=== PATIENT | male | born 1965 | race Caucasian/White ===

== ENCOUNTER 2022-10-21 10:01 | Observation (INO) | payer OTHER ==
[2022-10-21] MEDS ORDERED: SODIUM CHLORIDE 0.9% 1,000 ML IV STA (10:37)
[2022-10-21] MEDS ORDERED: ASPIRIN 325 MG TAB PO STA (10:38)
--- NOTE | 2022-10-21 10:49 | ED ---
Chest Pain HPI - General Chief Complaint: Chest Pain Stated Complaint: Chest Pain,SOB Time Seen by Provider: 10/21/22 10:37 Source: patient Mode of arrival: ambulatory Limitations: no limitations - History of Present Illness Initial Comments: Patient is a 57-year-old male who presents to the emergency department for shortness of breath. It started around 3 AM today. Patient feels short of breath at rest. He reports mild chest tightness. No precipitating, alleviating, or exacerbating factors. No numbness or tingling. No nausea or vomiting. No calf pain or swelling. No fever, chills, cough. He has history of hypertension, diabetes, atrial fibrillation. He admits to noncompliance with Eliquis. He denies history of DVT and PE. Denies hormone replacement, airplane travel, surgical interventions, known cancers, family history of clotting. He is a tobacco user. He does admit to recent long car ride travel approximately 6 hours on 2 different occasions over the past couple weeks. Patient also complains of foot pain and swelling after dropping wood on it 3 weeks ago. Patient did not get injury evaluated he has been walking on it with minimal pain. States the injury has not caused any immobilization. - Related Data Home Medications Medication Instructions Recorded Confirmed Apixaban [Eliquis] 5 mg PO BID 10/21/22 10/21/22 Aspirin 81 mg PO DAILY 10/21/22 10/21/22 Atorvastatin Calcium [Lipitor] 40 mg PO DAILY 10/21/22 10/21/22 Insulin Glargine [Lantus Vial] 20 unit SQ QAM 10/21/22 10/21/22 Insulin Regular [HumuLIN R] See Protocol SQ AC-TID 10/21/22 10/21/22 Lisinopril-Hctz 20-25 mg 1 tab PO DAILY 10/21/22 10/21/22 [Zestoretic 20-25] Metoprolol Succinate [Toprol XL] 50 mg PO DAILY 10/21/22 10/21/22 glipiZIDE [Glucotrol] 10 mg PO BID 10/21/22 10/21/22 metFORMIN HCL [Glucophage] 1,000 mg PO BID 10/21/22 10/21/22 Allergies Allergy/AdvReac Type Severity Reaction Status Date / Time No Known Allergies Allergy Verified 10/21/22 11:55 Review of Systems ROS Statement: Those systems with pertinent positive or pertinent negative responses have been documented in the HPI. ROS Other: All systems not noted in ROS Statement are negative. Past Medical History Past Medical History: Diabetes Mellitus, Hypertension History of Any Multi-Drug Resistant Organisms: None Reported Past Psychological History: No Psychological Hx Reported Smoking Status: Current every day smoker Past Alcohol Use History: Occasional Past Drug Use History: None Reported General Exam Limitations: no limitations General appearance: alert, other (mild increased work of breathing ) Respiratory exam: Present: normal lung sounds bilaterally. Absent: respiratory distress, wheezes, rales, rhonchi, stridor Cardiovascular Exam: Present: regular rate, normal rhythm, normal heart sounds. Absent: systolic murmur, diastolic murmur, rubs, gallop, clicks Extremities exam: Present: other (Mild swelling and erythema of left foot near first metatarsal. DP 2+. Sensation intact full range of motion) Course Vital Signs 10/21/22 10/21/22 10/21/22 10:06 10:39 12:12 Temperature 97.8 F Pulse Rate 80 73 Respiratory 22 19 16 Rate Blood Pressure 148/97 130/91 O2 Sat by Pulse 98 95 Oximetry Procedures - Orthopedic Splinting/Casting Injury #1 Lower Extremity Immobilizer: posterior splint Chest Pain MDM - [facility] EKG taken at 10:14, interpreted myself Sinus rhythm, no ST segment or T-wave abnormality Ventricular rate 76, OH interval 174, QRS duration 95, QTC 438 Was pt. sent in by a medical professional or institution (, [facility], APPLIED RESEARCHER, urgent care, hospital, or retirement...) When possible be specific @ -No Did you speak to anyone other than the patient for history (EMS, parent, family, police, friend...)? What history was obtained from this source @ -No Did you review nursing and triage notes (agree or disagree)? Why? @ -I reviewed and agree with nursing and triage notes Were old charts reviewed (outside hosp., previous admission, EMS record, old EKG, old radiological studies, urgent care reports/EKG's, retirement records)? Report findings @ -No old charts were reviewed Differential Diagnosis (chest pain, altered mental status, abdominal pain women, abdominal pain men, vaginal bleeding, weakness, fever, dyspnea, syncope, headache, dizziness, GI bleed, back pain, seizure, CVA, palpatations, mental health)? @ -Differential Dyspnea: Coronary syndrome, arrhythmia, tamponade, asthma, COPD, pulmonary embolism, pneumonia, pneumothorax, pulmonary effusion, anaphylaxis, diabetic ketoacidosis, flailed chest, pulmonary contusion, diaphragmatic rupture, anemia, neuromuscular, this is not meant to be an all-inclusive list. EKG interpreted by me (3pts min.). @ -As above X-rays interpreted by me (1pt min.). @ -X-ray shows no acute cardiopulmonary process. Left foot x-ray shows fracture of left first metatarsal which is displaced CT interpreted by me (1pt min.). @ -Few small scattered filling defects within second third order branches of the upper lobe pulmonary artery small pulmonary emboli difficult to exclude. Scattered groundglass infiltrates with pleural effusion U/S interpreted by me (1pt. min.). @ -None done What testing was considered but not performed or refused? (CT, X-rays, U/S, labs)? Why? @ -None What meds were considered but not given or refused? Why? @ -None Did you discuss the management of the patient with other professionals (professionals i.e. , PA, APPLIED RESEARCHER, lab, RT, psych nurse, social worker clinical, department store general manager, teacher, global chief creative officer, case management manager)? Give summary @ -No Was smoking cessation discussed for >3mins.? @ -No Was critical care preformed (if so, how long)? @ -No Were there social determinants of health that impacted care today? How? (Homelessness, low income, unemployed, alcoholism, drug addiction, transportation, low edu. Level, literacy, decrease access to med. care, usp, rehab)? @ -No Was there de-escalation of care discussed even if they declined (Discuss DNR or withdrawal of care, Hospice)? DNR status @ -No What co-morbidities impacted this encounter? (DM, HTN, Smoking, COPD, CAD, Cance r, CVA, ARF, Chemo, Hep., AIDS, mental health diagnosis, sleep apnea, morbid obesity)? @ -None Was patient admitted / discharged? Hospital course, mention meds given and route, prescriptions, significant lab abnormalities, going to OR and other pertinent info. @ -Patient presenting for dyspnea and chest tightness. There patient is well-appearing there is mild increased work of breathing without use accessory muscles. Vitals are within acceptable limits. EKG interpreted by myself showing no evidence of acute ischemia. Troponin within normal limits. D-dimer is elevated 0.78. CT of the chest was obtained showing concern for small pulmonary emboli. There was also scattered groundglass infiltrates with pleural effusions. Clinical presenttation not consistent with pneumonia. Heparin ordered but after speaking with Dr. Wakefield the admitting attending I will defer treatment to him as he requests Eliquis instead of heparin. Patient admitted in stable condition. Orthopedic consult was also ordered due to left first metatarsal fracture with displacement patient is in posterior splint Undiagnosed new problem with uncertain prognosis? @ -No Drug Therapy requiring intensive monitoring for toxicity (Heparin, Nitro, Insulin, Cardizem)? @ -No Were any procedures done? @ -Yes, splinting Diagnosis/symptom? @Dyspnea, left first metatarsal fracture Acute, or Chronic, or Acute on Chronic? @ -Acute Uncomplicated (without systemic symptoms) or Complicated (systemic symptoms)? @ -default Side effects of treatment? @ -No Exacerbation, Progression, or Severe Exacerbation? @ -No Poses a threat to life or bodily function? How? (Chest pain, [place], [place], pneumonia, PE, COPD, DKA, ARF, appy, cholecystitis, CVA, Diverticulitis, Homicidal, Suicidal, threat to staff... and all critical care pts) @ -Yes Dr. Galdamez is my attending. Disposition Clinical Impression: Dyspnea, Metatarsal fracture Disposition: ADMITTED IP TO THIS HOSP Condition: Stable
[2022-10-21 11:00] LABS: Basophils % (A) 0 %; Eosinophils # (A) 0.2 k/uL (0-0.7); Eosinophils % (A) 2 %; HCT 40.1 % (39.0-53.0); HGB 13.3 gm/dL (13.0-17.5); Lymphocytes # (A) 1.8 k/uL (1.0-4.8); Lymphocytes % (A) 20 %; MCH 30.1 pg (25.0-35.0); MCHC 33.2 g/dL (31.0-37.0); MCV 90.5 fL (80.0-100.0); Mean Platelet Volume 8.6; Monocytes # (A) 0.7 k/uL (0-1.0); Monocytes % (A) 7 %; Neutrophils # (A) 6.2 k/uL (1.3-7.7); Neutrophils % (A) 68 %; Platelet Count 246 k/uL (150-450); RBC 4.43 m/uL (4.30-5.90); RDW 13.9 % (11.5-15.5); WBC 9.1 k/uL (3.8-10.6)
--- NOTE | 2022-10-21 11:05 | XR ---
EXAMINATION TYPE: XR chest 2V DATE OF EXAM: 10/21/2022 COMPARISON: NONE HISTORY: Shortness of breath TECHNIQUE: Frontal and lateral views of the chest are obtained. FINDINGS: Scattered senescent parenchymal changes noted. Hyperinflation compatible with COPD. No evidence for infiltrate. No evidence for atelectasis. Heart size is mildly enlarged. Mediastinal structures are stable and grossly unremarkable. No evidence for hilar prominence. Degenerative changes dorsal spine. IMPRESSION: 1. No evidence for acute pulmonary disease.
--- NOTE | 2022-10-21 11:07 | XR ---
EXAMINATION TYPE: XR foot complete LT DATE OF EXAM: 10/21/2022 CLINICAL HISTORY: pain TECHNIQUE: Frontal, lateral and oblique images of the left foot are obtained. COMPARISON: None. FINDINGS: Displaced fracture involving the diaphysis of the proximal one third of the left first meta tarsal. Displacement of approximately 5.3 mm. No additional fractures are seen at this time. There is soft tissue swelling noted. Joint spaces are well preserved. IMPRESSION: Fracture of the left first metatarsal as discussed above.
[2022-10-21 11:16] LABS: ALT 41 U/L (4-49); AST 28 U/L (17-59); African American GFR (CKD) >90 (>60 ml/min/1.73 sqM); Albumin 3.8 g/dL (3.5-5.0); Alkaline Phosphatase 124 U/L (38-126); Anion Gap 8 mmol/L; Blood Urea Nitrogen 31 mg/dL (9-20); Calcium 8.9 mg/dL (8.4-10.2); Carbon Dioxide 23 mmol/L (22-30); Chloride 108 mmol/L (98-107); Glucose 205 mg/dL (74-99); Lipase 90 U/L (23-300); Non-African American GFR(CKD) >90 (>60 ml/min/1.73 sqM); Potassium 3.9 mmol/L (3.5-5.1); Sodium 139 mmol/L (137-145); Total Bilirubin 0.4 mg/dL (0.2-1.3); Total Protein 6.7 g/dL (6.3-8.2)
[2022-10-21 11:42] LABS: INR 0.9 (<1.2); Partial Thromboplastin Time 23.4 sec (22.0-30.0); Prothrombin Time 9.8 sec (9.0-12.0)
[2022-10-21 12:02] LABS: Appearance,Urine Clear (Clear); Bilirubin,Urine Negative (Negative); Blood,Urine Negative (Negative); Color,Urine Yellow; Glucose,Urine (UA) 3+ (Negative); Ketones,Urine Negative (Negative); Leukocyte Esterase,Urine Negative (Negative); Nitrite,Urine Negative (Negative); PH, Urine 5.5 (5.0-8.0); Protein,Urine Negative (Negative); Specific Gravity,Urine 1.022 (1.001-1.035); Urobilinogen,Urine <2.0 mg/dL (<2.0)
--- NOTE | 2022-10-21 14:08 | CT ---
EXAMINATION TYPE: CT chest angio for PE DATE OF EXAM: 10/21/2022 COMPARISON: None HISTORY: SOB, chest pain CT DLP: 936.9 mGycm CONTRAST: CT chest with contrast and 3D reconstruction with MIP imaging is performed with IV Contrast, patient injected with 100 mL of Isovue 370. Contrast-enhanced CT of the chest was performed through the course of the pulmonary arteries with armando g and mediastinal window settings submitted. 3D reconstruction with MIP imaging was also performed. PULMONARY ARTERIES: There are few small scattered filling defects within second and third order branc hes of the upper lobe pulmonary arteries. Small pulmonary emboli are difficult to exclude. There is n o evidence for sagittal embolus or large central embolus. LUNGS: Patient breathing motion artifact limits evaluation. There are small bilateral pleural effusi ons with diffuse scattered groundglass infiltrates with could be related to edema or acute pulmonary inflammatory process. MEDIASTINUM: Thoracic aorta is of normal caliber. The heart is mildly enlarged. No evidence for med iastinal mass. No mediastinal lymph nodes greater than 1cm. HILAR STRUCTURES: No evidence for mass. No hilar lymph nodes greater than 1 cm. UPPER ABDOMEN: No significant abnormality is seen. IMPRESSION: 1. There are few small scattered filling defects within second and third order branches of the upper lobe pulmonary arteries. Small pulmonary emboli are difficult to exclude. There is no evidence for s agittal embolus or large central embolus. 2. Scattered groundglass infiltrates with pleural effusions. Correlate for acute edema or pulmonary i nflammatory process.
[2022-10-21] MEDS ORDERED: HEPARIN SODIUM 1,000 UN/ML (10ML VL) IV ONE (14:25)
[2022-10-21] MEDS ORDERED: HEPARIN SODIUM 1,000 UN/ML (10ML VL) IV PRN (14:25)
[2022-10-21] MEDS ORDERED: HEPARIN SOD,PORK IN 0.45% NACL 25,000 UNIT in 0.45% NACL 1 250ML.BAG IV SCH (14:30)
[2022-10-21] MEDS ORDERED: NALOXONE 0.4 MG/ML 1 ML VIAL IV PRN (14:39)
[2022-10-21] MEDS: APIXABAN 5 MG TAB PO SCH ×2 (14:58→20:37)
[2022-10-21] MEDS ORDERED: DEXTROSE 50% SYRINGE 50 ML IVP PRN ×2 (15:40)
[2022-10-21] MEDS: SODIUM CHLORIDE 0.9% 1,000 ML IV SCH (15:44)
--- NOTE | 2022-10-21 16:18 | P.HPIM ---
History of Present Illness H&P Date: 10/21/22 Patient is a 57-year-old male with history of atrial fibrillation on Eliquis, medication noncompliance, dyslipidemia, type 2 diabetes, insulin-dependent, presenting with shortness of breath. He claims that his shortness of breath has been going on for almost one year. However, his dyspnea worsened this morning. He is unsure if he has any chest tightness or chest pain with dyspnea. He denies any pleuritic pain. He denies any orthopnea, PND, long flights, sick contacts, fevers, chills, abdominal pain, nausea, vomiting, or urinary complaints. He did drop a log on his left foot 4 weeks ago, and has been noticing some foot swelling. He has not gotten any x-rays or imaging for the foot. He currently only takes Eliquis once a day. In the ED, temperature was 97.8, pulse 80, respiratory rate 22, blood pressure 148/97, saturating at 90% on room air. EKG showed normal sinus rhythm. Chest x-ray showed no acute process. Laboratory workup showed WBC 9.1, hemoglobin 13.3, sodium 139, chloride 108, creatinine 0.67, glucose 205, troponin negative, d-dimer 0.78. Chest CTA showed a few small scattered filling defects within second and third order branches of the upper lobe pulmonary arteries, small pulmonary emboli difficult to exclude, scattered groundglass infiltrates with pleural effusions. Left foot x-ray shows fracture of the left first metatarsal. Patient being admitted for chest pain likely secondary to pulmonary embolism, and left foot fracture. Pertinent positives and negatives as discussed in HPI, a complete review of systems was performed and all other systems are negative. Patient seen and examined at bedside. Vital signs reviewed General: nontoxic, no distress, appears at stated age, morbidly obese Derm: warm, dry Head: atraumatic, normocephalic, symmetric Eyes: EOMI, no lid lag, anicteric sclera, pupils equal round reactive to light ENT: Nose and ears atraumatic Neck: No thyromegaly, supple Mouth: no lip lesion, mucus membranes moist Cardiovascular: S1S2 reg, no murmur, no edema Lungs: clear to auscultation bilateral, no rhonchi, no rales, no wheeze, no accessory muscle use Abdominal: soft, nontender to palpation, no guarding, no appreciable organomegaly Ext: no gross muscle atrophy, muscle strength muscle strength 5 out of 5 in all 4 extremities, no contractures, left foot tenderness Neuro: CN II-XII grossly intact Psych: Alert, oriented, appropriate affect Assessment/Plan: Active: Dyspnea, likely multifactorial Suspected pulmonary emboli, non-massive Medication noncompliance History of atrial fibrillation Elevated d-dimer Left first metatarsal fracture, traumatic Insulin-dependent diabetes, hyperglycemia Nicotine dependence -Patient is noncompliant with medications, restarted Eliquis -Hemodynamically stable -Blood counts stable -Not requiring any oxygen -Concern for possible pulmonary hypertension, echocardiogram ordered -He may have component of restrictive lung disease as well, 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 Surrogate decision-maker: Father CODE STATUS: Full code DVT prophylaxis: Eliquis Anticipated discharge date: Pending clinical course Anticipated discharge place: Pending clinical course A total of 55 minutes was spent on the care of this complex patient more than 50% of the time was spent in counseling and care coordination. Past Medical History Past Medical History: Diabetes Mellitus, Hypertension History of Any Multi-Drug Resistant Organisms: None Reported Past Psychological History: No Psychological Hx Reported Smoking Status: Current every day smoker Past Alcohol Use History: Occasional Past Drug Use History: None Reported Medications and Allergies Home Medications Medication Instructions Recorded Confirmed Type Apixaban [Eliquis] 5 mg PO BID 10/21/22 10/21/22 History Aspirin 81 mg PO DAILY 10/21/22 10/21/22 History Atorvastatin Calcium [Lipitor] 40 mg PO DAILY 10/21/22 10/21/22 History Insulin Glargine [Lantus Vial] 20 unit SQ QAM 10/21/22 10/21/22 History Insulin Regular [HumuLIN R] See Protocol SQ AC-TID 10/21/22 10/21/22 History Lisinopril-Hctz 20-25 mg 1 tab PO DAILY 10/21/22 10/21/22 History [Zestoretic 20-25] Metoprolol Succinate [Toprol XL] 50 mg PO DAILY 10/21/22 10/21/22 History glipiZIDE [Glucotrol] 10 mg PO BID 10/21/22 10/21/22 History metFORMIN HCL [Glucophage] 1,000 mg PO BID 10/21/22 10/21/22 History Allergies Allergy/AdvReac Type Severity Reaction Status Date / Time No Known Allergies Allergy Verified 10/21/22 11:55 Physical Exam Vitals: Vital Signs Temp Pulse Resp BP Pulse Ox 10/21/22 12:12 73 16 130/91 95 10/21/22 10:39 19 10/21/22 10:06 97.8 F 80 22 148/97 98 Intake and Output 10/21/22 10/21/22 10/21/22 06:59 14:59 22:59 Other: Weight 136.078 kg Results CBC & Chem 7: 10/21/22 10:37 10/21/22 10:37 Labs: Abnormal Lab Results - Last 24 Hours (Table) 10/21/22 10/21/22 10/21/22 Range/Units 10:37 10:37 11:30 D-Dimer 0.78 H (<0.60) mg/L FEU Chloride 108 H (98-107) mmol/L BUN 31 H (9-20) mg/dL Glucose 205 H (74-99) mg/dL Urine Glucose (UA) 3+ H (Negative)
[2022-10-21 16:58] LABS: Glucose,Whole Blood 130 mg/dL (70-110)
[2022-10-21] MEDS: INSULIN ASPART (NovoLOG) 100 UNIT/ML VIAL SQ SCH ×2 (17:16→20:37)
[2022-10-21 20:31] LABS: Glucose,Whole Blood 187 mg/dL (70-110)
[2022-10-22] MEDS: SODIUM CHLORIDE 0.9% 1,000 ML IV SCH (00:27)
[2022-10-22 06:13] LABS: Glucose,Whole Blood 177 mg/dL (70-110)
[2022-10-22] MEDS: INSULIN ASPART (NovoLOG) 100 UNIT/ML VIAL SQ SCH ×3 (06:40→17:04)
[2022-10-22] MEDS ORDERED: INSULIN DETEMIR (LEVEMIR) 100 UNIT/ML SYR SQ SCH (07:00)
[2022-10-22] MEDS: APIXABAN 5 MG TAB PO SCH (07:58)
[2022-10-22] MEDS ORDERED: METOPROLOL SUCCINATE (ER) 50 MG TAB.ER.24H PO SCH (09:00)
[2022-10-22] MEDS ORDERED: ATORVASTATIN 40 MG TAB PO SCH (09:00)
[2022-10-22] MEDS ORDERED: ASPIRIN 81 MG PO SCH (09:00)
[2022-10-22] MEDS ORDERED: LISINOPRIL-HCTZ 20-25 MG 1 EACH TAB PO SCH (09:00)
--- NOTE | 2022-10-22 09:11 | P.CNOR ---
History of Present Illness - [facility] Consult date: 10/22/22 Requesting physician: Reyes Wakefield Consult reason: other (Left first metatarsal fracture) History of present illness: History of Presenting Illness Patient is a pleasant 57-year-old male who presents to the ER with shortness of breath and left foot swelling. Patient reports approx 4 weeks ago he was cutting wood and balanced a 15ft tree up on other stumps to begin cutting into logs and it rolled and fell onto his left foot. He did attempt to seek medical attention with [facility] and was told he needed a referral. Patient states he had no prior treatment or films. He does live at home with his family and is normally independent. Patient states he has borrowed his brothers walking boot periodically over the past few weeks. Patient does admit to being noncompliant with his medications. He does have a medical history of h ypertension, atrial fibrillation on Eliquis, dyslipidemia, type 2 diabetes, insulin-dependent. Patient denies any orthopedic history at this time. Patient seen and examined this morning. Patient is currently resting in bed. Left foot is elevated on pillow, splint is intact with ramos wrap. Patient does state that he has been ambulatory on LLE. Patient denies any pain at this time. He does report mild numbness and tingling to his left foot, but does state that this is normal for him. Review of Systems Pertinent positives and negatives as discussed in HPI, a complete review of systems was performed and all other systems are negative. Physical Examination Inspection: Negative for any open fractures, ecchymosis, significant erythema/ulcers. Sensation: Sensation is equal, symmetric, bilaterally intact throughout the upper and lower extremities Palpation: Tender to palpation of the left foot over the first metatarsal. Range of motion: Patient does have full range of motion bilateral upper and lo wer extremities on exam Motor: 5/5 in all major motor groups in the bilateral upper and lower extre mities Special tests: Negative Homans bilaterally. Negative Brad bilaterally. Negative clonus bilaterally. Neurovascular: Radial pulse intact, 2+ bilaterally. Cap refill under 3 seconds in digits upper extremities. Assessment and Plan Left foot xray demonstrates a displaced fracture involving the diaphysis of the proximal one third of the left first metatarsal. Displacement of approximately 5.3 mm. No additional fractures are seen at this time. There is soft tissue swelling noted. Joint spaces are well preserved. Left first metatarsal fracture, traumatic injury Multiple complex comorbidities At this time we do not recommend any emergent/urgent orthopedic surgical intervention. Patient will need to follow up with a security assurance specialist at discharge. Orthopedics is signing off at this time. Please do not hesitate to contact us for any further questions. 2. Appreciate medical management 3. Pain management - Continue with oral pain medications as needed 4. DVT prophylaxis - Eliquis per medicine 5. PT/OT - weightbearing as tolerated with a walker as needed. CAM walker boot script left in chart. Patient to wear at all times, not in shower. 6. Appreciate consult I reviewed and discussed this case with my attending Dr. Davis, whom has reviewed this chart and films and is in agreement with assessment and plan of care as outlined above. I have personally seen and examined the patient, performed the documentation and the assessment and plan as written. Number of minutes spent on the visit: 20m. Past Medical History Past Medical History: Atrial Fibrillation, Diabetes Mellitus, Hypertension History of Any Multi-Drug Resistant Organisms: None Reported Past Surgical History: No Surgical Hx Reported Past Psychological History: No Psychological Hx Reported Smoking Status: Current every day smoker Past Alcohol Use History: Occasional Past Drug Use History: None Reported Medications and Allergies Home Medications Medication Instructions Recorded Confirmed Type Apixaban [Eliquis] 5 mg PO BID 10/21/22 10/21/22 History Aspirin 81 mg PO DAILY 10/21/22 10/21/22 History Atorvastatin Calcium [Lipitor] 40 mg PO DAILY 10/21/22 10/21/22 History Insulin Glargine [Lantus Vial] 20 unit SQ QAM 10/21/22 10/21/22 History Insulin Regular [HumuLIN R] See Protocol SQ AC-TID 10/21/22 10/21/22 History Lisinopril-Hctz 20-25 mg 1 tab PO DAILY 10/21/22 10/21/22 History [Zestoretic 20-25] Metoprolol Succinate [Toprol XL] 50 mg PO DAILY 10/21/22 10/21/22 History glipiZIDE [Glucotrol] 10 mg PO BID 10/21/22 10/21/22 History metFORMIN HCL [Glucophage] 1,000 mg PO BID 10/21/22 10/21/22 History Allergies Allergy/AdvReac Type Severity Reaction Status Date / Time No Known Allergies Allergy Verified 10/21/22 11:55 Results - Labs Labs: Abnormal Lab Results - Last 24 Hours (Table) 10/21/22 10/21/22 10/21/22 Range/Units 10:37 10:37 11:30 D-Dimer 0.78 H (<0.60) mg/L FEU Chloride 108 H (98-107) mmol/L BUN 31 H (9-20) mg/dL Glucose 205 H (74-99) mg/dL POC Glucose (mg/dL) (70-110) mg/dL Urine Glucose (UA) 3+ H (Negative) 10/21/22 10/21/22 10/22/22 Range/Units 16:56 20:29 06:12 D-Dimer (<0.60) mg/L FEU Chloride (98-107) mmol/L BUN (9-20) mg/dL Glucose (74-99) mg/dL POC Glucose (mg/dL) 130 H 187 H 177 H (70-110) mg/dL Urine Glucose (UA) (Negative) H & H 10/21/22 Range/Units 10:37 Hgb 13.3 (13.0-17.5) gm/dL Hct 40.1 (39.0-53.0) % Coagulation 10/21/22 Range/Units 10:37 INR 0.9 (<1.2) Result Diagrams: 10/21/22 10:37 10/21/22 10:37
[2022-10-22 11:32] LABS: Glucose,Whole Blood 259 mg/dL (70-110)
[2022-10-22 11:35] LABS: Basophils # (A) 0.05 X 10*3/uL (0.00-0.10); Basophils % (A) 0.5 %; Eosinophils # (A) 0.19 X 10*3/uL (0.04-0.35); HCT 40.1 % (39.6-50.0); HGB 13.6 d/dL (12.0-15.0); Lymphocytes # (A) 2.05 X 10*3/uL (0.90-5.00); Lymphocytes % (A) 21.3 %; MCHC 33.9 d/dL (32.0-37.0); MCV 88.5 FL (80.0-97.0); Mean Platelet Volume 11.3 FL (9.5-12.2); Monocytes # (A) 0.82 X 10*3/uL (0.20-1.00); Monocytes % (A) 8.5 %; NRBC Per 100 WBC 0 X 10*3/uL (0.00-0.01); Neutrophils # (A) 6.45 X 10*3/uL (1.80-7.70); Platelet Count 260 X 10*3/uL (140-440); RBC 4.53 X 10*6/uL (4.40-5.60); RDW 13.7 % (11.5-14.5); WBC 9.63 X 10*3/uL (4.50-10.00)
--- NOTE | 2022-10-22 13:03 | P.PN ---
Subjective Progress Note Date: 10/22/22 Hospital Course: 57-year-old male with history of atrial fibrillation on Eliquis, medication noncompliance, dyslipidemia, type 2 diabetes, insulin-dependent, presenting with shortness of breath. In the ED, temperature was 97.8, pulse 80, respiratory rate 22, blood pressure 148/97, saturating at 90% on room air. EKG showed normal sinus rhythm. Chest x-ray showed no acute process. Laboratory workup showed WBC 9.1, hemoglobin 13.3, sodium 139, chloride 108, creatinine 0.67, glucose 205, troponin negative, d-dimer 0.78. Chest CTA showed a few small scattered filling defects within second and third order branches of the upper lobe pulmonary arteries, small pulmonary emboli difficult to exclude, scattered groundglass infiltrates with pleural effusions. Left foot x-ray shows fracture of the left first metatarsal. Patient being admitted for dyspnea, likely multifactorial, suspected pulmonary embolism, and left foot fracture. Subjective: Patient seen and examined at bedside. No acute events overnight. He claims that his dyspnea is still about the same. Pertinent positives and negatives as discussed above, a complete review of systems was performed and all other systems are negative. Vitals Signs Reviewed. General: nontoxic, no distress, appears at stated age, morbidly obese Derm: warm, dry Head: atraumatic, normocephalic, symmetric Eyes: EOMI, no lid lag, anicteric sclera, pupils equal round reactive to light ENT: Nose and ears atraumatic Neck: No thyromegaly, supple Mouth: no lip lesion, mucus membranes moist Cardiovascular: S1S2 reg, no murmur, no edema Lungs: clear to auscultation bilateral, no rhonchi, no rales, no wheeze, no accessory muscle use Abdominal: soft, nontender to palpation, no guarding, no appreciable organomegaly Ext: no gross muscle atrophy, muscle strength muscle strength 5 out of 5 in all 4 extremities, no contractures, left foot tenderness Neuro: CN II-XII grossly intact Psych: Alert, oriented, appropriate affect Data Reviewed Today: Pertinent Labs: WBC 9.63, hemoglobin 13.6, glucose range between 130 to 259, hemoglobin A1c 8.3, troponin negative Imaging: No new imaging today Assessment and Plan: Dyspnea, likely multifactorial Suspected pulmonary emboli, non-massive Medication noncompliance History of atrial fibrillation Elevated d-dimer Left first metatarsal fracture, traumatic Insulin-dependent diabetes, hyperglycemia Nicotine dependence -On Eliquis -Not requiring any oxygen -Concern for possible pulmonary hypertension, echocardiogram still pending -He may have component of restrictive lung disease as well, 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 as morbid obesity -Telemetry -Orthopedic surgery note review, no acute interventions, CAM walker boot prescription provided, patient to see a football scout outpatient -Glargine 20 units, sliding scale insulin -Counseled regarding cessation of smoking Chronic: Dyslipidemia Hypertension DVT ppx: Eliquis Code status: Full code Anticipated discharge place: Home Anticipated discharge time: Today or tomorrow Objective - Vital Signs Vital signs: Vital Signs Temp 97.9 F 10/22/22 06:54 Pulse 74 10/22/22 06:54 Resp 16 10/22/22 06:54 BP 154/91 10/22/22 06:54 Pulse Ox 95 10/22/22 07:44 FiO2 21 10/22/22 07:44 Intake & Output 10/21/22 10/22/22 10/22/22 18:59 06:59 18:59 Weight 136.078 kg 136.078 kg Other: # Voids 2 - Labs CBC & Chem 7: 10/22/22 06:56 10/21/22 10:37 Labs: Abnormal Lab Results - Last 24 Hours (Table) 10/21/22 10/21/22 10/22/22 Range/Units 16:56 20:29 06:12 POC Glucose (mg/dL) 130 H 187 H 177 H (70-110) mg/dL Hemoglobin A1c (<=6.0) % 10/22/22 10/22/22 Range/Units 06:56 11:31 POC Glucose (mg/dL) 259 H (70-110) mg/dL Hemoglobin A1c 8.3 H (<=6.0) %
--- NOTE | 2022-10-22 13:22 | CA ---
Transthoracic Echo Report Name: Jez Rogel Age: 57 Gender: M : 1965 Exam Date: 10/22/2022 08:20 Exam Location: [place] [facility] Ht (in): 74 Wt (lb): 300 Ordering Physician: Reyes Wakefield MD Attending/Referring Phys: Mangle Catcher Lashae Vera [facility] Procedure CPT: Indications: dyspnea Cardiac Hx: Technical Quality: Technically difficult study Contrast 1: Lumason Total Dose (mL): 5 Contrast 2: Total Dose (mL): MEASUREMENTS (Male / Female) Normal Values 2D ECHO LV Diastolic Diameter PLAX 5.4 cm 4.2 - 5.9 / 3.9 - 5.3 cm LV Systolic Diameter PLAX 4.1 cm IVS Diastolic Thickness 0.9 cm 0.6 - 1.0 / 0.6 - 0.9 cm LVPW Diastolic Thickness 1.0 cm 0.6 - 1.0 / 0.6 - 0.9 cm LV Relative Wall Thickness 0.3 M-MODE Aortic Root Diameter MM 5.6 cm LA Systolic Diameter MM 2.4 cm LA Ao Ratio MM 0.4 AV Cusp Separation MM 2.6 cm DOPPLER AV Peak Velocity 155.1 cm/s AV Peak Gradient 9.6 mmHg AV Mean Velocity 115.7 cm/s AV Mean Gradient 5.8 mmHg AV Velocity Time Integral 33.2 cm LVOT Peak Velocity 109.0 cm/s LVOT Peak Gradient 4.8 mmHg LVOT Velocity Time Integral 19.8 cm Mitral E Point Velocity 94.5 cm/s Mitral A Point Velocity 75.8 cm/s Mitral E to A Ratio 1.2 MV Deceleration Time 267.8 ms LV E' Lateral Velocity 10.0 cm/s Mitral E to LV E' Lateral Ratio 9.5 LV E' Septal Velocity 9.1 cm/s Mitral E to LV E' Septal Ratio 10.4 TR Peak Velocity 295.2 cm/s TR Peak Gradient 34.8 mmHg Right Atrial Pressure 8.0 mmHg Pulmonary Artery Systolic Pressu 42.8 mmHg Right Ventricular Systolic Press 42.8 mmHg FINDINGS Left Ventricle Normal wall thickness, systolic function with no obvious regional wall motion abnormalities. Left ventricular ejection fraction is estimated at 55%. Mild left ventricular dilatation. Right Ventricle Mild right ventricular dilatation. Moderate pulmonary hypertension. Right Atrium Mild right atrial dilatation. Left Atrium Moderate left atrial dilatation. Mitral Valve Structurally normal mitral valve. Brac-sf-urdwppit mitral regurgitation. Aortic Valve Aortic valve not well visualized. Trace aortic regurgitation. No aortic stenosis. Tricuspid Valve Tricuspid valve not well visualized. Mild tricuspid regurgitation. Pulmonic Valve Pulmonic valve not well visualized. Trace pulmonic regurgitation. Pericardium No pericardial effusion. Aorta Mild aortic dilatation at the level of the sinuses of valsalva (root). CONCLUSIONS Left ventricular ejection fraction 55% RVSP 42 Mild to moderate mitral regurgitation Moderate left atrial dilation Mild tricuspid regurgitation No pericardial effusion Previewed by: Dr. David Lentz DO (Electronically Signed) Final Date: 22 October 2022 13:21
[2022-10-22 14:58] VITALS: BP 165/98; PULSE 70; RESP 17; TEMP 98.6
[2022-10-22 16:21] LABS: Glucose,Whole Blood 262 mg/dL (70-110)
--- NOTE | 2022-10-22 16:42 | P.PN ---
Subjective Progress Note Date: 10/22/22 Discharge Diagnosis: Dyspnea, likely multifactorial Suspected pulmonary emboli, non-massive Medication noncompliance History of atrial fibrillation Elevated d-dimer Pulmonary hypertension Left first metatarsal fracture, traumatic Insulin-dependent diabetes, hyperglycemia Nicotine dependence Hospital Course: 57-year-old male with history of atrial fibrillation on Eliquis, medication noncompliance, dyslipidemia, type 2 diabetes, insulin-dependent, presenting with shortness of breath. In the ED, temperature was 97.8, pulse 80, respiratory rate 22, blood pressure 148/97, saturating at 90% on room air. EKG showed normal sinus rhythm. Chest x-ray showed no acute process. Laboratory workup showed WBC 9.1, hemoglobin 13.3, sodium 139, chloride 108, creatinine 0.67, glucose 205, troponin negative, d-dimer 0.78. Chest CTA showed a few small scattered filling defects within second and third order branches of the upper lobe pulmonary arteries, small pulmonary emboli difficult to exclude, scattered groundglass infiltrates with pleural effusions. Left foot x-ray shows fracture of the left first metatarsal. Patient being admitted for dyspnea, likely multifactorial, suspected pulmonary embolism, and left foot fracture. Echocardiogram showed LVEF 55%, RVSP 42, moderate pulmonary hypertension, mild to moderate MR, mild tricuspid regurgitation. He needs further workup for chronic dyspnea as well as also pulmonary hypertension. Differentials include chronic thromboembolic disease, interstitial disease, restrictive lung disease from morbid obesity, or primary pulmonary arterial hypertension. He will follow-up with pulmonology. He will also follow up with orthopedic surgery, and will likely need a footwear machinery instructor in the future. Patient was already on Eliquis, but noncompliant, counseled regarding taking medication on time. Patient seen and examined at bedside. Vital signs reviewed and stable. General: nontoxic, no distress, appears at stated age, morbidly obese Derm: warm, dry Head: atraumatic, normocephalic, symmetric Eyes: EOMI, no lid lag, anicteric sclera, pupils equal round reactive to light ENT: Nose and ears atraumatic Neck: No thyromegaly, supple Mouth: no lip lesion, mucus membranes moist Cardiovascular: S1S2 reg, no murmur, no edema Lungs: clear to auscultation bilateral, no rhonchi, no rales, no wheeze, no accessory muscle use Abdominal: soft, nontender to palpation, no guarding, no appreciable organomegaly Ext: no gross muscle atrophy, muscle strength muscle strength 5 out of 5 in all 4 extremities, no contractures, left foot tenderness Neuro: CN II-XII grossly intact Psych: Alert, oriented, appropriate affect A total of 36 minutes of time were spent preparing this complex discharge summary. Patient was discharged on 10/22/22 1631. Objective - Vital Signs Vital signs: Vital Signs Temp 98.6 F 10/22/22 14:34 Pulse 70 10/22/22 14:34 Resp 17 10/22/22 14:34 BP 165/98 10/22/22 14:34 Pulse Ox 95 10/22/22 14:34 FiO2 21 10/22/22 07:44 Intake & Output 10/21/22 10/22/22 10/22/22 18:59 06:59 18:59 Weight 136.078 kg 136.078 kg Other: # Voids 2 - Labs CBC & Chem 7: 10/22/22 06:56 10/21/22 10:37 Labs: Abnormal Lab Results - Last 24 Hours (Table) 10/21/22 10/21/22 10/22/22 Range/Units 16:56 20:29 06:12 POC Glucose (mg/dL) 130 H 187 H 177 H (70-110) mg/dL Hemoglobin A1c (<=6.0) % 10/22/22 10/22/22 10/22/22 Range/Units 06:56 11:31 16:20 POC Glucose (mg/dL) 259 H 262 H (70-110) mg/dL Hemoglobin A1c 8.3 H (<=6.0) %
== END 2022-10-22 17:34 | disposition home or self-care (01) ==
LOC: EC 10:01 → INTOOBSV 14:41 → 4SSUR 14:41
PROVIDERS: ADMIT Student in an Organized Health Care Education/Training Program; ATTEND Student in an Organized Health Care Education/Training Program
DX: S92.312A Displaced fracture of first metatarsal bone, left foot, initial encounter for closed fracture (principal); J90 Pleural effusion, not elsewhere classified; I26.99 Other pulmonary embolism without acute cor pulmonale; E11.9 Type 2 diabetes mellitus without complications; E66.01 Morbid (severe) obesity due to excess calories; I27.20 Pulmonary hypertension, unspecified; E78.5 Hyperlipidemia, unspecified; I48.91 Unspecified atrial fibrillation; F17.200 Nicotine dependence, unspecified, uncomplicated; I11.9 Hypertensive heart disease without heart failure; I08.3 Combined rheumatic disorders of mitral, aortic and tricuspid valves; I37.1 Nonrheumatic pulmonary valve insufficiency; Z91.148 Patient's other noncompliance with medication regimen for other reason; Z79.82 Long term (current) use of aspirin; Z79.4 Long term (current) use of insulin; Z79.84 Long term (current) use of oral hypoglycemic drugs; Z68.36 Body mass index [BMI] 36.0-36.9, adult; Z79.01 Long term (current) use of anticoagulants; Z79.899 Other long term (current) drug therapy; W20.8XXA Other cause of strike by thrown, projected or falling object, initial encounter
CPT/HCPCS: 29515; 96361; 96374; 99285; 36415; 94760; 93005; 85379; 80053; 83690; 83735; 84484; 85025 ×2; 85610; 85730; 81003; 83036; 73630; 71046; 71275; G0378 ×2; C8929; J1644; Q9950; Q9967; 93306

== ENCOUNTER 2023-07-14 15:13 | Inpatient (IN) | payer OTHER ==
--- NOTE | 2023-07-14 15:44 | ED ---
General Adult HPI - General Chief complaint: Shortness of Breath Stated complaint: AFIB Time Seen by Provider: 07/14/23 15:25 Source: patient, EMS, RN notes reviewed, old records reviewed Mode of arrival: EMS Limitations: altered mental status (patient is a poor very poor historian) - History of Present Illness Initial comments: This is a 57-year-old male who presents to the emergency department with multiple complaints and very tangential thinking. Patient able to converse but unable to articulate why he specifically came in. Patient states he was a drinker up until about 2 weeks ago and stopped drinking and since then he has not been getting much to eat or drink because he cannot get up because his foot got a wound on his second toe of his left foot and he gets up and any falls down. Patient denies any injury on the falls. Patient states he does have a history of atrial fibrillation. Patient states he is also feeling short of breath sometimes. Denies chest pain or back pain. Patient states the biggest problem however is the fact that he cannot stand and is wound is getting considerably worse on his foot. Patient states he does not think he is urinating much because he cannot drink any fluids. Patient states he is also diabetic. Patient later states that he doesn't think his drinking is causing any of this, he thinks it might be secondary to some poison being put in his water. - Related Data Home Medications Medication Instructions Recorded Confirmed Lisinopril-Hctz 20-25 mg 1 tab PO DAILY 10/21/22 07/14/23 [Zestoretic 20-25] metFORMIN HCL [Glucophage] 1,000 mg PO BID 10/21/22 07/14/23 Apixaban [Eliquis] 5 mg PO BID 01/23/23 07/14/23 Insulin Glargine,Hum.rec.anlog 20 - 25 units SQ DAILY 01/23/23 07/14/23 [Lantus Solostar Pen] Insulin Regular, Human [NovoLIN R 4 - 12 units SQ ACHS PRN 01/23/23 07/14/23 Flexpen] Previous Rx's Medication Instructions Recorded Metoprolol Succinate (ER) [Toprol 50 mg PO HS #30 tab 01/29/23 XL] Allergies Allergy/AdvReac Type Severity Reaction Status Date / Time No Known Allergies Allergy Verified 07/14/23 17:53 Review of Systems ROS Statement: Those systems with pertinent positive or pertinent negative responses have been documented in the HPI. ROS Other: All systems not noted in ROS Statement are negative. Past Medical History Past Medical History: Atrial Fibrillation, Diabetes Mellitus, Hypertension Additional Past Medical History / Comment(s): [place] History of Any Multi-Drug Resistant Organisms: None Reported Past Surgical History: No Surgical Hx Reported Past Psychological History: No Psychological Hx Reported Smoking Status: Current every day smoker Past Alcohol Use History: Occasional Past Drug Use History: None Reported - Past Family History Father Family Medical History: Diabetes Mellitus, Hypertension Mother Additional Family Medical History / Comment(s): "heart disease" General Exam - General Exam Comments Initial Comments: GENERAL: Patient is well-developed and well-nourished. Patient is nontoxic and well- hydrated and is in mild distress. ENT: Neck is soft and supple. No significant lymphadenopathy is noted. Oropharynx is clear. Dry mucous membranes. Neck has full range of motion without eliciting any pain. EYES: The sclera were anicteric and conjunctiva were pink and moist. Extraocular movements were intact and pupils were equal round and reactive to light. Eyelids were unremarkable. PULMONARY: Unlabored respirations. Good breath sounds bilaterally. No audible rales rhonchi or wheezing was noted. CARDIOVASCULAR: Patient is tachycardic at about 120 beats a minute and his heart rate is irregular ABDOMEN: Soft and nontender with normal bowel sounds. No area of tenderness even with deep palpation SKIN: Skin is clear with no lesions or rashes and otherwise unremarkable. Left second toe ulcerated and dusky. NEUROLOGIC: Patient is alert and oriented x3, but occasionally says something bizarre. Cranial nerves II through XII are grossly intact. Motor and sensory are also intact. Normal speech, volume and content. Symmetrical smile. MUSCULOSKELETAL: Patient has a large wound on the second left toe on the medial aspect almost circumferential. Patient's toe is dusky in appearance. No calf pain. Cap refill slightly slow on left foot, 3sec. Left leg equally as warm as right. LYMPHATICS: No significant lymphadenopathy is noted PSYCHIATRIC: Normal psychiatric evaluation. Limitations: no limitations Course Vital Signs 07/14/23 07/14/23 07/14/23 15:20 17:32 20:18 Temperature 97.4 F L Pulse Rate 131 H 126 H 120 H Respiratory 20 22 20 Rate Blood Pressure 151/88 125/97 134/96 O2 Sat by Pulse 94 L Oximetry Fraction of Inspired Oxygen (FIO2) 07/14/23 07/14/23 07/15/23 22:37 23:46 01:22 Temperature 99.6 F Pulse Rate 115 H 143 H Respiratory 22 24 Rate Blood Pressure 121/64 O2 Sat by Pulse 98 94 L Oximetry Fraction of 100 Inspired Oxygen (FIO2) 07/15/23 02:00 Temperature Pulse Rate Respiratory Rate Blood Pressure O2 Sat by Pulse Oximetry Fraction of 100 Inspired Oxygen (FIO2) Procedures - Sepsis Sepsis Focused Exam #1 Time Sepsis Criteria Met: 17:00 Sepsis Focused Exam Date: 07/14/23 Sepsis Focused Exam Time: 20:36 Sepsis Focused Exam Complete: Yes Vital Signs & RN Notes Reviewed: Yes Capillary Refill: < 2 Seconds: Fingers Peripheral Pulses: Normal: Radial (R) Skin Color: Normal for Patient, Flushed Respiratory Exam: normal lung sounds Cardiovascular Exam: tachycardia, irregular rhythm Medical Decision Making - Medical Decision Making EKG is interpreted by myself read EKG shows atrial fibrillation with rapid ventricular response at 135 bpm QRS is 97 QT interval is 322 QTc is 401. Patient's EKG shows no ST segment ovation or depression. Patient's ideal body weight is 101 kg Was pt. sent in by a medical professional or institution (LATIA Randolph, STATISTICAL REPORTING ANALYST, urgent care, hospital, or fci...) When possible be specific @ -No Did you speak to anyone other than the patient for history (EMS, parent, family, police, friend...)? What history was obtained from this source @ -No Did you review nursing and triage notes (agree or disagree)? Why? @ -I reviewed and agree with nursing and triage notes Were old charts reviewed (outside hosp., previous admission, EMS record, old EKG, old radiological studies, urgent care reports/EKG's, fci records)? Report findings @ -I reviewed prior charts and lab work on this patient Differential Diagnosis (chest pain, altered mental status, abdominal pain women, abdominal pain men, vaginal bleeding, weakness, fever, dyspnea, syncope, headache, dizziness, GI bleed, back pain, seizure, CVA, palpatations, mental health, musculoskeletal)? @ -Differential Dyspnea: Coronary syndrome, arrhythmia, tamponade, asthma, COPD, pulmonary embolism, pneumonia, pneumothorax, pulmonary effusion, anaphylaxis, diabetic ketoacidosis, flailed chest, pulmonary contusion, diaphragmatic rupture, anemia, neuromuscular, this is not meant to be an all-inclusive list. EKG interpreted by me (3pts min.). @ -As above X-rays interpreted by me (1pt min.). @ -Chest x-ray shows no acute normality x-ray of the foot shows no osteomyelitis CT interpreted by me (1pt min.). @ -None done U/S interpreted by me (1pt. min.). @ -None done What testing was considered but not performed or refused? (CT, X-rays, U/S, labs)? Why? @ -None What meds were considered but not given or refused? Why? @ -None Did you discuss the management of the patient with other professionals (professionals i.e. , PA, STATISTICAL REPORTING ANALYST, lab, RT, psych nurse, social media job titles, cable tool driller, teacher, mail officer, block and case maker)? Give summary @ -I spoke with [facility] hospitalist they agreed admit the patient admit the patient. Was smoking cessation discussed for >3mins.? @ -No Was critical care preformed (if so, how long)? @ -35 minutes Were there social determinants of health that impacted care today? How? (Homelessness, low income, unemployed, alcoholism, drug addiction, transportation, low edu. Level, literacy, decrease access to med. care, usp, rehab)? @ -No Was there de-escalation of care discussed even if they declined (Discuss DNR or withdrawal of care, Hospice)? DNR status @ -No What co-morbidities impacted this encounter? (DM, HTN, Smoking, COPD, CAD, Cancer, CVA, ARF, Chemo, Hep., AIDS, mental health diagnosis, sleep apnea, morbid obesity)? @ -None Was patient admitted / discharged? Hospital course, mention meds given and route, prescriptions, significant lab abnormalities, going to OR and other pertinent info. @ -Patient had an infected toe possibly osteomyelitis I started the patient on antibiotics immediately. Patient also was a heavy drinker his liver enzymes were elevated patient received 3 and half liters of fluid in the emergency department. Patient was dehydrated as well. Patient will be admitted to [facility] hospice I will consult infectious disease. I went back to reevaluate at 8:40pm. Patient was sleeping and aroused easily. Pt. stated feeling much better, no complaints of shortness of breath. Heart rate 113 pulse ox on room are 98% last BP 134/96. Undiagnosed new problem with uncertain prognosis? @ -No Drug Therapy requiring intensive monitoring for toxicity (Heparin, Nitro, Insulin, Cardizem)? @ -No Were any procedures done? @ -No Diagnosis/symptom? @ -Infected second left toe Acute, or Chronic, or Acute on Chronic? @ -Acute Uncomplicated (without systemic symptoms) or Complicated (systemic symptoms)? @ -Complicated Side effects of treatment? @ -No Exacerbation, Progression, or Severe Exacerbation? @ -No Poses a threat to life or bodily function? How? (Chest pain, [place], [place], pneumonia, PE, COPD, DKA, ARF, appy, cholecystitis, CVA, Diverticulitis, Homicidal, Suicidal, threat to staff... and all critical care pts) @ -This could lead to sepsis and endorgan dysfunction Diagnosis/symptom? @ -Sepsis Acute, or Chronic, or Acute on Chronic? @ -Acute Uncomplicated (without systemic symptoms) or Complicated (systemic symptoms)? @ -Complicated Side effects of treatment? @ -None Exacerbation, Progression, or Severe Exacerbation] @ -No Poses a threat to life or bodily function? @ -Yes this could lead to endorgan dysfunction Diagnosis/symptom? @ -Transaminitis Acute, or Chronic, or Acute on Chronic? @ -Acute Uncomplicated (without systemic symptoms) or Complicated (systemic symptoms)? @ -Complicated Side effects of treatment? @ -None Exacerbation, Progression, or Severe Exacerbation] @ -No Poses a threat to life or bodily function? @ -Yes this could lead to liver failure. Diagnosis/symptom? @ -Alcohol abuse Acute, or Chronic, or Acute on Chronic? @ -Chronic Uncomplicated (without systemic symptoms) or Complicated (systemic symptoms)? @ -Complicated Side effects of treatment? @ -None Exacerbation, Progression, or Severe Exacerbation] @ -No Poses a threat to life or bodily function? @ -Yes this could lead to complete liver failure - Lab Data Result diagrams: 07/15/23 05:45 07/15/23 06:00 Lab Results 07/14/23 07/14/23 07/14/23 Range/Units 16:15 16:15 16:15 WBC 10.8 H (3.8-10.6) k/uL RBC 5.43 (4.30-5.90) m/uL Hgb 14.8 (13.0-17.5) gm/dL Hct 47.4 (39.0-53.0) % MCV 87.4 (80.0-100.0) fL MCH 27.2 (25.0-35.0) pg MCHC 31.2 (31.0-37.0) g/dL RDW 18.7 H (11.5-15.5) % Plt Count 267 (150-450) k/uL MPV 8.8 Neutrophils % Not Reportable Neutrophils % (Manual) 72 % Lymphocytes % Not Reportable Lymphocytes % (Manual) 22 % Monocytes % Not Reportable Monocytes % (Manual) 6 % Eosinophils % Not Reportable Basophils % Not Reportable Neutrophils # Not Reportable Neutrophils # (Manual) 7.78 H (1.3-7.7) k/uL Lymphocytes # Not Reportable Lymphocytes # (Manual) 2.38 (1.0-4.8) k/uL Monocytes # Not Reportable Monocytes # (Manual) 0.65 (0-1.0) k/uL Eosinophils # Not Reportable Basophils # Not Reportable Nucleated RBCs 0 (0-0) /100 WBC Manual Slide Review Performed Hypochromasia Marked Anisocytosis Slight Anisocytosis (manual) Present PT 26.6 H (10.0-12.5) sec INR 2.7 H (<1.2) APTT 27.7 (22.0-30.0) sec Sodium (137-145) mmol/L Potassium (3.5-5.1) mmol/L Chloride (98-107) mmol/L Carbon Dioxide (22-30) mmol/L Anion Gap mmol/L BUN (9-20) mg/dL Creatinine (0.66-1.25) mg/dL Est GFR (CKD-EPI)AfAm (>60 ml/min/1.73 sqM) Est GFR (CKD-EPI)NonAf (>60 ml/min/1.73 sqM) Glucose (74-99) mg/dL POC Glucose (mg/dL) (70-110) mg/dL POC Glu Abrading Machine Tender ID Lactic Ac Sepsis Rflx Plasma Lactic Acid Shawn (0.7-2.0) mmol/L Calcium (8.4-10.2) mg/dL Magnesium (1.6-2.3) mg/dL Total Bilirubin (0.2-1.3) mg/dL AST (17-59) U/L ALT (4-49) U/L Alkaline Phosphatase (38-126) U/L Ammonia (<30) umol/L Troponin I (0.000-0.034) ng/mL NT-Pro-B Natriuret Pep pg/mL Total Protein (6.3-8.2) g/dL Albumin (3.5-5.0) g/dL Urine Color Dark Yellow Urine Appearance Clear (Clear) Urine pH 5.5 (5.0-8.0) Ur Specific Kenna 1.032 (1.001-1.035) Urine Protein 1+ H (Negative) Urine Glucose (UA) Negative (Negative) Urine Ketones Negative (Negative) Urine Blood Negative (Negative) Urine Nitrite Negative (Negative) Urine Bilirubin 1+ H (Negative) Urine Urobilinogen 3.0 (<2.0) mg/dL Ur Leukocyte Esterase Negative (Negative) Urine RBC 1 (0-5) /hpf Urine WBC 1 (0-5) /hpf Ur Squamous Epith Cells <1 (0-4) /hpf Urine Bacteria Rare H (None) /hpf Urine Mucus Few H (None) /hpf Serum Alcohol mg/dL Hepatitis A IgM Ab Hep Bs Antigen Hep B Core IgM Ab Hep C IgG Ab Influenza Type A (PCR) (Not Detectd) Influenza Type B (PCR) (Not Detectd) RSV (PCR) (Not Detectd) SARS-CoV-2 (PCR) (Not Detectd) 07/14/23 07/14/23 07/14/23 Range/Units 16:15 16:15 17:11 WBC (3.8-10.6) k/uL RBC (4.30-5.90) m/uL Hgb (13.0-17.5) gm/dL Hct (39.0-53.0) % MCV (80.0-100.0) fL MCH (25.0-35.0) pg MCHC (31.0-37.0) g/dL RDW (11.5-15.5) % Plt Count (150-450) k/uL MPV Neutrophils % Neutrophils % (Manual) % Lymphocytes % Lymphocytes % (Manual) % Monocytes % Monocytes % (Manual) % Eosinophils % Basophils % Neutrophils # Neutrophils # (Manual) (1.3-7.7) k/uL Lymphocytes # Lymphocytes # (Manual) (1.0-4.8) k/uL Monocytes # Monocytes # (Manual) (0-1.0) k/uL Eosinophils # Basophils # Nucleated RBCs (0-0) /100 WBC Manual Slide Review Hypochromasia Anisocytosis Anisocytosis (manual) PT (10.0-12.5) sec INR (<1.2) APTT (22.0-30.0) sec Sodium (137-145) mmol/L Potassium (3.5-5.1) mmol/L Chloride (98-107) mmol/L Carbon Dioxide (22-30) mmol/L Anion Gap mmol/L BUN (9-20) mg/dL Creatinine (0.66-1.25) mg/dL Est GFR (CKD-EPI)AfAm (>60 ml/min/1.73 sqM) Est GFR (CKD-EPI)NonAf (>60 ml/min/1.73 sqM) Glucose (74-99) mg/dL POC Glucose (mg/dL) (70-110) mg/dL POC Glu Abrading Machine Tender ID Lactic Ac Sepsis Rflx Y Plasma Lactic Acid Shawn 5.8 H* (0.7-2.0) mmol/L Calcium (8.4-10.2) mg/dL Magnesium (1.6-2.3) mg/dL Total Bilirubin (0.2-1.3) mg/dL AST (17-59) U/L ALT (4-49) U/L Alkaline Phosphatase (38-126) U/L Ammonia 11 (<30) umol/L Troponin I (0.000-0.034) ng/mL NT-Pro-B Natriuret Pep pg/mL Total Protein (6.3-8.2) g/dL Albumin (3.5-5.0) g/dL Urine Color Urine Appearance (Clear) Urine pH (5.0-8.0) Ur Specific Kenna (1.001-1.035) Urine Protein (Negative) Urine Glucose (UA) (Negative) Urine Ketones (Negative) Urine Blood (Negative) Urine Nitrite (Negative) Urine Bilirubin (Negative) Urine Urobilinogen (<2.0) mg/dL Ur Leukocyte Esterase (Negative) Urine RBC (0-5) /hpf Urine WBC (0-5) /hpf Ur Squamous Epith Cells (0-4) /hpf Urine Bacteria (None) /hpf Urine Mucus (None) /hpf Serum Alcohol mg/dL Hepatitis A IgM Ab Hep Bs Antigen Hep B Core IgM Ab Hep C IgG Ab Influenza Type A (PCR) Not Detected (Not Detectd) Influenza Type B (PCR) Not Detected (Not Detectd) RSV (PCR) Not Detected (Not Detectd) SARS-CoV-2 (PCR) Not Detected (Not Detectd) 07/14/23 07/14/23 07/14/23 Range/Units 18:06 18:11 18:11 WBC (3.8-10.6) k/uL RBC (4.30-5.90) m/uL Hgb (13.0-17.5) gm/dL Hct (39.0-53.0) % MCV (80.0-100.0) fL MCH (25.0-35.0) pg MCHC (31.0-37.0) g/dL RDW (11.5-15.5) % Plt Count (150-450) k/uL MPV Neutrophils % Neutrophils % (Manual) % Lymphocytes % Lymphocytes % (Manual) % Monocytes % Monocytes % (Manual) % Eosinophils % Basophils % Neutrophils # Neutrophils # (Manual) (1.3-7.7) k/uL Lymphocytes # Lymphocytes # (Manual) (1.0-4.8) k/uL Monocytes # Monocytes # (Manual) (0-1.0) k/uL Eosinophils # Basophils # Nucleated RBCs (0-0) /100 WBC Manual Slide Review Hypochromasia Anisocytosis Anisocytosis (manual) PT (10.0-12.5) sec INR (<1.2) APTT (22.0-30.0) sec Sodium 140 (137-145) mmol/L Potassium 5.5 H (3.5-5.1) mmol/L Chloride 107 (98-107) mmol/L Carbon Dioxide 18 L (22-30) mmol/L Anion Gap 15 mmol/L BUN 41 H (9-20) mg/dL Creatinine 0.91 (0.66-1.25) mg/dL Est GFR (CKD-EPI)AfAm >90 (>60 ml/min/1.73 sqM) Est GFR (CKD-EPI)NonAf >90 (>60 ml/min/1.73 sqM) Glucose 141 H (74-99) mg/dL POC Glucose (mg/dL) 106 (70-110) mg/dL POC Glu Abrading Machine Tender Marta Wu Lactic Ac Sepsis Rflx Plasma Lactic Acid Shawn (0.7-2.0) mmol/L Calcium 9.4 (8.4-10.2) mg/dL Magnesium 2.0 (1.6-2.3) mg/dL Total Bilirubin 3.6 H (0.2-1.3) mg/dL AST 1284 H (17-59) U/L ALT 572 H (4-49) U/L Alkaline Phosphatase 281 H (38-126) U/L Ammonia (<30) umol/L Troponin I 0.033 (0.000-0.034) ng/mL NT-Pro-B Natriuret Pep 3680 pg/mL Total Protein 7.0 (6.3-8.2) g/dL Albumin 3.2 L (3.5-5.0) g/dL Urine Color Urine Appearance (Clear) Urine pH (5.0-8.0) Ur Specific Kenna (1.001-1.035) Urine Protein (Negative) Urine Glucose (UA) (Negative) Urine Ketones (Negative) Urine Blood (Negative) Urine Nitrite (Negative) Urine Bilirubin (Negative) Urine Urobilinogen (<2.0) mg/dL Ur Leukocyte Esterase (Negative) Urine RBC (0-5) /hpf Urine WBC (0-5) /hpf Ur Squamous Epith Cells (0-4) /hpf Urine Bacteria (None) /hpf Urine Mucus (None) /hpf Serum Alcohol <10 mg/dL Hepatitis A IgM Ab Hep Bs Antigen Hep B Core IgM Ab Hep C IgG Ab Influenza Type A (PCR) (Not Detectd) Influenza Type B (PCR) (Not Detectd) RSV (PCR) (Not Detectd) SARS-CoV-2 (PCR) (Not Detectd) 07/14/23 07/14/23 07/14/23 Range/Units 19:00 19:58 20:22 WBC (3.8-10.6) k/uL RBC (4.30-5.90) m/uL Hgb (13.0-17.5) gm/dL Hct (39.0-53.0) % MCV (80.0-100.0) fL MCH (25.0-35.0) pg MCHC (31.0-37.0) g/dL RDW (11.5-15.5) % Plt Count (150-450) k/uL MPV Neutrophils % Neutrophils % (Manual) % Lymphocytes % Lymphocytes % (Manual) % Monocytes % Monocytes % (Manual) % Eosinophils % Basophils % Neutrophils # Neutrophils # (Manual) (1.3-7.7) k/uL Lymphocytes # Lymphocytes # (Manual) (1.0-4.8) k/uL Monocytes # Monocytes # (Manual) (0-1.0) k/uL Eosinophils # Basophils # Nucleated RBCs (0-0) /100 WBC Manual Slide Review Hypochromasia Anisocytosis Anisocytosis (manual) PT (10.0-12.5) sec INR (<1.2) APTT (22.0-30.0) sec Sodium (137-145) mmol/L Potassium (3.5-5.1) mmol/L Chloride (98-107) mmol/L Carbon Dioxide (22-30) mmol/L Anion Gap mmol/L BUN (9-20) mg/dL Creatinine (0.66-1.25) mg/dL Est GFR (CKD-EPI)AfAm (>60 ml/min/1.73 sqM) Est GFR (CKD-EPI)NonAf (>60 ml/min/1.73 sqM) Glucose (74-99) mg/dL POC Glucose (mg/dL) (70-110) mg/dL POC Glu Abrading Machine Tender ID Lactic Ac Sepsis Rflx Y Plasma Lactic Acid Shawn 6.8 H* (0.7-2.0) mmol/L Calcium (8.4-10.2) mg/dL Magnesium (1.6-2.3) mg/dL Total Bilirubin (0.2-1.3) mg/dL AST (17-59) U/L ALT (4-49) U/L Alkaline Phosphatase (38-126) U/L Ammonia (<30) umol/L Troponin I (0.000-0.034) ng/mL NT-Pro-B Natriuret Pep pg/mL Total Protein (6.3-8.2) g/dL Albumin (3.5-5.0) g/dL Urine Color Urine Appearance (Clear) Urine pH (5.0-8.0) Ur Specific Kenna (1.001-1.035) Urine Protein (Negative) Urine Glucose (UA) (Negative) Urine Ketones (Negative) Urine Blood (Negative) Urine Nitrite (Negative) Urine Bilirubin (Negative) Urine Urobilinogen (<2.0) mg/dL Ur Leukocyte Esterase (Negative) Urine RBC (0-5) /hpf Urine WBC (0-5) /hpf Ur Squamous Epith Cells (0-4) /hpf Urine Bacteria (None) /hpf Urine Mucus (None) /hpf Serum Alcohol mg/dL Hepatitis A IgM Ab Nonreactive Hep Bs Antigen Nonreactive Hep B Core IgM Ab Nonreactive Hep C IgG Ab Nonreactive Influenza Type A (PCR) (Not Detectd) Influenza Type B (PCR) (Not Detectd) RSV (PCR) (Not Detectd) SARS-CoV-2 (PCR) (Not Detectd) Critical Care Time Critical Care Time: Yes Total Critical Care Time: 35 Disposition Clinical Impression: Diabetic toe ulcer, Transaminitis, Alcohol abuse, Sepsis Disposition: ADMITTED IP TO THIS [facility] Time of Disposition: 20:37
[2023-07-14] MEDS: SODIUM CHLORIDE 0.9% 500 ML 500 ML IV SCH (16:09)
[2023-07-14 16:51] LABS: Anisocytosis Slight; HCT 47.4 % (39.0-53.0); HGB 14.8 gm/dL (13.0-17.5); Hypochromasia Marked; MCH 27.2 pg (25.0-35.0); MCHC 31.2 g/dL (31.0-37.0); MCV 87.4 fL (80.0-100.0); Mean Platelet Volume 8.8; Platelet Count 267 k/uL (150-450); RBC 5.43 m/uL (4.30-5.90); RDW 18.7 % (11.5-15.5); WBC 10.8 k/uL (3.8-10.6)
[2023-07-14 17:11] LABS: Lactic Acid, Venous 5.8 mmol/L (0.7-2.0)
[2023-07-14 17:17] LABS: INR 2.7 (<1.2); Partial Thromboplastin Time 27.7 sec (22.0-30.0); Prothrombin Time 26.6 sec (10.0-12.5)
[2023-07-14 17:20] LABS: Appearance,Urine Clear (Clear); Bacteria,Urine Rare /hpf; Bilirubin,Urine 1+ (Negative); Blood,Urine Negative (Negative); Color,Urine Dark Yellow; Glucose,Urine (UA) Negative (Negative); Ketones,Urine Negative (Negative); Leukocyte Esterase,Urine Negative (Negative); Mucus,Urine Few /hpf; Nitrite,Urine Negative (Negative); PH, Urine 5.5 (5.0-8.0); Protein,Urine 1+ (Negative); RBC,Urine 1 /hpf (0-5); Specific Gravity,Urine 1.032 (1.001-1.035); Squamous Epithelial Cell,Urine <1 /hpf (0-4); WBC,Urine 1 /hpf (0-5)
[2023-07-14] MEDS: PIPERACILLIN-TAZOBACTAM 3.375 GM in SODIUM CHLORIDE 0.9% 100 ML IVPB STA (17:28)
[2023-07-14 17:43] LABS: Lymphocytes # (M) 2.38 k/uL (1.0-4.8); Monocytes # (M) 0.65 k/uL (0-1.0); Neutrophils # (M) 7.78 k/uL (1.3-7.7); Neutrophils % (M) 72 %; Nucleated Red Blood Cells 0 /100 WBC (0-0); Total Cells Counted 100
[2023-07-14 17:44] LABS: Anisocytosis (M) Present
[2023-07-14 18:13] LABS: Glucose,Whole Blood 106 mg/dL (70-110)
[2023-07-14 19:26] LABS: ALT 572 U/L (4-49); African American GFR (CKD) >90 (>60 ml/min/1.73 sqM); Albumin 3.2 g/dL (3.5-5.0); Alcohol <10 mg/dL; Alkaline Phosphatase 281 U/L (38-126); Anion Gap 15 mmol/L; Blood Urea Nitrogen 41 mg/dL (9-20); Calcium 9.4 mg/dL (8.4-10.2); Carbon Dioxide 18 mmol/L (22-30); Chloride 107 mmol/L (98-107); Glucose 141 mg/dL (74-99); Non-African American GFR(CKD) >90 (>60 ml/min/1.73 sqM); Potassium 5.5 mmol/L (3.5-5.1); Sodium 140 mmol/L (137-145); Total Bilirubin 3.6 mg/dL (0.2-1.3)
[2023-07-14 19:33] LABS: NT-Pro-B-Type Natriuretic Pept 3680 pg/mL
[2023-07-14 19:34] LABS: AST 1284 U/L (17-59)
--- NOTE | 2023-07-14 19:42 | XR ---
EXAMINATION TYPE: XR chest 2V DATE OF EXAM: 07/14/2023 7:01 PM CLINICAL INDICATION:Male, 57 years old with history of Fever; H COMPARISON: Chest radiographs from and 01/23/2023 TECHNIQUE: XR chest 2V Frontal and lateral views of the chest. FINDINGS: Lungs/Pleura: There is no evidence of pleural effusion, focal consolidation, or pneumothorax. Pulmonary vascularity: Unremarkable. Heart/mediastinum: Cardiomediastinal silhouette is unremarkable. Musculoskeletal: No acute osseous pathology. Remote appearing right-sided rib fractures. IMPRESSION: No acute cardiopulmonary disease/process.
[2023-07-14] MEDS: SODIUM CHLORIDE 0.9% 2,000 ML IV ONE (19:50)
[2023-07-14] MEDS ORDERED: VANCOMYCIN IV PER PHARMACY 1 EACH MISC MISCELLANE PRN (20:13)
[2023-07-14] MEDS: VANCOMYCIN 2,000 MG in SODIUM CHLORIDE 0.9% 500 ML 500 ML IVPB STA (20:42)
[2023-07-14] MEDS ORDERED: LORazepam 2 MG/ML INJ IV PRN (20:43)
[2023-07-14] MEDS ORDERED: LORazepam 1 MG TAB PO PRN (20:43)
[2023-07-14] MEDS ORDERED: LORazepam 0.5 MG TAB PO PRN (20:43)
--- NOTE | 2023-07-14 20:57 | XR ---
EXAMINATION TYPE: XR toes LT DATE OF EXAM: 07/14/2023 8:40 PM CLINICAL INDICATION:Male, 57 years old with history of Osteomyelitis; [facility] COMPARISON: 10/21/2022 TECHNIQUE: XR toes LT examined in the AP, oblique, and lateral projections. FINDINGS: No evidence of any acute osseous pathology of soft tissue swelling of the second digit.. Joints are p reserved. No osseous erosion visualized. Couple calcific densities project over the second digit unkn own significance possibly outside the patient. Now appreciated on lateral view. IMPRESSION: Soft tissue swelling the second digit without evidence of fracture or erosion at this time.
[2023-07-14] MEDS: LORazepam 2 MG/ML INJ IV PRN ×2 (21:25→23:53)
--- NOTE | 2023-07-14 22:08 | CT ---
EXAMINATION TYPE: CT abdomen pelvis w con CT DLP: 3148.7 mGycm, Automated exposure control for dose reduction was used. DATE OF EXAM: 07/14/2023 9:56 PM COMPARISON: CT abdomen pelvis most recent from 01/28/2023. CLINICAL INDICATION:Male, 57 years old with history of Elevated lactic acid, abdominal pain; Elevated lactic acid, abdominal pain TECHNIQUE: Axial CT abdomen pelvis w con;Sagittal and coronal reformats were created on a separate w orkstation. Contrast used:100 mL of Isovue 370 with IV Contrast, (none if empty) Oral contrast used: without Oral Contrast (none if empty) FINDINGS: Motion limited exam. LOWER CHEST: There is mildly enlarged for size. There is trace bilateral pleural effusions. ABDOMEN LIVER: Unremarkable GALLBLADDER AND BILE DUCTS: Unremarkable. PANCREAS: Unremarkable. SPLEEN: Unremarkable. ADRENAL GLANDS: Unremarkable. KIDNEYS AND URETERS: No evidence of hydronephrosis or renal calculus. PELVIS BLADDER: Newby catheter in place with high density debris in the bladder lumen. REPRODUCTIVE: Unremarkable. ABDOMEN & PELVIS STOMACH AND BOWEL: No evidence of bowel obstruction. No evidence for bowel wall gas/pneumatosis. PERITONEUM/RETROPERITONEUM: Trace free fluid in the abdomen. VASCULATURE: No evidence of aortic aneurysm. MUSCULOSKELETAL: No acute osseous abnormalities LYMPH NODES: No gross evidence for lymphadenopathy. Prominent inguinal lymph nodes likely reactive se condary to diffuse anasarca. SOFT TISSUE/ABDOMINAL WALL: Fat-containing inguinal hernia. Anasarca of the soft tissues. Fat-containing umbilical hernia. IMPRESSION: 1. No evidence for pneumatosis or definitive acute abdominal process given limitation of this motion limited exam. 2. Cardiomegaly with trace pleural effusions, abdominal ascites and anasarca correlate for volume ov erload. 3. Newby catheter in place with high density material bladder lumen correlate with urinalysis.
[2023-07-14] MEDS: THIAMINE 100 MG/ML 2 ML VIAL IM STA (23:53)
[2023-07-15 00:39] LABS: ABG Base Excess -14.7 mmol/L; ABG HCO3 13 mmol/L (21-25); ABG Oxygen Saturation 99.1 % (94-97); ABG PCO2 32 mmHg (35-45); ABG PH 7.22 (7.35-7.45); ABG PO2 244 mmHg (83-108); ABG TCO2 14 mmol/L (19-24); Allen Test Performed? Yes
[2023-07-15 01:00] LABS: Anisocytosis Slight; HCT 40.9 % (39.0-53.0); HGB 12.6 gm/dL (13.0-17.5); Hypochromasia Marked; MCH 27.3 pg (25.0-35.0); MCHC 30.7 g/dL (31.0-37.0); MCV 88.7 fL (80.0-100.0); Mean Platelet Volume 9.3; Platelet Count 290 k/uL (150-450); RBC 4.61 m/uL (4.30-5.90); RDW 18.7 % (11.5-15.5); WBC 14.2 k/uL (3.8-10.6)
[2023-07-15] MEDS ORDERED: RX INFO: IV CONTRAST WAS GIVEN 1 EACH MISC MISCELLANE PRN (01:05)
[2023-07-15 01:10] LABS: ALT 414 U/L (4-49); African American GFR (CKD) >90 (>60 ml/min/1.73 sqM); Albumin 2.2 g/dL (3.5-5.0); Alkaline Phosphatase 184 U/L (38-126); Anion Gap 14 mmol/L; Blood Urea Nitrogen 35 mg/dL (9-20); Calcium 6.5 mg/dL (8.4-10.2); Chloride 117 mmol/L (98-107); Glucose 106 mg/dL (74-99); Non-African American GFR(CKD) >90 (>60 ml/min/1.73 sqM); Potassium 5.2 mmol/L (3.5-5.1); Sodium 140 mmol/L (137-145); Total Bilirubin 3.2 mg/dL (0.2-1.3); Total Protein 5.5 g/dL (6.3-8.2)
[2023-07-15] MEDS: DEXTROSE 5% IN WATER 100 ML with AMIODARONE 150 MG IV ONE (01:24)
[2023-07-15 01:34] LABS: Carbon Dioxide 9 mmol/L (22-30)
[2023-07-15] MEDS: AMIODARONE 360 MG in DEXTROSE 5% IN WATER 200 ML IV ONE (01:38)
--- NOTE | 2023-07-15 01:39 | XR ---
EXAM: XR Chest, 1 View CLINICAL HISTORY: ITS.REASON XR Reason: SOB TECHNIQUE: Frontal view of the chest. COMPARISON: Yesterday FINDINGS: Lungs: Unremarkable. No consolidation. Pleural space: Unremarkable. Mediastinum: Unremarkable. Normal mediastinal contour. Bones/joints: No acute findings. Old right rib fractures IMPRESSION: No acute findings or substantial change
[2023-07-15 01:41] LABS: AST 814 U/L (17-59)
[2023-07-15 01:52] LABS: Glucose,Whole Blood 118 mg/dL (70-110)
[2023-07-15] MEDS ORDERED: NALOXONE 0.4 MG/ML 1 ML VIAL IV PRN (02:00)
[2023-07-15] MEDS: NOREPINEPHRINE 4 MG in SODIUM CHLORIDE 0.9% 250 ML IV SCH (02:30)
[2023-07-15 02:41] LABS: ABG Base Excess -17.9 mmol/L; ABG HCO3 11 mmol/L (21-25); ABG PCO2 31 mmHg (35-45); ABG PO2 117 mmHg (83-108); ABG TCO2 12 mmol/L (19-24); Allen Test Performed? Yes
--- NOTE | 2023-07-15 02:46 | XR ---
EXAM: XR Chest, 1 View CLINICAL HISTORY: post intubation TECHNIQUE: Frontal view of the chest. COMPARISON: Same day at 039 hour IMPRESSION: Tip of endotracheal tube is about 3.3 cm above the yasmine. Tip of enteric tube is poorly visualized, can be traced to about 7 cm above the GE junction. Lungs are slightly underinflated. No substantial change otherwise
--- NOTE | 2023-07-15 02:47 | XR ---
EXAM: XR Chest, 1 View CLINICAL HISTORY: ITS.REASON XR Reason: OG tube placement TECHNIQUE: Frontal view of the chest. COMPARISON: Same date at 124 hour IMPRESSION: Tip of the enteric tube reached body of the stomach, not completely included in the field of view. No change otherwise.
[2023-07-15 02:55] LABS: ABG PH 7.15 (7.35-7.45)
[2023-07-15] MEDS: SODIUM BICARB 8.4% 50 ML SYR (1 MEQ/ML) ONE (03:00)
[2023-07-15] MEDS: SODIUM CHLORIDE 0.9% 1,000 ML IV ONE (03:02)
[2023-07-15 03:55] LABS: Hepatitis B Surface Antigen Nonreactive
[2023-07-15 03:56] LABS: Hepatitis A Antibody IgM Nonreactive; Hepatitis B Core IgM Nonreactive; Hepatitis C IgG Antibody Nonreactive
[2023-07-15] MEDS: DEXTROSE 5% IN WATER 1,000 ML with SODIUM BICARB (1 MEQ/ML) 150 ML IV SCH (03:58)
[2023-07-15] MEDS: IPRATROPIUM-ALBUTEROL 3 ML NEB INHALATION SCH (04:13)
--- NOTE | 2023-07-15 05:54 | CT ---
EXAM: CT Head Without Intravenous Contrast CLINICAL HISTORY: ITS.REASON CT Reason: AMS TECHNIQUE: Axial computed tomography images of the head/brain without intravenous contrast. CTDI is 49.1 mGy and DLP is 1222 mGy-cm. This CT exam was performed using one or more of the following dose reduction techniques: automated exposure control, adjustment of the mA and/or kV according to patient size, and/or use of iterative reconstruction technique. Coronal and sagittal reformatted images were created and reviewed. 1159 images COMPARISON: No relevant prior studies available. FINDINGS: Brain: Unremarkable. No hemorrhage. No significant white matter disease. No edema. Ventricles: Unremarkable. No ventriculomegaly. Bones/joints: No acute findings. Soft tissues: Unremarkable. Sinuses: Unremarkable as visualized. No acute sinusitis. Mastoid air cells: Unremarkable as visualized. No mastoid effusion. IMPRESSION: Normal head/brain CT.
[2023-07-15 05:59] LABS: Anisocytosis Slight; Basophils % (A) 0 %; Eosinophils % (A) 0 %; HCT 49.9 % (39.0-53.0); HGB 14.5 gm/dL (13.0-17.5); Hypochromasia Marked; Lymphocytes # (A) 1.5 k/uL (1.0-4.8); Lymphocytes % (A) 9 %; MCH 26.4 pg (25.0-35.0); MCV 90.9 fL (80.0-100.0); Monocytes # (A) 0.9 k/uL (0-1.0); Monocytes % (A) 6 %; Neutrophils # (A) 13.8 k/uL (1.3-7.7); Neutrophils % (A) 84 %; Platelet Count 321 k/uL (150-450); RBC 5.49 m/uL (4.30-5.90); RDW 18.6 % (11.5-15.5); WBC 16.4 k/uL (3.8-10.6)
[2023-07-15 06:46] LABS: African American GFR (CKD) 50 (>60 ml/min/1.73 sqM); Anion Gap 24 mmol/L; Blood Urea Nitrogen 40 mg/dL (9-20); Calcium 7.8 mg/dL (8.4-10.2); Chloride 108 mmol/L (98-107); Glucose 91 mg/dL (74-99); Non-African American GFR(CKD) 43 (>60 ml/min/1.73 sqM); Sodium 138 mmol/L (137-145)
--- NOTE | 2023-07-15 06:46 | P.PCN ---
Date of Procedure: 07/15/23 Preoperative Diagnosis: Hypotension and shock Postoperative Diagnosis: Hypotension and shock Procedure(s) Performed: Insertion of a right brachial arterial line Indications for Procedure: Continuous blood pressure monitoring and frequent blood draws Description of Procedure: Informed consent was obtained, and a procedural timeout was performed . The patient was placed in supine position. The right brachial region was prepared in a sterile fashion, and a sterile drape was applied. The right brachial artery was palpated, easily cannulated, and a guidewire was placed. A Cook catheter was inserted over the guidewire, and the guidewire was removed. There was good arterial blood flow, good arterial waveform, and no complications. The line was secured with using a 3-0 silk suture.
[2023-07-15] MEDS: VASOPRESSIN 60 UNIT in SODIUM CHLORIDE 0.9% 150 ML IV SCH (06:49)
--- NOTE | 2023-07-15 06:50 | P.CNPUL ---
History of Present Illness Consult date: 07/15/23 Requesting physician: Priyank Ace Reason for consult: other (ICU management, acute hypoxemic respiratory failure) Chief complaint: Left foot wound, shortness of breath, abdominal pain. History of present illness: An A-team was called overhead at 0025 this morning in the emergency room, I did respond and on my evaluation the patient was unresponsive, with ataxic breathing, and having periods of apnea. He subsequently had to be intubated for airway protection. This was done by the [employer]. There were concerns about possible episodes of wide complex tachycardia. He was also noted to be in atrial fibrillation with rapid ventricular rate in the 150s to 180s. Patient was started on amiodarone protocol. He was then transferred to the intensive care unit for stabilization. Patient is a 57-year-old white male with past medical history atrial fibrillation, diabetes mellitus, hypertension, current everyday smoker, pulmonary embolism, and alcoholism. Patient obviously cannot provide any information, and we did contact the patient's estranged who was able to offer more information about his prior medical conditions. She lives in a different state. On review, of the ER documentation he presented yesterday afternoon with multiple complaints. He reportedly stopped drinking alcohol 2 weeks ago. He was on the CIWA protocol and received a total of 3 mg of Ativan prior to intubation. He did report some abdominal pain when seen by the ER physician. Abdominal CT with contrast did not show any definitive acute intra- abdominal process. There was also a concerning left second toe wound with purulent drainage. X-ray of his left foot showed soft tissue swelling of the second digit without evidence of fracture or osseous erosion. Patient was placed on a combination of antibiotics including vancomycin and Zosyn while in the emergency room. Patient reportedly received a total of 2 L normal saline bolus in the emergency room. He had an elevated lactic which continues to trend up and is currently 12.9. I did give an additional liter of normal saline. Postintubation chest x-ray shows endotracheal tube approximately 3.3 cm above the yasmine. There is cardiomegaly and central vascular congestion. NT proBNP elevated at 3680. On reviewing his records, he has a previous echocardiogram from 01/28/2023 which shows an ejection fraction of 35 to 40% and moderate to severe mitral regurgitation. Patient is currently intubated to the mechanical ventilator in assist-control with a respiratory rate of 20, tidal volume 550, FiO2 100%, and PEEP of 5. Patient is breathing slightly above set rate. Follow- up ABG shows a component of profound metabolic acidosis. There is a PaO2 of 117, pCO2 of 31, pH of 7.15. I did give the patient 2 A of sodium bicarb and start the patient on a sodium bicarbonate infusion with a total of 3 A in D5W at a rate of 125 mL/h. Patient's blood pressure has since become hypotensive after transfer to the intensive care unit, and the patient has been started on norepinephrine which is currently infusing at 0.05 mcg/kg/min. Most recent CBC from earlier this morning shows a WC count of 14.2, hemoglobin 12.6, hematocrit 40.9, platelets 290. D-dimer was elevated at 11.3. No listed anticoagulant on home meds. Most recent CMP: Sodium 140, potassium 5.2, chloride 117, serum bicarb 9, BUN 35, creatinine 0.92, glucose 106. LFTs are elevated including AST of 814, ALT of 414, and ALP of 184. Hepatitis panel nonreactive. Troponin 0.033. Negative for influenza, RSV, COVID. Patient's condition is currently critical. Review of Systems ROS unobtainable: due to endotracheal tube, due to mental status Past Medical History Past Medical History: Atrial Fibrillation, Diabetes Mellitus, Hypertension Additional Past Medical History / Comment(s): Guillian Hollister History of Any Multi-Drug Resistant Organisms: None Reported Past Surgical History: No Surgical Hx Reported Past Psychological History: No Psychological Hx Reported Smoking Status: Current every day smoker Past Alcohol Use History: Occasional Past Drug Use History: None Reported - Past Family History Father Family Medical History: Diabetes Mellitus, Hypertension Mother Additional Family Medical History / Comment(s): "heart disease" Medications and Allergies Home Medications Medication Instructions Recorded Confirmed Type Lisinopril-Hctz 20-25 mg 1 tab PO DAILY 10/21/22 07/14/23 History [Zestoretic 20-25] metFORMIN HCL [Glucophage] 1,000 mg PO BID 10/21/22 07/14/23 History Apixaban [Eliquis] 5 mg PO BID 01/23/23 07/14/23 History Insulin Glargine,Hum.rec.anlog 20 - 25 units SQ DAILY 01/23/23 07/14/23 History [Lantus Solostar Pen] Insulin Regular, Human [NovoLIN R 4 - 12 units SQ ACHS PRN 01/23/23 07/14/23 History Flexpen] Metoprolol Succinate (ER) [Toprol 50 mg PO HS #30 tab 01/29/23 07/14/23 Rx XL] Allergies Allergy/AdvReac Type Severity Reaction Status Date / Time No Known Allergies Allergy Verified 07/14/23 17:53 Physical Exam Vitals: Vital Signs Temp Pulse Resp BP Pulse Ox FiO2 07/15/23 02:56 80 07/15/23 02:00 100 07/15/23 01:27 100 07/15/23 01:22 100 07/14/23 23:46 143 H 24 94 L 07/14/23 22:37 99.6 F 115 H 22 121/64 98 07/14/23 20:18 120 H 20 134/96 94 L 07/14/23 17:32 126 H 22 125/97 07/14/23 15:20 97.4 F L 131 H 20 151/88 Intake and Output 07/14/23 07/14/23 07/15/23 14:59 22:59 06:59 Intake Total 26.324 Balance 26.324 Intake: Intake, IV Titration 26.324 Amount Norepinephrine 4 mg In 6.157 Sodium Chloride 0.9% 250 ml @ 0.03 MCG/KG/MIN 14. 776 mls/hr IV .[id number] [facility] Rx#:[id number] propofoL 1,000 mg In 20.167 Empty Bag 1 bag @ 15 MCG/ KG/MIN 11.635 mls/hr IV . [id number] [facility] Rx#:[id number] Other: Weight 129.274 kg 140.7 kg GENERAL EXAM: Unresponsive 57-year-old male, peripheral cyanosis, mottling of the lower extremities and abdomen. HEAD: Normocephalic and atraumatic EYES: Normal reaction of pupils, equal size. Nonicteric sclera. NOSE: Clear with pink turbinates. THROAT: No erythema or exudates. NECK: No masses, no JVD. CHEST: No chest wall deformity. LUNGS: Equal air entry with diminished lung sounds and scattered rhonchi. On a 15 L nonrebreather. Breathing is ataxic with periods of apnea.. CVS: S1 and S2 normal with no audible murmur, irregular rhythm, with a rapid rate averaging 150 to 180 bpm. ABDOMEN: Obese abdomen, no hepatosplenomegaly, active bowel sounds, no guarding or rigidity. SPINE: No scoliosis or deformity SKIN: Left second toe ulcer/wound with purulent drainage CENTRAL NERVOUS SYSTEM: Limited exam. Patient is completely unresponsive. All extremities are flaccid. EXTREMITIES: There is no peripheral edema. There is peripheral cyanosis and peripheral pulses are only found with Doppler Results - Laboratory Findings CBC and BMP: 07/15/23 05:45 07/15/23 00:51 ABG ABG pH 7.15 (7.35-7.45) L* 07/15/23 02:38 ABG pCO2 31 mmHg (35-45) L 07/15/23 02:38 ABG pO2 117 mmHg (83-108) H 07/15/23 02:38 ABG O2 Saturation 96.0 % (94-97) 07/15/23 02:38 PT/INR, D-dimer PT 26.6 sec (10.0-12.5) H 07/14/23 16:15 INR 2.7 (<1.2) H 07/14/23 16:15 D-Dimer 11.30 mg/L FEU (<0.60) H 07/15/23 02:42 Abnormal lab findings: Abnormal Labs 07/14/23 07/14/23 07/14/23 16:15 16:15 16:15 WBC 10.8 H Hgb MCHC RDW 18.7 H Neutrophils # (Manual) 7.78 H PT 26.6 H INR 2.7 H D-Dimer ABG pH ABG pCO2 ABG pO2 ABG HCO3 ABG Total CO2 ABG O2 Saturation Potassium Chloride Carbon Dioxide BUN Glucose POC Glucose (mg/dL) Plasma Lactic Acid Shawn Calcium Total Bilirubin AST ALT Alkaline Phosphatase Total Protein Albumin Urine Protein 1+ H Urine Bilirubin 1+ H Urine Bacteria Rare H Urine Mucus Few H 07/14/23 07/14/23 07/14/23 16:15 18:11 19:00 WBC Hgb MCHC RDW Neutrophils # (Manual) PT INR D-Dimer ABG pH ABG pCO2 ABG pO2 ABG HCO3 ABG Total CO2 ABG O2 Saturation Potassium 5.5 H Chloride Carbon Dioxide 18 L BUN 41 H Glucose 141 H POC Glucose (mg/dL) Plasma Lactic Acid Shawn 5.8 H* 6.8 H* Calcium Total Bilirubin 3.6 H AST 1284 H ALT 572 H Alkaline Phosphatase 281 H Total Protein Albumin 3.2 L Urine Protein Urine Bilirubin Urine Bacteria Urine Mucus 07/15/23 07/15/23 07/15/23 00:07 00:37 00:51 WBC 14.2 H Hgb 12.6 L MCHC 30.7 L RDW 18.7 H Neutrophils # (Manual) PT INR D-Dimer ABG pH 7.22 L ABG pCO2 32 L ABG pO2 244 H ABG HCO3 13 L ABG Total CO2 14 L ABG O2 Saturation 99.1 H Potassium Chloride Carbon Dioxide BUN Glucose POC Glucose (mg/dL) Plasma Lactic Acid Shawn 11.4 H* Calcium Total Bilirubin AST ALT Alkaline Phosphatase Total Protein Albumin Urine Protein Urine Bilirubin Urine Bacteria Urine Mucus 07/15/23 07/15/23 07/15/23 00:51 01:50 02:38 WBC Hgb MCHC RDW Neutrophils # (Manual) PT INR D-Dimer ABG pH 7.15 L* ABG pCO2 31 L ABG pO2 117 H ABG HCO3 11 L ABG Total CO2 12 L ABG O2 Saturation Potassium 5.2 H Chloride 117 H Carbon Dioxide 9 L* BUN 35 H Glucose 106 H POC Glucose (mg/dL) 118 H Plasma Lactic Acid Shawn Calcium 6.5 L Total Bilirubin 3.2 H AST 814 H ALT 414 H Alkaline Phosphatase 184 H Total Protein 5.5 L Albumin 2.2 L Urine Protein Urine Bilirubin Urine Bacteria Urine Mucus 07/15/23 07/15/23 02:42 03:45 WBC Hgb MCHC RDW Neutrophils # (Manual) PT INR D-Dimer 11.30 H ABG pH ABG pCO2 ABG pO2 ABG HCO3 ABG Total CO2 ABG O2 Saturation Potassium Chloride Carbon Dioxide BUN Glucose POC Glucose (mg/dL) Plasma Lactic Acid Shawn 12.9 H* Calcium Total Bilirubin AST ALT Alkaline Phosphatase Total Protein Albumin Urine Protein Urine Bilirubin Urine Bacteria Urine Mucus - Diagnostic Findings Chest x-ray: image reviewed Assessment and Plan Assessment: Refractory hypotension and shock, likely a component of sepsis and possibly cardiogenic in nature. Acute severe metabolic anion gap acidosis and lactic acidosis Acute hypoxemic respiratory failure, currently intubated to the mechanical ventilator, likely exacerbated by above and a possibly a component of systolic congestive heart failure. Chest x-ray demonstrates cardiomegaly and central vascular congestion. Atrial fibrillation with rapid ventricular rate, currently on the amiodarone protocol Periods of self-limiting wide-complex tachycardia Altered mental status, likely component of metabolic encephalopathy and sepsis Left toe wound/cellulitis, x-ray of the left foot demonstrate soft tissue swelling of the second digit without evidence of fracture or erosion at this time. Elevated D-dimer History of pulmonary embolism, after interviewing the patient's family, he does take Eliquis outpatient. Transaminitis, abdominal CT did not show any acute intra-abdominal findings. History of alcoholism, apparently his last reported drink was 2 weeks ago, serum EtOH less than 10 on arrival. History of diabetes mellitus type 2, insulin-dependent History of hypertension Obesity, with a BMI of 37.8 kg/m Chronic ongoing tobacco dependence Plan: Patient's medications, labs, imaging reviewed. Patient care escalated after A-team, and he has been transferred to the intensive care unit. Patient was intubated by [employer] without complication. Follow-up chest x-ray shows the endotracheal tube approximately 3.3 cm above the yasmine. Orogastric tube with tip projecting in the stomach. Continue current ventilator settings. Wean FiO2 as tolerated. Ventilator bundle added. Propofol added for sedation. Fol low-up ABG pending. I did give the patient's 2 A of sodium bicarb IV push and started the patient on a sodium bicarbonate infusion with 3 A in D5W at 125 MLS per hour. Patient has been fluid resuscitated with a total of 3 L normal saline. His lactic acidosis continues to worsen. He continues to be an anuric. Blood pressure is now hypotensive despite fluid resuscitation. Patient has been started on norepinephrine to be titrated to maintain a MAP of 65 mmHg or higher. I did insert a right brachial arterial line. Patient was noted to be in A-fib RVR on my evaluation. He was started on the amiodarone protocol, and amiodarone is currently infusing at 1 mg/min. Cardiology consult was ordered. Follow-up echocardiogram pending. Patient empirically covered on broad-spectrum antibiotics including vancomycin and Zosyn. Blood cultures are pending. Wound cultures are pending. Infectious disease consult ordered. CT of the brain without contrast did not show any acute intracranial hemorrhage or mass effect. Patient did have a significantly elevated D-dimer, and according to his has a history of pulmonary embolism approximately 1 year ago. Will repeat chest CTA PE protocol, however, D-dimer likely elevated due to other causes. Actually, on further interview of patient's family, he is chronically anticoagulated on eliquis. Will continue to follow, and additional recommendations are forthcoming I have personally seen and examined the patient, performed the documentation and the assessment and plan as written. Number of minutes spent on the visit:20 Time with Patient: Greater than 30
--- NOTE | 2023-07-15 06:51 | CT ---
EXAM: CT Angiography Chest With Intravenous Contrast CLINICAL HISTORY: ITS.REASON CT rule out PE TECHNIQUE: Axial computed tomographic angiography images of the chest with intravenous contrast. CTDI is in horn and shift 87.6 mGy and DLP is 1335. 2 mGy-cm. This CT exam was performed using one or more of the following dose reduction techniques: automated exposure control, adjustment of the mA and/or kV according to patient size, and/or use of iterative reconstruction technique. MIP reconstructed images were created and reviewed. Coronal and sagittal reformatted images were created and reviewed. 877 images COMPARISON: 10/21/22 FINDINGS: Pulmonary arteries: Unremarkable. No pulmonary embolism. Aorta: No acute findings. No thoracic aortic aneurysm. Lungs: Small bilateral pleural effusions with compressive atelectasis and/or pneumonia. Heart: Moderate cardiomegaly. No significant pericardial effusion. No evidence of RV dysfunction. Bones/joints: Old rib fractures. Moderate degenerative changes. Soft tissues: Moderate anasarca. Lymph nodes: Unremarkable. No enlarged lymph nodes. Intraperitoneal space: Small ascites. Tubes, lines and devices: Endotracheal to tip terminates about 4.5 cm above the yasmine. Tip of the enteric tube is in the body of the stomach. IMPRESSION: 1. No pulmonary embolism. Normal thoracic aorta. 2. Small lateral pleural effusions with compressive atelectasis and/or pneumonia. 3. Small ascites. 4. Moderate anasarca.
[2023-07-15 06:55] LABS: Carbon Dioxide 6 mmol/L (22-30); Potassium 7.3 mmol/L (3.5-5.1)
[2023-07-15] MEDS: CALCIUM GLUCONATE IN NACL 1 GM in SALINE 1 100ML.BAG IVPB ONE ×3 (07:30→19:02)
[2023-07-15] MEDS: AMIODARONE 450 MG in DEXTROSE 5% IN WATER 250 ML IV SCH (07:30)
[2023-07-15] MEDS: SODIUM BICARB 8.4% 50 ML SYR (1 MEQ/ML) IV STA ×3 (07:30→18:54)
[2023-07-15] MEDS: PIPERACILLIN-TAZOBACTAM 3.375 GM in SODIUM CHLORIDE 0.9% 100 ML IVPB SCH (07:34)
[2023-07-15] MEDS: DEXTROSE 50% SYRINGE 50 ML IVP ONE (07:34)
[2023-07-15] MEDS: INSULIN REGULAR 100 UNIT/ML VIAL (IV) IV ONE ×3 (07:35→18:58)
[2023-07-15] MEDS: SODIUM ZIRCONIUM CYCLOSILICATE 10 GM PACKET PO ONE ×3 (07:38→19:22)
[2023-07-15] MEDS: ALBUTEROL NEB (CONC) 2.5 MG/0.5 ML INHALATION ONE (07:43)
--- NOTE | 2023-07-15 07:44 | P.CRDCN ---
History of Present Illness Consult date: 07/15/23 History of present illness: History of Present Illness: The patient is a 57-year-old male with a history of paroxysmal atrial fibrillation prior history of alcohol intake, history of cardiomyopathy by echocardiography in January 2023 with at least moderate mitral regurgitation who presented with progressive dyspnea, change in mental status, patient was intubated in the emergency room, he was noted to be in atrial fibrillation with rapid ventricular response. He had a history of alcohol intake stopped about 2 weeks ago and according to the record became progressively fatigued with lack of energy and worsening dyspnea. No other history could be obtained. The patient is intubated and sedated, anuric. Has a history of pulmonary embolism, alcoholism, remote history of multisubstance use according to the nursing staff. He has been started on IV amiodarone, he is in atrial fibrillation with controlled ventricular response. As an outpatient his medications are consistent with a history of diabetes, hypertension and he was anticoagulated Medications: Compliance is unclear but patient was supposed to be on insulin, metformin, metoprolol succinate 50 mg daily, Zestoretic 20-25 mg daily and Eliquis 5 mg twice a day Review of Systems: Could not be obtained, patient is intubated and sedated Physical Examination: 57-year-old male, intubated and sedated,Blood pressure 110/70, Heart rate 90 Head: Normocephalic. Eyes: Sclerae nonicteric. Neck: Good carotid upstroke, no bruit, no jugular venous distention. Lungs: Clear to auscultation anteriorly. Heart: Irregular rate and rhythm, S1-S2, no S3, no rub. Holosystolic murmur at the apex . Abdomen: Soft , positive bowel sounds no organomegaly. Extremities: No edema, intact distal pulses. Cold feet, mottling noted. Wound noted on the left foot Labs: On admission WBC 10.8 with a hemoglobin of 14.8, potassium 5.5 total bilirubin 3.6 AST 1284 ALT 572. Initial plasma lactic acid 5.8. This morning plasma lactic acid 12.9. pH 7.1, pCO2 31, pO2 117. His bicarb is 9 BUN 35 and creatinine 0.92 this morning. His initial troponin 0.033 with NT proBNP 3680. His CT scan of the chest showed no evidence of pulmonary embolism EKG: EKG atrial fibrillation with rapid ventricle response and nonspecific ST-T wave changes Impression: 1. Respiratory failure, etiology unclear in a patient with known history of cardiomyopathy and a prior history of alcohol abuse 2. Atrial fibrillation, noted in the past 3. Severe lactic acidosis 4. Acute liver injury probably related to alcoholism 5. Change in mental status prior to admission was possible metabolic encephalopathy, rule out infectious process 6. History of diabetes 7. History of hypertension 8. History of tobacco use 9. Prior history of cardiomyopathy of unclear etiology and history of mitral regurgitation Plan: 1. Continue supportive care 2. Obtain an echocardiogram with Doppler 3. Continue amiodarone for now, follow liver function test closely 4. Prognosis is poor 5. Depending on his progress further recommendations will be made, thank you for this consult we will follow with you Past Medical History Past Medical History: Atrial Fibrillation, Diabetes Mellitus, Hypertension Additional Past Medical History / Comment(s): [place] History of Any Multi-Drug Resistant Organisms: None Reported Past Surgical History: No Surgical Hx Reported Past Psychological History: No Psychological Hx Reported Smoking Status: Current every day smoker Past Alcohol Use History: Occasional Past Drug Use History: None Reported - Past Family History Father Family Medical History: Diabetes Mellitus, Hypertension Mother Additional Family Medical History / Comment(s): "heart disease" Medications and Allergies Home Medications Medication Instructions Recorded Confirmed Type Lisinopril-Hctz 20-25 mg 1 tab PO DAILY 10/21/22 07/14/23 History [Zestoretic 20-25] metFORMIN HCL [Glucophage] 1,000 mg PO BID 10/21/22 07/14/23 History Apixaban [Eliquis] 5 mg PO BID 01/23/23 07/14/23 History Insulin Glargine,Hum.rec.anlog 20 - 25 units SQ DAILY 01/23/23 07/14/23 History [Lantus Solostar Pen] Insulin Regular, Human [NovoLIN R 4 - 12 units SQ ACHS PRN 01/23/23 07/14/23 History Flexpen] Metoprolol Succinate (ER) [Toprol 50 mg PO HS #30 tab 01/29/23 07/14/23 Rx XL] Allergies Allergy/AdvReac Type Severity Reaction Status Date / Time No Known Allergies Allergy Verified 07/14/23 17:53 Physical Exam Vitals: Vital Signs Temp Pulse Resp BP Pulse Ox FiO2 07/15/23 06:05 60 07/15/23 04:30 80 07/15/23 02:56 80 07/15/23 02:00 100 07/15/23 01:27 100 07/15/23 01:22 100 07/14/23 23:46 143 H 24 94 L 07/14/23 22:37 99.6 F 115 H 22 121/64 98 07/14/23 20:18 120 H 20 134/96 94 L 07/14/23 17:32 126 H 22 125/97 07/14/23 15:20 97.4 F L 131 H 20 151/88 Intake and Output 07/14/23 07/15/23 07/15/23 22:59 06:59 14:59 Intake Total 200.560 Balance 200.560 Intake: Intake, IV Titration 200.560 Amount Norepinephrine 4 mg In 100.560 Sodium Chloride 0.9% 250 ml @ 0.03 MCG/KG/MIN 14. 776 mls/hr IV .[id number] [facility] Rx#:[id number] propofoL 1,000 mg In 100.000 Empty Bag 1 bag @ 15 MCG/ KG/MIN 11.635 mls/hr IV . Q8H36M [facility] Rx#:[id number] Other: Weight 129.274 kg 140.7 kg Results 07/15/23 05:45 07/15/23 06:00 Cardiac Enzymes 07/14/23 07/14/23 07/15/23 Range/Units 18:11 18:11 00:51 AST 1284 H 814 H (17-59) U/L Troponin I 0.033 (0.000-0.034) ng/mL Coagulation 07/14/23 Range/Units 16:15 PT 26.6 H (10.0-12.5) sec APTT 27.7 (22.0-30.0) sec CBC 07/14/23 07/15/23 07/15/23 Range/Units 16:15 00:51 05:45 WBC 10.8 H 14.2 H 16.4 H (3.8-10.6) k/uL RBC 5.43 4.61 5.49 (4.30-5.90) m/uL Hgb 14.8 12.6 L 14.5 (13.0-17.5) gm/dL Hct 47.4 40.9 49.9 (39.0-53.0) % Plt Count 267 290 321 (150-450) k/uL Comprehensive Metabolic Panel 07/14/23 07/15/23 07/15/23 Range/Units 18:11 00:51 06:00 Sodium 140 140 138 (137-145) mmol/L Potassium 5.5 H 5.2 H 7.3 H* (3.5-5.1) mmol/L Chloride 107 117 H 108 H (98-107) mmol/L Carbon Dioxide 18 L 9 L* 6 L* (22-30) mmol/L BUN 41 H 35 H 40 H (9-20) mg/dL Creatinine 0.91 0.92 1.74 H (0.66-1.25) mg/dL Glucose 141 H 106 H 91 (74-99) mg/dL Calcium 9.4 6.5 L 7.8 L (8.4-10.2) mg/dL AST 1284 H 814 H (17-59) U/L ALT 572 H 414 H (4-49) U/L Alkaline Phosphatase 281 H 184 H (38-126) U/L Total Protein 7.0 5.5 L (6.3-8.2) g/dL Albumin 3.2 L 2.2 L (3.5-5.0) g/dL Current Medications Generic Name Dose Route Start Last Admin Trade Name Freq PRN Reason Stop Dose Admin Albuterol/Ipratropium 3 ml 07/15/23 04:00 07/15/23 04:13 Ipratropium-Albuterol 3 Ml Neb INHALATION Not Given RT-Q4H [facility] Apixaban 5 mg 07/15/23 09:00 Apixaban 5 Mg Tab PO BID [facility] Protocol Chlorhexidine Gluconate 15 ml 07/15/23 09:00 Chlorhexidine Gluconate 15 Ml Cup MUCOUS MEM BID [facility] Piperacillin Sod/Tazobactam 100 mls @ 25 mls/hr 07/15/23 00:00 07/15/23 07:34 Sod 3.375 gm/ Sodium Chloride IVPB Not Given Q8HR [facility] Protocol Vancomycin HCl 2,000 mg/ 500 mls @ 167 mls/hr 07/15/23 06:00 Sodium Chloride IVPB Q12H [facility] Amiodarone HCl 450 mg/ 250 mls @ 16.667 mls/hr 07/15/23 07:00 Dextrose/Water IV 07/16/23 00:59 .Q15H [facility] Protocol 0.5 MG/MIN Norepinephrine Bitartrate 4 mg 254 mls @ 14.776 mls/hr 07/15/23 01:30 4 06:50 / Sodium Chloride IV 0.2 mcg/kg/min .[id number] [facility] 98.507 mls/hr Administration Protocol 0.03 MCG/KG/MIN Propofol 1,000 mg/ IV Solution 100 mls @ 11.635 mls/hr 07/15/23 01:30 07/15/23 06:49 IV 30 mcg/kg/min .Q8H36M [facility] 23.269 mls/hr Administration Protocol 15 MCG/KG/MIN Sodium Bicarbonate 150 ml/ 1,150 mls @ 125 mls/hr 07/15/23 03:00 07/15/23 03:58 Dextrose/Water IV 125 mls/hr .Q9H12M [facility] Administration Vasopressin 60 unit/ Sodium 153 mls @ 4.59 mls/hr 07/15/23 06:00 07/15/23 06:49 Chloride IV 0.03 units/min .Q24H [facility] 4.59 mls/hr Administration Protocol 0.03 UNITS/MIN Calcium Gluconate/Sodium 100 mls @ 400 mls/hr 07/15/23 07:30 07/15/23 07:30 Chloride 1 gm/ IV Solution IVPB 07/15/23 07:44 400 mls/hr ONCE ONE Administration Lorazepam 1 mg 07/14/23 20:43 Lorazepam 2 Mg/Ml Inj IV Q1HR PRN CIWA 10 to 15 Lorazepam 1 mg 07/14/23 20:43 07/14/23 21:25 Lorazepam 2 Mg/Ml Inj IV 1 mg Q2HR PRN Administration CIWA 8 or 9 Lorazepam 2 mg 07/14/23 20:43 07/14/23 23:53 Lorazepam 2 Mg/Ml Inj IV 07/16/23 20:43 2 mg Q10M PRN Administration CIWA 16 or higher Lorazepam 0.5 mg 07/14/23 20:43 Lorazepam 0.5 Mg Tab PO Q4HR PRN Ciwa 4 To 5 Lorazepam 1 mg 07/14/23 20:43 Lorazepam 1 Mg Tab PO Q4HR PRN Ciwa 6 To 7 Miscellaneous Information 1 each 07/15/23 01:05 Rx Info: Iv Contrast Was Given 1 Each Misc MISCELLANE 07/17/23 01:06 DAILY PRN Per Protocol Naloxone HCl 0.2 mg 07/15/23 02:00 Naloxone 0.4 Mg/Ml 1 Ml Vial IV Q2M PRN Opioid Reversal Pantoprazole Sodium 40 mg 07/15/23 09:00 Pantoprazole 40 Mg/10 Ml Vial IVP DAILY [facility] Thiamine HCl 100 mg 07/15/23 09:00 Thiamine 100 Mg Tab PO DAILY [facility] Intake and Output 07/14/23 07/15/23 07/15/23 22:59 06:59 14:59 Intake Total 200.560 Balance 200.560 Intake: Intake, IV Titration 200.560 Amount Norepinephrine 4 mg In 100.560 Sodium Chloride 0.9% 250 ml @ 0.03 MCG/KG/MIN 14. 776 mls/hr IV .[id number] [facility] Rx#:[id number] propofoL 1,000 mg In 100.000 Empty Bag 1 bag @ 15 MCG/ KG/MIN 11.635 mls/hr IV . Q8H36M [facility] Rx#:[id number] Other: Weight 129.274 kg 140.7 kg 07/15/23 05:45 07/15/23 06:00
[2023-07-15] MEDS: VANCOMYCIN 2,000 MG in SODIUM CHLORIDE 0.9% 500 ML 500 ML IVPB SCH (08:08)
[2023-07-15] MEDS ORDERED: CISATRACURIUM 2 MG/ML 5 ML VIAL IV ONE (08:45)
[2023-07-15] MEDS: CISATRACURIUM 2 MG/ML 5 ML VIAL IV ONE (09:24)
[2023-07-15] MEDS: HYDROCORTISONE SUCCINATE 100 MG/2 ML VIAL IV STA (09:25)
[2023-07-15] MEDS: PANTOPRAZOLE 40 MG/10 ML VIAL IVP SCH (09:36)
[2023-07-15 09:48] LABS: Glucose,Whole Blood 92 mg/dL (70-110)
[2023-07-15] MEDS: APIXABAN 5 MG TAB PO SCH (09:57)
[2023-07-15] MEDS: CHLORHEXIDINE GLUCONATE 15 ML CUP MUCOUS MEM SCH (09:57)
[2023-07-15] MEDS: THIAMINE 100 MG TAB PO SCH (09:57)
--- NOTE | 2023-07-15 10:10 | CA ---
Transthoracic Echo Report Name: Jez Rogel Age: 57 Gender: M : 1965 Exam Date: 07/15/2023 07:49 Exam Location: [place] Ht (in): 76 Wt (lb): 285 Ordering Physician: Arsalan Carvalho MD Attending/Referring Phys: V Groove Cutter April De Jesus RDCS Procedure CPT: Indications: elevated bnp, dyspnea Cardiac Hx: Technical Quality: Technically difficult study Contrast 1: Total Dose (mL): Contrast 2: Total Dose (mL): MEASUREMENTS (Male / Female) Normal Values 2D ECHO LV Diastolic Diameter PLAX 5.2 cm 4.2 - 5.9 / 3.9 - 5.3 cm LV Systolic Diameter PLAX 4.4 cm IVS Diastolic Thickness 1.3 cm 0.6 - 1.0 / 0.6 - 0.9 cm LVPW Diastolic Thickness 1.4 cm 0.6 - 1.0 / 0.6 - 0.9 cm LV Relative Wall Thickness 0.5 RV Internal Dim ED PLAX 4.2 cm LA Systolic Diameter LX 5.5 cm 3.0 - 4.0 / 2.7 - 3.8 cm LV Diastolic Volume MOD BP 94.6 cm??? 67 - 155 / 56 - 104 cm??? LV Systolic Volume MOD BP 59.7 cm??? 22 - 58 / 19 - 49 cm??? LV Ejection Fraction MOD BP 36.9 % >= 55 % LV Cardiac Index MOD BP 1059.3 cm???/min???m??? LV Diastolic Volume MOD 4C 101.3 cm??? LV Systolic Volume MOD 4C 53.0 cm??? LV Ejection Fraction MOD 4C 47.6 % LV Cardiac Index MOD 4C 1463.2 cm???/min???m??? LV Diastolic Length 4C 8.2 cm LV Systolic Length 4C 7.7 cm LV Diastolic Volume MOD 2C 90.6 cm??? LV Systolic Volume MOD 2C 64.3 cm??? LV Ejection Fraction MOD 2C 29.1 % LV Cardiac Index MOD 2C 798.3 cm???/min???m??? LV Diastolic Length 2C 7.9 cm LV Systolic Length 2C 7.7 cm LA Volume 68.2 cm??? 18 - 58 / 22 - 52 cm??? LA Volume Index 25.5 cm???/m??? 16 - 28 cm???/m??? M-MODE Aortic Root Diameter MM 3.8 cm LA Systolic Diameter MM 4.6 cm LA Ao Ratio MM 1.2 DOPPLER AV Peak Velocity 87.8 cm/s AV Peak Gradient 3.1 mmHg MV Area PHT 6.5 cm??? TR Peak Velocity 195.7 cm/s TR Peak Gradient 15.3 mmHg Right Ventricular Systolic Press 30.3 mmHg FINDINGS Left Ventricle Left ventricular ejection fraction is estimated at 20-25 %. Mildly increased septal wall thickness. Mildly increased left ventricular systolic volume. Severly decreased left ventricular ejection fraction. Flattening of ventricular septum Right Ventricle Severe right ventricular dilatation. Severely reduced right ventricular global systolic function. Right ventricular systolic pressure within normal limits. Right Atrium Severe right atrial dilatation. Left Atrium Severely increased left atrial diameter. Mildly increased left atrial volume. Mildly increased left atrial area. Mitral Valve Mitral valve not well visualized. No mitral stenosis, regurgitation or prolapse. Aortic Valve Trileaflet aortic valve. No aortic valve stenosis or regurgitation. Tricuspid Valve Tricuspid valve not well visualized. [id number] tricuspid regurgitation. Pulmonic Valve Pulmonic valve not well visualized. No pulmonic regurgitation. Pericardium No pericardial effusion. Aorta Mild aortic dilatation at the level of the sinuses of valsalva 38 mm CONCLUSIONS LV systolic function is severely impaired with EF at 20% to 25% Severely dilated right ventricle with impaired function Severe tricuspid regurgitation. The RVSP is probably underestimated. It was measured at 30 mmHg Previewed by: Dr. Oseas Sprague MD (Electronically Signed) Final Date: 15 July 2023 10:09
--- NOTE | 2023-07-15 10:22 | XR ---
EXAMINATION TYPE: XR chest 1V portable DATE OF EXAM: 07/15/2023 9:49 AM CLINICAL INDICATION:Male, 57 years old with history of line placement; COMPARISON: Chest radiographs from 07/15/2023 TECHNIQUE: XR chest 1V portable Frontal view of the chest. FINDINGS: Lungs/Pleura: There is no evidence of pleural effusion, focal consolidation, or pneumothorax. Pulmonary vascularity: Unremarkable. Heart/mediastinum: Cardiomediastinal silhouette is enlarged and stable. Musculoskeletal: No acute osseous pathology. Remote appearing right-sided rib fractures. Other findings: None Lines/Tubes: Endotracheal tube with distal tip 5.4 cm above the yasmine. Nasogastric tube with its distal tip and side-port projecting under the diaphragm. Left internal jugular central venous catheter with distal tip at the cavoatrial junction. IMPRESSION: 1. Left central venous catheter with tip in appropriate position. 2. Endotracheal tube and nasogastric tubes with tips in appropriate position. 3. Cardiomegaly
--- NOTE | 2023-07-15 10:24 | PCN ---
PROCEDURE NOTE PROCEDURE PERFORMED: Left internal jugular triple-lumen catheter. PREOPERATIVE DIAGNOSIS: Administration of fluids and pressors and hypotension. POSTOPERATIVE DIAGNOSIS: Administration of fluids and pressors and hypotension. SCHOOL CLEANER: Dr. Salas. FIRST COMPUTER FORENSIC SPECIALIST: Dr. Poonam Bowen. DESCRIPTION OF PROCEDURE: There was informed consent and universal timeout. We used the left internal jugular vein. We went via the posterior approach. A time-out was completed verifying correct patient, procedure, site, positioning, and implant(s) or special equipment if applicable. The patient was placed in a dependent position appropriate for triple lumen catheter placement based on the vein to be cannulated. The patient's left neck was prepped and draped in sterile fashion. 1% Lidocaine was used to anesthetize the surrounding skin area. A triple lumen 9F Cordis catheter was introduced into the internal jugular vein using Seldinger technique. The catheter was threaded smoothly over the guide wire and appropriate blood return was obtained. Each lumen of the catheter was evacuated of air and flushed with sterile saline. The catheter was then sutured in place to the skin and a sterile dressing applied. Perfusion to the extremity distal to the point of catheter insertion was checked and found to be adequate. There was good blood return from all 3 ports. The catheter on x-ray was seen at the junction of superior vena cava and right atrium. The catheter was sutured in place. A sterile dressing was applied by the nurse. Of course, a chest x-ray was ordered as mentioned above. There was no immediate complication. The patient tolerated the procedure very well. MMODL / IJN: [id number] /
[2023-07-15] MEDS: CISATRACURIUM 200 MG in SODIUM CHLORIDE 0.9% 180 ML IV SCH (10:27)
[2023-07-15] MEDS: FUROSEMIDE 10 MG/ML 10 ML VIAL IV STA (10:49)
--- NOTE | 2023-07-15 11:30 | P.NPCON ---
History of Present Illness - Reason for Consult acute renal failure, hyperkalemia - History of Present Illness Reason for consultation: Acute kidney injury and hyperkalemia History of present illness: Patient is a 57-year-old male seen in renal consultation for acute kidney injury and hyperkalemia. Patient's baseline creatinine is near 1 and is up to 1.74 today. Patient's potassium level is also been elevated. It was as high as 7.3 this morning which was medically treated with IV calcium gluconate, IV insulin with D50, Lokelma as well as sodium bicarb IV push. He is currently maintained on bicarb drip. Repeat potassium level came back down to 5.6. Patient is oliguric. He is on high-dose Levophed and also on vasopressin. Patient has history of alcohol abuse and apparently stopped drinking alcohol about 2 weeks ago. Lactic acid was noted to be as high as 16.3 as of this morning. Patient received 5-1/2 L of fluid in the last 24 hours and is currently maintained on bicarb drip. Patient's ejection fraction is noted to be 20 to 25% with severe tricuspid regurgitation. Patient also received IV contrast for CAT scan of the abdomen and pelvis which was done July 14, 2023 and a CTA that was done today. Anasarca noted. No PE. No hydronephrosis. Patient was on metformin outpatient which is currently held. Was also on lisinopril and hydrochlorothiazide which are also currently held. Patient has history of diabetes. Patient is also on amiodarone drip for A-fib with RVR. Vital signs are stable. Irregular rate and rhythm. On vasopressor support. General: Resting in bed. HEENT: Intubated. LUNGS: Scattered rhonchi. HEART: Irregular rate and rhythm. ABDOMEN: No distention. Soft. EXTREMITITES: 1+ edema. Past Medical History Past Medical History: Atrial Fibrillation, Diabetes Mellitus, Hypertension Additional Past Medical History / Comment(s): [place] History of Any Multi-Drug Resistant Organisms: None Reported Past Surgical History: No Surgical Hx Reported Past Psychological History: No Psychological Hx Reported Smoking Status: Current every day smoker Past Alcohol Use History: Occasional Past Drug Use History: None Reported - Past Family History Father Family Medical History: Diabetes Mellitus, Hypertension Mother Additional Family Medical History / Comment(s): "heart disease" Medications and Allergies Home Medications Medication Instructions Recorded Confirmed Type Lisinopril-Hctz 20-25 mg 1 tab PO DAILY 10/21/22 07/14/23 History [Zestoretic 20-25] metFORMIN HCL [Glucophage] 1,000 mg PO BID 10/21/22 07/14/23 History Apixaban [Eliquis] 5 mg PO BID 01/23/23 07/14/23 History Insulin Glargine,Hum.rec.anlog 20 - 25 units SQ DAILY 01/23/23 07/14/23 History [Lantus Solostar Pen] Insulin Regular, Human [NovoLIN R 4 - 12 units SQ ACHS PRN 01/23/23 07/14/23 History Flexpen] Metoprolol Succinate (ER) [Toprol 50 mg PO HS #30 tab 01/29/23 07/14/23 Rx XL] Allergies Allergy/AdvReac Type Severity Reaction Status Date / Time No Known Allergies Allergy Verified 07/14/23 17:53 Physical Exam Vitals: Vital Signs Temp Pulse Resp BP Pulse Ox FiO2 07/15/23 11:00 93 20 107/46 95 07/15/23 10:30 78 20 92/45 96 07/15/23 10:00 89 20 88/70 92 L 07/15/23 09:40 92 20 85/69 07/15/23 09:20 93 20 105/44 07/15/23 09:00 96 20 89/57 07/15/23 08:40 89 20 116/28 100 07/15/23 08:30 97.8 F 89 20 97/74 07/15/23 08:15 88 20 92/59 60 07/15/23 08:10 117 H 28 H 07/15/23 08:00 118 H 0 L 107/94 07/15/23 07:52 60 07/15/23 07:50 112 H 0 L 107/94 07/15/23 07:49 60 07/15/23 07:44 101 H 28 H 07/15/23 07:40 105 H 0 L 81/64 07/15/23 07:30 109 H 0 L 70/31 07/15/23 07:20 91 0 L 73/35 07/15/23 07:10 104 H 0 L 100/81 07/15/23 07:00 96 0 L 81/63 03/12/24 06:50 101 H 0 L 81/63 07/15/23 06:40 106 H 0 L 102/56 07/15/23 06:30 110 H 18 104/73 07/15/23 06:20 98 19 91/70 07/15/23 06:10 93 31 H 94/63 07/15/23 06:05 60 07/15/23 06:00 104 H 9 L 86/60 07/15/23 05:50 118 H 11 L 86/60 07/15/23 05:40 112 H 0 L 118/69 07/15/23 05:30 92 27 H 88/38 07/15/23 05:20 71/50 07/15/23 05:10 71/50 07/15/23 05:00 71/50 07/15/23 04:50 71/50 07/15/23 04:40 71/50 07/15/23 04:30 122 H 0 L 95/44 80 07/15/23 04:20 114 H 0 L 95/44 07/15/23 04:10 113 H 0 L 103/53 07/15/23 04:00 106 H 0 L 58/44 60 07/15/23 03:50 122 H 26 H 58/44 07/15/23 03:40 116 H 13 139/91 07/15/23 03:30 122 H 9 L 129/29 07/15/23 03:20 123 H 13 129/29 07/15/23 03:10 133 H 13 126/105 07/15/23 03:00 107 H 5 L 92/46 07/15/23 02:56 80 07/15/23 02:50 128 H 8 L 93/80 07/15/23 02:40 137 H 17 84/72 07/15/23 02:30 107/86 07/15/23 02:20 135 H 6 L 07/15/23 02:10 115 H 15 103/83 07/15/23 02:00 100 07/15/23 01:22 100 07/14/23 23:46 143 H 24 94 L 07/14/23 22:37 99.6 F 115 H 22 121/64 98 07/14/23 20:18 120 H 20 134/96 94 L 07/14/23 17:32 126 H 22 125/97 07/14/23 15:20 97.4 F L 131 H 20 151/88 Intake and Output 07/14/23 07/15/23 07/15/23 22:59 06:59 14:59 Intake Total 216.127 0785.904 Output Total 1000 0 Balance -446.432 5704.904 Intake: IV 12 .9NS Pressure Bag 12 Intake, IV Titration 697.137 4472.904 Amount Calcium Gluconate in NaCl 100 1 gm In Saline 1 100ml. bag @ 400 mls/hr IVPB ONCE ONE Rx#:[id number] Dextrose 5% in Water 1, 500 000 ml @ 125 mls/hr IV . Q9H12M [facility] with Sodium Bicarb (1 Meq/ml) 150 ml Rx#:[id number] Norepinephrine 4 mg In 100.560 508.000 Sodium Chloride 0.9% 250 ml @ 0.03 MCG/KG/MIN 14. 776 mls/hr IV .[id number] [facility] Rx#:[id number] Piperacillin-Tazobactam 3 75 .375 gm In Sodium Chloride 0.9% 100 ml @ 200 mls/hr IVPB ONCE [facility] Rx#:[id number] Sodium Chloride 0.9% 1, 500 1125 000 ml @ 999 mls/hr IV . Q1H1M [facility] Rx#:[id number] Vancomycin 2,000 mg In 601 Sodium Chloride 0.9% 500 ml 500 ml @ 167 mls/hr IVPB Q16H [facility] Rx#: [id number] propofoL 1,000 mg In 100.000 34.904 Empty Bag 1 bag @ 15 MCG/ KG/MIN 11.635 mls/hr IV . Q8H36M [facility] Rx#:[id number] Output: Gastric Drainage 1000 Urine 0 0 Other: Voiding Method Indwelling Catheter Weight 129.274 kg 140.7 kg ABP, PAP, CO, CI - Last 8 Hours Arterial Blood Pressure 88/72 Arterial Blood Pressure 97/69 Arterial Blood Pressure 102/68 Arterial Blood Pressure 103/80 Arterial Blood Pressure 82/63 Arterial Blood Pressure 78/62 Arterial Blood Pressure 88/64 Arterial Blood Pressure 91/65 Arterial Blood Pressure 96/62 Arterial Blood Pressure 88/67 Arterial Blood Pressure 95/63 Arterial Blood Pressure 84/66 Arterial Blood Pressure 67/52 Arterial Blood Pressure 170/33 Arterial Blood Pressure 71/61 Arterial Blood Pressure 77/63 Arterial Blood Pressure 76/62 Arterial Blood Pressure 77/63 Arterial Blood Pressure 77/63 Arterial Blood Pressure 78/62 Arterial Blood Pressure 77/62 Arterial Blood Pressure 75/62 Arterial Blood Pressure 75/61 Arterial Blood Pressure 76/61 Arterial Blood Pressure 82/66 Arterial Blood Pressure 89/66 Arterial Blood Pressure 78/65 Arterial Blood Pressure 90/71 Arterial Blood Pressure 87/71 Arterial Blood Pressure 82/68 Arterial Blood Pressure 76/67 Results - Lab Results Most recent lab results ABG pH 7.15 (7.35-7.45) L* 07/15/23 02:38 ABG pCO2 31 mmHg (35-45) L 07/15/23 02:38 ABG pO2 117 mmHg (83-108) H 07/15/23 02:38 ABG HCO3 11 mmol/L (21-25) L 07/15/23 02:38 ABG O2 Saturation 96.0 % (94-97) 07/15/23 02:38 Calcium 7.8 mg/dL (8.4-10.2) L 07/15/23 06:00 Magnesium 2.0 mg/dL (1.6-2.3) 07/15/23 06:00 07/15/23 05:45 07/15/23 09:45 Assessment and Plan Plan: Assessment: 1. Acute kidney injury secondary to ATN secondary to shock. Also received IV contrast on July 13 and July 14. Baseline creatinine near 1 and up to 1.74 today. No hydronephrosis noted on CAT scan. 2. Hyperkalemia secondary to acute kidney injury, acidosis, lisinopril. 3. Metabolic acidosis secondary to acute kidney injury, lactic acidosis and use of metformin. 4. Shock maintained on vasopressors. 5. A-fib with RVR maintained on amiodarone drip. 6. History of alcohol abuse. 7. Cardiomyopathy. Ejection fraction 20 to 25% with severe tricuspid regurgitation. Plan: Maintain bicarb drip. Follow-up cultures. Lasix 80 mg IV once today. If no response to IV Lasix, consult vascular surgery for temporary dialysis catheter placement. Will initiate renal replacement therapy if no improvement in urine output in the next few hours. Thank you for the consultation. I will continue to follow the patient with you during his hospital stay.
[2023-07-15] MEDS: NOREPINEPHRINE 32 MG in SODIUM CHLORIDE 0.9% 218 ML IV SCH (12:05)
[2023-07-15] MEDS: METOPROLOL TARTRATE 25 MG TAB PO SCH (12:24)
[2023-07-15] MEDS: HYDROCORTISONE SUCCINATE 100 MG/2 ML VIAL IV SCH (12:36)
[2023-07-15] MEDS: DEXTROSE 50% SYRINGE 50 ML IVP STA ×2 (14:13→18:57)
[2023-07-15 14:20] LABS: Anisocytosis Slight; HGB 15.1 gm/dL (13.0-17.5); Hypochromasia Marked; MCH 26.3 pg (25.0-35.0); MCV 93.8 fL (80.0-100.0); Macrocytosis Slight; Platelet Count 216 k/uL (150-450); RBC 5.75 m/uL (4.30-5.90); RDW 18.7 % (11.5-15.5)
--- NOTE | 2023-07-15 14:33 | P.GSCN ---
History of Present Illness Consult date: 07/15/23 Reason for Consult: Temporary hemodialysis catheter Requesting physician: Jack Rivera History of present illness: This is a 57-year-old male admitted in the ICU and is currently sedated on mechanical ventilation. Patient came into the emergency department yesterday apparently with complaints of shortness of breath and confusion. Apparently patient has a history of heavy alcohol abuse and reportedly stopped drinking 2 weeks ago he has been reportedly falling quite a bit and he had a wound to his left second toe. He has a past medical history including atrial fibrillation, diabetes mellitus and hypertension. He is a current every day smoker. He was admitted to the hospital and was having episodes of apnea and unresponsiveness. He was brought to the ICU and subsequently intubated and remains on mechanical ventilation and high-dose pressors. Patient currently has poor perfusion to the lower extremities as well as upper extremities due to high-dose pressors. Also acute kidney injury and is being followed by nephrology. Vascular surgery was consulted as patient is now requiring renal replacement therapy and needs a temporary hemodialysis catheter placed. Review of Systems ROS unobtainable: due to endotracheal tube Past Medical History Past Medical History: Atrial Fibrillation, Diabetes Mellitus, Hypertension Additional Past Medical History / Comment(s): Gu[facility] [place] History of Any Multi-Drug Resistant Organisms: None Reported Past Surgical History: No Surgical Hx Reported Past Psychological History: No Psychological Hx Reported Smoking Status: Current every day smoker Past Alcohol Use History: Occasional Past Drug Use History: None Reported - Past Family History Father Family Medical History: Diabetes Mellitus, Hypertension Mother Additional Family Medical History / Comment(s): "heart disease" Medications and Allergies Home Medications Medication Instructions Recorded Confirmed Type Lisinopril-Hctz 20-25 mg 1 tab PO DAILY 10/21/22 07/14/23 History [Zestoretic 20-25] metFORMIN HCL [Glucophage] 1,000 mg PO BID 10/21/22 07/14/23 History Apixaban [Eliquis] 5 mg PO BID 01/23/23 07/14/23 History Insulin Glargine,Hum.rec.anlog 20 - 25 units SQ DAILY 01/23/23 07/14/23 History [Lantus Solostar Pen] Insulin Regular, Human [NovoLIN R 4 - 12 units SQ ACHS PRN 01/23/23 07/14/23 History Flexpen] Metoprolol Succinate (ER) [Toprol 50 mg PO HS #30 tab 01/29/23 07/14/23 Rx XL] Allergies Allergy/AdvReac Type Severity Reaction Status Date / Time No Known Allergies Allergy Verified 07/14/23 17:53 Surgical - Exam Vital Signs Temp Pulse Resp BP 97.4 F L 131 H 20 151/88 07/14/23 15:20 07/14/23 15:20 07/14/23 15:20 07/14/23 15:20 General appearance: The patient is sedated and intubated. HET: Head is normocephalic and atraumatic. Pupils are equal and reactive. Neck: Supple. Heart: Regular. Lungs: Equal expansion, normal respiratory effort. Abdomen: Soft, nondistended. Extremities: Bilateral lower extremities cool to the touch, mottled and dusky. Palpable femoral pulses. Bilateral upper extremities cool to the touch. Radial pulses faint. Left second toe with diabetic ulcer. Right foot with cracking, plantar aspect but no drainage. Weak Doppler signals present. Neurological: Patient is sedated and intubated. Results - Labs 07/15/23 13:55 07/15/23 09:45 Abnormal Lab Results - Last 24 Hours (Table) 07/14/23 07/14/23 07/14/23 Range/Units 16:15 16:15 16:15 WBC 10.8 H (3.8-10.6) k/uL Hgb (13.0-17.5) gm/dL Hct (39.0-53.0) % MCHC (31.0-37.0) g/dL RDW 18.7 H (11.5-15.5) % Neutrophils # (1.3-7.7) k/uL Neutrophils # (Manual) 7.78 H (1.3-7.7) k/uL PT 26.6 H (10.0-12.5) sec INR 2.7 H (<1.2) D-Dimer (<0.60) mg/L FEU ABG pH (7.35-7.45) ABG pCO2 (35-45) mmHg ABG pO2 (83-108) mmHg ABG HCO3 (21-25) mmol/L ABG Total CO2 (19-24) mmol/L ABG O2 Saturation (94-97) % Potassium (3.5-5.1) mmol/L Chloride (98-107) mmol/L Carbon Dioxide (22-30) mmol/L BUN (9-20) mg/dL Creatinine (0.66-1.25) mg/dL Glucose (74-99) mg/dL POC Glucose (mg/dL) (70-110) mg/dL Plasma Lactic Acid Shawn (0.7-2.0) mmol/L Calcium (8.4-10.2) mg/dL Total Bilirubin (0.2-1.3) mg/dL AST (17-59) U/L ALT (4-49) U/L Alkaline Phosphatase (38-126) U/L Total Protein (6.3-8.2) g/dL Albumin (3.5-5.0) g/dL Urine Protein 1+ H (Negative) Urine Bilirubin 1+ H (Negative) Urine Bacteria Rare H (None) /hpf Urine Mucus Few H (None) /hpf 07/14/23 07/14/23 07/14/23 Range/Units 16:15 18:11 19:00 WBC (3.8-10.6) k/uL Hgb (13.0-17.5) gm/dL Hct (39.0-53.0) % MCHC (31.0-37.0) g/dL RDW (11.5-15.5) % Neutrophils # (1.3-7.7) k/uL Neutrophils # (Manual) (1.3-7.7) k/uL PT (10.0-12.5) sec INR (<1.2) D-Dimer (<0.60) mg/L FEU ABG pH (7.35-7.45) ABG pCO2 (35-45) mmHg ABG pO2 (83-108) mmHg ABG HCO3 (21-25) mmol/L ABG Total CO2 (19-24) mmol/L ABG O2 Saturation (94-97) % Potassium 5.5 H (3.5-5.1) mmol/L Chloride (98-107) mmol/L Carbon Dioxide 18 L (22-30) mmol/L BUN 41 H (9-20) mg/dL Creatinine (0.66-1.25) mg/dL Glucose 141 H (74-99) mg/dL POC Glucose (mg/dL) (70-110) mg/dL Plasma Lactic Acid Shawn 5.8 H* 6.8 H* (0.7-2.0) mmol/L Calcium (8.4-10.2) mg/dL Total Bilirubin 3.6 H (0.2-1.3) mg/dL AST 1284 H (17-59) U/L ALT 572 H (4-49) U/L Alkaline Phosphatase 281 H (38-126) U/L Total Protein (6.3-8.2) g/dL Albumin 3.2 L (3.5-5.0) g/dL Urine Protein (Negative) Urine Bilirubin (Negative) Urine Bacteria (None) /hpf Urine Mucus (None) /hpf 07/15/23 07/15/23 07/15/23 Range/Units 00:07 00:37 00:51 WBC 14.2 H (3.8-10.6) k/uL Hgb 12.6 L (13.0-17.5) gm/dL Hct (39.0-53.0) % MCHC 30.7 L (31.0-37.0) g/dL RDW 18.7 H (11.5-15.5) % Neutrophils # (1.3-7.7) k/uL Neutrophils # (Manual) (1.3-7.7) k/uL PT (10.0-12.5) sec INR (<1.2) D-Dimer (<0.60) mg/L FEU ABG pH 7.22 L (7.35-7.45) ABG pCO2 32 L (35-45) mmHg ABG pO2 244 H (83-108) mmHg ABG HCO3 13 L (21-25) mmol/L ABG Total CO2 14 L (19-24) mmol/L ABG O2 Saturation 99.1 H (94-97) % Potassium (3.5-5.1) mmol/L Chloride (98-107) mmol/L Carbon Dioxide (22-30) mmol/L BUN (9-20) mg/dL Creatinine (0.66-1.25) mg/dL Glucose (74-99) mg/dL POC Glucose (mg/dL) (70-110) mg/dL Plasma Lactic Acid Shawn 11.4 H* (0.7-2.0) mmol/L Calcium (8.4-10.2) mg/dL Total Bilirubin (0.2-1.3) mg/dL AST (17-59) U/L ALT (4-49) U/L Alkaline Phosphatase (38-126) U/L Total Protein (6.3-8.2) g/dL Albumin (3.5-5.0) g/dL Urine Protein (Negative) Urine Bilirubin (Negative) Urine Bacteria (None) /hpf Urine Mucus (None) /hpf 07/15/23 07/15/23 07/15/23 Range/Units 00:51 01:50 02:38 WBC (3.8-10.6) k/uL Hgb (13.0-17.5) gm/dL Hct (39.0-53.0) % MCHC (31.0-37.0) g/dL RDW (11.5-15.5) % Neutrophils # (1.3-7.7) k/uL Neutrophils # (Manual) (1.3-7.7) k/uL PT (10.0-12.5) sec INR (<1.2) D-Dimer (<0.60) mg/L FEU ABG pH 7.15 L* (7.35-7.45) ABG pCO2 31 L (35-45) mmHg ABG pO2 117 H (83-108) mmHg ABG HCO3 11 L (21-25) mmol/L ABG Total CO2 12 L (19-24) mmol/L ABG O2 Saturation (94-97) % Potassium 5.2 H (3.5-5.1) mmol/L Chloride 117 H (98-107) mmol/L Carbon Dioxide 9 L* (22-30) mmol/L BUN 35 H (9-20) mg/dL Creatinine (0.66-1.25) mg/dL Glucose 106 H (74-99) mg/dL POC Glucose (mg/dL) 118 H (70-110) mg/dL Plasma Lactic Acid Shawn (0.7-2.0) mmol/L Calcium 6.5 L (8.4-10.2) mg/dL Total Bilirubin 3.2 H (0.2-1.3) mg/dL AST 814 H (17-59) U/L ALT 414 H (4-49) U/L Alkaline Phosphatase 184 H (38-126) U/L Total Protein 5.5 L (6.3-8.2) g/dL Albumin 2.2 L (3.5-5.0) g/dL Urine Protein (Negative) Urine Bilirubin (Negative) Urine Bacteria (None) /hpf Urine Mucus (None) /hpf 07/15/23 07/15/23 07/15/23 Range/Units 02:42 03:45 05:45 WBC 16.4 H (3.8-10.6) k/uL Hgb (13.0-17.5) gm/dL Hct (39.0-53.0) % MCHC 29.0 L (31.0-37.0) g/dL RDW 18.6 H (11.5-15.5) % Neutrophils # 13.8 H (1.3-7.7) k/uL Neutrophils # (Manual) (1.3-7.7) k/uL PT (10.0-12.5) sec INR (<1.2) D-Dimer 11.30 H (<0.60) mg/L FEU ABG pH (7.35-7.45) ABG pCO2 (35-45) mmHg ABG pO2 (83-108) mmHg ABG HCO3 (21-25) mmol/L ABG Total CO2 (19-24) mmol/L ABG O2 Saturation (94-97) % Potassium (3.5-5.1) mmol/L Chloride (98-107) mmol/L Carbon Dioxide (22-30) mmol/L BUN (9-20) mg/dL Creatinine (0.66-1.25) mg/dL Glucose (74-99) mg/dL POC Glucose (mg/dL) (70-110) mg/dL Plasma Lactic Acid Shawn 12.9 H* (0.7-2.0) mmol/L Calcium (8.4-10.2) mg/dL Total Bilirubin (0.2-1.3) mg/dL AST (17-59) U/L ALT (4-49) U/L Alkaline Phosphatase (38-126) U/L Total Protein (6.3-8.2) g/dL Albumin (3.5-5.0) g/dL Urine Protein (Negative) Urine Bilirubin (Negative) Urine Bacteria (None) /hpf Urine Mucus (None) /hpf 07/15/23 07/15/23 07/15/23 Range/Units 06:00 07:00 09:45 WBC (3.8-10.6) k/uL Hgb (13.0-17.5) gm/dL Hct (39.0-53.0) % MCHC (31.0-37.0) g/dL RDW (11.5-15.5) % Neutrophils # (1.3-7.7) k/uL Neutrophils # (Manual) (1.3-7.7) k/uL PT (10.0-12.5) sec INR (<1.2) D-Dimer (<0.60) mg/L FEU ABG pH (7.35-7.45) ABG pCO2 (35-45) mmHg ABG pO2 (83-108) mmHg ABG HCO3 (21-25) mmol/L ABG Total CO2 (19-24) mmol/L ABG O2 Saturation (94-97) % Potassium 7.3 H* 5.6 H (3.5-5.1) mmol/L Chloride 108 H (98-107) mmol/L Carbon Dioxide 6 L* (22-30) mmol/L BUN 40 H (9-20) mg/dL Creatinine 1.74 H (0.66-1.25) mg/dL Glucose (74-99) mg/dL POC Glucose (mg/dL) (70-110) mg/dL Plasma Lactic Acid Shawn 16.3 H* (0.7-2.0) mmol/L Calcium 7.8 L (8.4-10.2) mg/dL Total Bilirubin (0.2-1.3) mg/dL AST (17-59) U/L ALT (4-49) U/L Alkaline Phosphatase (38-126) U/L Total Protein (6.3-8.2) g/dL Albumin (3.5-5.0) g/dL Urine Protein (Negative) Urine Bilirubin (Negative) Urine Bacteria (None) /hpf Urine Mucus (None) /hpf 07/15/23 07/15/23 Range/Units 11:53 13:55 WBC 28.3 H (3.8-10.6) k/uL Hgb (13.0-17.5) gm/dL Hct 54.0 H (39.0-53.0) % MCHC 28.0 L (31.0-37.0) g/dL RDW 18.7 H (11.5-15.5) % Neutrophils # (1.3-7.7) k/uL Neutrophils # (Manual) (1.3-7.7) k/uL PT (10.0-12.5) sec INR (<1.2) D-Dimer (<0.60) mg/L FEU ABG pH (7.35-7.45) ABG pCO2 (35-45) mmHg ABG pO2 (83-108) mmHg ABG HCO3 (21-25) mmol/L ABG Total CO2 (19-24) mmol/L ABG O2 Saturation (94-97) % Potassium (3.5-5.1) mmol/L Chloride (98-107) mmol/L Carbon Dioxide (22-30) mmol/L BUN (9-20) mg/dL Creatinine (0.66-1.25) mg/dL Glucose (74-99) mg/dL POC Glucose (mg/dL) (70-110) mg/dL Plasma Lactic Acid Shawn 13.6 H* (0.7-2.0) mmol/L Calcium (8.4-10.2) mg/dL Total Bilirubin (0.2-1.3) mg/dL AST (17-59) U/L ALT (4-49) U/L Alkaline Phosphatase (38-126) U/L Total Protein (6.3-8.2) g/dL Albumin (3.5-5.0) g/dL Urine Protein (Negative) Urine Bilirubin (Negative) Urine Bacteria (None) /hpf Urine Mucus (None) /hpf Microbiology - Last 24 Hours (Table) 07/14/23 16:15 Gram Stain - Preliminary Toe - Left Second Diabetes panel 07/14/23 07/15/23 07/15/23 Range/Units 18:11 00:51 06:00 Sodium 140 140 138 (137-145) mmol/L Potassium 5.5 H 5.2 H 7.3 H* (3.5-5.1) mmol/L Chloride 107 117 H 108 H (98-107) mmol/L Carbon Dioxide 18 L 9 L* 6 L* (22-30) mmol/L BUN 41 H 35 H 40 H (9-20) mg/dL Creatinine 0.91 0.92 1.74 H (0.66-1.25) mg/dL Glucose 141 H 106 H 91 (74-99) mg/dL Calcium 9.4 6.5 L 7.8 L (8.4-10.2) mg/dL AST 1284 H 814 H (17-59) U/L ALT 572 H 414 H (4-49) U/L Alkaline Phosphatase 281 H 184 H (38-126) U/L Total Protein 7.0 5.5 L (6.3-8.2) g/dL Albumin 3.2 L 2.2 L (3.5-5.0) g/dL 07/15/23 Range/Units 09:45 Sodium (137-145) mmol/L Potassium 5.6 H (3.5-5.1) mmol/L Chloride (98-107) mmol/L Carbon Dioxide (22-30) mmol/L BUN (9-20) mg/dL Creatinine (0.66-1.25) mg/dL Glucose (74-99) mg/dL Calcium (8.4-10.2) mg/dL AST (17-59) U/L ALT (4-49) U/L Alkaline Phosphatase (38-126) U/L Total Protein (6.3-8.2) g/dL Albumin (3.5-5.0) g/dL Calcium panel 07/14/23 07/15/23 07/15/23 Range/Units 18:11 00:51 06:00 Calcium 9.4 6.5 L 7.8 L (8.4-10.2) mg/dL Albumin 3.2 L 2.2 L (3.5-5.0) g/dL Pituitary panel 07/14/23 07/15/23 07/15/23 Range/Units 18:11 00:51 06:00 Sodium 140 140 138 (137-145) mmol/L Potassium 5.5 H 5.2 H 7.3 H* (3.5-5.1) mmol/L Chloride 107 117 H 108 H (98-107) mmol/L Carbon Dioxide 18 L 9 L* 6 L* (22-30) mmol/L BUN 41 H 35 H 40 H (9-20) mg/dL Creatinine 0.91 0.92 1.74 H (0.66-1.25) mg/dL Glucose 141 H 106 H 91 (74-99) mg/dL Calcium 9.4 6.5 L 7.8 L (8.4-10.2) mg/dL 07/15/23 Range/Units 09:45 Sodium (137-145) mmol/L Potassium 5.6 H (3.5-5.1) mmol/L Chloride (98-107) mmol/L Carbon Dioxide (22-30) mmol/L BUN (9-20) mg/dL Creatinine (0.66-1.25) mg/dL Glucose (74-99) mg/dL Calcium (8.4-10.2) mg/dL Adrenal panel 07/14/23 07/15/23 07/15/23 Range/Units 18:11 00:51 06:00 Sodium 140 140 138 (137-145) mmol/L Potassium 5.5 H 5.2 H 7.3 H* (3.5-5.1) mmol/L Chloride 107 117 H 108 H (98-107) mmol/L Carbon Dioxide 18 L 9 L* 6 L* (22-30) mmol/L BUN 41 H 35 H 40 H (9-20) mg/dL Creatinine 0.91 0.92 1.74 H (0.66-1.25) mg/dL Glucose 141 H 106 H 91 (74-99) mg/dL Calcium 9.4 6.5 L 7.8 L (8.4-10.2) mg/dL Total Bilirubin 3.6 H 3.2 H (0.2-1.3) mg/dL AST 1284 H 814 H (17-59) U/L ALT 572 H 414 H (4-49) U/L Alkaline Phosphatase 281 H 184 H (38-126) U/L Total Protein 7.0 5.5 L (6.3-8.2) g/dL Albumin 3.2 L 2.2 L (3.5-5.0) g/dL 07/15/23 Range/Units 09:45 Sodium (137-145) mmol/L Potassium 5.6 H (3.5-5.1) mmol/L Chloride (98-107) mmol/L Carbon Dioxide (22-30) mmol/L BUN (9-20) mg/dL Creatinine (0.66-1.25) mg/dL Glucose (74-99) mg/dL Calcium (8.4-10.2) mg/dL Total Bilirubin (0.2-1.3) mg/dL AST (17-59) U/L ALT (4-49) U/L Alkaline Phosphatase (38-126) U/L Total Protein (6.3-8.2) g/dL Albumin (3.5-5.0) g/dL Assessment and Plan Assessment: 1. Acute kidney injury requiring renal replacement therapy 2. 2. Acute hypoxemic respiratory failure requiring intubation on mechanical ventilator 3. Atrial fibrillation with RVR on Eliquis 4. Altered mental status changes 5. Left toe wound 6. History of alcoholism 7. Type 2 diabetes mellitus 8. Ongoing tobacco dependence 9. Obesity Plan: 1. Plan for temporary HD catheter placement 2. Hemodialysis per recommendations from nephrology 3. Continue with recommendations from infectious disease for toe wound 4. Continue with recommendations from pulmonology and cardiology 5. Further recommendations forthcoming per vascular surgeon Thank you for this consultation, we will continue to follow. The impression and plan of care has been dictated as directed. I performed a history and examination of this patient, discussed the same with the dictator. I agree with the dictator's note ,documented as a scribe. Any additional findings or plans will be noted.
[2023-07-15 15:17] LABS: Band Neutrophils % 5 %; Metamyelocytes # (M) 0.28 k/uL (0); Metamyelocytes % 1 %; Neutrophils % (M) 88 %; Nucleated Red Blood Cells 1 /100 WBC (0-0); Total Cells Counted 200
[2023-07-15 15:18] LABS: Lymphocytes # (M) 0.84 k/uL (1.0-4.8)
[2023-07-15 15:23] LABS: Glucose,Whole Blood 119 mg/dL (70-110)
--- NOTE | 2023-07-15 15:36 | P.HPIM ---
History of Present Illness H&P Date: 07/15/23 This is a 57 year old male with history of diabetes mellitus, pulmonary embolism anticoagulated with Eliquis, hypertension, Guillan Redlake syndrome, daily smoker. Comes in to the hospital with complaints of frequent falls, inability to ambulate and worsening wound of the left foot. Patient had altered mental status on admission states that he has not been eating or drinking well. He does report some shortness of breath lately and also having decreased urine output. He was brought in by EMS. On admission EKG shows atrial fibrillation with a rapid ventricular rate of 135 there is no specific ST or T wave changes noted. Chest x-ray in the ER shows no acute cardiopulmonary process. Patient d oes have some remote appearing right-sided rib fractures. Initial blood work reveals a white count of 10.8, sodium level of 140, potassium of 5.5, BUN of 41, creatinine of 0.91, significantly elevated lactic acid level at 6.8, elevated AST at 1284, ALT 572, proBNP level of 3680. Serum alcohol level was less than 10. Viral panel was negative for influenza COVID RSV. Abdominal pelvis CT completed reveals no definitive acute abdominal process there is cardiomegaly with trace pleural effusions abdominal ascites and anasarca correlate for volume overload. A [place] catheter is in place with a high density material bladder lumen. Patient was hypotensive on admission did receive 3 L of fluid bolus and requiring vasopressor support was placed on levophed and vasopressin. ABGs completed revealing a pH level 7.22, pCO2 32, pO2 244, HCO [address] was completed revealing a normal head brain CT. Patient was a rapid response early this monring due to respiratory decline with periods of apnea as well as a wide-complex tachycardia; patient subsequently was intubated by the NET MAKING SUPERVISOR and is now placed on the mechanical ventilator and sedated. He is evaluated in the intensive care unit. Stared on amiodarone infusion for the atrial fibrillation. Placed on antibiotics in the form of vancomycin and zosyn for the left toe wound with suspected sepsis and septic shock. Multiple consultations in place including nephrology, cardiology, pulmonary ice cutter, Infectious disease. Patient has not had any urine output and is being considered for emergent hemodialysis. Review of systems Unable to complete a review of systems patient is currently intubated and sedated PHYSICAL EXAMINATION: GENERAL: Patient is sedated on the mechanical ventilator, not in any acute distress. Well developed, well nourished. HEENT: Pupils are round and equally reacting to light. EOMI. No scleral icterus. No conjunctival pallor. Normocephalic, atraumatic. No pharyngeal erythema. No thyromegaly. CARDIOVASCULAR: S1 and S2 present. No murmurs, rubs, or gallops. Irregularly irregular PULMONARY: Chest is clear to auscultation, no wheezing or crackles. Diminished ABDOMEN: Soft, nontender, nondistended, normoactive bowel sounds. No palpable organomegaly. MUSCULOSKELETAL: No joint swelling or deformity. EXTREMITIES: No cyanosis, clubbing, or pedal edema. Bilateral feet are bluish in color the left foot is cold both feet have a +1 pedal pulse found by Doppler NEUROLOGICAL: Unable to complete patient is currently intubated and sedated SKIN: No rashes. His left toe wound between the 1 and 2 toe is necrotic with purulent and sanguinous drainage. Assessment Acute hypoxemic respiratory failure secondary to severe sepsis Acute kidney injury due to ATN from sepsis and hypotension; patient is not p roducing any urine at this point. Hypotensive shock requiring levophed and vasopressin support Atrial fibrillation with rapid ventricular rate currently on IV amiodarone. Altered mental status secondary to acute toxic and metabolic encephalopathy from Sepsis Left toe wound with cellulitis and sepsis, POA; likely a component of peripheral vascular disease with poorly controlled diabetes Metabolic acidosis and lactic acidosis currently on sodium bicarbonate gtt Elevated LFTs with imaging not revealing any acute process this is likely due to shock liver Hyperkalemia due to the [place] Elevated D Dimer without evidence of pulmonary embolism Diabetes Mellitus type 2; insulin dependent Hx of pulmonary embolism on eliquis outpatient Hx of hypertension Alcohol use disorder Chronic and ongoing nicotine use GI prophylaxis DVT prophylaxis: Resumed on eliquis Full Code Plan Patient remains in the intensive care unit he is currently on the mechanical ventilator managed by ice cutter Patient remains sedated with propofol and nimbex Continue with vasopressin and levophed support Concern for component of vascular congestion; and being given a dose of IV lasix Patient will have vascular consultation for emergent dialysis catheter placement and will undergo hemodialysis today Echocardiogram ordered and pending Continue on the sodium bicarb gtt Continue on amiodarone for the atrial fibrillation; and continue cardiac monitoring Continue on IV vancomycin and IV zosyn empirically and the left foot wound has been cultured Blood cultures have been taken and pending ID on consultation for the foot wound and management of sepsis Patient remains on [facility] alcohol withdrawal protocol Monitor lactic acid levels Repeat CBC and CMP in the AM Condition remains critical; patient is a full code The impression and plan of care has been dictated by Karon Boone, Nurse Practitioner as directed. Dr. Wil MD I have performed a history and physical examination and medical decision making of this patient, discussed the same with the dictator, and agree with the dictators assessment and plan as written, documented as a scribe. Based on total visit time, I have performed more than 50% of this visit. Past Medical History Past Medical History: Atrial Fibrillation, Diabetes Mellitus, Hypertension Additional Past Medical History / Comment(s): Guillian Redlake History of Any Multi-Drug Resistant Organisms: None Reported Past Surgical History: No Surgical Hx Reported Past Psychological History: No Psychological Hx Reported Smoking Status: Current every day smoker Past Alcohol Use History: Occasional Past Drug Use History: None Reported - Past Family History Father Family Medical History: Diabetes Mellitus, Hypertension Mother Additional Family Medical History / Comment(s): "heart disease" Medications and Allergies Home Medications Medication Instructions Recorded Confirmed Type Lisinopril-Hctz 20-25 mg 1 tab PO DAILY 10/21/22 07/14/23 History [Zestoretic 20-25] metFORMIN HCL [Glucophage] 1,000 mg PO BID 10/21/22 07/14/23 History Apixaban [Eliquis] 5 mg PO BID 01/23/23 07/14/23 History Insulin Glargine,Hum.rec.anlog 20 - 25 units SQ DAILY 01/23/23 07/14/23 History [Lantus Solostar Pen] Insulin Regular, Human [NovoLIN R 4 - 12 units SQ ACHS PRN 01/23/23 07/14/23 History Flexpen] Metoprolol Succinate (ER) [Toprol 50 mg PO HS #30 tab 01/29/23 07/14/23 Rx XL] Allergies Allergy/AdvReac Type Severity Reaction Status Date / Time No Known Allergies Allergy Verified 07/14/23 17:53 Physical Exam Vitals: Vital Signs Temp Pulse Resp BP Pulse Ox FiO2 07/15/23 08:30 97.8 F 89 20 97/74 07/15/23 08:15 88 20 92/59 60 03/12/24 08:10 117 H 28 H 07/15/23 08:00 118 H 0 L 107/94 07/15/23 07:52 60 07/15/23 07:50 112 H 0 L 107/94 07/15/23 07:49 60 07/15/23 07:44 101 H 28 H 07/15/23 07:40 105 H 0 L 81/64 07/15/23 07:30 109 H 0 L 70/31 07/15/23 07:20 91 0 L 73/35 07/15/23 07:10 104 H 0 L 100/81 07/15/23 07:00 96 0 L 81/63 07/15/23 06:50 101 H 0 L 81/63 07/15/23 06:40 106 H 0 L 102/56 07/15/23 06:30 110 H 18 104/73 07/15/23 06:20 98 19 91/70 07/15/23 06:10 93 31 H 94/63 07/15/23 06:05 60 07/15/23 06:00 104 H 9 L 86/60 07/15/23 05:50 118 H 11 L 86/60 07/15/23 05:40 112 H 0 L 118/69 07/15/23 05:30 92 27 H 88/38 07/15/23 05:20 71/50 07/15/23 05:10 71/50 07/15/23 05:00 71/50 07/15/23 04:50 71/50 07/15/23 04:40 71/50 07/15/23 04:30 122 H 0 L 95/44 80 24 04:20 114 H 0 L 95/44 24 04:10 113 H 0 L 103/53 07/15/23 04:00 106 H 0 L 58/44 60 07/15/23 03:50 122 H 26 H 58/44 24 03:40 116 H 13 139/91 07/15/23 03:30 122 H 9 L 129/29 07/15/23 03:20 123 H 13 129/29 07/15/23 03:10 133 H 13 126/105 07/15/23 03:00 107 H 5 L 92/46 07/15/23 02:56 80 03/24 02:50 128 H 8 L 93/80 07/15/23 02:40 137 H 17 84/72 07/15/23 02:30 107/86 07/15/23 02:20 135 H 6 L 07/15/23 02:10 115 H 15 103/83 07/15/23 02:00 100 07/15/23 01:22 100 07/14/23 23:46 143 H 24 94 L 07/14/23 22:37 99.6 F 115 H 22 121/64 98 07/14/23 20:18 120 H 20 134/96 94 L 07/14/23 17:32 126 H 22 125/97 07/14/23 15:20 97.4 F L 131 H 20 151/88 Intake and Output 07/14/23 07/15/23 07/15/23 22:59 06:59 14:59 Intake Total 700.560 159.904 Output Total 1000 0 Balance -299.440 159.904 Intake: Intake, IV Titration 700.560 159.904 Amount Norepinephrine 4 mg In 100.560 Sodium Chloride 0.9% 250 ml @ 0.03 MCG/KG/MIN 14. 776 mls/hr IV .[id number] [facility] Rx#:[id number] Sodium Chloride 0.9% 1, 500 125 000 ml @ 999 mls/hr IV . Q1H1M [facility] Rx#:[id number] propofoL 1,000 mg In 100.000 34.904 Empty Bag 1 bag @ 15 MCG/ KG/MIN 11.635 mls/hr IV . Q8H36M [facility] Rx#:[id number] Output: Gastric Drainage 1000 Urine 0 0 Other: Voiding Method Indwelling Catheter Weight 129.274 kg 140.7 kg ABP, PAP, CO, CI - Last 8 Hours Arterial Blood Pressure 91/65 Arterial Blood Pressure 96/62 Arterial Blood Pressure 88/67 Arterial Blood Pressure 95/63 Arterial Blood Pressure 84/66 Arterial Blood Pressure 67/52 Arterial Blood Pressure 170/33 Arterial Blood Pressure 71/61 Arterial Blood Pressure 77/63 Arterial Blood Pressure 76/62 Arterial Blood Pressure 77/63 Arterial Blood Pressure 77/63 Arterial Blood Pressure 78/62 Arterial Blood Pressure 77/62 Arterial Blood Pressure 75/62 Arterial Blood Pressure 75/61 Arterial Blood Pressure 76/61 Arterial Blood Pressure 82/66 Arterial Blood Pressure 89/66 Arterial Blood Pressure 78/65 Arterial Blood Pressure 90/71 Arterial Blood Pressure 87/71 Arterial Blood Pressure 82/68 Arterial Blood Pressure 76/67 Arterial Blood Pressure 82/67 Arterial Blood Pressure 82/66 Arterial Blood Pressure 91/73 Arterial Blood Pressure 93/76 Results CBC & Chem 7: 07/15/23 13:55 07/15/23 13:55 Labs: Abnormal Lab Results - Last 24 Hours (Table) 07/14/23 07/14/23 07/14/23 Range/Units 16:15 16:15 16:15 WBC 10.8 H (3.8-10.6) k/uL Hgb (13.0-17.5) gm/dL MCHC (31.0-37.0) g/dL RDW 18.7 H (11.5-15.5) % Neutrophils # (1.3-7.7) k/uL Neutrophils # (Manual) 7.78 H (1.3-7.7) k/uL PT 26.6 H (10.0-12.5) sec INR 2.7 H (<1.2) D-Dimer (<0.60) mg/L FEU ABG pH (7.35-7.45) ABG pCO2 (35-45) mmHg ABG pO2 (83-108) mmHg ABG HCO3 (21-25) mmol/L ABG Total CO2 (19-24) mmol/L ABG O2 Saturation (94-97) % Potassium (3.5-5.1) mmol/L Chloride (98-107) mmol/L Carbon Dioxide (22-30) mmol/L BUN (9-20) mg/dL Creatinine (0.66-1.25) mg/dL Glucose (74-99) mg/dL POC Glucose (mg/dL) (70-110) mg/dL Plasma Lactic Acid Shawn (0.7-2.0) mmol/L Calcium (8.4-10.2) mg/dL Total Bilirubin (0.2-1.3) mg/dL AST (17-59) U/L ALT (4-49) U/L Alkaline Phosphatase (38-126) U/L Total Protein (6.3-8.2) g/dL Albumin (3.5-5.0) g/dL Urine Protein 1+ H (Negative) Urine Bilirubin 1+ H (Negative) Urine Bacteria Rare H (None) /hpf Urine Mucus Few H (None) /hpf 07/14/23 07/14/23 07/14/23 Range/Units 16:15 18:11 19:00 WBC (3.8-10.6) k/uL Hgb (13.0-17.5) gm/dL MCHC (31.0-37.0) g/dL RDW (11.5-15.5) % Neutrophils # (1.3-7.7) k/uL Neutrophils # (Manual) (1.3-7.7) k/uL PT (10.0-12.5) sec INR (<1.2) D-Dimer (<0.60) mg/L FEU ABG pH (7.35-7.45) ABG pCO2 (35-45) mmHg ABG pO2 (83-108) mmHg ABG HCO3 (21-25) mmol/L ABG Total CO2 (19-24) mmol/L ABG O2 Saturation (94-97) % Potassium 5.5 H (3.5-5.1) mmol/L Chloride (98-107) mmol/L Carbon Dioxide 18 L (22-30) mmol/L BUN 41 H (9-20) mg/dL Creatinine (0.66-1.25) mg/dL Glucose 141 H (74-99) mg/dL POC Glucose (mg/dL) (70-110) mg/dL Plasma Lactic Acid Shawn 5.8 H* 6.8 H* (0.7-2.0) mmol/L Calcium (8.4-10.2) mg/dL Total Bilirubin 3.6 H (0.2-1.3) mg/dL AST 1284 H (17-59) U/L ALT 572 H (4-49) U/L Alkaline Phosphatase 281 H (38-126) U/L Total Protein (6.3-8.2) g/dL Albumin 3.2 L (3.5-5.0) g/dL Urine Protein (Negative) Urine Bilirubin (Negative) Urine Bacteria (None) /hpf Urine Mucus (None) /hpf 07/15/23 07/15/23 07/15/23 Range/Units 00:07 00:37 00:51 WBC 14.2 H (3.8-10.6) k/uL Hgb 12.6 L (13.0-17.5) gm/dL MCHC 30.7 L (31.0-37.0) g/dL RDW 18.7 H (11.5-15.5) % Neutrophils # (1.3-7.7) k/uL Neutrophils # (Manual) (1.3-7.7) k/uL PT (10.0-12.5) sec INR (<1.2) D-Dimer (<0.60) mg/L FEU ABG pH 7.22 L (7.35-7.45) ABG pCO2 32 L (35-45) mmHg ABG pO2 244 H (83-108) mmHg ABG HCO3 13 L (21-25) mmol/L ABG Total CO2 14 L (19-24) mmol/L ABG O2 Saturation 99.1 H (94-97) % Potassium (3.5-5.1) mmol/L Chloride (98-107) mmol/L Carbon Dioxide (22-30) mmol/L BUN (9-20) mg/dL Creatinine (0.66-1.25) mg/dL Glucose (74-99) mg/dL POC Glucose (mg/dL) (70-110) mg/dL Plasma Lactic Acid Shawn 11.4 H* (0.7-2.0) mmol/L Calcium (8.4-10.2) mg/dL Total Bilirubin (0.2-1.3) mg/dL AST (17-59) U/L ALT (4-49) U/L Alkaline Phosphatase (38-126) U/L Total Protein (6.3-8.2) g/dL Albumin (3.5-5.0) g/dL Urine Protein (Negative) Urine Bilirubin (Negative) Urine Bacteria (None) /hpf Urine Mucus (None) /hpf 07/15/23 07/15/23 07/15/23 Range/Units 00:51 01:50 02:38 WBC (3.8-10.6) k/uL Hgb (13.0-17.5) gm/dL MCHC (31.0-37.0) g/dL RDW (11.5-15.5) % Neutrophils # (1.3-7.7) k/uL Neutrophils # (Manual) (1.3-7.7) k/uL PT (10.0-12.5) sec INR (<1.2) D-Dimer (<0.60) mg/L FEU ABG pH 7.15 L* (7.35-7.45) ABG pCO2 31 L (35-45) mmHg ABG pO2 117 H (83-108) mmHg ABG HCO3 11 L (21-25) mmol/L ABG Total CO2 12 L (19-24) mmol/L ABG O2 Saturation (94-97) % Potassium 5.2 H (3.5-5.1) mmol/L Chloride 117 H (98-107) mmol/L Carbon Dioxide 9 L* (22-30) mmol/L BUN 35 H (9-20) mg/dL Creatinine (0.66-1.25) mg/dL Glucose 106 H (74-99) mg/dL POC Glucose (mg/dL) 118 H (70-110) mg/dL Plasma Lactic Acid Shawn (0.7-2.0) mmol/L Calcium 6.5 L (8.4-10.2) mg/dL Total Bilirubin 3.2 H (0.2-1.3) mg/dL AST 814 H (17-59) U/L ALT 414 H (4-49) U/L Alkaline Phosphatase 184 H (38-126) U/L Total Protein 5.5 L (6.3-8.2) g/dL Albumin 2.2 L (3.5-5.0) g/dL Urine Protein (Negative) Urine Bilirubin (Negative) Urine Bacteria (None) /hpf Urine Mucus (None) /hpf 07/15/23 07/15/23 07/15/23 Range/Units 02:42 03:45 05:45 WBC 16.4 H (3.8-10.6) k/uL Hgb (13.0-17.5) gm/dL MCHC 29.0 L (31.0-37.0) g/dL RDW 18.6 H (11.5-15.5) % Neutrophils # 13.8 H (1.3-7.7) k/uL Neutrophils # (Manual) (1.3-7.7) k/uL PT (10.0-12.5) sec INR (<1.2) D-Dimer 11.30 H (<0.60) mg/L FEU ABG pH (7.35-7.45) ABG pCO2 (35-45) mmHg ABG pO2 (83-108) mmHg ABG HCO3 (21-25) mmol/L ABG Total CO2 (19-24) mmol/L ABG O2 Saturation (94-97) % Potassium (3.5-5.1) mmol/L Chloride (98-107) mmol/L Carbon Dioxide (22-30) mmol/L BUN (9-20) mg/dL Creatinine (0.66-1.25) mg/dL Glucose (74-99) mg/dL POC Glucose (mg/dL) (70-110) mg/dL Plasma Lactic Acid Shawn 12.9 H* (0.7-2.0) mmol/L Calcium (8.4-10.2) mg/dL Total Bilirubin (0.2-1.3) mg/dL AST (17-59) U/L ALT (4-49) U/L Alkaline Phosphatase (38-126) U/L Total Protein (6.3-8.2) g/dL Albumin (3.5-5.0) g/dL Urine Protein (Negative) Urine Bilirubin (Negative) Urine Bacteria (None) /hpf Urine Mucus (None) /hpf 07/15/23 07/15/23 Range/Units 06:00 07:00 WBC (3.8-10.6) k/uL Hgb (13.0-17.5) gm/dL MCHC (31.0-37.0) g/dL RDW (11.5-15.5) % Neutrophils # (1.3-7.7) k/uL Neutrophils # (Manual) (1.3-7.7) k/uL PT (10.0-12.5) sec INR (<1.2) D-Dimer (<0.60) mg/L FEU ABG pH (7.35-7.45) ABG pCO2 (35-45) mmHg ABG pO2 (83-108) mmHg ABG HCO3 (21-25) mmol/L ABG Total CO2 (19-24) mmol/L ABG O2 Saturation (94-97) % Potassium 7.3 H* (3.5-5.1) mmol/L Chloride 108 H (98-107) mmol/L Carbon Dioxide 6 L* (22-30) mmol/L BUN 40 H (9-20) mg/dL Creatinine 1.74 H (0.66-1.25) mg/dL Glucose (74-99) mg/dL POC Glucose (mg/dL) (70-110) mg/dL Plasma Lactic Acid Shawn 16.3 H* (0.7-2.0) mmol/L Calcium 7.8 L (8.4-10.2) mg/dL Total Bilirubin (0.2-1.3) mg/dL AST (17-59) U/L ALT (4-49) U/L Alkaline Phosphatase (38-126) U/L Total Protein (6.3-8.2) g/dL Albumin (3.5-5.0) g/dL Urine Protein (Negative) Urine Bilirubin (Negative) Urine Bacteria (None) /hpf Urine Mucus (None) /hpf Microbiology - Last 24 Hours (Table) 07/14/23 16:15 Gram Stain - Preliminary Toe - Left Second Assessment and Plan Time with Patient: Greater than 30
[2023-07-15] MEDS: HEPARIN SODIUM 1,000 UN/ML (10ML VL) IVP ONE (16:09)
--- NOTE | 2023-07-15 16:25 | P.PCN ---
Date of Procedure: 07/15/23 Preoperative Diagnosis: acute renal failure Postoperative Diagnosis: same Procedure(s) Performed: Ultrasound guided right common femoral vein temporary catheter placement Surgeon: Bhanu Orr Estimated Blood Loss (ml): 2 Pathology: none sent Condition: stable Disposition: ICU Description of Procedure: After written and informed consent was obtained from the patients family the procedure was performed at the bedside. Using ultrasound the right common femoral vein was located and was patent with good compression. Under ultrasound guidance the right common femoral vein was accessed after local anesthetic was infused over the vein. Using Seldinger technique a 20cm temporary dialysis catheter was placed in usual fashion. The area was cleansed and dressings were placed. The patient tolerated the procedure well.
[2023-07-15] MEDS: ARTIFICIAL TEARS-HYPROMELLOSE DROPS 15 ML BTL BOTH EYES SCH (16:57)
--- NOTE | 2023-07-15 22:37 | P.CONS ---
History of Present Illness - Reason for Consult Consult date: 07/15/23 Ulcerated left toe Requesting physician: Arsalan Carvalho - Chief Complaint Weakness and mental status changes x 1 day - History of Present Illness Patient is a 57-year-old male past medical history difficult for diabetes mellitus hypertension atrial fibrillation current everyday smoker patient was brought into the hospital yesterday afternoon with the patient was complaining of some mental status changes apparently patient has stopped drinking about 2 weeks ago and has been complaining of feeling weak unable to get up because has a wound on his left foot and when he gets up Patient was initially admitted to the medical floor however the patient did have worsening of his respiratory status and mentation patient did get intubated and has been admitted to the ICU patient has been on high-dose pressor support to maintain his blood pressure on presentation to the hospital patient was afebrile and no fever have recorded subsequently patient has been tachycardic hypotensive and hypoxic he is currently on 60% FiO2 however no significant purulent secretion through the ET nursing staff did not mention significant output from his NG suction and no diarrhea has been reported patient did have a white count of 28,000 with a left shift BUN/creatinine is mildly elevated lactic acid of 12.7 liver enzymes are elevated urine has been negative influenza RSV COVID testing was negative patient did have a toe x-ray soft tissue swelling second digit without evidence for fracture or erosion at this point patient did have abdominal pelvis CT no evidence for pneumatosis or definite acute abdominal process cardiomegaly with trace effusion patient also have CT angiogram of the chest small lateral effusion with compressive atelectasis and or pneumonia there is no evidence of any PE patient was started on vancomycin and Zosyn infectious disease was consulted for further management of antibiotic therapy most information has been obtained from review the chart talking nursing staff and the patient currently intubated on the vent and no family at the bedside Review of Systems Positive points has been mentioned in HPI complete review could not be obtained because of his underlying mental status Past Medical History Past Medical History: Atrial Fibrillation, Diabetes Mellitus, Hypertension Additional Past Medical History / Comment(s): Gu[place] History of Any Multi-Drug Resistant Organisms: None Reported Past Surgical History: No Surgical Hx Reported Past Psychological History: No Psychological Hx Reported Smoking Status: Current every day smoker Past Alcohol Use History: Occasional Past Drug Use History: None Reported - Past Family History Father Family Medical History: Diabetes Mellitus, Hypertension Mother Additional Family Medical History / Comment(s): "heart disease" Medications and Allergies Home Medications Medication Instructions Recorded Confirmed Type Lisinopril-Hctz 20-25 mg 1 tab PO DAILY 10/21/22 07/14/23 History [Zestoretic 20-25] metFORMIN HCL [Glucophage] 1,000 mg PO BID 10/21/22 07/14/23 History Apixaban [Eliquis] 5 mg PO BID 01/23/23 07/14/23 History Insulin Glargine,Hum.rec.anlog 20 - 25 units SQ DAILY 01/23/23 07/14/23 History [Lantus Solostar Pen] Insulin Regular, Human [NovoLIN R 4 - 12 units SQ ACHS PRN 01/23/23 07/14/23 History Flexpen] Metoprolol Succinate (ER) [Toprol 50 mg PO HS #30 tab 01/29/23 07/14/23 Rx XL] Allergies Allergy/AdvReac Type Severity Reaction Status Date / Time No Known Allergies Allergy Verified 07/14/23 17:53 Physical Exam Vitals: Vital Signs Temp Pulse Resp BP Pulse Ox FiO2 07/15/23 11:00 93 20 107/46 95 07/15/23 10:30 78 20 92/45 96 07/15/23 10:00 89 20 88/70 92 L 07/15/23 09:40 92 20 85/69 07/15/23 09:20 93 20 105/44 07/15/23 09:00 96 20 89/57 07/15/23 08:40 89 20 116/28 100 07/15/23 08:30 97.8 F 89 20 97/74 07/15/23 08:15 88 20 92/59 60 07/15/23 08:10 117 H 28 H 07/15/23 08:00 118 H 0 L 107/94 07/15/23 07:52 60 07/15/23 07:50 112 H 0 L 107/94 07/15/23 07:49 60 07/15/23 07:44 101 H 28 H 07/15/23 07:40 105 H 0 L 81/64 07/15/23 07:30 109 H 0 L 70/31 07/15/23 07:20 91 0 L 73/35 07/15/23 07:10 104 H 0 L 100/81 07/15/23 07:00 96 0 L 81/63 07/15/23 06:50 101 H 0 L 81/63 07/15/23 06:40 106 H 0 L 102/56 07/15/23 06:30 110 H 18 104/73 07/15/23 06:20 98 19 91/70 07/15/23 06:10 93 31 H 94/63 07/15/23 06:05 60 07/15/23 06:00 104 H 9 L 86/60 07/15/23 05:50 118 H 11 L 86/60 07/15/23 05:40 112 H 0 L 118/69 07/15/23 05:30 92 27 H 88/38 07/15/23 05:20 71/50 07/15/23 05:10 71/50 07/15/23 05:00 71/50 07/15/23 04:50 71/50 07/15/23 04:40 71/50 07/15/23 04:30 122 H 0 L 95/44 80 07/15/23 04:20 114 H 0 L 95/44 07/15/23 04:10 113 H 0 L 103/53 07/15/23 04:00 106 H 0 L 58/44 60 07/15/23 03:50 122 H 26 H 58/44 07/15/23 03:40 116 H 13 139/91 07/15/23 03:30 122 H 9 L 129/29 07/15/23 03:20 123 H 13 129/29 07/15/23 03:10 133 H 13 126/105 07/15/23 03:00 107 H 5 L 92/46 07/15/23 02:56 80 07/15/23 02:50 128 H 8 L 93/80 07/15/23 02:40 137 H 17 84/72 07/15/23 02:30 107/86 07/15/23 02:20 135 H 6 L 07/15/23 02:10 115 H 15 103/83 07/15/23 02:00 100 07/15/23 01:22 100 07/14/23 23:46 143 H 24 94 L 07/14/23 22:37 99.6 F 115 H 22 121/64 98 07/14/23 20:18 120 H 20 134/96 94 L 07/14/23 17:32 126 H 22 125/97 07/14/23 15:20 97.4 F L 131 H 20 151/88 Intake and Output 07/14/23 07/15/23 07/15/23 22:59 06:59 14:59 Intake Total 141.778 8331.904 Output Total 1000 0 Balance -859.684 4632.904 Intake: IV 12 .9NS Pressure Bag 12 Intake, IV Titration 026.035 7670.904 Amount Calcium Gluconate in NaCl 100 1 gm In Saline 1 100ml. bag @ 400 mls/hr IVPB ONCE ONE Rx#:[id number] Dextrose 5% in Water 1, 500 000 ml @ 125 mls/hr IV . Q9H12M WILI with Sodium Bicarb (1 Meq/ml) 150 ml Rx#:[id number] Norepinephrine 4 mg In 100.560 508.000 Sodium Chloride 0.9% 250 ml @ 0.03 MCG/KG/MIN 14. 776 mls/hr IV .[id number] [facility] Rx#:[id number] Piperacillin-Tazobactam 3 75 .375 gm In Sodium Chloride 0.9% 100 ml @ 200 mls/hr IVPB ONCE STA Rx#:[id number] Sodium Chloride 0.9% 1, 500 1125 000 ml @ 999 mls/hr IV . Q1H1M ONE Rx#:[id number] Vancomycin 2,000 mg In 601 Sodium Chloride 0.9% 500 ml 500 ml @ 167 mls/hr IVPB Q16H [facility] Rx#: [id number] propofoL 1,000 mg In 100.000 34.904 Empty Bag 1 bag @ 15 MCG/ KG/MIN 11.635 mls/hr IV . Q8H36M [facility] Rx#:[id number] Output: Gastric Drainage 1000 Urine 0 0 Other: Voiding Method Indwelling Catheter Weight 129.274 kg 140.7 kg ABP, PAP, CO, CI - Last 8 Hours Arterial Blood Pressure 88/72 Arterial Blood Pressure 97/69 Arterial Blood Pressure 102/68 Arterial Blood Pressure 103/80 Arterial Blood Pressure 82/63 Arterial Blood Pressure 78/62 Arterial Blood Pressure 88/64 Arterial Blood Pressure 91/65 Arterial Blood Pressure 96/62 Arterial Blood Pressure 88/67 Arterial Blood Pressure 95/63 Arterial Blood Pressure 84/66 Arterial Blood Pressure 67/52 Arterial Blood Pressure 170/33 Arterial Blood Pressure 71/61 Arterial Blood Pressure 77/63 Arterial Blood Pressure 76/62 Arterial Blood Pressure 77/63 Arterial Blood Pressure 77/63 Arterial Blood Pressure 78/62 Arterial Blood Pressure 77/62 Arterial Blood Pressure 75/62 Arterial Blood Pressure 75/61 Arterial Blood Pressure 76/61 Arterial Blood Pressure 82/66 Arterial Blood Pressure 89/66 Arterial Blood Pressure 78/65 Arterial Blood Pressure 90/71 Arterial Blood Pressure 87/71 Arterial Blood Pressure 82/68 Arterial Blood Pressure 76/67 Arterial Blood Pressure 82/67 GENERAL DESCRIPTION: Middle-age male intubated on the vent HEENT: Shows Pallor , no scleral icterus. Oral mucous membrane is dry. NECK: Trachea central, no thyromegaly. LUNGS: Unlabored breathing. Decreased breath sounds at the base HEART: S1, S2, regular rate and rhythm. No loud murmur ABDOMEN: Soft, no tenderness , guarding or rigidity, no organomegaly EXTREMITIES: Left second toe with some ulceration did have discoloration left foot is cold and no foul-smelling drainage SKIN: No rash, no masses palpable. NEUROLOGICAL: The patient is sedated on the vent Results CBC & Chem 7: 07/17/23 04:00 07/17/23 04:00 Labs: Abnormal Lab Results - Last 24 Hours (Table) 07/14/23 07/14/23 07/14/23 Range/Units 16:15 16:15 16:15 WBC 10.8 H (3.8-10.6) k/uL Hgb (13.0-17.5) gm/dL MCHC (31.0-37.0) g/dL RDW 18.7 H (11.5-15.5) % Neutrophils # (1.3-7.7) k/uL Neutrophils # (Manual) 7.78 H (1.3-7.7) k/uL PT 26.6 H (10.0-12.5) sec INR 2.7 H (<1.2) D-Dimer (<0.60) mg/L FEU ABG pH (7.35-7.45) ABG pCO2 (35-45) mmHg ABG pO2 (83-108) mmHg ABG HCO3 (21-25) mmol/L ABG Total CO2 (19-24) mmol/L ABG O2 Saturation (94-97) % Potassium (3.5-5.1) mmol/L Chloride (98-107) mmol/L Carbon Dioxide (22-30) mmol/L BUN (9-20) mg/dL Creatinine (0.66-1.25) mg/dL Glucose (74-99) mg/dL POC Glucose (mg/dL) (70-110) mg/dL Plasma Lactic Acid Shawn (0.7-2.0) mmol/L Calcium (8.4-10.2) mg/dL Total Bilirubin (0.2-1.3) mg/dL AST (17-59) U/L ALT (4-49) U/L Alkaline Phosphatase (38-126) U/L Total Protein (6.3-8.2) g/dL Albumin (3.5-5.0) g/dL Urine Protein 1+ H (Negative) Urine Bilirubin 1+ H (Negative) Urine Bacteria Rare H (None) /hpf Urine Mucus Few H (None) /hpf 07/14/23 07/14/23 07/14/23 Range/Units 16:15 18:11 19:00 WBC (3.8-10.6) k/uL Hgb (13.0-17.5) gm/dL MCHC (31.0-37.0) g/dL RDW (11.5-15.5) % Neutrophils # (1.3-7.7) k/uL Neutrophils # (Manual) (1.3-7.7) k/uL PT (10.0-12.5) sec INR (<1.2) D-Dimer (<0.60) mg/L FEU ABG pH (7.35-7.45) ABG pCO2 (35-45) mmHg ABG pO2 (83-108) mmHg ABG HCO3 (21-25) mmol/L ABG Total CO2 (19-24) mmol/L ABG O2 Saturation (94-97) % Potassium 5.5 H (3.5-5.1) mmol/L Chloride (98-107) mmol/L Carbon Dioxide 18 L (22-30) mmol/L BUN 41 H (9-20) mg/dL Creatinine (0.66-1.25) mg/dL Glucose 141 H (74-99) mg/dL POC Glucose (mg/dL) (70-110) mg/dL Plasma Lactic Acid Shawn 5.8 H* 6.8 H* (0.7-2.0) mmol/L Calcium (8.4-10.2) mg/dL Total Bilirubin 3.6 H (0.2-1.3) mg/dL AST 1284 H (17-59) U/L ALT 572 H (4-49) U/L Alkaline Phosphatase 281 H (38-126) U/L Total Protein (6.3-8.2) g/dL Albumin 3.2 L (3.5-5.0) g/dL Urine Protein (Negative) Urine Bilirubin (Negative) Urine Bacteria (None) /hpf Urine Mucus (None) /hpf 07/15/23 07/15/23 07/15/23 Range/Units 00:07 00:37 00:51 WBC 14.2 H (3.8-10.6) k/uL Hgb 12.6 L (13.0-17.5) gm/dL MCHC 30.7 L (31.0-37.0) g/dL RDW 18.7 H (11.5-15.5) % Neutrophils # (1.3-7.7) k/uL Neutrophils # (Manual) (1.3-7.7) k/uL PT (10.0-12.5) sec INR (<1.2) D-Dimer (<0.60) mg/L FEU ABG pH 7.22 L (7.35-7.45) ABG pCO2 32 L (35-45) mmHg ABG pO2 244 H (83-108) mmHg ABG HCO3 13 L (21-25) mmol/L ABG Total CO2 14 L (19-24) mmol/L ABG O2 Saturation 99.1 H (94-97) % Potassium (3.5-5.1) mmol/L Chloride (98-107) mmol/L Carbon Dioxide (22-30) mmol/L BUN (9-20) mg/dL Creatinine (0.66-1.25) mg/dL Glucose (74-99) mg/dL POC Glucose (mg/dL) (70-110) mg/dL Plasma Lactic Acid Shawn 11.4 H* (0.7-2.0) mmol/L Calcium (8.4-10.2) mg/dL Total Bilirubin (0.2-1.3) mg/dL AST (17-59) U/L ALT (4-49) U/L Alkaline Phosphatase (38-126) U/L Total Protein (6.3-8.2) g/dL Albumin (3.5-5.0) g/dL Urine Protein (Negative) Urine Bilirubin (Negative) Urine Bacteria (None) /hpf Urine Mucus (None) /hpf 07/15/23 07/15/23 07/15/23 Range/Units 00:51 01:50 02:38 WBC (3.8-10.6) k/uL Hgb (13.0-17.5) gm/dL MCHC (31.0-37.0) g/dL RDW (11.5-15.5) % Neutrophils # (1.3-7.7) k/uL Neutrophils # (Manual) (1.3-7.7) k/uL PT (10.0-12.5) sec INR (<1.2) D-Dimer (<0.60) mg/L FEU ABG pH 7.15 L* (7.35-7.45) ABG pCO2 31 L (35-45) mmHg ABG pO2 117 H (83-108) mmHg ABG HCO3 11 L (21-25) mmol/L ABG Total CO2 12 L (19-24) mmol/L ABG O2 Saturation (94-97) % Potassium 5.2 H (3.5-5.1) mmol/L Chloride 117 H (98-107) mmol/L Carbon Dioxide 9 L* (22-30) mmol/L BUN 35 H (9-20) mg/dL Creatinine (0.66-1.25) mg/dL Glucose 106 H (74-99) mg/dL POC Glucose (mg/dL) 118 H (70-110) mg/dL Plasma Lactic Acid Shawn (0.7-2.0) mmol/L Calcium 6.5 L (8.4-10.2) mg/dL Total Bilirubin 3.2 H (0.2-1.3) mg/dL AST 814 H (17-59) U/L ALT 414 H (4-49) U/L Alkaline Phosphatase 184 H (38-126) U/L Total Protein 5.5 L (6.3-8.2) g/dL Albumin 2.2 L (3.5-5.0) g/dL Urine Protein (Negative) Urine Bilirubin (Negative) Urine Bacteria (None) /hpf Urine Mucus (None) /hpf 07/15/23 07/15/23 07/15/23 Range/Units 02:42 03:45 05:45 WBC 16.4 H (3.8-10.6) k/uL Hgb (13.0-17.5) gm/dL MCHC 29.0 L (31.0-37.0) g/dL RDW 18.6 H (11.5-15.5) % Neutrophils # 13.8 H (1.3-7.7) k/uL Neutrophils # (Manual) (1.3-7.7) k/uL PT (10.0-12.5) sec INR (<1.2) D-Dimer 11.30 H (<0.60) mg/L FEU ABG pH (7.35-7.45) ABG pCO2 (35-45) mmHg ABG pO2 (83-108) mmHg ABG HCO3 (21-25) mmol/L ABG Total CO2 (19-24) mmol/L ABG O2 Saturation (94-97) % Potassium (3.5-5.1) mmol/L Chloride (98-107) mmol/L Carbon Dioxide (22-30) mmol/L BUN (9-20) mg/dL Creatinine (0.66-1.25) mg/dL Glucose (74-99) mg/dL POC Glucose (mg/dL) (70-110) mg/dL Plasma Lactic Acid Shawn 12.9 H* (0.7-2.0) mmol/L Calcium (8.4-10.2) mg/dL Total Bilirubin (0.2-1.3) mg/dL AST (17-59) U/L ALT (4-49) U/L Alkaline Phosphatase (38-126) U/L Total Protein (6.3-8.2) g/dL Albumin (3.5-5.0) g/dL Urine Protein (Negative) Urine Bilirubin (Negative) Urine Bacteria (None) /hpf Urine Mucus (None) /hpf 07/15/23 07/15/2324 Range/Units 06:00 07:00 09:45 WBC (3.8-10.6) k/uL Hgb (13.0-17.5) gm/dL MCHC (31.0-37.0) g/dL RDW (11.5-15.5) % Neutrophils # (1.3-7.7) k/uL Neutrophils # (Manual) (1.3-7.7) k/uL PT (10.0-12.5) sec INR (<1.2) D-Dimer (<0.60) mg/L FEU ABG pH (7.35-7.45) ABG pCO2 (35-45) mmHg ABG pO2 (83-108) mmHg ABG HCO3 (21-25) mmol/L ABG Total CO2 (19-24) mmol/L ABG O2 Saturation (94-97) % Potassium 7.3 H* 5.6 H (3.5-5.1) mmol/L Chloride 108 H (98-107) mmol/L Carbon Dioxide 6 L* (22-30) mmol/L BUN 40 H (9-20) mg/dL Creatinine 1.74 H (0.66-1.25) mg/dL Glucose (74-99) mg/dL POC Glucose (mg/dL) (70-110) mg/dL Plasma Lactic Acid Shawn 16.3 H* (0.7-2.0) mmol/L Calcium 7.8 L (8.4-10.2) mg/dL Total Bilirubin (0.2-1.3) mg/dL AST (17-59) U/L ALT (4-49) U/L Alkaline Phosphatase (38-126) U/L Total Protein (6.3-8.2) g/dL Albumin (3.5-5.0) g/dL Urine Protein (Negative) Urine Bilirubin (Negative) Urine Bacteria (None) /hpf Urine Mucus (None) /hpf Microbiology - Last 24 Hours (Table) 07/14/23 16:15 Gram Stain - Preliminary Toe - Left Second Assessment and Plan (1) Aspiration pneumonitis Current Visit: Yes Status: Acute Code(s): J69.0 - PNEUMONITIS DUE TO INHALATION OF FOOD AND VOMIT SNOMED Code(s): 868709254 (2) Diabetic toe ulcer Current Visit: Yes Status: Acute Code(s): E11.621 - TYPE 2 DIABETES MELLITUS WITH FOOT ULCER; L97.509 - NON-PRESSURE CHRONIC ULCER OTH PRT UNSP FOOT W UNSP SEVERITY SNOMED Code(s): 266771480 (3) Sepsis Current Visit: Yes Status: Acute Code(s): A41.9 - SEPSIS, UNSPECIFIED ORGANISM SNOMED Code(s): 31731008 Plan: 1patient with sepsis/septic shock in this patient who did have a hypotension requiring pressor support tachycardia elevated white count source is multifactorial in this patient who did have injury to the left second toe with a wound and secondary cellulitis and concerning for possible aspiration pneumonia. 2patient did have a borderline kidney function and high risk of nephrotoxicity from vancomycin and Zosyn combination 3-we will continue patient on Zosyn however discontinue vancomycin and start the patient on daptomycin while waiting for the culture to finalize Prognosis guarded We will follow on clinical condition and cultures to further adjust medication if needed Thank you for this consultation we will follow the patient along with you Dictation was produced using [employer] dictation software. please excuse any grammatical, word or spelling errors.
[2023-07-15 23:43] LABS: Glucose,Whole Blood 91 mg/dL (70-110)
[2023-07-16] MEDS ORDERED: VANCOMYCIN 2,000 MG in SODIUM CHLORIDE 0.9% 500 ML 500 ML IVPB SCH
[2023-07-16 00:53] LABS: African American GFR (CKD) 37 (>60 ml/min/1.73 sqM); Anion Gap 20 mmol/L; Blood Urea Nitrogen 38 mg/dL (9-20); Calcium 7.4 mg/dL (8.4-10.2); Carbon Dioxide 14 mmol/L (22-30); Chloride 102 mmol/L (98-107); Magnesium 1.8 mg/dL (1.6-2.3); Non-African American GFR(CKD) 32 (>60 ml/min/1.73 sqM); Sodium 136 mmol/L (137-145)
[2023-07-16 00:54] LABS: Glucose 142 mg/dL (74-99)
[2023-07-16] MEDS: AMIODARONE 360 MG in DEXTROSE 5% IN WATER 200 ML IV ONE (01:15)
[2023-07-16 02:30] LABS: ABG Base Excess -13.4 mmol/L; ABG HCO3 15 mmol/L (21-25); ABG Oxygen Saturation 95.7 % (94-97); ABG PCO2 40 mmHg (35-45); ABG PO2 104 mmHg (83-108); ABG TCO2 16 mmol/L (19-24)
[2023-07-16 02:34] LABS: ABG PH 7.18 (7.35-7.45)
[2023-07-16] MEDS: DEXTROSE 50% SYRINGE 50 ML IVP ONE ×2 (02:35→02:37)
[2023-07-16] MEDS: SODIUM BICARB 8.4% 50 ML SYR (1 MEQ/ML) IV ONE (02:35)
[2023-07-16] MEDS: INSULIN REGULAR 100 UNIT/ML VIAL (IV) IV ONE ×2 (02:36→11:22)
[2023-07-16] MEDS: SODIUM ZIRCONIUM CYCLOSILICATE 10 GM PACKET PO ONE (02:48)
[2023-07-16] MEDS: CALCIUM GLUCONATE IN NACL 1 GM in SALINE 1 100ML.BAG IVPB ONE ×2 (02:48→11:21)
[2023-07-16] MEDS: LIDOCAINE-D5W PMX 2G/250ML 2,000 MG in DEXTROSE/WATER 1 250ML.BAG IV SCH (04:03)
[2023-07-16 05:20] LABS: ABG Base Excess -12.4 mmol/L; ABG HCO3 16 mmol/L (21-25); ABG PCO2 43 mmHg (35-45); ABG PO2 96 mmHg (83-108); ABG TCO2 17 mmol/L (19-24)
[2023-07-16 05:32] LABS: Glucose,Whole Blood 143 mg/dL (70-110)
[2023-07-16 05:39] LABS: Anisocytosis Slight; HGB 14.7 gm/dL (13.0-17.5); Hypochromasia Marked; MCH 26.9 pg (25.0-35.0); MCHC 29.4 g/dL (31.0-37.0); MCV 91.7 fL (80.0-100.0); Mean Platelet Volume 9.6; Platelet Count 196 k/uL (150-450); RBC 5.45 m/uL (4.30-5.90); RDW 18.8 % (11.5-15.5); WBC 28.7 k/uL (3.8-10.6)
[2023-07-16 05:51] LABS: ABG PH 7.18 (7.35-7.45)
[2023-07-16 06:17] LABS: Glucose,Whole Blood 95 mg/dL (70-110)
[2023-07-16 06:31] LABS: African American GFR (CKD) 31 (>60 ml/min/1.73 sqM); Albumin 2.8 g/dL (3.5-5.0); Alkaline Phosphatase 282 U/L (38-126); Anion Gap 26 mmol/L; Blood Urea Nitrogen 39 mg/dL (9-20); Calcium 7.4 mg/dL (8.4-10.2); Carbon Dioxide 11 mmol/L (22-30); Chloride 101 mmol/L (98-107); Glucose 155 mg/dL (74-99); Non-African American GFR(CKD) 27 (>60 ml/min/1.73 sqM); Sodium 138 mmol/L (137-145); Total Protein 6.6 g/dL (6.3-8.2)
[2023-07-16] MEDS: AMIODARONE 450 MG in DEXTROSE 5% IN WATER 250 ML IV SCH (06:35)
[2023-07-16 06:48] LABS: Potassium 5.8 mmol/L (3.5-5.1)
[2023-07-16 06:58] LABS: ALT 4050 U/L (4-49)
[2023-07-16] MEDS ORDERED: AMIODARONE 450 MG in DEXTROSE 5% IN WATER 250 ML IV SCH (07:00)
--- NOTE | 2023-07-16 07:25 | P.PN ---
Subjective Progress Note Date: 07/16/23 PROGRESS NOTE The patient is a 57-year-old male with a history of paroxysmal atrial fibrillation prior history of alcohol intake, history of cardiomyopathy by echocardiography in January 2023 with at least moderate mitral regurgitation who presented with progressive dyspnea, change in mental status, patient was intubated in the emergency room, he was noted to be in atrial fibrillation with rapid ventricular response. He had a history of alcohol intake stopped about 2 weeks ago and according to the record became progressively fatigued with lack of energy and worsening dyspnea. No other history could be obtained. The patient is intubated and sedated, anuric. Has a history of pulmonary embolism, alcoholism, remote history of multisubstance use according to the nursing staff. He has been started on IV amiodarone, he is in atrial fibrillation with controlled ventricular response. As an outpatient his medications are consistent with a history of diabetes, hypertension and he was anticoagulated July 15: The patient remains intubated. He underwent dialysis yesterday. He had an episode of wide-complex tachycardia that appears to be atrial fibrillation with aberrancy. His echocardiogram showed severely impaired low ventricle systolic function. He has been started on IV lidocaine in addition to the amiodarone. He has no urinary output. He was cardioverted yesterday with a wide-complex arrhythmia. He is in sinus mechanism at this point. His blood pressure is stable on vasopressor. Medications: IV amiodarone, IV lidocaine, Eliquis 5 mg twice a day hydrocortisone, insulin, metoprolol 25 mg twice a day vasopressin, IV norepinephrine PHYSICAL EXAMINATION: Blood pressure 130/70 heart rate 80, intubated LUNGS: Clear to auscultation anteriorly HEART: Regular rate and rhythm, S1, S2. No S3. Systolic ejection murmur ABDOMEN: Soft, no organomegaly EXTREMETIES: 1+ edema, wound on the left foot LAB: WBC 28.7, hemoglobin 14.7. pH 7.18. Potassium 5.8. BUN 39, creatinine 2.58. Echocardiogram showed an ejection fraction of 20 to 25% with severe tricuspid regurgitation and severely dilated right ventricle IMPRESSION: 1. Respiratory failure, multifactorial 2. Acute renal injury on hemodialysis, started yesterday 3. Atrial fibrillation with episodes of wide-complex arrhythmia, probable aberrancy. In sinus mechanism at this time. 4. Acute liver injury 5. History of diabetes 6. History of tobacco use 7. Prior history of hypertension PLAN: 1. Stop IV lidocaine 2. Increase beta-jeremiah 3. Wean vasopressors as tolerated 4. Continue anticoagulation 5. Depending on his progress further recommendations will be made 6. Prognosis is guarded Objective - Vital Signs Vital signs: Vital Signs Temp 99.0 F 07/16/23 04:00 Pulse 85 07/16/23 07:00 Resp 20 07/16/23 07:00 BP 130/71 07/16/23 07:00 Pulse Ox 95 07/16/23 00:00 FiO2 90 07/16/23 05:24 Intake & Output 07/15/23 07/16/23 07/16/23 18:59 06:59 18:59 Intake Total 4341.451 4284.923 148 Output Total 15 510 0 Balance 4326.451 3774.923 148 Weight 156.8 kg Intake: IV 36 1927 148 .9NS Pressure Bag 36 42 3 0.9 KVO 260 20 Dextrose 5% in Water 1, 1625 125 000 ml @ 125 mls/hr IV . Q9H12M [facility] with Sodium Bicarb (1 Meq/ml) 150 ml Rx#:[id number] Intake, IV Titration 4305.451 1857.923 Amount Amiodarone 450 mg In 250 Dextrose 5% in Water 250 ml @ 0.5 MG/MIN 16.667 mls/hr IV .Q15H [facility] Rx#: [id number] Calcium Gluconate in NaCl 100 1 gm In Saline 1 100ml. bag @ 100 mls/hr IVPB ONCE ONE Rx#:[id number] Calcium Gluconate in NaCl 100 1 gm In Saline 1 100ml. bag @ 400 mls/hr IVPB ONCE ONE Rx#:[id number] Cisatracurium 200 mg In 46.853 Sodium Chloride 0.9% 180 ml @ 1 MCG/KG/MIN 8.442 mls/hr IV .[id number] [facility] Rx #:[id number] Dextrose 5% in Water 1, 1500 875 000 ml @ 125 mls/hr IV . Q9H12M [facility] with Sodium Bicarb (1 Meq/ml) 150 ml Rx#:[id number] Norepinephrine 32 mg In 164.694 289.950 Sodium Chloride 0.9% 218 ml @ 0.44 MCG/KG/MIN 29. 019 mls/hr IV .Q8H37M [facility] Rx#:[id number] Norepinephrine 4 mg In 508.000 Sodium Chloride 0.9% 250 ml @ 0.03 MCG/KG/MIN 14. 776 mls/hr IV .C50K89H [facility] Rx#:[id number] Piperacillin-Tazobactam 3 75 .375 gm In Sodium Chloride 0.9% 100 ml @ 200 mls/hr IVPB ONCE STA Rx#:[id number] Sodium Chloride 0.9% 1, 1125 000 ml @ 999 mls/hr IV . Q1H1M ONE Rx#:[id number] Sodium Chloride 0.9% 2, 50 000 ml @ 999 mls/hr IV . Q2H1M ONE Rx#:[id number] Vancomycin 2,000 mg In 601 Sodium Chloride 0.9% 500 ml 500 ml @ 167 mls/hr IVPB Q16H [facility] Rx#: [id number] Vasopressin 60 unit In 106.462 Sodium Chloride 0.9% 150 ml @ 0.03 UNITS/MIN 4.59 mls/hr IV .Q24H [facility] Rx#: [id number] propofoL 1,000 mg In 134.904 236.511 Empty Bag 1 bag @ 15 MCG/ KG/MIN 11.635 mls/hr IV . Q8H36M [facility] Rx#:[id number] Hemodialysis 500 Output: Urine 15 10 0 Hemodialysis 500 Other: Voiding Method Indwelling Catheter Indwelling Catheter ABP, PAP, CO, CI - Last Documented Arterial Blood Pressure 78/64 - Labs CBC & Chem 7: 07/16/23 05:32 07/16/23 05:32 Labs: Abnormal Lab Results - Last 24 Hours (Table) 07/15/23 07/15/23 07/15/23 Range/Units 07:00 09:45 11:53 WBC (3.8-10.6) k/uL Hct (39.0-53.0) % MCHC (31.0-37.0) g/dL RDW (11.5-15.5) % Neutrophils # (Manual) (1.3-7.7) k/uL Lymphocytes # (Manual) (1.0-4.8) k/uL Monocytes # (Manual) (0-1.0) k/uL Metamyelocytes # (Man) (0) k/uL Nucleated RBCs (0-0) /100 WBC ABG pH (7.35-7.45) ABG HCO3 (21-25) mmol/L ABG Total CO2 (19-24) mmol/L Sodium (137-145) mmol/L Potassium 5.6 H (3.5-5.1) mmol/L Carbon Dioxide (22-30) mmol/L BUN (9-20) mg/dL Creatinine (0.66-1.25) mg/dL Glucose (74-99) mg/dL POC Glucose (mg/dL) (70-110) mg/dL Plasma Lactic Acid Shawn 16.3 H* 13.6 H* (0.7-2.0) mmol/L Calcium (8.4-10.2) mg/dL Total Bilirubin (0.2-1.3) mg/dL ALT (4-49) U/L Alkaline Phosphatase (38-126) U/L Troponin I (0.000-0.034) ng/mL Albumin (3.5-5.0) g/dL 07/15/23 07/15/23 07/15/23 Range/Units 13:55 13:55 15:20 WBC 28.0 H (3.8-10.6) k/uL Hct 54.0 H (39.0-53.0) % MCHC 28.0 L (31.0-37.0) g/dL RDW 18.7 H (11.5-15.5) % Neutrophils # (Manual) 26.00 H (1.3-7.7) k/uL Lymphocytes # (Manual) 0.84 L (1.0-4.8) k/uL Monocytes # (Manual) 1.40 H (0-1.0) k/uL Metamyelocytes # (Man) 0.28 H (0) k/uL Nucleated RBCs 1 H (0-0) /100 WBC ABG pH (7.35-7.45) ABG HCO3 (21-25) mmol/L ABG Total CO2 (19-24) mmol/L Sodium (137-145) mmol/L Potassium 6.3 H* (3.5-5.1) mmol/L Carbon Dioxide (22-30) mmol/L BUN (9-20) mg/dL Creatinine (0.66-1.25) mg/dL Glucose (74-99) mg/dL POC Glucose (mg/dL) 119 H (70-110) mg/dL Plasma Lactic Acid Shawn (0.7-2.0) mmol/L Calcium (8.4-10.2) mg/dL Total Bilirubin (0.2-1.3) mg/dL ALT (4-49) U/L Alkaline Phosphatase (38-126) U/L Troponin I (0.000-0.034) ng/mL Albumin (3.5-5.0) g/dL 07/15/23 07/15/23 07/15/23 Range/Units 15:40 16:52 20:09 WBC (3.8-10.6) k/uL Hct (39.0-53.0) % MCHC (31.0-37.0) g/dL RDW (11.5-15.5) % Neutrophils # (Manual) (1.3-7.7) k/uL Lymphocytes # (Manual) (1.0-4.8) k/uL Monocytes # (Manual) (0-1.0) k/uL Metamyelocytes # (Man) (0) k/uL Nucleated RBCs (0-0) /100 WBC ABG pH (7.35-7.45) ABG HCO3 (21-25) mmol/L ABG Total CO2 (19-24) mmol/L Sodium (137-145) mmol/L Potassium 5.9 H (3.5-5.1) mmol/L Carbon Dioxide (22-30) mmol/L BUN (9-20) mg/dL Creatinine (0.66-1.25) mg/dL Glucose (74-99) mg/dL POC Glucose (mg/dL) (70-110) mg/dL Plasma Lactic Acid Shawn 13.0 H* 12.7 H* (0.7-2.0) mmol/L Calcium (8.4-10.2) mg/dL Total Bilirubin (0.2-1.3) mg/dL ALT (4-49) U/L Alkaline Phosphatase (38-126) U/L Troponin I (0.000-0.034) ng/mL Albumin (3.5-5.0) g/dL 07/16/23 07/16/23 07/16/23 Range/Units 00:31 00:31 02:24 WBC (3.8-10.6) k/uL Hct (39.0-53.0) % MCHC (31.0-37.0) g/dL RDW (11.5-15.5) % Neutrophils # (Manual) (1.3-7.7) k/uL Lymphocytes # (Manual) (1.0-4.8) k/uL Monocytes # (Manual) (0-1.0) k/uL Metamyelocytes # (Man) (0) k/uL Nucleated RBCs (0-0) /100 WBC ABG pH 7.18 L* (7.35-7.45) ABG HCO3 15 L (21-25) mmol/L ABG Total CO2 16 L (19-24) mmol/L Sodium 136 L (137-145) mmol/L Potassium 6.0 H (3.5-5.1) mmol/L Carbon Dioxide 14 L (22-30) mmol/L BUN 38 H (9-20) mg/dL Creatinine 2.23 H (0.66-1.25) mg/dL Glucose 142 H (74-99) mg/dL POC Glucose (mg/dL) (70-110) mg/dL Plasma Lactic Acid Shawn 12.3 H* (0.7-2.0) mmol/L Calcium 7.4 L (8.4-10.2) mg/dL Total Bilirubin (0.2-1.3) mg/dL ALT (4-49) U/L Alkaline Phosphatase (38-126) U/L Troponin I (0.000-0.034) ng/mL Albumin (3.5-5.0) g/dL 07/16/23 07/16/23 07/16/23 Range/Units 03:58 05:01 05:31 WBC (3.8-10.6) k/uL Hct (39.0-53.0) % MCHC (31.0-37.0) g/dL RDW (11.5-15.5) % Neutrophils # (Manual) (1.3-7.7) k/uL Lymphocytes # (Manual) (1.0-4.8) k/uL Monocytes # (Manual) (0-1.0) k/uL Metamyelocytes # (Man) (0) k/uL Nucleated RBCs (0-0) /100 WBC ABG pH 7.18 L* (7.35-7.45) ABG HCO3 16 L (21-25) mmol/L ABG Total CO2 17 L (19-24) mmol/L Sodium (137-145) mmol/L Potassium (3.5-5.1) mmol/L Carbon Dioxide (22-30) mmol/L BUN (9-20) mg/dL Creatinine (0.66-1.25) mg/dL Glucose (74-99) mg/dL POC Glucose (mg/dL) 143 H (70-110) mg/dL Plasma Lactic Acid Shawn (0.7-2.0) mmol/L Calcium (8.4-10.2) mg/dL Total Bilirubin (0.2-1.3) mg/dL ALT (4-49) U/L Alkaline Phosphatase (38-126) U/L Troponin I 0.265 H* (0.000-0.034) ng/mL Albumin (3.5-5.0) g/dL 07/16/23 07/16/23 Range/Units 05:32 05:32 WBC 28.7 H (3.8-10.6) k/uL Hct (39.0-53.0) % MCHC 29.4 L (31.0-37.0) g/dL RDW 18.8 H (11.5-15.5) % Neutrophils # (Manual) (1.3-7.7) k/uL Lymphocytes # (Manual) (1.0-4.8) k/uL Monocytes # (Manual) (0-1.0) k/uL Metamyelocytes # (Man) (0) k/uL Nucleated RBCs (0-0) /100 WBC ABG pH (7.35-7.45) ABG HCO3 (21-25) mmol/L ABG Total CO2 (19-24) mmol/L Sodium (137-145) mmol/L Potassium 5.8 H (3.5-5.1) mmol/L Carbon Dioxide 11 L (22-30) mmol/L BUN 39 H (9-20) mg/dL Creatinine 2.58 H (0.66-1.25) mg/dL Glucose 155 H (74-99) mg/dL POC Glucose (mg/dL) (70-110) mg/dL Plasma Lactic Acid Shawn (0.7-2.0) mmol/L Calcium 7.4 L (8.4-10.2) mg/dL Total Bilirubin 5.0 H (0.2-1.3) mg/dL ALT 4050 H (4-49) U/L Alkaline Phosphatase 282 H (38-126) U/L Troponin I (0.000-0.034) ng/mL Albumin 2.8 L (3.5-5.0) g/dL Microbiology - Last 24 Hours (Table) 07/14/23 17:00 Blood Culture - Preliminary Blood 07/14/23 17:20 Blood Culture - Preliminary Blood 07/14/23 16:15 Gram Stain - Preliminary Toe - Left Second Wound Culture - Preliminary Gram Neg Bacilli Presumptive Staph aureus 07/15/23 08:10 Gram Stain - Preliminary Sputum
[2023-07-16] MEDS ORDERED: HYDROmorphone 0.5 MG/0.5 ML SYRINGE IVP PRN (08:28)
[2023-07-16] MEDS: FAMOTIDINE 20 MG/2 ML VIAL IV SCH (09:01)
[2023-07-16 09:35] LABS: C Reactive Protein 5.5 mg/dL (<1.0)
[2023-07-16] MEDS: METOPROLOL TARTRATE 25 MG TAB PO SCH (09:35)
--- NOTE | 2023-07-16 09:57 | P.PN ---
Subjective Progress Note Date: 07/16/23 Principal diagnosis: Respiratory failure. An A-team was called overhead at 0025 this morning in the emergency room, I did respond and on my evaluation the patient was unresponsive, with ataxic breathing, and having periods of apnea. He subsequently had to be intubated for airway protection. This was done by the [employer]ACHINE OPERATOR. There were concerns about possible episodes of wide complex tachycardia. He was also noted to be in atrial fibrillation with rapid ventricular rate in the 150s to 180s. Patient was started on amiodarone protocol. He was then transferred to the intensive care unit for stabilization. Patient is a 57-year-old white male with past medical history atrial fibrillation, diabetes mellitus, hypertension, current everyday smoker, pulmonary embolism, and alcoholism. Patient obviously cannot provide any information, and we did contact the patient's estranged who was able to offer more information about his prior medical conditions. She lives in a different state. On review, of the ER documentation he presented yesterday afternoon with multiple complaints. He reportedly stopped drinking alcohol 2 weeks ago. He was on the CIWA protocol and received a total of 3 mg of Ativan prior to intubation. He did report some abdominal pain when seen by the ER physician. Abdominal CT with contrast did not show any definitive acute intra- abdominal process. There was also a concerning left second toe wound with purulent drainage. X-ray of his left foot showed soft tissue swelling of the second digit without evidence of fracture or osseous erosion. Patient was placed on a combination of antibiotics including vancomycin and Zosyn while in the emergency room. Patient reportedly received a total of 2 L normal saline bolus in the emergency room. He had an elevated lactic which continues to trend up and is currently 12.9. I did give an additional liter of normal saline. Postintubation chest x-ray shows endotracheal tube approximately 3.3 cm above the yasmine. There is cardiomegaly and central vascular congestion. NT proBNP elevated at 3680. On reviewing his records, he has a previous echocardiogram from 01/28/2023 which shows an ejection fraction of 35 to 40% and moderate to severe mitral regurgitation. Patient is currently intubated to the mechanical ventilator in assist-control with a respiratory rate of 20, tidal volume 550, FiO2 100%, and PEEP of 5. Patient is breathing slightly above set rate. Follow- up ABG shows a component of profound metabolic acidosis. There is a PaO2 of 117, pCO2 of 31, pH of 7.15. I did give the patient 2 A of sodium bicarb and start the patient on a sodium bicarbonate infusion with a total of 3 A in D5W at a rate of 125 mL/h. Patient's blood pressure has since become hypotensive after transfer to the intensive care unit, and the patient has been started on norepinephrine which is currently infusing at 0.05 mcg/kg/min. Most recent CBC from earlier this morning shows a WC count of 14.2, hemoglobin 12.6, hematocrit 40.9, platelets 290. D-dimer was elevated at 11.3. No listed anticoagulant on home meds. Most recent CMP: Sodium 140, potassium 5.2, chloride 117, serum bicarb 9, BUN 35, creatinine 0.92, glucose 106. LFTs are elevated including AST of 814, ALT of 414, and ALP of 184. Hepatitis panel nonreactive. Troponin 0.033. Negative for influenza, RSV, COVID. Patient's condition is currently critical. Progress note dated July 16, 2023. 57-year-old male who was admitted to the hospital, with a diagnosis of sepsis. The patient was unresponsive, intubated, and transferred to the intensive care unit. He is seen today in room 251. He remains on mechanical ventilator. He is on volume assist-control, rate 20, tidal volume 550, FiO2 90%, PEEP of 10. Blood gases show pO2 of 96, pCO2 of 43 and a pH of 7.18. These blood gases are consistent with severe metabolic acidosis. The patient is on Nimbex at 0.5 mcg/kg/min, D5W with 3 ampoules of sodium bicarb at 125 cc an hour, amiodarone at 0.5 mg/min, propofol at 30 mcg/kg/min, vasopressin at 0.04 units/min, norepinephrine at 53 mcg/min, and lidocaine at 1 mg/min. The patient's wound culture shows evidence of gram-negative bacilli and staph. The patient is on daptomycin and Zosyn. We had some Dilaudid to the regimen. The patient had a hemodialysis catheter placed yesterday, and is undergoing continuous renal replacement therapy. White count 28.7, hemoglobin 14.7, hematocrit 50, platelet count 196,000. Sodium 138, potassium 3.8, chlorides 101, CO2 11, anion gap 26, BUN 39, creatinine 2.58. Calcium is 7.4. Magnesium 2. ALT is 4050. AST is pending troponin was 0.265 and 0.315. Albumin is 2.8. Chest x-ray shows a properly placed central line, endotracheal tube in the midportion of the trachea, and a right-sided pleural effusion. Objective - Vital Signs Vital signs: Vital Signs Temp 98.4 F 07/16/23 08:00 Pulse 85 07/16/23 09:15 Resp 20 07/16/23 09:15 BP 132/65 07/16/23 09:15 Pulse Ox 95 07/16/23 00:00 FiO2 100 07/16/23 09:15 Intake & Output 07/15/23 07/16/23 07/16/23 18:59 06:59 18:59 Intake Total 4341.451 4284.923 544 Output Total 15 510 20 Balance 4326.451 3774.923 524 Weight 156.8 kg Intake: IV 36 1927 444 .9NS Pressure Bag 36 42 9 0.9 KVO 260 60 Dextrose 5% in Water 1, 1625 375 000 ml @ 125 mls/hr IV . Q9H12M [facility] with Sodium Bicarb (1 Meq/ml) 150 ml Rx#:[id number] Intake, IV Titration 4305.451 1857.923 100 Amount Amiodarone 450 mg In 250 Dextrose 5% in Water 250 ml @ 0.5 MG/MIN 16.667 mls/hr IV .Q15H [facility] Rx#: [id number] Calcium Gluconate in NaCl 100 1 gm In Saline 1 100ml. bag @ 100 mls/hr IVPB ONCE ONE Rx#:[id number] Calcium Gluconate in NaCl 100 1 gm In Saline 1 100ml. bag @ 400 mls/hr IVPB ONCE ONE Rx#:[id number] Cisatracurium 200 mg In 46.853 Sodium Chloride 0.9% 180 ml @ 1 MCG/KG/MIN 8.442 mls/hr IV .P85W84H [facility] Rx #:[id number] Dextrose 5% in Water 1, 1500 875 000 ml @ 125 mls/hr IV . Q9H12M [facility] with Sodium Bicarb (1 Meq/ml) 150 ml Rx#:[id number] Norepinephrine 32 mg In 164.694 289.950 Sodium Chloride 0.9% 218 ml @ 0.44 MCG/KG/MIN 29. 019 mls/hr IV .Q8H37M [facility] Rx#:[id number] Norepinephrine 4 mg In 508.000 Sodium Chloride 0.9% 250 ml @ 0.03 MCG/KG/MIN 14. 776 mls/hr IV .[id number] [facility] Rx#:[id number] Piperacillin-Tazobactam 3 75 .375 gm In Sodium Chloride 0.9% 100 ml @ 200 mls/hr IVPB ONCE STA Rx#:[id number] Sodium Chloride 0.9% 1, 1125 000 ml @ 999 mls/hr IV . Q1H1M ONE Rx#:[id number] Sodium Chloride 0.9% 2, 50 000 ml @ 999 mls/hr IV . Q2H1M ONE Rx#:[id number] Vancomycin 2,000 mg In 601 Sodium Chloride 0.9% 500 ml 500 ml @ 167 mls/hr IVPB Q16H [facility] Rx#: [id number] Vasopressin 60 unit In 106.462 Sodium Chloride 0.9% 150 ml @ 0.03 UNITS/MIN 4.59 mls/hr IV .Q24H [facility] Rx#: [id number] propofoL 1,000 mg In 134.904 236.511 100 Empty Bag 1 bag @ 15 MCG/ KG/MIN 11.635 mls/hr IV . Q8H36M [facility] Rx#:[id number] Hemodialysis 500 Output: Urine 15 10 20 Hemodialysis 500 Other: Voiding Method Indwelling Catheter Indwelling Catheter ABP, PAP, CO, CI - Last Documented Arterial Blood Pressure 74/59 - Exam No acute distress, sedated and paralyzed, with an orally placed endotracheal tube and NG tube. HEENT examination is grossly unremarkable. Neck supple. Full range of motion. No adenopathy thyromegaly or neck vein distention. Cardiovascular examination reveals regular rhythm rate. S1-S2 normal. No S3 or S4. No discernible murmur noted. Heart sounds are distant. Heart rate 85 bpm. Lungs reveal scattered bilateral rhonchi. No wheezes or crackles. Breath sounds equal. Saturations are mid 90s. Abdomen soft without bowel sounds. No masses or tenderness. Extremities are intact. No clubbing. The patient does have acrocyanosis. In addition, the patient has significant wounds to both feet, particularly the left feet and toes. Skin reveals areas of ecchymoses. Neurologic examination cannot be evaluated properly at this time. - Labs CBC & Chem 7: 07/16/23 05:32 07/16/23 05:32 Labs: Abnormal Lab Results - Last 24 Hours (Table) 07/15/23 07/15/23 07/15/23 Range/Units 09:45 11:53 13:55 WBC (3.8-10.6) k/uL Hct (39.0-53.0) % MCHC (31.0-37.0) g/dL RDW (11.5-15.5) % Neutrophils # (Manual) (1.3-7.7) k/uL Lymphocytes # (Manual) (1.0-4.8) k/uL Monocytes # (Manual) (0-1.0) k/uL Metamyelocytes # (Man) (0) k/uL Nucleated RBCs (0-0) /100 WBC ABG pH (7.35-7.45) ABG HCO3 (21-25) mmol/L ABG Total CO2 (19-24) mmol/L Sodium (137-145) mmol/L Potassium 5.6 H 6.3 H* (3.5-5.1) mmol/L Carbon Dioxide (22-30) mmol/L BUN (9-20) mg/dL Creatinine (0.66-1.25) mg/dL Glucose (74-99) mg/dL POC Glucose (mg/dL) (70-110) mg/dL Plasma Lactic Acid Shawn 13.6 H* (0.7-2.0) mmol/L Calcium (8.4-10.2) mg/dL Total Bilirubin (0.2-1.3) mg/dL ALT (4-49) U/L Alkaline Phosphatase (38-126) U/L Troponin I (0.000-0.034) ng/mL C-Reactive Protein (<1.0) mg/dL Albumin (3.5-5.0) g/dL 07/15/23 07/15/23 07/15/23 Range/Units 13:55 15:20 15:40 WBC 28.0 H (3.8-10.6) k/uL Hct 54.0 H (39.0-53.0) % MCHC 28.0 L (31.0-37.0) g/dL RDW 18.7 H (11.5-15.5) % Neutrophils # (Manual) 26.00 H (1.3-7.7) k/uL Lymphocytes # (Manual) 0.84 L (1.0-4.8) k/uL Monocytes # (Manual) 1.40 H (0-1.0) k/uL Metamyelocytes # (Man) 0.28 H (0) k/uL Nucleated RBCs 1 H (0-0) /100 WBC ABG pH (7.35-7.45) ABG HCO3 (21-25) mmol/L ABG Total CO2 (19-24) mmol/L Sodium (137-145) mmol/L Potassium (3.5-5.1) mmol/L Carbon Dioxide (22-30) mmol/L BUN (9-20) mg/dL Creatinine (0.66-1.25) mg/dL Glucose (74-99) mg/dL POC Glucose (mg/dL) 119 H (70-110) mg/dL Plasma Lactic Acid Shawn 13.0 H* (0.7-2.0) mmol/L Calcium (8.4-10.2) mg/dL Total Bilirubin (0.2-1.3) mg/dL ALT (4-49) U/L Alkaline Phosphatase (38-126) U/L Troponin I (0.000-0.034) ng/mL C-Reactive Protein (<1.0) mg/dL Albumin (3.5-5.0) g/dL 07/15/23 07/15/23 07/16/23 Range/Units 16:52 20:09 00:31 WBC (3.8-10.6) k/uL Hct (39.0-53.0) % MCHC (31.0-37.0) g/dL RDW (11.5-15.5) % Neutrophils # (Manual) (1.3-7.7) k/uL Lymphocytes # (Manual) (1.0-4.8) k/uL Monocytes # (Manual) (0-1.0) k/uL Metamyelocytes # (Man) (0) k/uL Nucleated RBCs (0-0) /100 WBC ABG pH (7.35-7.45) ABG HCO3 (21-25) mmol/L ABG Total CO2 (19-24) mmol/L Sodium (137-145) mmol/L Potassium 5.9 H (3.5-5.1) mmol/L Carbon Dioxide (22-30) mmol/L BUN (9-20) mg/dL Creatinine (0.66-1.25) mg/dL Glucose (74-99) mg/dL POC Glucose (mg/dL) (70-110) mg/dL Plasma Lactic Acid Shawn 12.7 H* 12.3 H* (0.7-2.0) mmol/L Calcium (8.4-10.2) mg/dL Total Bilirubin (0.2-1.3) mg/dL ALT (4-49) U/L Alkaline Phosphatase (38-126) U/L Troponin I (0.000-0.034) ng/mL C-Reactive Protein (<1.0) mg/dL Albumin (3.5-5.0) g/dL 07/16/23 07/16/23 07/16/23 Range/Units 00:31 02:24 03:58 WBC (3.8-10.6) k/uL Hct (39.0-53.0) % MCHC (31.0-37.0) g/dL RDW (11.5-15.5) % Neutrophils # (Manual) (1.3-7.7) k/uL Lymphocytes # (Manual) (1.0-4.8) k/uL Monocytes # (Manual) (0-1.0) k/uL Metamyelocytes # (Man) (0) k/uL Nucleated RBCs (0-0) /100 WBC ABG pH 7.18 L* (7.35-7.45) ABG HCO3 15 L (21-25) mmol/L ABG Total CO2 16 L (19-24) mmol/L Sodium 136 L (137-145) mmol/L Potassium 6.0 H (3.5-5.1) mmol/L Carbon Dioxide 14 L (22-30) mmol/L BUN 38 H (9-20) mg/dL Creatinine 2.23 H (0.66-1.25) mg/dL Glucose 142 H (74-99) mg/dL POC Glucose (mg/dL) (70-110) mg/dL Plasma Lactic Acid Shawn (0.7-2.0) mmol/L Calcium 7.4 L (8.4-10.2) mg/dL Total Bilirubin (0.2-1.3) mg/dL ALT (4-49) U/L Alkaline Phosphatase (38-126) U/L Troponin I 0.265 H* (0.000-0.034) ng/mL C-Reactive Protein (<1.0) mg/dL Albumin (3.5-5.0) g/dL 07/16/23 07/16/23 07/16/23 Range/Units 05:01 05:31 05:32 WBC 28.7 H (3.8-10.6) k/uL Hct (39.0-53.0) % MCHC 29.4 L (31.0-37.0) g/dL RDW 18.8 H (11.5-15.5) % Neutrophils # (Manual) (1.3-7.7) k/uL Lymphocytes # (Manual) (1.0-4.8) k/uL Monocytes # (Manual) (0-1.0) k/uL Metamyelocytes # (Man) (0) k/uL Nucleated RBCs (0-0) /100 WBC ABG pH 7.18 L* (7.35-7.45) ABG HCO3 16 L (21-25) mmol/L ABG Total CO2 17 L (19-24) mmol/L Sodium (137-145) mmol/L Potassium (3.5-5.1) mmol/L Carbon Dioxide (22-30) mmol/L BUN (9-20) mg/dL Creatinine (0.66-1.25) mg/dL Glucose (74-99) mg/dL POC Glucose (mg/dL) 143 H (70-110) mg/dL Plasma Lactic Acid Shawn (0.7-2.0) mmol/L Calcium (8.4-10.2) mg/dL Total Bilirubin (0.2-1.3) mg/dL ALT (4-49) U/L Alkaline Phosphatase (38-126) U/L Troponin I (0.000-0.034) ng/mL C-Reactive Protein (<1.0) mg/dL Albumin (3.5-5.0) g/dL 07/16/23 07/16/23 Range/Units 05:32 07:14 WBC (3.8-10.6) k/uL Hct (39.0-53.0) % MCHC (31.0-37.0) g/dL RDW (11.5-15.5) % Neutrophils # (Manual) (1.3-7.7) k/uL Lymphocytes # (Manual) (1.0-4.8) k/uL Monocytes # (Manual) (0-1.0) k/uL Metamyelocytes # (Man) (0) k/uL Nucleated RBCs (0-0) /100 WBC ABG pH (7.35-7.45) ABG HCO3 (21-25) mmol/L ABG Total CO2 (19-24) mmol/L Sodium (137-145) mmol/L Potassium 5.8 H (3.5-5.1) mmol/L Carbon Dioxide 11 L (22-30) mmol/L BUN 39 H (9-20) mg/dL Creatinine 2.58 H (0.66-1.25) mg/dL Glucose 155 H (74-99) mg/dL POC Glucose (mg/dL) (70-110) mg/dL Plasma Lactic Acid Shawn (0.7-2.0) mmol/L Calcium 7.4 L (8.4-10.2) mg/dL Total Bilirubin 5.0 H (0.2-1.3) mg/dL ALT 4050 H (4-49) U/L Alkaline Phosphatase 282 H (38-126) U/L Troponin I 0.315 H* (0.000-0.034) ng/mL C-Reactive Protein 5.5 H (<1.0) mg/dL Albumin 2.8 L (3.5-5.0) g/dL Microbiology - Last 24 Hours (Table) 07/14/23 17:00 Blood Culture - Preliminary Blood 07/14/23 17:20 Blood Culture - Preliminary Blood 07/14/23 16:15 Gram Stain - Preliminary Toe - Left Second Wound Culture - Preliminary Gram Neg Bacilli Presumptive Staph aureus 07/15/23 08:10 Gram Stain - Preliminary Sputum Assessment and Plan Assessment: Acute hypoxemic respiratory failure, requiring intubation and mechanical ventilation, on July 15, 2023. Refractory hypotension, secondary to septic shock. Severe anion gap metabolic acidosis, secondary to lactic acidemia, and renal failure. Atrial fibrillation with RVR. Wide-complex tachycardia. Acute mental status changes, likely from septic encephalopathy. Left toe wound/cellulitis, with cultures positive for presumptive staph, and gram-negative bacilli. Acute kidney injury, secondary to hypotension and ATN. History of pulmonary embolism. Hepatopathy, secondary to sepsis, and hypotension. History of alcoholism. History of diabetes mellitus. History of hypertension. Chronic and ongoing tobacco use. Obesity. Plan: Plan dated July 16, 2023. The patient is currently on the ventilator. The patient has a severe and profound metabolic acidosis, and continues on a sodium bicarbonate drip. The patient is maintained on Nimbex, D5W, with 3 ampoules of sodium bicarbonate, amiodarone, propofol, vasopressin, norepinephrine, and lidocaine. The patient currently is on daptomycin and Zosyn. Wound cultures were positive for gram- negative bacilli and presumptive staph. Dilaudid is added to the patient's regimen. Hemodialysis catheter was placed yesterday and the patient is undergoing CRRT. Patient's overall prognosis remains very poor. For the time being, the patient is a full code. Labs, x-rays, and medications are reviewed. Time with Patient: Greater than 30
--- NOTE | 2023-07-16 10:17 | XR ---
EXAMINATION TYPE: XR chest 1V portable DATE OF EXAM: 07/16/2023 5:20 AM CLINICAL INDICATION:Male, 57 years old with history of Tube placement; [facility] COMPARISON: Chest radiographs from 07/15/2023. TECHNIQUE: XR chest 1V portable Frontal view of the chest. FINDINGS: Lungs/Pleura: There is no evidence of pleural effusion, focal consolidation, or pneumothorax. Pulmonary vascularity: Unremarkable. Heart/mediastinum: Cardiomediastinal silhouette is enlarged and stable. Musculoskeletal: No acute osseous pathology. Other findings: None Lines/Tubes: Endotracheal tube with distal tip 4.9 cm above the yasmine. Nasogastric tube with its distal tip and side-port projecting under the diaphragm. Left internal jugular central venous catheter with distal tip at the cavoatrial junction. IMPRESSION: Appropriate placement of endotracheal, nasogastric tubes and left central venous catheter.
[2023-07-16] MEDS: SODIUM CHLORIDE 0.9% 1,000 ML IV ONE (10:30)
--- NOTE | 2023-07-16 10:48 | P.PN ---
Subjective Progress Note Date: 07/16/23 Patient is seen and examined in the ICU. He remains 6 sedated and on mechanical ventilation pressors. He had a temporary hemodialysis placed yesterday and received filtration yesterday without any difficulties. Objective - Vital Signs Vital signs: Vital Signs Temp 98.4 F 07/16/23 08:00 Pulse 86 07/16/23 08:45 Resp 20 07/16/23 08:45 BP 117/50 07/16/23 08:15 Pulse Ox 95 07/16/23 00:00 FiO2 100 07/16/23 08:45 Intake & Output 07/15/23 07/16/23 07/16/23 18:59 06:59 18:59 Intake Total 4341.451 4284.923 396 Output Total 15 510 20 Balance 4326.451 3774.923 376 Weight 156.8 kg Intake: IV 36 1927 296 .9NS Pressure Bag 36 42 6 0.9 KVO 260 40 Dextrose 5% in Water 1, 1625 250 000 ml @ 125 mls/hr IV . Q9H12M [facility] with Sodium Bicarb (1 Meq/ml) 150 ml Rx#:[id number] Intake, IV Titration 4305.451 1857.923 100 Amount Amiodarone 450 mg In 250 Dextrose 5% in Water 250 ml @ 0.5 MG/MIN 16.667 mls/hr IV .Q15H [facility] Rx#: [id number] Calcium Gluconate in NaCl 100 1 gm In Saline 1 100ml. bag @ 100 mls/hr IVPB ONCE ONE Rx#:[id number] Calcium Gluconate in NaCl 100 1 gm In Saline 1 100ml. bag @ 400 mls/hr IVPB ONCE ONE Rx#:[id number] Cisatracurium 200 mg In 46.853 Sodium Chloride 0.9% 180 ml @ 1 MCG/KG/MIN 8.442 mls/hr IV .[id number] [facility] Rx #:[id number] Dextrose 5% in Water 1, 1500 875 000 ml @ 125 mls/hr IV . Q9H12M [facility] with Sodium Bicarb (1 Meq/ml) 150 ml Rx#:[id number] Norepinephrine 32 mg In 164.694 289.950 Sodium Chloride 0.9% 218 ml @ 0.44 MCG/KG/MIN 29. 019 mls/hr IV .Q8H37M [facility] Rx#:[id number] Norepinephrine 4 mg In 508.000 Sodium Chloride 0.9% 250 ml @ 0.03 MCG/KG/MIN 14. 776 mls/hr IV .[id number] [facility] Rx#:[id number] Piperacillin-Tazobactam 3 75 .375 gm In Sodium Chloride 0.9% 100 ml @ 200 mls/hr IVPB ONCE STA Rx#:[id number] Sodium Chloride 0.9% 1, 1125 000 ml @ 999 mls/hr IV . Q1H1M [facility] Rx#:[id number] Sodium Chloride 0.9% 2, 50 000 ml @ 999 mls/hr IV . Q2H1M [facility] Rx#:[id number] Vancomycin 2,000 mg In 601 Sodium Chloride 0.9% 500 ml 500 ml @ 167 mls/hr IVPB Q16H [facility] Rx#: [id number] Vasopressin 60 unit In 106.462 Sodium Chloride 0.9% 150 ml @ 0.03 UNITS/MIN 4.59 mls/hr IV .Q24H [facility] Rx#: [id number] propofoL 1,000 mg In 134.904 236.511 100 Empty Bag 1 bag @ 15 MCG/ KG/MIN 11.635 mls/hr IV . Q8H36M [facility] Rx#:[id number] Hemodialysis 500 Output: Urine 15 10 20 Hemodialysis 500 Other: Voiding Method Indwelling Catheter Indwelling Catheter ABP, PAP, CO, CI - Last Documented Arterial Blood Pressure 73/60 - Exam General appearance: The patient is sedated and on mechanical ventilation. HET: Head is normocephalic and atraumatic. Neck: Supple. Heart: Regular. Lungs: Equal expansion, on mechanical ventilation. Abdomen: Soft, nondistended. Extremities: Mottling of the lower extremities, feet with decreased capillary refill and pale/purple, cool. Bilateral Doppler signals obtained. Right groin with temporary HD catheter in place. Neurological: Sedated on mechanical ventilation. - Labs CBC & Chem 7: 07/16/23 05:32 07/16/23 05:32 Labs: Abnormal Lab Results - Last 24 Hours (Table) 07/15/23 07/15/23 07/15/23 Range/Units 09:45 11:53 13:55 WBC (3.8-10.6) k/uL Hct (39.0-53.0) % MCHC (31.0-37.0) g/dL RDW (11.5-15.5) % Neutrophils # (Manual) (1.3-7.7) k/uL Lymphocytes # (Manual) (1.0-4.8) k/uL Monocytes # (Manual) (0-1.0) k/uL Metamyelocytes # (Man) (0) k/uL Nucleated RBCs (0-0) /100 WBC ABG pH (7.35-7.45) ABG HCO3 (21-25) mmol/L ABG Total CO2 (19-24) mmol/L Sodium (137-145) mmol/L Potassium 5.6 H 6.3 H* (3.5-5.1) mmol/L Carbon Dioxide (22-30) mmol/L BUN (9-20) mg/dL Creatinine (0.66-1.25) mg/dL Glucose (74-99) mg/dL POC Glucose (mg/dL) (70-110) mg/dL Plasma Lactic Acid Shawn 13.6 H* (0.7-2.0) mmol/L Calcium (8.4-10.2) mg/dL Total Bilirubin (0.2-1.3) mg/dL ALT (4-49) U/L Alkaline Phosphatase (38-126) U/L Troponin I (0.000-0.034) ng/mL Albumin (3.5-5.0) g/dL 07/15/23 07/15/23 07/15/23 Range/Units 13:55 15:20 15:40 WBC 28.0 H (3.8-10.6) k/uL Hct 54.0 H (39.0-53.0) % MCHC 28.0 L (31.0-37.0) g/dL RDW 18.7 H (11.5-15.5) % Neutrophils # (Manual) 26.00 H (1.3-7.7) k/uL Lymphocytes # (Manual) 0.84 L (1.0-4.8) k/uL Monocytes # (Manual) 1.40 H (0-1.0) k/uL Metamyelocytes # (Man) 0.28 H (0) k/uL Nucleated RBCs 1 H (0-0) /100 WBC ABG pH (7.35-7.45) ABG HCO3 (21-25) mmol/L ABG Total CO2 (19-24) mmol/L Sodium (137-145) mmol/L Potassium (3.5-5.1) mmol/L Carbon Dioxide (22-30) mmol/L BUN (9-20) mg/dL Creatinine (0.66-1.25) mg/dL Glucose (74-99) mg/dL POC Glucose (mg/dL) 119 H (70-110) mg/dL Plasma Lactic Acid Shawn 13.0 H* (0.7-2.0) mmol/L Calcium (8.4-10.2) mg/dL Total Bilirubin (0.2-1.3) mg/dL ALT (4-49) U/L Alkaline Phosphatase (38-126) U/L Troponin I (0.000-0.034) ng/mL Albumin (3.5-5.0) g/dL 07/15/23 07/15/23 07/16/23 Range/Units 16:52 20:09 00:31 WBC (3.8-10.6) k/uL Hct (39.0-53.0) % MCHC (31.0-37.0) g/dL RDW (11.5-15.5) % Neutrophils # (Manual) (1.3-7.7) k/uL Lymphocytes # (Manual) (1.0-4.8) k/uL Monocytes # (Manual) (0-1.0) k/uL Metamyelocytes # (Man) (0) k/uL Nucleated RBCs (0-0) /100 WBC ABG pH (7.35-7.45) ABG HCO3 (21-25) mmol/L ABG Total CO2 (19-24) mmol/L Sodium (137-145) mmol/L Potassium 5.9 H (3.5-5.1) mmol/L Carbon Dioxide (22-30) mmol/L BUN (9-20) mg/dL Creatinine (0.66-1.25) mg/dL Glucose (74-99) mg/dL POC Glucose (mg/dL) (70-110) mg/dL Plasma Lactic Acid Shawn 12.7 H* 12.3 H* (0.7-2.0) mmol/L Calcium (8.4-10.2) mg/dL Total Bilirubin (0.2-1.3) mg/dL ALT (4-49) U/L Alkaline Phosphatase (38-126) U/L Troponin I (0.000-0.034) ng/mL Albumin (3.5-5.0) g/dL 07/16/23 07/16/23 07/16/23 Range/Units 00:31 02:24 03:58 WBC (3.8-10.6) k/uL Hct (39.0-53.0) % MCHC (31.0-37.0) g/dL RDW (11.5-15.5) % Neutrophils # (Manual) (1.3-7.7) k/uL Lymphocytes # (Manual) (1.0-4.8) k/uL Monocytes # (Manual) (0-1.0) k/uL Metamyelocytes # (Man) (0) k/uL Nucleated RBCs (0-0) /100 WBC ABG pH 7.18 L* (7.35-7.45) ABG HCO3 15 L (21-25) mmol/L ABG Total CO2 16 L (19-24) mmol/L Sodium 136 L (137-145) mmol/L Potassium 6.0 H (3.5-5.1) mmol/L Carbon Dioxide 14 L (22-30) mmol/L BUN 38 H (9-20) mg/dL Creatinine 2.23 H (0.66-1.25) mg/dL Glucose 142 H (74-99) mg/dL POC Glucose (mg/dL) (70-110) mg/dL Plasma Lactic Acid Shawn (0.7-2.0) mmol/L Calcium 7.4 L (8.4-10.2) mg/dL Total Bilirubin (0.2-1.3) mg/dL ALT (4-49) U/L Alkaline Phosphatase (38-126) U/L Troponin I 0.265 H* (0.000-0.034) ng/mL Albumin (3.5-5.0) g/dL 07/16/23 07/16/23 07/16/23 Range/Units 05:01 05:31 05:32 WBC 28.7 H (3.8-10.6) k/uL Hct (39.0-53.0) % MCHC 29.4 L (31.0-37.0) g/dL RDW 18.8 H (11.5-15.5) % Neutrophils # (Manual) (1.3-7.7) k/uL Lymphocytes # (Manual) (1.0-4.8) k/uL Monocytes # (Manual) (0-1.0) k/uL Metamyelocytes # (Man) (0) k/uL Nucleated RBCs (0-0) /100 WBC ABG pH 7.18 L* (7.35-7.45) ABG HCO3 16 L (21-25) mmol/L ABG Total CO2 17 L (19-24) mmol/L Sodium (137-145) mmol/L Potassium (3.5-5.1) mmol/L Carbon Dioxide (22-30) mmol/L BUN (9-20) mg/dL Creatinine (0.66-1.25) mg/dL Glucose (74-99) mg/dL POC Glucose (mg/dL) 143 H (70-110) mg/dL Plasma Lactic Acid Shawn (0.7-2.0) mmol/L Calcium (8.4-10.2) mg/dL Total Bilirubin (0.2-1.3) mg/dL ALT (4-49) U/L Alkaline Phosphatase (38-126) U/L Troponin I (0.000-0.034) ng/mL Albumin (3.5-5.0) g/dL 07/16/23 07/16/23 Range/Units 05:32 07:14 WBC (3.8-10.6) k/uL Hct (39.0-53.0) % MCHC (31.0-37.0) g/dL RDW (11.5-15.5) % Neutrophils # (Manual) (1.3-7.7) k/uL Lymphocytes # (Manual) (1.0-4.8) k/uL Monocytes # (Manual) (0-1.0) k/uL Metamyelocytes # (Man) (0) k/uL Nucleated RBCs (0-0) /100 WBC ABG pH (7.35-7.45) ABG HCO3 (21-25) mmol/L ABG Total CO2 (19-24) mmol/L Sodium (137-145) mmol/L Potassium 5.8 H (3.5-5.1) mmol/L Carbon Dioxide 11 L (22-30) mmol/L BUN 39 H (9-20) mg/dL Creatinine 2.58 H (0.66-1.25) mg/dL Glucose 155 H (74-99) mg/dL POC Glucose (mg/dL) (70-110) mg/dL Plasma Lactic Acid Shawn (0.7-2.0) mmol/L Calcium 7.4 L (8.4-10.2) mg/dL Total Bilirubin 5.0 H (0.2-1.3) mg/dL ALT 4050 H (4-49) U/L Alkaline Phosphatase 282 H (38-126) U/L Troponin I 0.315 H* (0.000-0.034) ng/mL Albumin 2.8 L (3.5-5.0) g/dL Microbiology - Last 24 Hours (Table) 07/14/23 17:00 Blood Culture - Preliminary Blood 07/14/23 17:20 Blood Culture - Preliminary Blood 07/14/23 16:15 Gram Stain - Preliminary Toe - Left Second Wound Culture - Preliminary Gram Neg Bacilli Presumptive Staph aureus 07/15/23 08:10 Gram Stain - Preliminary Sputum Assessment and Plan Assessment: 1. Acute kidney injury requiring renal replacement therapy 2. 2. Acute hypoxemic respiratory failure requiring intubation on mechanical ventilator 3. Atrial fibrillation with RVR on Eliquis 4. Altered mental status changes 5. Left toe wound 6. History of alcoholism 7. Type 2 diabetes mellitus 8. Ongoing tobacco dependence 9. Obesity Plan: 1. Patient is status post temporary HD catheter placement 2. Hemodialysis per recommendations from nephrology 3. Continue with recommendations from infectious disease for toe wound 4. Continue with recommendations from pulmonology and cardiology 5. Try to wean pressors Thank you for this consultation, we will be on standby. The impression and plan of care has been dictated as directed. Dr. Newby I performed a history and examination of this patient, discussed the same with the dictator. I agree with the dictator's note ,documented as a scribe. Any additional findings or plans will be noted.
[2023-07-16 11:00] LABS: AST 14793 U/L (17-59)
[2023-07-16] MEDS: SODIUM BICARB 8.4% 50 ML SYR (1 MEQ/ML) IV STA (11:08)
[2023-07-16] MEDS: DEXTROSE 50% SYRINGE 50 ML IVP STA (11:12)
--- NOTE | 2023-07-16 11:15 | P.CONS ---
History of Present Illness - Reason for Consult Consult date: 07/16/23 Transaminitis, hyperbilirubinemia Requesting physician: Karon Boone - Chief Complaint Shortness of breath - History of Present Illness This is a 57-year-old male, HPI obtained from chart as patient is currently in the ICU sedated on mechanical ventilation. According to the emergency room notes patient had come in on 07/14/2023 with multiple complaints including not eating or drinking much, falling, shortness of breath and wound to his foot. He has a past medical history including alcohol abuse, atrial fibrillation, diabetes mellitus and hypertension. He is a every day smoker he was admitted to the hospital and then had acute hypoxic respiratory failure requiring intubation. Patient has remained on mechanical ventilation since his admission, he has acute kidney injury, he is on high doses of pressors. At time of admission he was noted to have elevated LFTs he had a CT of the abdomen pelvis which reported liver is unremarkable. Okay admitting's labs WBC 10.8 hemoglobin 14.8 platelet count 267,000 INR 2.7 D-dimer 11.3 sodium 140 potassium 5.5 BUN 41 creatinine 0.9 lactic acid 6.8 total bilirubin 3.6 AST 1284 ALT 572 alkaline phosphatase 281 ammonia 13. Today labs have been worsening WBC now 28 lactic acid 12.3 total bilirubin 5.0 AST pending ALT 4050 alkaline phosphatase 282 troponin 0.3. Patient serum alcohol level was less than 10 on admission, hepatitis panel nonreactive. Patient does not have any family around, according to nurses he is estranged from his and family. But was reported that he has long history of alcohol abuse and supposedly stopped drinking about 2 weeks ago. Gastroenterology consulted for elevated liver enzymes. Review of Systems ROS unobtainable: due to endotracheal tube Past Medical History Past Medical History: Atrial Fibrillation, Diabetes Mellitus, Hypertension Additional Past Medical History / Comment(s): Guillian Odell History of Any Multi-Drug Resistant Organisms: None Reported Past Surgical History: No Surgical Hx Reported Past Psychological History: No Psychological Hx Reported Smoking Status: Current every day smoker Past Alcohol Use History: Occasional Past Drug Use History: None Reported - Past Family History Father Family Medical History: Diabetes Mellitus, Hypertension Mother Additional Family Medical History / Comment(s): "heart disease" Medications and Allergies Home Medications Medication Instructions Recorded Confirmed Type Lisinopril-Hctz 20-25 mg 1 tab PO DAILY 10/21/22 07/14/23 History [Zestoretic 20-25] metFORMIN HCL [Glucophage] 1,000 mg PO BID 10/21/22 07/14/23 History Apixaban [Eliquis] 5 mg PO BID 01/23/23 07/14/23 History Insulin Glargine,Hum.rec.anlog 20 - 25 units SQ DAILY 01/23/23 07/14/23 History [Lantus Solostar Pen] Insulin Regular, Human [NovoLIN R 4 - 12 units SQ ACHS PRN 01/23/23 07/14/23 History Flexpen] Metoprolol Succinate (ER) [Toprol 50 mg PO HS #30 tab 01/29/23 07/14/23 Rx XL] Allergies Allergy/AdvReac Type Severity Reaction Status Date / Time No Known Allergies Allergy Verified 07/14/23 17:53 Physical Exam Vitals: Vital Signs Temp Pulse Pulse Resp BP BP Pulse Ox 07/16/23 08:45 86 20 07/16/23 08:30 87 20 07/16/23 08:15 87 20 117/50 07/16/23 08:00 98.4 F 87 20 07/16/23 07:53 85 07/16/23 07:45 85 20 07/16/23 07:42 85 07/16/23 07:30 85 20 07/16/23 07:24 07/16/23 07:15 85 20 70/30 07/16/23 07:00 85 20 130/71 07/16/23 06:45 85 20 130/71 07/16/23 06:30 71 20 130/71 07/16/23 06:15 85 20 130/71 07/16/23 06:00 72 20 115/95 07/16/23 05:45 73 20 115/95 07/16/23 05:30 73 20 115/95 07/16/23 05:24 07/16/23 05:16 78 07/16/23 05:15 74 20 115/95 07/16/23 05:06 73 07/16/23 05:05 07/16/23 05:00 74 20 07/16/23 04:45 75 20 07/16/23 04:30 89 20 07/16/23 04:15 76 20 07/16/23 04:00 99.0 F 78 20 07/16/23 03:45 78 20 07/16/23 03:30 92 20 07/16/23 03:15 93 20 07/16/23 03:00 78 20 07/16/23 02:45 72 20 07/16/23 02:30 73 20 07/16/23 02:20 07/16/23 02:15 123 H 20 07/16/23 02:00 118 H 20 07/16/23 01:45 121 H 20 07/16/23 01:30 134 H 20 07/16/23 01:15 126 H 20 07/16/23 01:00 114 H 20 07/16/23 00:45 123 H 20 07/16/23 00:44 135 H 07/16/23 00:33 120 H 20 07/16/23 00:32 07/16/23 00:30 117 H 20 07/16/23 00:15 130 H 20 07/16/23 00:00 98.6 F 124 H 20 95 07/15/23 23:45 124 H 20 94 L 07/15/23 23:30 122 H 20 96 07/15/23 23:15 124 H 20 97 07/15/23 23:00 135 H 20 94 L 07/15/23 22:45 107 H 20 97 07/15/23 22:37 97.6 F 108 H 20 111/74 07/15/23 22:30 117 H 20 85 L 07/15/23 22:15 115 H 20 89 L 07/15/23 22:00 105 H 20 93 L 07/15/23 21:45 111 H 20 96 07/15/23 21:30 107 H 20 93 L 07/15/23 21:15 100 20 90 L 07/15/23 21:00 101 H 20 91 L 07/15/23 20:45 110 H 20 94 L 07/15/23 20:30 113 H 20 91 L 07/15/23 20:15 112 H 20 119/105 92 L 07/15/23 20:01 118 H 20 07/15/23 20:00 97.9 F 116 H 20 88 L 07/15/23 19:47 122 H 20 07/15/23 19:45 105 H 20 123/99 90 L 07/15/23 19:41 07/15/23 19:30 112 H 20 123/99 91 L 07/15/23 19:00 122 H 20 112/72 90 L 07/15/23 18:30 105 H 20 112/72 97 07/15/23 18:00 101 H 20 99 07/15/23 17:30 95 20 99 07/15/23 17:00 97 20 84/60 100 07/15/23 16:30 89 20 98 07/15/23 16:00 98.5 F 20 110/80 94 L 07/15/23 15:30 99 20 110/80 93 L 07/15/23 15:25 07/15/23 15:00 93 20 107/86 90 L 07/15/23 14:30 93 20 114/84 07/15/23 14:00 108 H 20 99/84 95 07/15/23 13:30 98 20 98/43 07/15/23 13:00 106 H 21 105/68 93 L 07/15/23 12:30 92 20 113/93 07/15/23 12:00 97.9 F 93 20 97/66 96 07/15/23 11:37 96 20 07/15/23 11:30 87 20 96 07/15/23 11:25 92 20 07/15/23 11:19 07/15/23 11:00 93 20 107/46 95 07/15/23 10:30 78 20 92/45 96 07/15/23 10:00 89 20 88/70 92 L 07/15/23 09:40 92 20 85/69 07/15/23 09:20 93 20 105/44 FiO2 07/16/23 08:45 100 07/16/23 08:30 100 07/16/23 08:15 100 07/16/23 08:00 100 07/16/23 07:53 07/16/23 07:45 100 07/16/23 07:42 07/16/23 07:30 100 07/16/23 07:24 90 07/16/23 07:15 100 07/16/23 07:00 07/16/23 06:45 07/16/23 06:30 07/16/23 06:15 07/16/23 06:00 07/16/23 05:45 07/16/23 05:30 07/16/23 05:24 90 07/16/23 05:16 07/16/23 05:15 07/16/23 05:06 07/16/23 05:05 100 07/16/23 05:00 07/16/23 04:45 07/16/23 04:30 07/16/23 04:15 07/16/23 04:00 100 07/16/23 03:45 07/16/23 03:30 07/16/23 03:15 07/16/23 03:00 07/16/23 02:45 07/16/23 02:30 07/16/23 02:20 100 07/16/23 02:15 07/16/23 02:00 07/16/23 01:45 07/16/23 01:30 07/16/23 01:15 07/16/23 01:00 07/16/23 00:45 07/16/23 00:44 07/16/23 00:33 07/16/23 00:32 60 07/16/23 00:30 07/16/23 00:15 07/16/23 00:00 60 07/15/23 23:45 07/15/23 23:30 07/15/23 23:15 07/15/23 23:00 07/15/23 22:45 07/15/23 22:37 07/15/23 22:30 07/15/23 22:15 07/15/23 22:00 07/15/23 21:45 07/15/23 21:30 07/15/23 21:15 07/15/23 21:00 07/15/23 20:45 07/15/23 20:30 07/15/23 20:15 07/15/23 20:01 07/15/23 20:00 60 07/15/23 19:47 07/15/23 19:45 07/15/23 19:41 60 07/15/23 19:30 07/15/23 19:00 07/15/23 18:30 07/15/23 18:00 07/15/23 17:30 07/15/23 17:00 07/15/23 16:30 07/15/23 16:00 60 07/15/23 15:30 07/15/23 15:25 60 07/15/23 15:00 07/15/23 14:30 07/15/23 14:00 60 07/15/23 13:30 07/15/23 13:00 07/15/23 12:30 07/15/23 12:00 60 07/15/23 11:37 07/15/23 11:30 07/15/23 11:25 07/15/23 11:19 60 07/15/23 11:00 07/15/23 10:30 07/15/23 10:00 07/15/23 09:40 07/15/23 09:20 Intake and Output 07/15/23 07/16/23 07/16/23 22:59 06:59 14:59 Intake Total 3325.176 1696.020 396 Output Total 515 5 20 Balance 2810.176 1691.020 376 Intake: IV 755 1184 296 .9NS Pressure Bag 30 24 6 0.9 KVO 100 160 40 Dextrose 5% in Water 1, 625 1000 250 000 ml @ 125 mls/hr IV . Q9H12M [facility] with Sodium Bicarb (1 Meq/ml) 150 ml Rx#:[id number] Intake, IV Titration 2070.176 512.020 100 Amount Amiodarone 450 mg In 250 Dextrose 5% in Water 250 ml @ 0.5 MG/MIN 16.667 mls/hr IV .Q15H [facility] Rx#: [id number] Calcium Gluconate in NaCl 100 1 gm In Saline 1 100ml. bag @ 100 mls/hr IVPB ONCE ONE Rx#:[id number] Cisatracurium 200 mg In 46.853 Sodium Chloride 0.9% 180 ml @ 1 MCG/KG/MIN 8.442 mls/hr IV .[id number] [facility] Rx #:[id number] Dextrose 5% in Water 1, 1250 125 000 ml @ 125 mls/hr IV . Q9H12M [facility] with Sodium Bicarb (1 Meq/ml) 150 ml Rx#:[id number] Norepinephrine 32 mg In 256.159 161.211 Sodium Chloride 0.9% 218 ml @ 0.44 MCG/KG/MIN 29. 019 mls/hr IV .Q8H37M [facility] Rx#:[id number] Sodium Chloride 0.9% 2, 50 000 ml @ 999 mls/hr IV . Q2H1M ONE Rx#:[id number] Vasopressin 60 unit In 58.216 48.246 Sodium Chloride 0.9% 150 ml @ 0.03 UNITS/MIN 4.59 mls/hr IV .Q24H [facility] Rx#: [id number] propofoL 1,000 mg In 58.948 177.563 100 Empty Bag 1 bag @ 15 MCG/ KG/MIN 11.635 mls/hr IV . Q8H36M [facility] Rx#:[id number] Hemodialysis 500 Output: Urine 15 5 20 Hemodialysis 500 Other: Voiding Method Indwelling Catheter Indwelling Catheter Weight 156.8 kg ABP, PAP, CO, CI - Last 8 Hours Arterial Blood Pressure 73/60 Arterial Blood Pressure 82/66 Arterial Blood Pressure 82/66 Arterial Blood Pressure 91/69 Arterial Blood Pressure 84/66 Arterial Blood Pressure 92/68 Arterial Blood Pressure 75/62 Arterial Blood Pressure 78/64 Arterial Blood Pressure 78/63 Arterial Blood Pressure 81/61 Arterial Blood Pressure 79/63 Arterial Blood Pressure 80/58 Arterial Blood Pressure 80/61 Arterial Blood Pressure 194/193 Arterial Blood Pressure 84/63 Arterial Blood Pressure 81/60 Arterial Blood Pressure 78/57 Arterial Blood Pressure 77/58 Arterial Blood Pressure 79/57 Arterial Blood Pressure 81/58 Arterial Blood Pressure 85/60 Arterial Blood Pressure 88/64 Arterial Blood Pressure 88/64 Arterial Blood Pressure 91/60 Arterial Blood Pressure 91/62 Arterial Blood Pressure 82/60 Arterial Blood Pressure 78/63 Arterial Blood Pressure 91/63 Arterial Blood Pressure 80/60 Arterial Blood Pressure 94/61 Arterial Blood Pressure 93/71 General appearance: The patient is sedated on mechanical ventilation. HET: Head is normocephalic and atraumatic. Conjunctiva pink. Sclera icteric. Neck: Supple without lymphadenopathy. Trachea midline. Heart: Regular. Lungs: Equal expansion, on mechanical ventilation. Abdomen: Soft, nondistended. Skin: No rashes. Jaundice. Extremities: Lower extremity mottling, swelling. Neurological: Sedated on mechanical ventilation. Results CBC & Chem 7: 07/16/23 05:32 07/16/23 05:32 Labs: Abnormal Lab Results - Last 24 Hours (Table) 07/15/23 07/15/23 07/15/23 Range/Units 09:45 11:53 13:55 WBC (3.8-10.6) k/uL Hct (39.0-53.0) % MCHC (31.0-37.0) g/dL RDW (11.5-15.5) % Neutrophils # (Manual) (1.3-7.7) k/uL Lymphocytes # (Manual) (1.0-4.8) k/uL Monocytes # (Manual) (0-1.0) k/uL Metamyelocytes # (Man) (0) k/uL Nucleated RBCs (0-0) /100 WBC ABG pH (7.35-7.45) ABG HCO3 (21-25) mmol/L ABG Total CO2 (19-24) mmol/L Sodium (137-145) mmol/L Potassium 5.6 H 6.3 H* (3.5-5.1) mmol/L Carbon Dioxide (22-30) mmol/L BUN (9-20) mg/dL Creatinine (0.66-1.25) mg/dL Glucose (74-99) mg/dL POC Glucose (mg/dL) (70-110) mg/dL Plasma Lactic Acid Shawn 13.6 H* (0.7-2.0) mmol/L Calcium (8.4-10.2) mg/dL Total Bilirubin (0.2-1.3) mg/dL ALT (4-49) U/L Alkaline Phosphatase (38-126) U/L Troponin I (0.000-0.034) ng/mL Albumin (3.5-5.0) g/dL 07/15/23 07/15/23 07/15/23 Range/Units 13:55 15:20 15:40 WBC 28.0 H (3.8-10.6) k/uL Hct 54.0 H (39.0-53.0) % MCHC 28.0 L (31.0-37.0) g/dL RDW 18.7 H (11.5-15.5) % Neutrophils # (Manual) 26.00 H (1.3-7.7) k/uL Lymphocytes # (Manual) 0.84 L (1.0-4.8) k/uL Monocytes # (Manual) 1.40 H (0-1.0) k/uL Metamyelocytes # (Man) 0.28 H (0) k/uL Nucleated RBCs 1 H (0-0) /100 WBC ABG pH (7.35-7.45) ABG HCO3 (21-25) mmol/L ABG Total CO2 (19-24) mmol/L Sodium (137-145) mmol/L Potassium (3.5-5.1) mmol/L Carbon Dioxide (22-30) mmol/L BUN (9-20) mg/dL Creatinine (0.66-1.25) mg/dL Glucose (74-99) mg/dL POC Glucose (mg/dL) 119 H (70-110) mg/dL Plasma Lactic Acid Shawn 13.0 H* (0.7-2.0) mmol/L Calcium (8.4-10.2) mg/dL Total Bilirubin (0.2-1.3) mg/dL ALT (4-49) U/L Alkaline Phosphatase (38-126) U/L Troponin I (0.000-0.034) ng/mL Albumin (3.5-5.0) g/dL 07/15/23 07/15/23 07/16/23 Range/Units 16:52 20:09 00:31 WBC (3.8-10.6) k/uL Hct (39.0-53.0) % MCHC (31.0-37.0) g/dL RDW (11.5-15.5) % Neutrophils # (Manual) (1.3-7.7) k/uL Lymphocytes # (Manual) (1.0-4.8) k/uL Monocytes # (Manual) (0-1.0) k/uL Metamyelocytes # (Man) (0) k/uL Nucleated RBCs (0-0) /100 WBC ABG pH (7.35-7.45) ABG HCO3 (21-25) mmol/L ABG Total CO2 (19-24) mmol/L Sodium (137-145) mmol/L Potassium 5.9 H (3.5-5.1) mmol/L Carbon Dioxide (22-30) mmol/L BUN (9-20) mg/dL Creatinine (0.66-1.25) mg/dL Glucose (74-99) mg/dL POC Glucose (mg/dL) (70-110) mg/dL Plasma Lactic Acid Shawn 12.7 H* 12.3 H* (0.7-2.0) mmol/L Calcium (8.4-10.2) mg/dL Total Bilirubin (0.2-1.3) mg/dL ALT (4-49) U/L Alkaline Phosphatase (38-126) U/L Troponin I (0.000-0.034) ng/mL Albumin (3.5-5.0) g/dL 07/16/23 07/16/23 07/16/23 Range/Units 00:31 02:24 03:58 WBC (3.8-10.6) k/uL Hct (39.0-53.0) % MCHC (31.0-37.0) g/dL RDW (11.5-15.5) % Neutrophils # (Manual) (1.3-7.7) k/uL Lymphocytes # (Manual) (1.0-4.8) k/uL Monocytes # (Manual) (0-1.0) k/uL Metamyelocytes # (Man) (0) k/uL Nucleated RBCs (0-0) /100 WBC ABG pH 7.18 L* (7.35-7.45) ABG HCO3 15 L (21-25) mmol/L ABG Total CO2 16 L (19-24) mmol/L Sodium 136 L (137-145) mmol/L Potassium 6.0 H (3.5-5.1) mmol/L Carbon Dioxide 14 L (22-30) mmol/L BUN 38 H (9-20) mg/dL Creatinine 2.23 H (0.66-1.25) mg/dL Glucose 142 H (74-99) mg/dL POC Glucose (mg/dL) (70-110) mg/dL Plasma Lactic Acid Shawn (0.7-2.0) mmol/L Calcium 7.4 L (8.4-10.2) mg/dL Total Bilirubin (0.2-1.3) mg/dL ALT (4-49) U/L Alkaline Phosphatase (38-126) U/L Troponin I 0.265 H* (0.000-0.034) ng/mL Albumin (3.5-5.0) g/dL 07/16/23 07/16/23 07/16/23 Range/Units 05:01 05:31 05:32 WBC 28.7 H (3.8-10.6) k/uL Hct (39.0-53.0) % MCHC 29.4 L (31.0-37.0) g/dL RDW 18.8 H (11.5-15.5) % Neutrophils # (Manual) (1.3-7.7) k/uL Lymphocytes # (Manual) (1.0-4.8) k/uL Monocytes # (Manual) (0-1.0) k/uL Metamyelocytes # (Man) (0) k/uL Nucleated RBCs (0-0) /100 WBC ABG pH 7.18 L* (7.35-7.45) ABG HCO3 16 L (21-25) mmol/L ABG Total CO2 17 L (19-24) mmol/L Sodium (137-145) mmol/L Potassium (3.5-5.1) mmol/L Carbon Dioxide (22-30) mmol/L BUN (9-20) mg/dL Creatinine (0.66-1.25) mg/dL Glucose (74-99) mg/dL POC Glucose (mg/dL) 143 H (70-110) mg/dL Plasma Lactic Acid Shawn (0.7-2.0) mmol/L Calcium (8.4-10.2) mg/dL Total Bilirubin (0.2-1.3) mg/dL ALT (4-49) U/L Alkaline Phosphatase (38-126) U/L Troponin I (0.000-0.034) ng/mL Albumin (3.5-5.0) g/dL 07/16/23 07/16/23 Range/Units 05:32 07:14 WBC (3.8-10.6) k/uL Hct (39.0-53.0) % MCHC (31.0-37.0) g/dL RDW (11.5-15.5) % Neutrophils # (Manual) (1.3-7.7) k/uL Lymphocytes # (Manual) (1.0-4.8) k/uL Monocytes # (Manual) (0-1.0) k/uL Metamyelocytes # (Man) (0) k/uL Nucleated RBCs (0-0) /100 WBC ABG pH (7.35-7.45) ABG HCO3 (21-25) mmol/L ABG Total CO2 (19-24) mmol/L Sodium (137-145) mmol/L Potassium 5.8 H (3.5-5.1) mmol/L Carbon Dioxide 11 L (22-30) mmol/L BUN 39 H (9-20) mg/dL Creatinine 2.58 H (0.66-1.25) mg/dL Glucose 155 H (74-99) mg/dL POC Glucose (mg/dL) (70-110) mg/dL Plasma Lactic Acid Shawn (0.7-2.0) mmol/L Calcium 7.4 L (8.4-10.2) mg/dL Total Bilirubin 5.0 H (0.2-1.3) mg/dL ALT 4050 H (4-49) U/L Alkaline Phosphatase 282 H (38-126) U/L Troponin I 0.315 H* (0.000-0.034) ng/mL Albumin 2.8 L (3.5-5.0) g/dL Microbiology - Last 24 Hours (Table) 07/14/23 17:00 Blood Culture - Preliminary Blood 07/14/23 17:20 Blood Culture - Preliminary Blood 07/14/23 16:15 Gram Stain - Preliminary Toe - Left Second Wound Culture - Preliminary Gram Neg Bacilli Presumptive Staph aureus 07/15/23 08:10 Gram Stain - Preliminary Sputum Comments: CT abdomen and pelvis with contrast: No evidence for normal ptosis or definitive acute abdominal process given limitation of this motion limited exam. Cardiomegaly with trace pleural effusions, abdominal ascites and anasarca correlate for volume overload. New[place] catheter in place with high density material bladder lumen correlate with urinalysis. Chest CTA: No pulmonary embolism normal thoracic aorta. Small lateral pleural effusions with compressive atelectasis and/or pneumonia. Small ascites. Moderate anasarca. Chest x-ray: Appropriate placement of endotracheal, nasogastric tube and left central venous catheter. Assessment and Plan (1) Transaminitis Narrative/Plan: 57-year-old male presented with multiple complaints subsequently went into acute hypoxemic respiratory failure needing intubation and mechanical ventilation. Apparently patient has a long history of alcohol abuse likely has some underlying alcoholic liver disease with notable elevated liver enzymes consistent with acute worsening likely due tischemic hepatitis related to sepsis, hypotension causing hypoperfusion and multiple organ injury. Continue to monitor LFTs, as patient's condition improves likely his liver enzymes well as well. Continue ICU management. Recommendation of alcohol abstinence. Current Visit: Yes Status: Acute Code(s): R74.01 - ELEVATION OF LEVELS OF LIVER TRANSAMINASE LEVELS SNOMED Code(s): 631885328 (2) Acute kidney injury Current Visit: Yes Status: Acute Code(s): N17.9 - ACUTE KIDNEY FAILURE, UNSPECIFIED SNOMED Code(s): 41163570 (3) Hypotension Current Visit: Yes Status: Acute Code(s): I95.9 - HYPOTENSION, UNSPECIFIED SNOMED Code(s): 24396939 (4) Alcohol abuse Current Visit: Yes Status: Acute Code(s): F10.10 - ALCOHOL ABUSE, UNCOMPLICATED SNOMED Code(s): 22542114 (5) Acute hypoxemic respiratory failure Current Visit: Yes Status: Acute Code(s): J96.01 - ACUTE RESPIRATORY FAILURE WITH HYPOXIA SNOMED Code(s): 739147715 (6) Diabetic toe ulcer Current Visit: Yes Status: Acute Code(s): E11.621 - TYPE 2 DIABETES MELLITUS WITH FOOT ULCER; L97.509 - NON-PRESSURE CHRONIC ULCER OTH PRT UNSP FOOT W UNSP SEVERITY SNOMED Code(s): 442273400 (7) Sepsis Current Visit: Yes Status: Acute Code(s): A41.9 - SEPSIS, UNSPECIFIED ORGANISM SNOMED Code(s): 94833201 (8) Atrial fibrillation with RVR Current Visit: No Status: Acute Code(s): I48.91 - UNSPECIFIED ATRIAL FIBRILLATION SNOMED Code(s): 497388146264668 (9) Diabetes Current Visit: Yes Status: Acute Code(s): E11.9 - TYPE 2 DIABETES MELLITUS WITHOUT COMPLICATIONS SNOMED Code(s): 47440476 Plan: 1. Continue symptomatic and supportive care 2. Continue ICU management 3. Will order liver ultrasound 4. Daily CBC, CMP 5. Alcohol abstinence Thank you for this consultation, we will continue to follow. Dr. Phillip Carmichael I agree with the dictator's note, documented as a scribe by Melissa Sinha.
[2023-07-16 11:17] LABS: Band Neutrophils % 3 %; Monocytes # (M) 2.01 k/uL (0-1.0); Neutrophils % (M) 82 %; Nucleated Red Blood Cells 0 /100 WBC (0-0); Total Cells Counted 100
[2023-07-16 11:27] LABS: Glucose,Whole Blood 136 mg/dL (70-110)
--- NOTE | 2023-07-16 11:37 | P.PN ---
Subjective Patient is seen in follow-up for acute kidney injury. Oliguric. Intubated. On vasopressor support. Also on lidocaine and amiodarone drip. Underwent hemodialysis yesterday. Current blood pressure in the systolic 70s. Vital signs - hemodynamically unstable. Hypotensive on vasopressor support. General: Resting in bed. HEENT: Intubated. LUNGS: Scattered rhonchi. HEART: Rate and Rhythm are regular. ABDOMEN: Obese. EXTREMITITES: No edema. Objective - Vital Signs Vital signs: Vital Signs Temp 98.4 F 07/16/23 08:00 Pulse 80 07/16/23 11:15 Resp 20 07/16/23 11:15 BP 132/65 07/16/23 09:15 Pulse Ox 95 07/16/23 00:00 FiO2 90 07/16/23 11:15 Intake & Output 07/15/23 07/16/23 07/16/23 18:59 06:59 18:59 Intake Total 4341.451 4284.923 971.959 Output Total 15 510 20 Balance 4326.451 3774.923 951.959 Weight 156.8 kg Intake: IV 36 1927 740 .9NS Pressure Bag 36 42 15 0.9 KVO 260 100 Dextrose 5% in Water 1, 1625 625 000 ml @ 125 mls/hr IV . Q9H12M [facility] with Sodium Bicarb (1 Meq/ml) 150 ml Rx#:[id number] Intake, IV Titration 4305.451 1857.923 231.959 Amount Amiodarone 450 mg In 250 Dextrose 5% in Water 250 ml @ 0.5 MG/MIN 16.667 mls/hr IV .Q15H [facility] Rx#: [id number] Calcium Gluconate in NaCl 100 1 gm In Saline 1 100ml. bag @ 100 mls/hr IVPB ONCE ONE Rx#:[id number] Calcium Gluconate in NaCl 100 1 gm In Saline 1 100ml. bag @ 400 mls/hr IVPB ONCE ONE Rx#:[id number] Cisatracurium 200 mg In 46.853 Sodium Chloride 0.9% 180 ml @ 1 MCG/KG/MIN 8.442 mls/hr IV .[id number] [facility] Rx #:[id number] Dextrose 5% in Water 1, 1500 875 000 ml @ 125 mls/hr IV . Q9H12M [facility] with Sodium Bicarb (1 Meq/ml) 150 ml Rx#:[id number] Norepinephrine 32 mg In 164.694 289.950 131.959 Sodium Chloride 0.9% 218 ml @ 0.44 MCG/KG/MIN 29. 019 mls/hr IV .Q8H37M [facility] Rx#:[id number] Norepinephrine 4 mg In 508.000 Sodium Chloride 0.9% 250 ml @ 0.03 MCG/KG/MIN 14. 776 mls/hr IV .[id number] [facility] Rx#:[id number] Piperacillin-Tazobactam 3 75 .375 gm In Sodium Chloride 0.9% 100 ml @ 200 mls/hr IVPB ONCE STA Rx#:[id number] Sodium Chloride 0.9% 1, 1125 000 ml @ 999 mls/hr IV . Q1H1M [facility] Rx#:[id number] Sodium Chloride 0.9% 2, 50 000 ml @ 999 mls/hr IV . Q2H1M [facility] Rx#:[id number] Vancomycin 2,000 mg In 601 Sodium Chloride 0.9% 500 ml 500 ml @ 167 mls/hr IVPB Q16H [facility] Rx#: [id number] Vasopressin 60 unit In 106.462 Sodium Chloride 0.9% 150 ml @ 0.03 UNITS/MIN 4.59 mls/hr IV .Q24H [facility] Rx#: [id number] propofoL 1,000 mg In 134.904 236.511 100 Empty Bag 1 bag @ 15 MCG/ KG/MIN 11.635 mls/hr IV . Q8H36M [facility] Rx#:[id number] Hemodialysis 500 Output: Urine 15 10 20 Hemodialysis 500 Other: Voiding Method Indwelling Catheter Indwelling Catheter Indwelling Catheter ABP, PAP, CO, CI - Last Documented Arterial Blood Pressure 81/58 - Labs CBC & Chem 7: 07/16/23 05:32 07/16/23 05:32 Labs: Abnormal Lab Results - Last 24 Hours (Table) 07/15/23 07/15/23 07/15/23 Range/Units 11:53 13:55 13:55 WBC 28.0 H (3.8-10.6) k/uL Hct 54.0 H (39.0-53.0) % MCHC 28.0 L (31.0-37.0) g/dL RDW 18.7 H (11.5-15.5) % Neutrophils # (Manual) 26.00 H (1.3-7.7) k/uL Lymphocytes # (Manual) 0.84 L (1.0-4.8) k/uL Monocytes # (Manual) 1.40 H (0-1.0) k/uL Metamyelocytes # (Man) 0.28 H (0) k/uL Nucleated RBCs 1 H (0-0) /100 WBC ABG pH (7.35-7.45) ABG HCO3 (21-25) mmol/L ABG Total CO2 (19-24) mmol/L Sodium (137-145) mmol/L Potassium 6.3 H* (3.5-5.1) mmol/L Carbon Dioxide (22-30) mmol/L BUN (9-20) mg/dL Creatinine (0.66-1.25) mg/dL Glucose (74-99) mg/dL POC Glucose (mg/dL) (70-110) mg/dL Plasma Lactic Acid Shawn 13.6 H* (0.7-2.0) mmol/L Calcium (8.4-10.2) mg/dL Total Bilirubin (0.2-1.3) mg/dL AST (17-59) U/L ALT (4-49) U/L Alkaline Phosphatase (38-126) U/L Troponin I (0.000-0.034) ng/mL C-Reactive Protein (<1.0) mg/dL Albumin (3.5-5.0) g/dL 07/15/23 07/15/23 07/15/23 Range/Units 15:20 15:40 16:52 WBC (3.8-10.6) k/uL Hct (39.0-53.0) % MCHC (31.0-37.0) g/dL RDW (11.5-15.5) % Neutrophils # (Manual) (1.3-7.7) k/uL Lymphocytes # (Manual) (1.0-4.8) k/uL Monocytes # (Manual) (0-1.0) k/uL Metamyelocytes # (Man) (0) k/uL Nucleated RBCs (0-0) /100 WBC ABG pH (7.35-7.45) ABG HCO3 (21-25) mmol/L ABG Total CO2 (19-24) mmol/L Sodium (137-145) mmol/L Potassium 5.9 H (3.5-5.1) mmol/L Carbon Dioxide (22-30) mmol/L BUN (9-20) mg/dL Creatinine (0.66-1.25) mg/dL Glucose (74-99) mg/dL POC Glucose (mg/dL) 119 H (70-110) mg/dL Plasma Lactic Acid Shawn 13.0 H* (0.7-2.0) mmol/L Calcium (8.4-10.2) mg/dL Total Bilirubin (0.2-1.3) mg/dL AST (17-59) U/L ALT (4-49) U/L Alkaline Phosphatase (38-126) U/L Troponin I (0.000-0.034) ng/mL C-Reactive Protein (<1.0) mg/dL Albumin (3.5-5.0) g/dL 07/15/23 07/16/23 07/16/23 Range/Units 20:09 00:31 00:31 WBC (3.8-10.6) k/uL Hct (39.0-53.0) % MCHC (31.0-37.0) g/dL RDW (11.5-15.5) % Neutrophils # (Manual) (1.3-7.7) k/uL Lymphocytes # (Manual) (1.0-4.8) k/uL Monocytes # (Manual) (0-1.0) k/uL Metamyelocytes # (Man) (0) k/uL Nucleated RBCs (0-0) /100 WBC ABG pH (7.35-7.45) ABG HCO3 (21-25) mmol/L ABG Total CO2 (19-24) mmol/L Sodium 136 L (137-145) mmol/L Potassium 6.0 H (3.5-5.1) mmol/L Carbon Dioxide 14 L (22-30) mmol/L BUN 38 H (9-20) mg/dL Creatinine 2.23 H (0.66-1.25) mg/dL Glucose 142 H (74-99) mg/dL POC Glucose (mg/dL) (70-110) mg/dL Plasma Lactic Acid Shawn 12.7 H* 12.3 H* (0.7-2.0) mmol/L Calcium 7.4 L (8.4-10.2) mg/dL Total Bilirubin (0.2-1.3) mg/dL AST (17-59) U/L ALT (4-49) U/L Alkaline Phosphatase (38-126) U/L Troponin I (0.000-0.034) ng/mL C-Reactive Protein (<1.0) mg/dL Albumin (3.5-5.0) g/dL 07/16/23 07/16/23 07/16/23 Range/Units 02:24 03:58 05:01 WBC (3.8-10.6) k/uL Hct (39.0-53.0) % MCHC (31.0-37.0) g/dL RDW (11.5-15.5) % Neutrophils # (Manual) (1.3-7.7) k/uL Lymphocytes # (Manual) (1.0-4.8) k/uL Monocytes # (Manual) (0-1.0) k/uL Metamyelocytes # (Man) (0) k/uL Nucleated RBCs (0-0) /100 WBC ABG pH 7.18 L* 7.18 L* (7.35-7.45) ABG HCO3 15 L 16 L (21-25) mmol/L ABG Total CO2 16 L 17 L (19-24) mmol/L Sodium (137-145) mmol/L Potassium (3.5-5.1) mmol/L Carbon Dioxide (22-30) mmol/L BUN (9-20) mg/dL Creatinine (0.66-1.25) mg/dL Glucose (74-99) mg/dL POC Glucose (mg/dL) (70-110) mg/dL Plasma Lactic Acid Shawn (0.7-2.0) mmol/L Calcium (8.4-10.2) mg/dL Total Bilirubin (0.2-1.3) mg/dL AST (17-59) U/L ALT (4-49) U/L Alkaline Phosphatase (38-126) U/L Troponin I 0.265 H* (0.000-0.034) ng/mL C-Reactive Protein (<1.0) mg/dL Albumin (3.5-5.0) g/dL 07/16/23 07/16/23 07/16/23 Range/Units 05:31 05:32 05:32 WBC 28.7 H (3.8-10.6) k/uL Hct (39.0-53.0) % MCHC 29.4 L (31.0-37.0) g/dL RDW 18.8 H (11.5-15.5) % Neutrophils # (Manual) 24.30 H (1.3-7.7) k/uL Lymphocytes # (Manual) (1.0-4.8) k/uL Monocytes # (Manual) 2.01 H (0-1.0) k/uL Metamyelocytes # (Man) (0) k/uL Nucleated RBCs (0-0) /100 WBC ABG pH (7.35-7.45) ABG HCO3 (21-25) mmol/L ABG Total CO2 (19-24) mmol/L Sodium (137-145) mmol/L Potassium 5.8 H (3.5-5.1) mmol/L Carbon Dioxide 11 L (22-30) mmol/L BUN 39 H (9-20) mg/dL Creatinine 2.58 H (0.66-1.25) mg/dL Glucose 155 H (74-99) mg/dL POC Glucose (mg/dL) 143 H (70-110) mg/dL Plasma Lactic Acid Shawn (0.7-2.0) mmol/L Calcium 7.4 L (8.4-10.2) mg/dL Total Bilirubin 5.0 H (0.2-1.3) mg/dL AST 79989 H (17-59) U/L ALT 4050 H (4-49) U/L Alkaline Phosphatase 282 H (38-126) U/L Troponin I (0.000-0.034) ng/mL C-Reactive Protein 5.5 H (<1.0) mg/dL Albumin 2.8 L (3.5-5.0) g/dL 07/16/23 07/16/23 Range/Units 07:14 11:25 WBC (3.8-10.6) k/uL Hct (39.0-53.0) % MCHC (31.0-37.0) g/dL RDW (11.5-15.5) % Neutrophils # (Manual) (1.3-7.7) k/uL Lymphocytes # (Manual) (1.0-4.8) k/uL Monocytes # (Manual) (0-1.0) k/uL Metamyelocytes # (Man) (0) k/uL Nucleated RBCs (0-0) /100 WBC ABG pH (7.35-7.45) ABG HCO3 (21-25) mmol/L ABG Total CO2 (19-24) mmol/L Sodium (137-145) mmol/L Potassium (3.5-5.1) mmol/L Carbon Dioxide (22-30) mmol/L BUN (9-20) mg/dL Creatinine (0.66-1.25) mg/dL Glucose (74-99) mg/dL POC Glucose (mg/dL) 136 H (70-110) mg/dL Plasma Lactic Acid Shawn (0.7-2.0) mmol/L Calcium (8.4-10.2) mg/dL Total Bilirubin (0.2-1.3) mg/dL AST (17-59) U/L ALT (4-49) U/L Alkaline Phosphatase (38-126) U/L Troponin I 0.315 H* (0.000-0.034) ng/mL C-Reactive Protein (<1.0) mg/dL Albumin (3.5-5.0) g/dL Microbiology - Last 24 Hours (Table) 07/14/23 17:00 Blood Culture - Preliminary Blood 07/14/23 17:20 Blood Culture - Preliminary Blood 07/14/23 16:15 Gram Stain - Preliminary Toe - Left Second Wound Culture - Preliminary Gram Neg Bacilli Presumptive Staph aureus 07/15/23 08:10 Gram Stain - Preliminary Sputum Assessment and Plan Plan: Assessment: 1. Acute kidney injury secondary to ATN secondary to shock. Also received IV contrast on July 13 and July 14. Baseline creatinine near 1. Started on hemodialysis July 15, 2023 due to hyperkalemia and oliguria. No hydronephrosis noted on CAT scan. 2. Hyperkalemia secondary to acute kidney injury, acidosis, lisinopril. Improved postdialysis. 3. Metabolic acidosis secondary to acute kidney injury, lactic acidosis and use of metformin. 4. Shock maintained on vasopressors. On Levophed and vasopressin. 5. A-fib with RVR maintained on amiodarone drip. Also on lidocaine drip. 6. History of alcohol abuse. 7. Cardiomyopathy. Ejection fraction 20 to 25% with severe tricuspid regurg itation. Plan: Maintain bicarb drip. IV calcium gluconate, 10 units IV insulin with amp of D50 and 4 A of sodium bicarb IV push now. Status post IV Lasix July 15, 2023 with no response in urine output. Repeat potassium level this afternoon. Will attempt to SLED if potassium level high and hemodynamics better. Patient extremely hemodynamically unstable at this time. Prognosis guarded.
[2023-07-16 13:13] LABS: Glucose,Whole Blood 131 mg/dL (70-110)
[2023-07-16 13:25] VITALS: BMI 42.0
[2023-07-16 13:38] LABS: Partial Thromboplastin Time 45.1 sec (22.0-30.0); Prothrombin Time 67.5 sec (10.0-12.5)
[2023-07-16 13:48] LABS: INR 6.9 (<1.2)
--- NOTE | 2023-07-16 14:50 | P.PN ---
Subjective Progress Note Date: 07/16/23 This is a 57 year old male with history of diabetes mellitus, pulmonary embolism anticoagulated with Eliquis, hypertension, [place] syndrome, daily smoker. Comes in to the hospital with complaints of frequent falls, inability to ambulate and worsening wound of the left foot. Patient had altered mental status on admission states that he has not been eating or drinking well. He does report some shortness of breath lately and also having decreased urine output. He was brought in by EMS. On admission EKG shows atrial fibrillation with a rapid ventricular rate of [address] is no specific [address] or T wave changes noted. Chest x-ray in the ER shows no acute cardiopulmonary process. Patient does have some remote appearing right-sided rib fractures. Initial blood work reveals a white count of 10.8, sodium level of 140, potassium of 5.5, BUN of 41, creatinine of 0.91, significantly elevated lactic acid level at 6.8, elevated AST at 1284, ALT 572, proBNP level of 3680. Serum alcohol level was less than 10. Viral panel was negative for influenza COVID RSV. Abdominal pelvis CT completed reveals no definitive acute abdominal process there is cardiomegaly with trace pleural effusions abdominal ascites and anasarca correlate for volume overload. A [place] catheter is in place with a high density material bladder lumen. Patient was hypotensive on admission did receive 3 L of fluid bolus and requiring vasopressor support was placed on levophed and vasopressin. ABGs completed revealing a pH level 7.22, pCO2 32, pO2 244, HCO [address] was completed revealing a normal head brain CT. Patient was a rapid response early this monring due to respiratory decline with periods of apnea as well as a wide-complex tachycardia; patient subsequently was intubated by the MANAGER OF MANUFACTURING and is now placed on the mechanical ventilator and sedated. He is evaluated in the intensive care unit. Stared on amiodarone infusion for the atrial fibrillation. Placed on antibiotics in the form of vancomycin and zosyn for the left toe wound with suspected sepsis and septic shock. Multiple consultations in place including nephrology, cardiology, pulmonary piecer, Infectious disease. Patient has not had any urine output and is being considered for emergent hemodialysis. 07/16/2023 Patient is evaluated in follow-up today in the intensive care unit. He continues on the mechanical ventilator with a FiO2 of 90%. Patient received a temporary hemodialysis catheter yesterday evening and underwent emergency hemodialysis at 2200. Patient remains on IV amiodarone at 16.67 MLS per hour. His heart rate is now controlled in the 80s and normal sinus rhythm. He continues on Eliquis twice a day. Patient was seen in consultation by ID local wound care applied to the second digit on his left foot. Preliminary wound cultures are showing gram-negative bacilli and presumptive Staph aureus. He continues on IV daptomycin and IV Zosyn. Blood cultures are negative so far. Chest x-ray reveals no evidence of pleural effusion focal consolidation or pneumothorax. Patient is now maxed out on Levophed and vasopressin support. He received fluid bolus. He has had 25 mL of urine output in the last 24 hours. Pressure remains marginal in the 70s systolic. He continues on IV Solu-Cortef. He is considered unstable for additional sessions of hemodialysis. Troponin level has been trended and elevated at 0.265, and 0.315. White blood cell count is 28.7, hemoglobin 14.7, platelet count of 196, PT 67.5, INR 6.9, PTT 45.1, fibrinogen level of 121. His sodium 138, potassium 5.8, BUN of 49, creatinine of 2.58, calcium of 7.4, magnesium of 2.0, total bilirubin of 5.0, AST of 14,793, ALT of 4050, alkaline phosphatase of 182. There is concern for DIC and patient's overall clinical condition is critical and we are waiting a decision from family whether they would like to pursue comfort care measures at this time they do not seem to want any other aggressive measures. bay's Mary Jo has been contacted 2 separate occasions today. She does live down in [place] and will not be able to come to the bedside. Current prognosis was discussed as well as patient's critical condition. His mother is now at the bedside and additional family members are coming in to see the patient. His CODE STATUS has been changed to a DO NOT RESUSCITATE. Review of systems Unable to complete a review of systems patient is currently intubated and sedated PHYSICAL EXAMINATION: GENERAL: Patient is sedated on the mechanical ventilator, not in any acute distress. Well developed, well nourished. HEENT: Pupils are round and equally reacting to light. EOMI. No scleral icterus. No conjunctival pallor. Normocephalic, atraumatic. No pharyngeal erythema. No thyromegaly. CARDIOVASCULAR: S1 and S2 present. No murmurs, rubs, or gallops. Irregularly irregular PULMONARY: Chest is clear to auscultation, no wheezing or crackles. Diminished ABDOMEN: Soft, nontender, nondistended, normoactive bowel sounds. No palpable organomegaly. MUSCULOSKELETAL: No joint swelling or deformity. EXTREMITIES: No cyanosis, clubbing, or pedal edema. Bilateral feet are bluish in color the left foot is cold both feet have a +1 pedal pulse found by Doppler NEUROLOGICAL: Unable to complete patient is currently intubated and sedated SKIN: No rashes. His left toe wound between the 1 and 2 toe is necrotic with purulent and sanguinous drainage. Assessment Acute hypoxemic respiratory failure secondary to severe sepsis Acute kidney injury due to ATN from sepsis and hypotension; patient remains anuric Hypotensive shock requiring levophed and vasopressin support both of which are currently maxed out. BP remains in the 70s systolic Coagulopathy with elevated DDimer and decreased fibrinogen level with concern for acute DIC Atrial fibrillation with rapid ventricular rate; transitioned to normal sinus rhythm maintains on IV amiodarone Altered mental status secondary to acute toxic and metabolic encephalopathy from Sepsis Left toe wound with cellulitis and sepsis, POA; likely a component of peripheral vascular disease with poorly controlled diabetes cultures are showing gram negative bacilli and presumptive staph aureus. Metabolic acidosis and lactic acidosis currently on sodium bicarbonate gtt Elevated LFTs with imaging not revealing any acute process, levels are worsening consistent with shock liver Hyperkalemia due to the [place] Troponin elevation likely at type 2 IA from severe sepsis Elevated D Dimer without evidence of pulmonary embolism Diabetes Mellitus type 2; insulin dependent Hx of pulmonary embolism on eliquis outpatient Hx of hypertension Alcohol use disorder Chronic and ongoing nicotine use GI prophylaxis DVT prophylaxis: Resumed on eliquis Full Code Plan Patient remains in the intensive care unit he is currently on the mechanical ventilator managed by piecer Patient remains sedated with propofol and nimbex Continue with vasopressin and levophed support which are maxed out, IV fluids infusing with additional fluid bolus being given. BP has not improved patient is maintaining in the 70s systolic. Concern for component of vascular congestion; status post IV lasix x1 Rule out DIC; patient is on eliquis BID. Patient has been made DNR and family is waiting for additional family members to come to the bedside to discuss comfort care measures. Status psot emergent hemodialysis; patient is considered too unstable to undergo additional dialysis sessions Continue on the sodium bicarb gtt Continue on amiodarone for the atrial fibrillation; and continue cardiac monitoring Continue on IV daptomycin and IV zosyn empirically and the left foot wound has been cultured Blood cultures have been taken and pending ID on consultation for the foot wound and management of sepsis Patient remains on CIWA alcohol withdrawal protocol Monitor lactic acid levels Repeat CBC and CMP in the AM Condition remains critical this was discussed with family twice over the phone today. Patients code status has been changed to a do not resuscitate. Greater than 30 minutes has been spent on this complex patient and care planning with family. The impression and plan of care has been dictated by Karon Boone Nurse Practitioner as directed. Dr. Wil MD I have performed a history and physical examination and medical decision making of this patient, discussed the same with the dictator, and agree with the dictators assessment and plan as written, documented as a scribe. Based on total visit time, I have performed more than 50% of this visit. Objective - Vital Signs Vital signs: Vital Signs Temp 99.0 F 07/16/23 04:00 Pulse 85 07/16/23 07:53 Resp 20 07/16/23 07:00 BP 130/71 07/16/23 07:00 Pulse Ox 95 07/16/23 00:00 FiO2 90 07/16/23 07:24 Intake & Output 07/15/23 07/16/23 07/16/23 18:59 06:59 18:59 Intake Total 4341.451 4284.923 148 Output Total 15 510 0 Balance 4326.451 3774.923 148 Weight 156.8 kg Intake: IV 36 1927 148 .9NS Pressure Bag 36 42 3 0.9 KVO 260 20 Dextrose 5% in Water 1, 1625 125 000 ml @ 125 mls/hr IV . Q9H12M [facility] with Sodium Bicarb (1 Meq/ml) 150 ml Rx#:[id number] Intake, IV Titration 4305.451 1857.923 Amount Amiodarone 450 mg In 250 Dextrose 5% in Water 250 ml @ 0.5 MG/MIN 16.667 mls/hr IV .Q15H [facility] Rx#: [id number] Calcium Gluconate in NaCl 100 1 gm In Saline 1 100ml. bag @ 100 mls/hr IVPB ONCE ONE Rx#:[id number] Calcium Gluconate in NaCl 100 1 gm In Saline 1 100ml. bag @ 400 mls/hr IVPB ONCE ONE Rx#:[id number] Cisatracurium 200 mg In 46.853 Sodium Chloride 0.9% 180 ml @ 1 MCG/KG/MIN 8.442 mls/hr IV .[id number] [facility] Rx #:[id number] Dextrose 5% in Water 1, 1500 875 000 ml @ 125 mls/hr IV . Q9H12M [facility] with Sodium Bicarb (1 Meq/ml) 150 ml Rx#:[id number] Norepinephrine 32 mg In 164.694 289.950 Sodium Chloride 0.9% 218 ml @ 0.44 MCG/KG/MIN 29. 019 mls/hr IV .Q8H37M [facility] Rx#:[id number] Norepinephrine 4 mg In 508.000 Sodium Chloride 0.9% 250 ml @ 0.03 MCG/KG/MIN 14. 776 mls/hr IV .[id number] [facility] Rx#:[id number] Piperacillin-Tazobactam 3 75 .375 gm In Sodium Chloride 0.9% 100 ml @ 200 mls/hr IVPB ONCE STA Rx#:[id number] Sodium Chloride 0.9% 1, 1125 000 ml @ 999 mls/hr IV . Q1H1M ONE Rx#:[id number] Sodium Chloride 0.9% 2, 50 000 ml @ 999 mls/hr IV . Q2H1M ONE Rx#:[id number] Vancomycin 2,000 mg In 601 Sodium Chloride 0.9% 500 ml 500 ml @ 167 mls/hr IVPB Q16H [facility] Rx#: [id number] Vasopressin 60 unit In 106.462 Sodium Chloride 0.9% 150 ml @ 0.03 UNITS/MIN 4.59 mls/hr IV .Q24H [facility] Rx#: [id number] propofoL 1,000 mg In 134.904 236.511 Empty Bag 1 bag @ 15 MCG/ KG/MIN 11.635 mls/hr IV . Q8H36M [facility] Rx#:[id number] Hemodialysis 500 Output: Urine 15 10 0 Hemodialysis 500 Other: Voiding Method Indwelling Catheter Indwelling Catheter ABP, PAP, CO, CI - Last Documented Arterial Blood Pressure 78/64 - Labs CBC & Chem 7: 07/16/23 05:32 07/16/23 05:32 Labs: Abnormal Lab Results - Last 24 Hours (Table) 07/15/23 07/15/23 07/15/23 Range/Units 09:45 11:53 13:55 WBC (3.8-10.6) k/uL Hct (39.0-53.0) % MCHC (31.0-37.0) g/dL RDW (11.5-15.5) % Neutrophils # (Manual) (1.3-7.7) k/uL Lymphocytes # (Manual) (1.0-4.8) k/uL Monocytes # (Manual) (0-1.0) k/uL Metamyelocytes # (Man) (0) k/uL Nucleated RBCs (0-0) /100 WBC ABG pH (7.35-7.45) ABG HCO3 (21-25) mmol/L ABG Total CO2 (19-24) mmol/L Sodium (137-145) mmol/L Potassium 5.6 H 6.3 H* (3.5-5.1) mmol/L Carbon Dioxide (22-30) mmol/L BUN (9-20) mg/dL Creatinine (0.66-1.25) mg/dL Glucose (74-99) mg/dL POC Glucose (mg/dL) (70-110) mg/dL Plasma Lactic Acid Shawn 13.6 H* (0.7-2.0) mmol/L Calcium (8.4-10.2) mg/dL Total Bilirubin (0.2-1.3) mg/dL ALT (4-49) U/L Alkaline Phosphatase (38-126) U/L Troponin I (0.000-0.034) ng/mL Albumin (3.5-5.0) g/dL 07/15/23 07/15/23 07/15/23 Range/Units 13:55 15:20 15:40 WBC 28.0 H (3.8-10.6) k/uL Hct 54.0 H (39.0-53.0) % MCHC 28.0 L (31.0-37.0) g/dL RDW 18.7 H (11.5-15.5) % Neutrophils # (Manual) 26.00 H (1.3-7.7) k/uL Lymphocytes # (Manual) 0.84 L (1.0-4.8) k/uL Monocytes # (Manual) 1.40 H (0-1.0) k/uL Metamyelocytes # (Man) 0.28 H (0) k/uL Nucleated RBCs 1 H (0-0) /100 WBC ABG pH (7.35-7.45) ABG HCO3 (21-25) mmol/L ABG Total CO2 (19-24) mmol/L Sodium (137-145) mmol/L Potassium (3.5-5.1) mmol/L Carbon Dioxide (22-30) mmol/L BUN (9-20) mg/dL Creatinine (0.66-1.25) mg/dL Glucose (74-99) mg/dL POC Glucose (mg/dL) 119 H (70-110) mg/dL Plasma Lactic Acid Shawn 13.0 H* (0.7-2.0) mmol/L Calcium (8.4-10.2) mg/dL Total Bilirubin (0.2-1.3) mg/dL ALT (4-49) U/L Alkaline Phosphatase (38-126) U/L Troponin I (0.000-0.034) ng/mL Albumin (3.5-5.0) g/dL 07/15/23 07/15/23 07/16/23 Range/Units 16:52 20:09 00:31 WBC (3.8-10.6) k/uL Hct (39.0-53.0) % MCHC (31.0-37.0) g/dL RDW (11.5-15.5) % Neutrophils # (Manual) (1.3-7.7) k/uL Lymphocytes # (Manual) (1.0-4.8) k/uL Monocytes # (Manual) (0-1.0) k/uL Metamyelocytes # (Man) (0) k/uL Nucleated RBCs (0-0) /100 WBC ABG pH (7.35-7.45) ABG HCO3 (21-25) mmol/L ABG Total CO2 (19-24) mmol/L Sodium (137-145) mmol/L Potassium 5.9 H (3.5-5.1) mmol/L Carbon Dioxide (22-30) mmol/L BUN (9-20) mg/dL Creatinine (0.66-1.25) mg/dL Glucose (74-99) mg/dL POC Glucose (mg/dL) (70-110) mg/dL Plasma Lactic Acid Shawn 12.7 H* 12.3 H* (0.7-2.0) mmol/L Calcium (8.4-10.2) mg/dL Total Bilirubin (0.2-1.3) mg/dL ALT (4-49) U/L Alkaline Phosphatase (38-126) U/L Troponin I (0.000-0.034) ng/mL Albumin (3.5-5.0) g/dL 07/16/23 07/16/23 07/16/23 Range/Units 00:31 02:24 03:58 WBC (3.8-10.6) k/uL Hct (39.0-53.0) % MCHC (31.0-37.0) g/dL RDW (11.5-15.5) % Neutrophils # (Manual) (1.3-7.7) k/uL Lymphocytes # (Manual) (1.0-4.8) k/uL Monocytes # (Manual) (0-1.0) k/uL Metamyelocytes # (Man) (0) k/uL Nucleated RBCs (0-0) /100 WBC ABG pH 7.18 L* (7.35-7.45) ABG HCO3 15 L (21-25) mmol/L ABG Total CO2 16 L (19-24) mmol/L Sodium 136 L (137-145) mmol/L Potassium 6.0 H (3.5-5.1) mmol/L Carbon Dioxide 14 L (22-30) mmol/L BUN 38 H (9-20) mg/dL Creatinine 2.23 H (0.66-1.25) mg/dL Glucose 142 H (74-99) mg/dL POC Glucose (mg/dL) (70-110) mg/dL Plasma Lactic Acid Shawn (0.7-2.0) mmol/L Calcium 7.4 L (8.4-10.2) mg/dL Total Bilirubin (0.2-1.3) mg/dL ALT (4-49) U/L Alkaline Phosphatase (38-126) U/L Troponin I 0.265 H* (0.000-0.034) ng/mL Albumin (3.5-5.0) g/dL 07/16/23 07/16/23 07/16/23 Range/Units 05:01 05:31 05:32 WBC 28.7 H (3.8-10.6) k/uL Hct (39.0-53.0) % MCHC 29.4 L (31.0-37.0) g/dL RDW 18.8 H (11.5-15.5) % Neutrophils # (Manual) (1.3-7.7) k/uL Lymphocytes # (Manual) (1.0-4.8) k/uL Monocytes # (Manual) (0-1.0) k/uL Metamyelocytes # (Man) (0) k/uL Nucleated RBCs (0-0) /100 WBC ABG pH 7.18 L* (7.35-7.45) ABG HCO3 16 L (21-25) mmol/L ABG Total CO2 17 L (19-24) mmol/L Sodium (137-145) mmol/L Potassium (3.5-5.1) mmol/L Carbon Dioxide (22-30) mmol/L BUN (9-20) mg/dL Creatinine (0.66-1.25) mg/dL Glucose (74-99) mg/dL POC Glucose (mg/dL) 143 H (70-110) mg/dL Plasma Lactic Acid Shawn (0.7-2.0) mmol/L Calcium (8.4-10.2) mg/dL Total Bilirubin (0.2-1.3) mg/dL ALT (4-49) U/L Alkaline Phosphatase (38-126) U/L Troponin I (0.000-0.034) ng/mL Albumin (3.5-5.0) g/dL 07/16/23 07/16/23 Range/Units 05:32 07:14 WBC (3.8-10.6) k/uL Hct (39.0-53.0) % MCHC (31.0-37.0) g/dL RDW (11.5-15.5) % Neutrophils # (Manual) (1.3-7.7) k/uL Lymphocytes # (Manual) (1.0-4.8) k/uL Monocytes # (Manual) (0-1.0) k/uL Metamyelocytes # (Man) (0) k/uL Nucleated RBCs (0-0) /100 WBC ABG pH (7.35-7.45) ABG HCO3 (21-25) mmol/L ABG Total CO2 (19-24) mmol/L Sodium (137-145) mmol/L Potassium 5.8 H (3.5-5.1) mmol/L Carbon Dioxide 11 L (22-30) mmol/L BUN 39 H (9-20) mg/dL Creatinine 2.58 H (0.66-1.25) mg/dL Glucose 155 H (74-99) mg/dL POC Glucose (mg/dL) (70-110) mg/dL Plasma Lactic Acid Shawn (0.7-2.0) mmol/L Calcium 7.4 L (8.4-10.2) mg/dL Total Bilirubin 5.0 H (0.2-1.3) mg/dL ALT 4050 H (4-49) U/L Alkaline Phosphatase 282 H (38-126) U/L Troponin I 0.315 H* (0.000-0.034) ng/mL Albumin 2.8 L (3.5-5.0) g/dL Microbiology - Last 24 Hours (Table) 07/14/23 17:00 Blood Culture - Preliminary Blood 07/14/23 17:20 Blood Culture - Preliminary Blood 07/14/23 16:15 Gram Stain - Preliminary Toe - Left Second Wound Culture - Preliminary Gram Neg Bacilli Presumptive Staph aureus 07/15/23 08:10 Gram Stain - Preliminary Sputum Assessment and Plan Time with Patient: Greater than 30
[2023-07-16 19:58] LABS: Allen Test Performed? Yes
[2023-07-16 19:59] LABS: ABG Base Excess -13.3 mmol/L; ABG HCO3 16 mmol/L (21-25); ABG PCO2 45 mmHg (35-45); ABG PH 7.15 (7.35-7.45); ABG PO2 82 mmHg (83-108); ABG TCO2 17 mmol/L (19-24)
[2023-07-16] MEDS: METOPROLOL TARTRATE 12.5 MG TAB PO SCH (22:12)
[2023-07-16 23:57] LABS: African American GFR (CKD) 26 (>60 ml/min/1.73 sqM); Anion Gap 31 mmol/L; Blood Urea Nitrogen 32 mg/dL (9-20); Calcium 6.5 mg/dL (8.4-10.2); Chloride 97 mmol/L (98-107); Glucose 113 mg/dL (74-99); Non-African American GFR(CKD) 23 (>60 ml/min/1.73 sqM); Potassium 5.5 mmol/L (3.5-5.1); Sodium 136 mmol/L (137-145)
[2023-07-17 00:16] LABS: Carbon Dioxide 8 mmol/L (22-30)
[2023-07-17] MEDS: SODIUM BICARB 8.4% 50 ML SYR (1 MEQ/ML) IV STA (00:51)
[2023-07-17 04:12] LABS: Anisocytosis Slight; Basophils # (A) 0.1 k/uL (0-0.2); Basophils % (A) 0 %; Eosinophils % (A) 0 %; HCT 47.4 % (39.0-53.0); HGB 14.3 gm/dL (13.0-17.5); Hypochromasia Marked; Lymphocytes # (A) 2.3 k/uL (1.0-4.8); Lymphocytes % (A) 10 %; MCH 28.4 pg (25.0-35.0); MCHC 30.2 g/dL (31.0-37.0); MCV 94.1 fL (80.0-100.0); Macrocytosis Slight; Mean Platelet Volume 9.6; Monocytes # (A) 1.1 k/uL (0-1.0); Monocytes % (A) 5 %; Neutrophils # (A) 19.9 k/uL (1.3-7.7); Neutrophils % (A) 84 %; Platelet Count 175 k/uL (150-450); Poikilocytosis Slight; RBC 5.04 m/uL (4.30-5.90); RDW 19.2 % (11.5-15.5); WBC 23.7 k/uL (3.8-10.6)
[2023-07-17 04:17] VITALS: TEMP 98.8
[2023-07-17 04:42] LABS: Partial Thromboplastin Time 49.1 sec (22.0-30.0)
[2023-07-17 05:54] LABS: ABG Base Excess -16.3 mmol/L; ABG HCO3 13 mmol/L (21-25); ABG PCO2 43 mmHg (35-45); ABG PO2 82 mmHg (83-108); ABG TCO2 15 mmol/L (19-24); Allen Test Performed? Yes
[2023-07-17 05:57] LABS: Glucose,Whole Blood 26 mg/dL (70-110)
[2023-07-17 05:58] LABS: African American GFR (CKD) 24 (>60 ml/min/1.73 sqM); Albumin 2.5 g/dL (3.5-5.0); Alkaline Phosphatase 324 U/L (38-126); Anion Gap 35 mmol/L; Blood Urea Nitrogen 33 mg/dL (9-20); Calcium 6.5 mg/dL (8.4-10.2); Chloride 95 mmol/L (98-107); Glucose 127 mg/dL (74-99); Non-African American GFR(CKD) 20 (>60 ml/min/1.73 sqM); Potassium 5.5 mmol/L (3.5-5.1); Sodium 137 mmol/L (137-145); Total Bilirubin 5.1 mg/dL (0.2-1.3); Total Protein 6.2 g/dL (6.3-8.2)
[2023-07-17 06:14] LABS: Glucose,Whole Blood 39 mg/dL (70-110)
[2023-07-17 06:14] LABS: Glucose,Whole Blood 73 mg/dL (70-110)
[2023-07-17 06:14] LABS: Glucose,Whole Blood 127 mg/dL (70-110)
[2023-07-17 06:30] LABS: Carbon Dioxide 7 mmol/L (22-30)
[2023-07-17 07:04] LABS: ALT 4971 U/L (4-49)
--- NOTE | 2023-07-17 07:09 | P.PN ---
Subjective Progress Note Date: 07/17/23 PROGRESS NOTE The patient is a 57-year-old male with a history of paroxysmal atrial fibrillation prior history of alcohol intake, history of cardiomyopathy by echocardiography in January 2023 with at least moderate mitral regurgitation who presented with progressive dyspnea, change in mental status, patient was intubated in the emergency room, he was noted to be in atrial fibrillation with rapid ventricular response. He had a history of alcohol intake stopped about 2 weeks ago and according to the record became progressively fatigued with lack of energy and worsening dyspnea. No other history could be obtained. The patient is intubated and sedated, anuric. Has a history of pulmonary embolism, alcoholism, remote history of multisubstance use according to the nursing staff. He has been started on IV amiodarone, he is in atrial fibrillation with controlled ventricular response. As an outpatient his medications are consistent with a history of diabetes, hypertension and he was anticoagulated July 15: The patient remains intubated. He underwent dialysis yesterday. He had an episode of wide-complex tachycardia that appears to be atrial fibrillation with aberrancy. His echocardiogram showed severely impaired low ventricle systolic function. He has been started on IV lidocaine in addition to the amiodarone. He has no urinary output. He was cardioverted yesterday with a wide-complex arrhythmia. He is in sinus mechanism at this point. His blood pressure is stable on vasopressor. July 16: The patient remains intubated on norepinephrine and vasopressin. He continues to be severely acidotic. He is in sinus mechanism with no further episodes of atrial fibrillation. He is sedated. There is no episodes of wide-complex tachycardia. According to the nursing staff the family is meeting today to make a decision about CODE STATUS. His wound culture shows gram-negative bacilli and staph. He has received renal replacement therapy. Medications: Eliquis 5 mg twice a day hydrocortisone, insulin, metoprolol 12.5 mg twice a day vasopressin, IV norepinephrine, sodium bicarb drip PHYSICAL EXAMINATION: Blood pressure 77/60 heart rate 83, intubated LUNGS: Clear to auscultation anteriorly HEART: Regular rate and rhythm, S1, S2. No S3. Systolic ejection murmur ABDOMEN: Soft, no organomegaly EXTREMETIES: 1+ edema, wound on the left foot LAB: WBC 23.7, hemoglobin 14.3. pH 7.1. Potassium 5.5. BUN 33, creatinine 3.21. Total bilirubin 5.1, ALT 4971. Echocardiogram showed an ejection fraction of 20 to 25% with severe tricuspid regurgitation and severely dilated right ventricle IMPRESSION: 1. Respiratory failure, multifactorial with septic shock 2. Acute renal injury on hemodialysis, started yesterday 3. Atrial fibrillation with episodes of wide-complex arrhythmia, probable aberrancy. In sinus mechanism at this time. 4. Acute liver injury 5. History of diabetes 6. History of tobacco use 7. Prior history of hypertension 8. Persistent severe acidosis 9. Severe cardiomyopathy of unknown etiology PLAN: 1. Continue supportive care 2. Awaiting input from family regarding course of treatment 3. Prognosis poor Objective - Vital Signs Vital signs: Vital Signs Temp 98.8 F 07/17/23 04:00 Pulse 83 07/17/23 06:15 Resp 20 07/17/23 06:15 BP 83/59 07/17/23 06:15 Pulse Ox 71 L 07/17/23 06:00 FiO2 80 07/17/23 04:00 Intake & Output 07/16/23 07/17/23 07/17/23 18:59 06:59 18:59 Intake Total 3203.489 2783.771 Output Total 20 900 Balance 3183.489 1883.771 Weight 156.8 kg 156.8 kg Intake: IV 1276 1649 .9NS Pressure Bag 36 39 0.9 KVO 240 260 Dextrose 5% in Water 1, 1000 1250 000 ml @ 125 mls/hr IV . Q9H12M [facility] with Sodium Bicarb (1 Meq/ml) 150 ml Rx#:[id number] Piperacillin-Tazobactam 3 100 .375 gm In Sodium Chloride 0.9% 100 ml @ 25 mls/hr IVPB Q8HR [facility] Rx# :[id number] Intake, IV Titration 1927.489 734.771 Amount Calcium Gluconate in NaCl 100 1 gm In Saline 1 100ml. bag @ 400 mls/hr IVPB ONCE ONE Rx#:[id number] Cisatracurium 200 mg In 94.058 Sodium Chloride 0.9% 180 ml @ 1 MCG/KG/MIN 8.442 mls/hr IV .[id number] [facility] Rx #:[id number] Lidocaine-D5w Pmx 2G/ 77.125 250Ml 2,000 mg In Dextrose/Water 1 250ml. bag @ 1 MG/MIN 7.5 mls/hr IV .Q24H [facility] Rx#: [id number] Norepinephrine 32 mg In 366.276 309.448 Sodium Chloride 0.9% 218 ml @ 0.44 MCG/KG/MIN 29. 019 mls/hr IV .Q8H37M [facility] Rx#:[id number] Sodium Chloride 0.9% 1, 1000 000 ml @ 999 mls/hr IV . Q1H1M ONE Rx#:[id number] Vasopressin 60 unit In 127.092 Sodium Chloride 0.9% 150 ml @ 0.03 UNITS/MIN 4.59 mls/hr IV .Q24H [facility] Rx#: [id number] propofoL 1,000 mg In 290.030 298.231 Empty Bag 1 bag @ 15 MCG/ KG/MIN 11.635 mls/hr IV . Q8H36M [facility] Rx#:[id number] Hemodialysis 400 Output: Urine 20 0 Hemodialysis 900 Other: Voiding Method Indwelling Catheter Indwelling Catheter ABP, PAP, CO, CI - Last Documented Arterial Blood Pressure 77/60 - Labs CBC & Chem 7: 07/17/23 04:00 07/17/23 04:00 Labs: Abnormal Lab Results - Last 24 Hours (Table) 07/16/23 07/16/23 07/16/23 Range/Units 05:32 05:32 05:32 WBC (3.8-10.6) k/uL MCHC (31.0-37.0) g/dL RDW (11.5-15.5) % Neutrophils # (1.3-7.7) k/uL Neutrophils # (Manual) 24.30 H (1.3-7.7) k/uL Monocytes # (0-1.0) k/uL Monocytes # (Manual) 2.01 H (0-1.0) k/uL PT (10.0-12.5) sec INR (<1.2) APTT (22.0-30.0) sec Fibrinogen (200-500) mg/dL ABG pH (7.35-7.45) ABG pO2 (83-108) mmHg ABG HCO3 (21-25) mmol/L ABG Total CO2 (19-24) mmol/L ABG O2 Saturation (94-97) % Sodium (137-145) mmol/L Potassium (3.5-5.1) mmol/L Chloride (98-107) mmol/L Carbon Dioxide (22-30) mmol/L BUN (9-20) mg/dL Creatinine (0.66-1.25) mg/dL Glucose (74-99) mg/dL POC Glucose (mg/dL) (70-110) mg/dL Calcium (8.4-10.2) mg/dL Total Bilirubin (0.2-1.3) mg/dL AST 70710 H (17-59) U/L Alkaline Phosphatase (38-126) U/L Troponin I (0.000-0.034) ng/mL C-Reactive Protein 5.5 H (<1.0) mg/dL Total Protein (6.3-8.2) g/dL Albumin (3.5-5.0) g/dL Procalcitonin 1.48 H (0.02-0.09) ng/mL 07/16/23 07/16/23 07/16/23 Range/Units 07:14 11:25 13:12 WBC (3.8-10.6) k/uL MCHC (31.0-37.0) g/dL RDW (11.5-15.5) % Neutrophils # (1.3-7.7) k/uL Neutrophils # (Manual) (1.3-7.7) k/uL Monocytes # (0-1.0) k/uL Monocytes # (Manual) (0-1.0) k/uL PT (10.0-12.5) sec INR (<1.2) APTT (22.0-30.0) sec Fibrinogen (200-500) mg/dL ABG pH (7.35-7.45) ABG pO2 (83-108) mmHg ABG HCO3 (21-25) mmol/L ABG Total CO2 (19-24) mmol/L ABG O2 Saturation (94-97) % Sodium (137-145) mmol/L Potassium (3.5-5.1) mmol/L Chloride (98-107) mmol/L Carbon Dioxide (22-30) mmol/L BUN (9-20) mg/dL Creatinine (0.66-1.25) mg/dL Glucose (74-99) mg/dL POC Glucose (mg/dL) 136 H 131 H (70-110) mg/dL Calcium (8.4-10.2) mg/dL Total Bilirubin (0.2-1.3) mg/dL AST (17-59) U/L Alkaline Phosphatase (38-126) U/L Troponin I 0.315 H* (0.000-0.034) ng/mL C-Reactive Protein (<1.0) mg/dL Total Protein (6.3-8.2) g/dL Albumin (3.5-5.0) g/dL Procalcitonin (0.02-0.09) ng/mL 07/16/23 07/16/23 07/16/23 Range/Units 13:16 14:11 19:46 WBC (3.8-10.6) k/uL MCHC (31.0-37.0) g/dL RDW (11.5-15.5) % Neutrophils # (1.3-7.7) k/uL Neutrophils # (Manual) (1.3-7.7) k/uL Monocytes # (0-1.0) k/uL Monocytes # (Manual) (0-1.0) k/uL PT 67.5 H (10.0-12.5) sec INR 6.9 H* (<1.2) APTT 45.1 H (22.0-30.0) sec Fibrinogen 121 L (200-500) mg/dL ABG pH 7.15 L* (7.35-7.45) ABG pO2 82 L (83-108) mmHg ABG HCO3 16 L (21-25) mmol/L ABG Total CO2 17 L (19-24) mmol/L ABG O2 Saturation 93.0 L (94-97) % Sodium (137-145) mmol/L Potassium 5.8 H (3.5-5.1) mmol/L Chloride (98-107) mmol/L Carbon Dioxide (22-30) mmol/L BUN (9-20) mg/dL Creatinine (0.66-1.25) mg/dL Glucose (74-99) mg/dL POC Glucose (mg/dL) (70-110) mg/dL Calcium (8.4-10.2) mg/dL Total Bilirubin (0.2-1.3) mg/dL AST (17-59) U/L Alkaline Phosphatase (38-126) U/L Troponin I (0.000-0.034) ng/mL C-Reactive Protein (<1.0) mg/dL Total Protein (6.3-8.2) g/dL Albumin (3.5-5.0) g/dL Procalcitonin (0.02-0.09) ng/mL 07/16/23 07/17/23 07/17/23 Range/Units 22:48 04:00 04:00 WBC 23.7 H (3.8-10.6) k/uL MCHC 30.2 L (31.0-37.0) g/dL RDW 19.2 H (11.5-15.5) % Neutrophils # 19.9 H (1.3-7.7) k/uL Neutrophils # (Manual) (1.3-7.7) k/uL Monocytes # 1.1 H (0-1.0) k/uL Monocytes # (Manual) (0-1.0) k/uL PT (10.0-12.5) sec INR (<1.2) APTT 49.1 H (22.0-30.0) sec Fibrinogen 121 L (200-500) mg/dL ABG pH (7.35-7.45) ABG pO2 (83-108) mmHg ABG HCO3 (21-25) mmol/L ABG Total CO2 (19-24) mmol/L ABG O2 Saturation (94-97) % Sodium 136 L (137-145) mmol/L Potassium 5.5 H (3.5-5.1) mmol/L Chloride 97 L (98-107) mmol/L Carbon Dioxide 8 L* (22-30) mmol/L BUN 32 H (9-20) mg/dL Creatinine 2.94 H (0.66-1.25) mg/dL Glucose 113 H (74-99) mg/dL POC Glucose (mg/dL) (70-110) mg/dL Calcium 6.5 L (8.4-10.2) mg/dL Total Bilirubin (0.2-1.3) mg/dL AST (17-59) U/L Alkaline Phosphatase (38-126) U/L Troponin I (0.000-0.034) ng/mL C-Reactive Protein (<1.0) mg/dL Total Protein (6.3-8.2) g/dL Albumin (3.5-5.0) g/dL Procalcitonin (0.02-0.09) ng/mL 07/17/23 07/17/23 07/17/23 Range/Units 04:00 05:49 05:54 WBC (3.8-10.6) k/uL MCHC (31.0-37.0) g/dL RDW (11.5-15.5) % Neutrophils # (1.3-7.7) k/uL Neutrophils # (Manual) (1.3-7.7) k/uL Monocytes # (0-1.0) k/uL Monocytes # (Manual) (0-1.0) k/uL PT (10.0-12.5) sec INR (<1.2) APTT (22.0-30.0) sec Fibrinogen (200-500) mg/dL ABG pH 7.10 L* (7.35-7.45) ABG pO2 82 L (83-108) mmHg ABG HCO3 13 L (21-25) mmol/L ABG Total CO2 15 L (19-24) mmol/L ABG O2 Saturation 92.0 L (94-97) % Sodium (137-145) mmol/L Potassium 5.5 H (3.5-5.1) mmol/L Chloride 95 L (98-107) mmol/L Carbon Dioxide 7 L* (22-30) mmol/L BUN 33 H (9-20) mg/dL Creatinine 3.21 H (0.66-1.25) mg/dL Glucose 127 H (74-99) mg/dL POC Glucose (mg/dL) 26 L (70-110) mg/dL Calcium 6.5 L (8.4-10.2) mg/dL Total Bilirubin 5.1 H (0.2-1.3) mg/dL AST (17-59) U/L Alkaline Phosphatase 324 H (38-126) U/L Troponin I (0.000-0.034) ng/mL C-Reactive Protein (<1.0) mg/dL Total Protein 6.2 L (6.3-8.2) g/dL Albumin 2.5 L (3.5-5.0) g/dL Procalcitonin (0.02-0.09) ng/mL 07/17/23 07/17/23 Range/Units 06:07 06:09 WBC (3.8-10.6) k/uL MCHC (31.0-37.0) g/dL RDW (11.5-15.5) % Neutrophils # (1.3-7.7) k/uL Neutrophils # (Manual) (1.3-7.7) k/uL Monocytes # (0-1.0) k/uL Monocytes # (Manual) (0-1.0) k/uL PT (10.0-12.5) sec INR (<1.2) APTT (22.0-30.0) sec Fibrinogen (200-500) mg/dL ABG pH (7.35-7.45) ABG pO2 (83-108) mmHg ABG HCO3 (21-25) mmol/L ABG Total CO2 (19-24) mmol/L ABG O2 Saturation (94-97) % Sodium (137-145) mmol/L Potassium (3.5-5.1) mmol/L Chloride (98-107) mmol/L Carbon Dioxide (22-30) mmol/L BUN (9-20) mg/dL Creatinine (0.66-1.25) mg/dL Glucose (74-99) mg/dL POC Glucose (mg/dL) 39 L 127 H (70-110) mg/dL Calcium (8.4-10.2) mg/dL Total Bilirubin (0.2-1.3) mg/dL AST (17-59) U/L Alkaline Phosphatase (38-126) U/L Troponin I (0.000-0.034) ng/mL C-Reactive Protein (<1.0) mg/dL Total Protein (6.3-8.2) g/dL Albumin (3.5-5.0) g/dL Procalcitonin (0.02-0.09) ng/mL Microbiology - Last 24 Hours (Table) 07/14/23 17:00 Blood Culture - Preliminary Blood 07/14/23 17:20 Blood Culture - Preliminary Blood 07/14/23 16:15 Gram Stain - Final Toe - Left Second Wound Culture - Final Escherichia coli Staphylococcus aureus
[2023-07-17 07:45] LABS: AST >15000 U/L (17-59)
[2023-07-17 09:13] LABS: Prothrombin Time 74.3 sec (10.0-12.5)
[2023-07-17 09:18] LABS: INR 7.5 (<1.2)
--- NOTE | 2023-07-17 09:23 | XR ---
EXAMINATION TYPE: XR chest 1V portable DATE OF EXAM: 07/17/2023 6:01 AM CLINICAL INDICATION:Male, 57 years old with history of Tube placement; COMPARISON: None 07/16/2023. TECHNIQUE: XR chest 1V portable Frontal view of the chest. FINDINGS: Lungs/Pleura: There is no evidence of pleural effusion, focal consolidation, or pneumothorax. Pulmonary vascularity: Unremarkable. Heart/mediastinum: Cardiomediastinal silhouette is unremarkable. Musculoskeletal: No acute osseous pathology. Other findings: None Lines/Tubes: Endotracheal tube with distal tip 5.1 cm above the yasmine. Nasogastric tube with its distal tip and side-port projecting under the diaphragm. Left internal jugular central venous catheter with distal tip at the cavoatrial junction. IMPRESSION: Stable exam stable left central venous catheter in support tubes.
[2023-07-17 10:00] VITALS: BP 71/44; PULSE 72; RESP 20
--- NOTE | 2023-07-17 10:08 | P.PN ---
Subjective Progress Note Date: 07/17/23 Principal diagnosis: Respiratory failure. An A-team was called overhead at 0025 this morning in the emergency room, I did respond and on my evaluation the patient was unresponsive, with ataxic breathing, and having periods of apnea. He subsequently had to be intubated for airway protection. This was done by the [employer]. There were concerns about possible episodes of wide complex tachycardia. He was also noted to be in atrial fibrillation with rapid ventricular rate in the 150s to 180s. Patient was started on amiodarone protocol. He was then transferred to the intensive care unit for stabilization. Patient is a 57-year-old white male with past medical history atrial fibrillation, diabetes mellitus, hypertension, current everyday smoker, pulmonary embolism, and alcoholism. Patient obviously cannot provide any information, and we did contact the patient's estranged who was able to offer more information about his prior medical conditions. She lives in a different state. On review, of the ER documentation he presented yesterday afternoon with multiple complaints. He reportedly stopped drinking alcohol 2 weeks ago. He was on the CIWA protocol and received a total of 3 mg of Ativan prior to intubation. He did report some abdominal pain when seen by the ER physician. Abdominal CT with contrast did not show any definitive acute intra- abdominal process. There was also a concerning left second toe wound with purulent drainage. X-ray of his left foot showed soft tissue swelling of the second digit without evidence of fracture or osseous erosion. Patient was placed on a combination of antibiotics including vancomycin and Zosyn while in the emergency room. Patient reportedly received a total of 2 L normal saline bolus in the emergency room. He had an elevated lactic which continues to trend up and is currently 12.9. I did give an additional liter of normal saline. Postintubation chest x-ray shows endotracheal tube approximately 3.3 cm above the yasmine. There is cardiomegaly and central vascular congestion. NT proBNP elevated at 3680. On reviewing his records, he has a previous echocardiogram from 01/28/2023 which shows an ejection fraction of 35 to 40% and moderate to severe mitral regurgitation. Patient is currently intubated to the mechanical ventilator in assist-control with a respiratory rate of 20, tidal volume 550, FiO2 100%, and PEEP of 5. Patient is breathing slightly above set rate. Follow- up ABG shows a component of profound metabolic acidosis. There is a PaO2 of 117, pCO2 of 31, pH of 7.15. I did give the patient 2 A of sodium bicarb and start the patient on a sodium bicarbonate infusion with a total of 3 A in D5W at a rate of 125 mL/h. Patient's blood pressure has since become hypotensive after transfer to the intensive care unit, and the patient has been started on norepinephrine which is currently infusing at 0.05 mcg/kg/min. Most recent CBC from earlier this morning shows a WC count of 14.2, hemoglobin 12.6, hematocrit 40.9, platelets 290. D-dimer was elevated at 11.3. No listed anticoagulant on home meds. Most recent CMP: Sodium 140, potassium 5.2, chloride 117, serum bicarb 9, BUN 35, creatinine 0.92, glucose 106. LFTs are elevated including AST of 814, ALT of 414, and ALP of 184. Hepatitis panel nonreactive. Troponin 0.033. Negative for influenza, RSV, COVID. Patient's condition is currently critical. Progress note dated July 16, 2023. 57-year-old male who was admitted to the hospital, with a diagnosis of sepsis. The patient was unresponsive, intubated, and transferred to the intensive care unit. He is seen today in room 251. He remains on mechanical ventilator. He is on volume assist-control, rate 20, tidal volume 550, FiO2 90%, PEEP of 10. Blood gases show pO2 of 96, pCO2 of 43 and a pH of 7.18. These blood gases are consistent with severe metabolic acidosis. The patient is on Nimbex at 0.5 mcg/kg/min, D5W with 3 ampoules of sodium bicarb at 125 cc an hour, amiodarone at 0.5 mg/min, propofol at 30 mcg/kg/min, vasopressin at 0.04 units/min, norepinephrine at 53 mcg/min, and lidocaine at 1 mg/min. The patient's wound culture shows evidence of gram-negative bacilli and staph. The patient is on daptomycin and Zosyn. We had some Dilaudid to the regimen. The patient had a hemodialysis catheter placed yesterday, and is undergoing continuous renal replacement therapy. White count 28.7, hemoglobin 14.7, hematocrit 50, platelet count 196,000. Sodium 138, potassium 3.8, chlorides 101, CO2 11, anion gap 26, BUN 39, creatinine 2.58. Calcium is 7.4. Magnesium 2. ALT is 4050. AST is pending troponin was 0.265 and 0.315. Albumin is 2.8. Chest x-ray shows a properly placed central line, endotracheal tube in the midportion of the trachea, and a right-sided pleural effusion. Progress note dated July 17, 2023. 57-year-old male admitted to the hospital with a diagnosis of sepsis. Cultures of the left toe, show evidence of Escherichia coli, and methicillin sensitive Staph aureus. Patient remains on the mechanical ventilator. He is seen today in room 251. He is a DO NOT RESUSCITATE patient. His ventilator settings include volume assist-control, rate 20, tidal volume 550, FiO2 80%, PEEP of 10. Gases show pO2 of 82, pCO2 43, and a pH of 7.10. The patient continues on Nimbex at 0.5 mcg/kg/min, propofol at 30 mcg/kg/min, vasopressin at 0.04 units/min, norepinephrine at 75 mcg/min, sodium bicarbonate drip, with 3 ampoules of sodium bicarb in D5W at 125 cc an hour, and saline at 30 cc an hour. The patient continues on daptomycin, and Zosyn. White count is 23.7, hemoglobin 14.3, hematocrit 47.4, and platelet count 175,000. PTT is 74.3, INR 7.5, PTT is 49.1. Sodium 137, potassium 5.5, chloride 95, CO2 7, anion gap 35, BUN 33, creatinine 3.21. Calcium is 6.5, bilirubin 5.1, AST is greater than 15,000, ALT is nearly 5000. Albumin is 2.5. Chest x-ray is largely unchanged. Objective - Vital Signs Vital signs: Vital Signs Temp 98.8 F 07/17/23 08:00 Pulse 72 07/17/23 09:15 Resp 20 07/17/23 09:15 BP 71/44 07/17/23 09:15 Pulse Ox 71 L 07/17/23 07:30 FiO2 80 07/17/23 07:36 Intake & Output 07/16/23 07/17/23 07/17/23 18:59 06:59 18:59 Intake Total 3203.489 2783.771 296 Output Total 20 900 0 Balance 3183.489 1883.771 296 Weight 156.8 kg 156.8 kg Intake: IV 1276 1649 296 .9NS Pressure Bag 36 39 6 0.9 KVO 240 260 40 Dextrose 5% in Water 1, 1000 1250 250 000 ml @ 125 mls/hr IV . Q9H12M [facility] with Sodium Bicarb (1 Meq/ml) 150 ml Rx#:[id number] Piperacillin-Tazobactam 3 100 .375 gm In Sodium Chloride 0.9% 100 ml @ 25 mls/hr IVPB Q8HR [facility] Rx# :[id number] Intake, IV Titration 1927.489 734.771 Amount Calcium Gluconate in NaCl 100 1 gm In Saline 1 100ml. bag @ 400 mls/hr IVPB ONCE ONE Rx#:[id number] Cisatracurium 200 mg In 94.058 Sodium Chloride 0.9% 180 ml @ 1 MCG/KG/MIN 8.442 mls/hr IV .S22U27M [facility] Rx #:[id number] Lidocaine-D5w Pmx 2G/ 77.125 250Ml 2,000 mg In Dextrose/Water 1 250ml. bag @ 1 MG/MIN 7.5 mls/hr IV .Q24H [facility] Rx#: [id number] Norepinephrine 32 mg In 366.276 309.448 Sodium Chloride 0.9% 218 ml @ 0.44 MCG/KG/MIN 29. 019 mls/hr IV .Q8H37M [facility] Rx#:[id number] Sodium Chloride 0.9% 1, 1000 000 ml @ 999 mls/hr IV . Q1H1M [facility] Rx#:[id number] Vasopressin 60 unit In 127.092 Sodium Chloride 0.9% 150 ml @ 0.03 UNITS/MIN 4.59 mls/hr IV .Q24H [facility] Rx#: [id number] propofoL 1,000 mg In 290.030 298.231 Empty Bag 1 bag @ 15 MCG/ KG/MIN 11.635 mls/hr IV . Q8H36M [facility] Rx#:[id number] Hemodialysis 400 Output: Urine 20 0 0 Hemodialysis 900 Other: Voiding Method Indwelling Catheter Indwelling Catheter ABP, PAP, CO, CI - Last Documented Arterial Blood Pressure 80/54 - Exam No acute distress, sedated and paralyzed, with an orally placed endotracheal tube and NG tube. HEENT examination is grossly unremarkable. Neck supple. Full range of motion. No adenopathy thyromegaly or neck vein distention. Cardiovascular examination reveals regular rhythm rate. S1-S2 normal. No S3 or S4. No discernible murmur noted. Heart sounds are distant. Heart rate 72 bpm. Lungs reveal scattered bilateral rhonchi. No wheezes or crackles. Breath sounds equal. Saturations are mid 90s. Abdomen soft without bowel sounds. No masses or tenderness. Extremities are intact. No clubbing. The patient does have acrocyanosis. In addition, the patient has significant wounds to both feet, particularly the left feet and toes. Skin reveals areas of ecchymoses. Neurologic examination cannot be evaluated properly at this time. - Labs CBC & Chem 7: 07/17/23 04:00 07/17/23 04:00 Labs: Abnormal Lab Results - Last 24 Hours (Table) 07/16/23 07/16/23 07/16/23 Range/Units 05:32 05:32 05:32 WBC (3.8-10.6) k/uL MCHC (31.0-37.0) g/dL RDW (11.5-15.5) % Neutrophils # (1.3-7.7) k/uL Neutrophils # (Manual) 24.30 H (1.3-7.7) k/uL Monocytes # (0-1.0) k/uL Monocytes # (Manual) 2.01 H (0-1.0) k/uL PT (10.0-12.5) sec INR (<1.2) APTT (22.0-30.0) sec Fibrinogen (200-500) mg/dL ABG pH (7.35-7.45) ABG pO2 (83-108) mmHg ABG HCO3 (21-25) mmol/L ABG Total CO2 (19-24) mmol/L ABG O2 Saturation (94-97) % Sodium (137-145) mmol/L Potassium (3.5-5.1) mmol/L Chloride (98-107) mmol/L Carbon Dioxide (22-30) mmol/L BUN (9-20) mg/dL Creatinine (0.66-1.25) mg/dL Glucose (74-99) mg/dL POC Glucose (mg/dL) (70-110) mg/dL Calcium (8.4-10.2) mg/dL Total Bilirubin (0.2-1.3) mg/dL AST 73718 H (17-59) U/L ALT (4-49) U/L Alkaline Phosphatase (38-126) U/L Total Protein (6.3-8.2) g/dL Albumin (3.5-5.0) g/dL Procalcitonin 1.48 H (0.02-0.09) ng/mL 07/16/23 07/16/23 07/16/23 Range/Units 11:25 13:12 13:16 WBC (3.8-10.6) k/uL MCHC (31.0-37.0) g/dL RDW (11.5-15.5) % Neutrophils # (1.3-7.7) k/uL Neutrophils # (Manual) (1.3-7.7) k/uL Monocytes # (0-1.0) k/uL Monocytes # (Manual) (0-1.0) k/uL PT 67.5 H (10.0-12.5) sec INR 6.9 H* (<1.2) APTT 45.1 H (22.0-30.0) sec Fibrinogen 121 L (200-500) mg/dL ABG pH (7.35-7.45) ABG pO2 (83-108) mmHg ABG HCO3 (21-25) mmol/L ABG Total CO2 (19-24) mmol/L ABG O2 Saturation (94-97) % Sodium (137-145) mmol/L Potassium (3.5-5.1) mmol/L Chloride (98-107) mmol/L Carbon Dioxide (22-30) mmol/L BUN (9-20) mg/dL Creatinine (0.66-1.25) mg/dL Glucose (74-99) mg/dL POC Glucose (mg/dL) 136 H 131 H (70-110) mg/dL Calcium (8.4-10.2) mg/dL Total Bilirubin (0.2-1.3) mg/dL AST (17-59) U/L ALT (4-49) U/L Alkaline Phosphatase (38-126) U/L Total Protein (6.3-8.2) g/dL Albumin (3.5-5.0) g/dL Procalcitonin (0.02-0.09) ng/mL 07/16/23 07/16/23 07/16/23 Range/Units 14:11 19:46 22:48 WBC (3.8-10.6) k/uL MCHC (31.0-37.0) g/dL RDW (11.5-15.5) % Neutrophils # (1.3-7.7) k/uL Neutrophils # (Manual) (1.3-7.7) k/uL Monocytes # (0-1.0) k/uL Monocytes # (Manual) (0-1.0) k/uL PT (10.0-12.5) sec INR (<1.2) APTT (22.0-30.0) sec Fibrinogen (200-500) mg/dL ABG pH 7.15 L* (7.35-7.45) ABG pO2 82 L (83-108) mmHg ABG HCO3 16 L (21-25) mmol/L ABG Total CO2 17 L (19-24) mmol/L ABG O2 Saturation 93.0 L (94-97) % Sodium 136 L (137-145) mmol/L Potassium 5.8 H 5.5 H (3.5-5.1) mmol/L Chloride 97 L (98-107) mmol/L Carbon Dioxide 8 L* (22-30) mmol/L BUN 32 H (9-20) mg/dL Creatinine 2.94 H (0.66-1.25) mg/dL Glucose 113 H (74-99) mg/dL POC Glucose (mg/dL) (70-110) mg/dL Calcium 6.5 L (8.4-10.2) mg/dL Total Bilirubin (0.2-1.3) mg/dL AST (17-59) U/L ALT (4-49) U/L Alkaline Phosphatase (38-126) U/L Total Protein (6.3-8.2) g/dL Albumin (3.5-5.0) g/dL Procalcitonin (0.02-0.09) ng/mL 07/17/23 07/17/23 07/17/23 Range/Units 04:00 04:00 04:00 WBC 23.7 H (3.8-10.6) k/uL MCHC 30.2 L (31.0-37.0) g/dL RDW 19.2 H (11.5-15.5) % Neutrophils # 19.9 H (1.3-7.7) k/uL Neutrophils # (Manual) (1.3-7.7) k/uL Monocytes # 1.1 H (0-1.0) k/uL Monocytes # (Manual) (0-1.0) k/uL PT (10.0-12.5) sec INR (<1.2) APTT 49.1 H (22.0-30.0) sec Fibrinogen 121 L (200-500) mg/dL ABG pH (7.35-7.45) ABG pO2 (83-108) mmHg ABG HCO3 (21-25) mmol/L ABG Total CO2 (19-24) mmol/L ABG O2 Saturation (94-97) % Sodium (137-145) mmol/L Potassium 5.5 H (3.5-5.1) mmol/L Chloride 95 L (98-107) mmol/L Carbon Dioxide 7 L* (22-30) mmol/L BUN 33 H (9-20) mg/dL Creatinine 3.21 H (0.66-1.25) mg/dL Glucose 127 H (74-99) mg/dL POC Glucose (mg/dL) (70-110) mg/dL Calcium 6.5 L (8.4-10.2) mg/dL Total Bilirubin 5.1 H (0.2-1.3) mg/dL AST >05187 H (17-59) U/L ALT 4971 H (4-49) U/L Alkaline Phosphatase 324 H (38-126) U/L Total Protein 6.2 L (6.3-8.2) g/dL Albumin 2.5 L (3.5-5.0) g/dL Procalcitonin (0.02-0.09) ng/mL 07/17/23 07/17/23 07/17/23 Range/Units 04:00 05:49 05:54 WBC (3.8-10.6) k/uL MCHC (31.0-37.0) g/dL RDW (11.5-15.5) % Neutrophils # (1.3-7.7) k/uL Neutrophils # (Manual) (1.3-7.7) k/uL Monocytes # (0-1.0) k/uL Monocytes # (Manual) (0-1.0) k/uL PT 74.3 H (10.0-12.5) sec INR 7.5 H* (<1.2) APTT (22.0-30.0) sec Fibrinogen (200-500) mg/dL ABG pH 7.10 L* (7.35-7.45) ABG pO2 82 L (83-108) mmHg ABG HCO3 13 L (21-25) mmol/L ABG Total CO2 15 L (19-24) mmol/L ABG O2 Saturation 92.0 L (94-97) % Sodium (137-145) mmol/L Potassium (3.5-5.1) mmol/L Chloride (98-107) mmol/L Carbon Dioxide (22-30) mmol/L BUN (9-20) mg/dL Creatinine (0.66-1.25) mg/dL Glucose (74-99) mg/dL POC Glucose (mg/dL) 26 L (70-110) mg/dL Calcium (8.4-10.2) mg/dL Total Bilirubin (0.2-1.3) mg/dL AST (17-59) U/L ALT (4-49) U/L Alkaline Phosphatase (38-126) U/L Total Protein (6.3-8.2) g/dL Albumin (3.5-5.0) g/dL Procalcitonin (0.02-0.09) ng/mL 07/17/23 07/17/23 Range/Units 06:07 06:09 WBC (3.8-10.6) k/uL MCHC (31.0-37.0) g/dL RDW (11.5-15.5) % Neutrophils # (1.3-7.7) k/uL Neutrophils # (Manual) (1.3-7.7) k/uL Monocytes # (0-1.0) k/uL Monocytes # (Manual) (0-1.0) k/uL PT (10.0-12.5) sec INR (<1.2) APTT (22.0-30.0) sec Fibrinogen (200-500) mg/dL ABG pH (7.35-7.45) ABG pO2 (83-108) mmHg ABG HCO3 (21-25) mmol/L ABG Total CO2 (19-24) mmol/L ABG O2 Saturation (94-97) % Sodium (137-145) mmol/L Potassium (3.5-5.1) mmol/L Chloride (98-107) mmol/L Carbon Dioxide (22-30) mmol/L BUN (9-20) mg/dL Creatinine (0.66-1.25) mg/dL Glucose (74-99) mg/dL POC Glucose (mg/dL) 39 L 127 H (70-110) mg/dL Calcium (8.4-10.2) mg/dL Total Bilirubin (0.2-1.3) mg/dL AST (17-59) U/L ALT (4-49) U/L Alkaline Phosphatase (38-126) U/L Total Protein (6.3-8.2) g/dL Albumin (3.5-5.0) g/dL Procalcitonin (0.02-0.09) ng/mL Microbiology - Last 24 Hours (Table) 07/15/23 08:10 Gram Stain - Final Sputum Sputum Culture - Final 07/14/23 17:00 Blood Culture - Preliminary Blood 07/14/23 17:20 Blood Culture - Preliminary Blood 07/14/23 16:15 Gram Stain - Final Toe - Left Second Wound Culture - Final Escherichia coli Staphylococcus aureus Assessment and Plan Assessment: Acute hypoxemic respiratory failure, requiring intubation and mechanical v entilation, on July 15, 2023. Refractory hypotension, and septic shock, secondary to methicillin sensitive staph aureus, and Escherichia coli, from the left toe wound. Severe anion gap metabolic acidosis, secondary to lactic acidemia, and renal failure. Atrial fibrillation with RVR. Wide-complex tachycardia. Acute mental status changes, likely from septic encephalopathy. Left toe wound/cellulitis, with cultures positive for methicillin sensitive Staph aureus and Escherichia coli. Acute kidney injury, secondary to hypotension and ATN. History of pulmonary embolism. Hepatopathy, secondary to sepsis, and hypotension. History of alcoholism. History of diabetes mellitus. History of hypertension. Chronic and ongoing tobacco use. Obesity. Plan: Plan dated July 16, 2023. The patient is currently on the ventilator. The patient has a severe and profound metabolic acidosis, and continues on a sodium bicarbonate drip. The patient is maintained on Nimbex, D5W, with 3 ampoules of sodium bicarbonate, amiodarone, propofol, vasopressin, norepinephrine, and lidocaine. The patient currently is on daptomycin and Zosyn. Wound cultures were positive for gram- negative bacilli and presumptive staph. Dilaudid is added to the patient's regimen. Hemodialysis catheter was placed yesterday and the patient is undergoing CRRT. Patient's overall prognosis remains very poor. For the time being, the patient is a full code. Labs, x-rays, and medications are reviewed. Plan dated July 17, 2023. In my opinion, the patient will not survive this illness. The patient has been maximized on vasopressin, and norepinephrine, and still, his blood pressure is only 71 systolic. Labs, x-rays, and medications are reviewed. The patient continues on daptomycin and Zosyn. Left toe wound cultures, were positive for methicillin sensitive Staph aureus, and Escherichia coli. The patient remains on numerous drips including Nimbex, propofol, vasopressin, norepinephrine, and s odium bicarbonate. The patient is a DO NOT RESUSCITATE. Also, the family is considering comfort care. That may happen later today. Time with Patient: Greater than 30
[2023-07-17] MEDS ORDERED: MORPHINE SULFATE 2 MG/ML SYRINGE IV PRN (10:56)
[2023-07-17] MEDS ORDERED: MORPHINE SULFATE (100 MG/2 ML) 100 MG in SODIUM CHLORIDE 0.9% 100 ML IV SCH (11:00)
--- NOTE | 2023-07-17 11:29 | P.PN ---
Subjective Progress Note Date: 07/17/23 Patient is seen and examined in the ICU. He remains sedated and on mechanical ventilation and is maxed out on pressors. He was made a no code yesterday. No other acute changes through the night. Nursing reports that family is considering making him comfort care. Objective - Vital Signs Vital signs: Vital Signs Temp 98.8 F 07/17/23 08:00 Pulse 72 07/17/23 11:00 Resp 20 07/17/23 11:00 BP 71/44 07/17/23 09:15 Pulse Ox 74 L 07/17/23 11:00 FiO2 80 07/17/23 10:55 Intake & Output 07/16/23 07/17/23 07/17/23 18:59 06:59 18:59 Intake Total 3203.489 2783.771 752.968 Output Total 20 900 0 Balance 3183.489 1883.771 752.968 Weight 156.8 kg 156.8 kg Intake: IV 1276 1649 667 .9NS Pressure Bag 36 39 12 0.9 KVO 240 260 80 Dextrose 5% in Water 1, 1000 1250 500 000 ml @ 125 mls/hr IV . Q9H12M [facility] with Sodium Bicarb (1 Meq/ml) 150 ml Rx#:[id number] Piperacillin-Tazobactam 3 100 75 .375 gm In Sodium Chloride 0.9% 100 ml @ 25 mls/hr IVPB Q8HR [facility] Rx# :[id number] Intake, IV Titration 1927.489 734.771 85.968 Amount Calcium Gluconate in NaCl 100 1 gm In Saline 1 100ml. bag @ 400 mls/hr IVPB ONCE ONE Rx#:[id number] Cisatracurium 200 mg In 94.058 85.968 Sodium Chloride 0.9% 180 ml @ 1 MCG/KG/MIN 8.442 mls/hr IV .[id number] [facility] Rx #:[id number] Lidocaine-D5w Pmx 2G/ 77.125 250Ml 2,000 mg In Dextrose/Water 1 250ml. bag @ 1 MG/MIN 7.5 mls/hr IV .Q24H [facility] Rx#: [id number] Norepinephrine 32 mg In 366.276 309.448 Sodium Chloride 0.9% 218 ml @ 0.44 MCG/KG/MIN 29. 019 mls/hr IV .Q8H37M [facility] Rx#:[id number] Sodium Chloride 0.9% 1, 1000 000 ml @ 999 mls/hr IV . Q1H1M ONE Rx#:[id number] Vasopressin 60 unit In 127.092 Sodium Chloride 0.9% 150 ml @ 0.03 UNITS/MIN 4.59 mls/hr IV .Q24H [facility] Rx#: [id number] propofoL 1,000 mg In 290.030 298.231 Empty Bag 1 bag @ 15 MCG/ KG/MIN 11.635 mls/hr IV . Q8H36M [facility] Rx#:[id number] Hemodialysis 400 Output: Urine 20 0 0 Hemodialysis 900 Other: Voiding Method Indwelling Catheter Indwelling Catheter Indwelling Catheter ABP, PAP, CO, CI - Last Documented Arterial Blood Pressure 77/53 - Exam General appearance: The patient is sedated and on mechanical ventilation. HET: Head is normocephalic and atraumatic. Neck: Supple. Heart: Regular. Lungs: Equal expansion, on mechanical ventilation. Abdomen: Soft, nondistended. Extremities: Mottling of the lower extremities, feet with decreased capillary refill and pale/purple, cool. Right groin with temporary HD catheter in place. Neurological: Sedated on mechanical ventilation. - Labs CBC & Chem 7: 07/17/23 04:00 07/17/23 04:00 Labs: Abnormal Lab Results - Last 24 Hours (Table) 07/16/23 07/16/23 07/16/23 Range/Units 05:32 11:25 13:12 WBC (3.8-10.6) k/uL MCHC (31.0-37.0) g/dL RDW (11.5-15.5) % Neutrophils # (1.3-7.7) k/uL Monocytes # (0-1.0) k/uL PT (10.0-12.5) sec INR (<1.2) APTT (22.0-30.0) sec Fibrinogen (200-500) mg/dL ABG pH (7.35-7.45) ABG pO2 (83-108) mmHg ABG HCO3 (21-25) mmol/L ABG Total CO2 (19-24) mmol/L ABG O2 Saturation (94-97) % Sodium (137-145) mmol/L Potassium (3.5-5.1) mmol/L Chloride (98-107) mmol/L Carbon Dioxide (22-30) mmol/L BUN (9-20) mg/dL Creatinine (0.66-1.25) mg/dL Glucose (74-99) mg/dL POC Glucose (mg/dL) 136 H 131 H (70-110) mg/dL Calcium (8.4-10.2) mg/dL Total Bilirubin (0.2-1.3) mg/dL AST (17-59) U/L ALT (4-49) U/L Alkaline Phosphatase (38-126) U/L Total Protein (6.3-8.2) g/dL Albumin (3.5-5.0) g/dL Procalcitonin 1.48 H (0.02-0.09) ng/mL 07/16/23 07/16/23 07/16/23 Range/Units 13:16 14:11 19:46 WBC (3.8-10.6) k/uL MCHC (31.0-37.0) g/dL RDW (11.5-15.5) % Neutrophils # (1.3-7.7) k/uL Monocytes # (0-1.0) k/uL PT 67.5 H (10.0-12.5) sec INR 6.9 H* (<1.2) APTT 45.1 H (22.0-30.0) sec Fibrinogen 121 L (200-500) mg/dL ABG pH 7.15 L* (7.35-7.45) ABG pO2 82 L (83-108) mmHg ABG HCO3 16 L (21-25) mmol/L ABG Total CO2 17 L (19-24) mmol/L ABG O2 Saturation 93.0 L (94-97) % Sodium (137-145) mmol/L Potassium 5.8 H (3.5-5.1) mmol/L Chloride (98-107) mmol/L Carbon Dioxide (22-30) mmol/L BUN (9-20) mg/dL Creatinine (0.66-1.25) mg/dL Glucose (74-99) mg/dL POC Glucose (mg/dL) (70-110) mg/dL Calcium (8.4-10.2) mg/dL Total Bilirubin (0.2-1.3) mg/dL AST (17-59) U/L ALT (4-49) U/L Alkaline Phosphatase (38-126) U/L Total Protein (6.3-8.2) g/dL Albumin (3.5-5.0) g/dL Procalcitonin (0.02-0.09) ng/mL 07/16/23 07/17/23 07/17/23 Range/Units 22:48 04:00 04:00 WBC 23.7 H (3.8-10.6) k/uL MCHC 30.2 L (31.0-37.0) g/dL RDW 19.2 H (11.5-15.5) % Neutrophils # 19.9 H (1.3-7.7) k/uL Monocytes # 1.1 H (0-1.0) k/uL PT (10.0-12.5) sec INR (<1.2) APTT 49.1 H (22.0-30.0) sec Fibrinogen 121 L (200-500) mg/dL ABG pH (7.35-7.45) ABG pO2 (83-108) mmHg ABG HCO3 (21-25) mmol/L ABG Total CO2 (19-24) mmol/L ABG O2 Saturation (94-97) % Sodium 136 L (137-145) mmol/L Potassium 5.5 H (3.5-5.1) mmol/L Chloride 97 L (98-107) mmol/L Carbon Dioxide 8 L* (22-30) mmol/L BUN 32 H (9-20) mg/dL Creatinine 2.94 H (0.66-1.25) mg/dL Glucose 113 H (74-99) mg/dL POC Glucose (mg/dL) (70-110) mg/dL Calcium 6.5 L (8.4-10.2) mg/dL Total Bilirubin (0.2-1.3) mg/dL AST (17-59) U/L ALT (4-49) U/L Alkaline Phosphatase (38-126) U/L Total Protein (6.3-8.2) g/dL Albumin (3.5-5.0) g/dL Procalcitonin (0.02-0.09) ng/mL 07/17/23 07/17/23 07/17/23 Range/Units 04:00 04:00 05:49 WBC (3.8-10.6) k/uL MCHC (31.0-37.0) g/dL RDW (11.5-15.5) % Neutrophils # (1.3-7.7) k/uL Monocytes # (0-1.0) k/uL PT 74.3 H (10.0-12.5) sec INR 7.5 H* (<1.2) APTT (22.0-30.0) sec Fibrinogen (200-500) mg/dL ABG pH 7.10 L* (7.35-7.45) ABG pO2 82 L (83-108) mmHg ABG HCO3 13 L (21-25) mmol/L ABG Total CO2 15 L (19-24) mmol/L ABG O2 Saturation 92.0 L (94-97) % Sodium (137-145) mmol/L Potassium 5.5 H (3.5-5.1) mmol/L Chloride 95 L (98-107) mmol/L Carbon Dioxide 7 L* (22-30) mmol/L BUN 33 H (9-20) mg/dL Creatinine 3.21 H (0.66-1.25) mg/dL Glucose 127 H (74-99) mg/dL POC Glucose (mg/dL) (70-110) mg/dL Calcium 6.5 L (8.4-10.2) mg/dL Total Bilirubin 5.1 H (0.2-1.3) mg/dL AST >62131 H (17-59) U/L ALT 4971 H (4-49) U/L Alkaline Phosphatase 324 H (38-126) U/L Total Protein 6.2 L (6.3-8.2) g/dL Albumin 2.5 L (3.5-5.0) g/dL Procalcitonin (0.02-0.09) ng/mL 07/17/23 07/17/23 07/17/23 Range/Units 05:54 06:07 06:09 WBC (3.8-10.6) k/uL MCHC (31.0-37.0) g/dL RDW (11.5-15.5) % Neutrophils # (1.3-7.7) k/uL Monocytes # (0-1.0) k/uL PT (10.0-12.5) sec INR (<1.2) APTT (22.0-30.0) sec Fibrinogen (200-500) mg/dL ABG pH (7.35-7.45) ABG pO2 (83-108) mmHg ABG HCO3 (21-25) mmol/L ABG Total CO2 (19-24) mmol/L ABG O2 Saturation (94-97) % Sodium (137-145) mmol/L Potassium (3.5-5.1) mmol/L Chloride (98-107) mmol/L Carbon Dioxide (22-30) mmol/L BUN (9-20) mg/dL Creatinine (0.66-1.25) mg/dL Glucose (74-99) mg/dL POC Glucose (mg/dL) 26 L 39 L 127 H (70-110) mg/dL Calcium (8.4-10.2) mg/dL Total Bilirubin (0.2-1.3) mg/dL AST (17-59) U/L ALT (4-49) U/L Alkaline Phosphatase (38-126) U/L Total Protein (6.3-8.2) g/dL Albumin (3.5-5.0) g/dL Procalcitonin (0.02-0.09) ng/mL Microbiology - Last 24 Hours (Table) 07/15/23 08:10 Gram Stain - Final Sputum Sputum Culture - Final 07/14/23 17:00 Blood Culture - Preliminary Blood 07/14/23 17:20 Blood Culture - Preliminary Blood 07/14/23 16:15 Gram Stain - Final Toe - Left Second Wound Culture - Final Escherichia coli Staphylococcus aureus Assessment and Plan Assessment: 1. Acute kidney injury requiring renal replacement therapy 2. Acute hypoxemic respiratory failure requiring intubation on mechanical ventilator 3. Atrial fibrillation with RVR on Eliquis 4. Altered mental status changes 5. Left toe wound 6. History of alcoholism 7. Type 2 diabetes mellitus 8. Ongoing tobacco dependence 9. Obesity (1) Transaminitis Current Visit: Yes Status: Acute Code(s): R74.01 - ELEVATION OF LEVELS OF LIVER TRANSAMINASE LEVELS SNOMED Code(s): 068072851 (2) Acute kidney injury Current Visit: Yes Status: Acute Code(s): N17.9 - ACUTE KIDNEY FAILURE, UNSPECIFIED SNOMED Code(s): 76143256 (3) Hypotension Current Visit: Yes Status: Acute Code(s): I95.9 - HYPOTENSION, UNSPECIFIED SNOMED Code(s): 45801195 (4) Alcohol abuse Current Visit: Yes Status: Acute Code(s): F10.10 - ALCOHOL ABUSE, UNCOMPLICATED SNOMED Code(s): 71215698 (5) Acute hypoxemic respiratory failure Current Visit: Yes Status: Acute Code(s): J96.01 - ACUTE RESPIRATORY FAILURE WITH HYPOXIA SNOMED Code(s): 820779765 (6) Diabetic toe ulcer Current Visit: Yes Status: Acute Code(s): E11.621 - TYPE 2 DIABETES MELLITUS WITH FOOT ULCER; L97.509 - NON-PRESSURE CHRONIC ULCER OTH PRT UNSP FOOT W UNSP SEVERITY SNOMED Code(s): 386064452 (7) Sepsis Current Visit: Yes Status: Acute Code(s): A41.9 - SEPSIS, UNSPECIFIED ORGANISM SNOMED Code(s): 24537862 (8) Atrial fibrillation with RVR Current Visit: No Status: Acute Code(s): I48.91 - UNSPECIFIED ATRIAL FIBRILLATION SNOMED Code(s): 172563955842668 (9) Diabetes Current Visit: Yes Status: Acute Code(s): E11.9 - TYPE 2 DIABETES MELLITUS WITHOUT COMPLICATIONS SNOMED Code(s): 79668598 Plan: 1. Continue symptomatic and supportive care 2. Continue ICU management 3. No plans on any surgical intervention from vascular surgery 4. Hemodialysis per recommendations from nephrology Thank you for this consultation, we will be on standby if further needed. Dr. Traore I agree with the dictator's note, documented as a scribe by Melissa Sinha.
--- NOTE | 2023-07-17 11:38 | P.PN ---
Subjective Progress Note Date: 07/17/23 Principal diagnosis: Transaminitis This is a 57-year-old male, HPI obtained from chart as patient is currently in the ICU sedated on mechanical ventilation. According to the emergency room notes patient had come in on 07/14/2023 with multiple complaints including not eating or drinking much, falling, shortness of breath and wound to his foot. He has a past medical history including alcohol abuse, atrial fibrillation, diabetes mellitus and hypertension. He is a every day smoker he was admitted to the hospital and then had acute hypoxic respiratory failure requiring intuba tion. Patient has remained on mechanical ventilation since his admission, he has acute kidney injury, he is on high doses of pressors. At time of admission he was noted to have elevated LFTs he had a CT of the abdomen pelvis which reported liver is unremarkable. Okay admitting's labs WBC 10.8 hemoglobin 14.8 platelet count 267,000 INR 2.7 D-dimer 11.3 sodium 140 potassium 5.5 BUN 41 creatinine 0.9 lactic acid 6.8 total bilirubin 3.6 AST 1284 ALT 572 alkaline phosphatase 281 ammonia 13. Today labs have been worsening WBC now 28 lactic acid 12.3 total bilirubin 5.0 AST pending ALT 4050 alkaline phosphatase 282 troponin 0.3. Patient serum alcohol level was less than 10 on admission, hepati tis panel nonreactive. Patient does not have any family around, according to nurses he is estranged from his and family. But was reported that he has long history of alcohol abuse and supposedly stopped drinking about 2 weeks ago. Gastroenterology consulted for elevated liver enzymes. 07/17/2023 Patient seen and examined today as a follow-up. He remains in the ICU, sedated on mechanical ventilation. He is on high doses of pressors will and still remains hypotensive. According to nursing staff family is considering comfort measures. He has been made a no code. Today's labs WBC 23.7 hemoglobin 14.3 platelet count 175,000 INR is 7.5 fibrinogen 121 sodium 137 potassium 5.5 BUN 43 creatinine 3.2 total bilirubin 5.1 AST greater than 15,000 ALT 4971 alkaline phosphatase 324 Objective - Vital Signs Vital signs: Vital Signs Temp 98.8 F 07/17/23 08:00 Pulse 72 07/17/23 11:00 Resp 20 07/17/23 11:00 BP 71/44 07/17/23 09:15 Pulse Ox 74 L 07/17/23 11:00 FiO2 80 07/17/23 10:55 Intake & Output 07/16/23 07/17/23 07/17/23 18:59 06:59 18:59 Intake Total 3203.489 2783.771 752.968 Output Total 20 900 0 Balance 3183.489 1883.771 752.968 Weight 156.8 kg 156.8 kg Intake: IV 1276 1649 667 .9NS Pressure Bag 36 39 12 0.9 KVO 240 260 80 Dextrose 5% in Water 1, 1000 1250 500 000 ml @ 125 mls/hr IV . Q9H12M [facility] with Sodium Bicarb (1 Meq/ml) 150 ml Rx#:[id number] Piperacillin-Tazobactam 3 100 75 .375 gm In Sodium Chloride 0.9% 100 ml @ 25 mls/hr IVPB Q8HR [facility] Rx# :[id number] Intake, IV Titration 1927.489 734.771 85.968 Amount Calcium Gluconate in NaCl 100 1 gm In Saline 1 100ml. bag @ 400 mls/hr IVPB ONCE ONE Rx#:[id number] Cisatracurium 200 mg In 94.058 85.968 Sodium Chloride 0.9% 180 ml @ 1 MCG/KG/MIN 8.442 mls/hr IV .[id number] [facility] Rx #:[id number] Lidocaine-D5w Pmx 2G/ 77.125 250Ml 2,000 mg In Dextrose/Water 1 250ml. bag @ 1 MG/MIN 7.5 mls/hr IV .Q24H [facility] Rx#: [id number] Norepinephrine 32 mg In 366.276 309.448 Sodium Chloride 0.9% 218 ml @ 0.44 MCG/KG/MIN 29. 019 mls/hr IV .Q8H37M [facility] Rx#:[id number] Sodium Chloride 0.9% 1, 1000 000 ml @ 999 mls/hr IV . Q1H1M [facility] Rx#:[id number] Vasopressin 60 unit In 127.092 Sodium Chloride 0.9% 150 ml @ 0.03 UNITS/MIN 4.59 mls/hr IV .Q24H [facility] Rx#: [id number] propofoL 1,000 mg In 290.030 298.231 Empty Bag 1 bag @ 15 MCG/ KG/MIN 11.635 mls/hr IV . Q8H36M [facility] Rx#:[id number] Hemodialysis 400 Output: Urine 20 0 0 Hemodialysis 900 Other: Voiding Method Indwelling Catheter Indwelling Catheter Indwelling Catheter ABP, PAP, CO, CI - Last Documented Arterial Blood Pressure 77/53 - Exam General appearance: The patient is sedated and on mechanical ventilation. HET: Head is normocephalic and atraumatic. Neck: Supple. Lungs: Equal expansion, on mechanical ventilation. Abdomen: Soft, nondistended. Extremities: Mottling of the lower extremities, feet with decreased capillary refill and pale/purple, cool. . Neurological: Sedated on mechanical ventilation. - Labs CBC & Chem 7: 07/17/23 04:00 07/17/23 04:00 Labs: Abnormal Lab Results - Last 24 Hours (Table) 07/16/23 07/16/23 07/16/23 Range/Units 05:32 13:12 13:16 WBC (3.8-10.6) k/uL MCHC (31.0-37.0) g/dL RDW (11.5-15.5) % Neutrophils # (1.3-7.7) k/uL Monocytes # (0-1.0) k/uL PT 67.5 H (10.0-12.5) sec INR 6.9 H* (<1.2) APTT 45.1 H (22.0-30.0) sec Fibrinogen 121 L (200-500) mg/dL ABG pH (7.35-7.45) ABG pO2 (83-108) mmHg ABG HCO3 (21-25) mmol/L ABG Total CO2 (19-24) mmol/L ABG O2 Saturation (94-97) % Sodium (137-145) mmol/L Potassium (3.5-5.1) mmol/L Chloride (98-107) mmol/L Carbon Dioxide (22-30) mmol/L BUN (9-20) mg/dL Creatinine (0.66-1.25) mg/dL Glucose (74-99) mg/dL POC Glucose (mg/dL) 131 H (70-110) mg/dL Calcium (8.4-10.2) mg/dL Total Bilirubin (0.2-1.3) mg/dL AST (17-59) U/L ALT (4-49) U/L Alkaline Phosphatase (38-126) U/L Total Protein (6.3-8.2) g/dL Albumin (3.5-5.0) g/dL Procalcitonin 1.48 H (0.02-0.09) ng/mL 07/16/23 07/16/23 07/16/23 Range/Units 14:11 19:46 22:48 WBC (3.8-10.6) k/uL MCHC (31.0-37.0) g/dL RDW (11.5-15.5) % Neutrophils # (1.3-7.7) k/uL Monocytes # (0-1.0) k/uL PT (10.0-12.5) sec INR (<1.2) APTT (22.0-30.0) sec Fibrinogen (200-500) mg/dL ABG pH 7.15 L* (7.35-7.45) ABG pO2 82 L (83-108) mmHg ABG HCO3 16 L (21-25) mmol/L ABG Total CO2 17 L (19-24) mmol/L ABG O2 Saturation 93.0 L (94-97) % Sodium 136 L (137-145) mmol/L Potassium 5.8 H 5.5 H (3.5-5.1) mmol/L Chloride 97 L (98-107) mmol/L Carbon Dioxide 8 L* (22-30) mmol/L BUN 32 H (9-20) mg/dL Creatinine 2.94 H (0.66-1.25) mg/dL Glucose 113 H (74-99) mg/dL POC Glucose (mg/dL) (70-110) mg/dL Calcium 6.5 L (8.4-10.2) mg/dL Total Bilirubin (0.2-1.3) mg/dL AST (17-59) U/L ALT (4-49) U/L Alkaline Phosphatase (38-126) U/L Total Protein (6.3-8.2) g/dL Albumin (3.5-5.0) g/dL Procalcitonin (0.02-0.09) ng/mL 07/17/23 07/17/23 07/17/23 Range/Units 04:00 04:00 04:00 WBC 23.7 H (3.8-10.6) k/uL MCHC 30.2 L (31.0-37.0) g/dL RDW 19.2 H (11.5-15.5) % Neutrophils # 19.9 H (1.3-7.7) k/uL Monocytes # 1.1 H (0-1.0) k/uL PT (10.0-12.5) sec INR (<1.2) APTT 49.1 H (22.0-30.0) sec Fibrinogen 121 L (200-500) mg/dL ABG pH (7.35-7.45) ABG pO2 (83-108) mmHg ABG HCO3 (21-25) mmol/L ABG Total CO2 (19-24) mmol/L ABG O2 Saturation (94-97) % Sodium (137-145) mmol/L Potassium 5.5 H (3.5-5.1) mmol/L Chloride 95 L (98-107) mmol/L Carbon Dioxide 7 L* (22-30) mmol/L BUN 33 H (9-20) mg/dL Creatinine 3.21 H (0.66-1.25) mg/dL Glucose 127 H (74-99) mg/dL POC Glucose (mg/dL) (70-110) mg/dL Calcium 6.5 L (8.4-10.2) mg/dL Total Bilirubin 5.1 H (0.2-1.3) mg/dL AST >46448 H (17-59) U/L ALT 4971 H (4-49) U/L Alkaline Phosphatase 324 H (38-126) U/L Total Protein 6.2 L (6.3-8.2) g/dL Albumin 2.5 L (3.5-5.0) g/dL Procalcitonin (0.02-0.09) ng/mL 07/17/23 07/17/23 07/17/23 Range/Units 04:00 05:49 05:54 WBC (3.8-10.6) k/uL MCHC (31.0-37.0) g/dL RDW (11.5-15.5) % Neutrophils # (1.3-7.7) k/uL Monocytes # (0-1.0) k/uL PT 74.3 H (10.0-12.5) sec INR 7.5 H* (<1.2) APTT (22.0-30.0) sec Fibrinogen (200-500) mg/dL ABG pH 7.10 L* (7.35-7.45) ABG pO2 82 L (83-108) mmHg ABG HCO3 13 L (21-25) mmol/L ABG Total CO2 15 L (19-24) mmol/L ABG O2 Saturation 92.0 L (94-97) % Sodium (137-145) mmol/L Potassium (3.5-5.1) mmol/L Chloride (98-107) mmol/L Carbon Dioxide (22-30) mmol/L BUN (9-20) mg/dL Creatinine (0.66-1.25) mg/dL Glucose (74-99) mg/dL POC Glucose (mg/dL) 26 L (70-110) mg/dL Calcium (8.4-10.2) mg/dL Total Bilirubin (0.2-1.3) mg/dL AST (17-59) U/L ALT (4-49) U/L Alkaline Phosphatase (38-126) U/L Total Protein (6.3-8.2) g/dL Albumin (3.5-5.0) g/dL Procalcitonin (0.02-0.09) ng/mL 07/17/23 07/17/23 Range/Units 06:07 06:09 WBC (3.8-10.6) k/uL MCHC (31.0-37.0) g/dL RDW (11.5-15.5) % Neutrophils # (1.3-7.7) k/uL Monocytes # (0-1.0) k/uL PT (10.0-12.5) sec INR (<1.2) APTT (22.0-30.0) sec Fibrinogen (200-500) mg/dL ABG pH (7.35-7.45) ABG pO2 (83-108) mmHg ABG HCO3 (21-25) mmol/L ABG Total CO2 (19-24) mmol/L ABG O2 Saturation (94-97) % Sodium (137-145) mmol/L Potassium (3.5-5.1) mmol/L Chloride (98-107) mmol/L Carbon Dioxide (22-30) mmol/L BUN (9-20) mg/dL Creatinine (0.66-1.25) mg/dL Glucose (74-99) mg/dL POC Glucose (mg/dL) 39 L 127 H (70-110) mg/dL Calcium (8.4-10.2) mg/dL Total Bilirubin (0.2-1.3) mg/dL AST (17-59) U/L ALT (4-49) U/L Alkaline Phosphatase (38-126) U/L Total Protein (6.3-8.2) g/dL Albumin (3.5-5.0) g/dL Procalcitonin (0.02-0.09) ng/mL Microbiology - Last 24 Hours (Table) 07/15/23 08:10 Gram Stain - Final Sputum Sputum Culture - Final 07/14/23 17:00 Blood Culture - Preliminary Blood 07/14/23 17:20 Blood Culture - Preliminary Blood 07/14/23 16:15 Gram Stain - Final Toe - Left Second Wound Culture - Final Escherichia coli Staphylococcus aureus Assessment and Plan (1) Transaminitis Narrative/Plan: 57-year-old male presented with multiple complaints subsequently went into acute hypoxemic respiratory failure needing intubation and mechanical ventilation. Apparently patient has a long history of alcohol abuse likely has some underlying alcoholic liver disease with notable elevated liver enzymes consistent with acute worsening likely due tischemic hepatitis related to sepsis, hypotension causing hypoperfusion and multiple organ injury. Continue to monitor LFTs, as patient's condition improves likely his liver enzymes well as well. Continue ICU management. Recommendation of alcohol abstinence. 07/17/2023 Acute ischemic hepatitis, secondary to sepsis and multi organ failure. Poor prognosis. Family is considering comfort measures. Will await their decisions, otherwise continue with ICU management. Current Visit: Yes Status: Acute Code(s): R74.01 - ELEVATION OF LEVELS OF LIVER TRANSAMINASE LEVELS SNOMED Code(s): 674105757 (2) Acute kidney injury Current Visit: Yes Status: Acute Code(s): N17.9 - ACUTE KIDNEY FAILURE, UNSPECIFIED SNOMED Code(s): 62019205 (3) Hypotension Current Visit: Yes Status: Acute Code(s): I95.9 - HYPOTENSION, UNSPECIFIED SNOMED Code(s): 94032866 (4) Alcohol abuse Current Visit: Yes Status: Acute Code(s): F10.10 - ALCOHOL ABUSE, UNCOMPLICATED SNOMED Code(s): 42739397 (5) Acute hypoxemic respiratory failure Current Visit: Yes Status: Acute Code(s): J96.01 - ACUTE RESPIRATORY FAILURE WITH HYPOXIA SNOMED Code(s): 172147084 (6) Diabetic toe ulcer Current Visit: Yes Status: Acute Code(s): E11.621 - TYPE 2 DIABETES MELLITUS WITH FOOT ULCER; L97.509 - NON-PRESSURE CHRONIC ULCER OTH PRT UNSP FOOT W UNSP SEVERITY SNOMED Code(s): 570687806 (7) Sepsis Current Visit: Yes Status: Acute Code(s): A41.9 - SEPSIS, UNSPECIFIED ORGANISM SNOMED Code(s): 43303707 (8) Atrial fibrillation with RVR Current Visit: No Status: Acute Code(s): I48.91 - UNSPECIFIED ATRIAL FIBRILLATION SNOMED Code(s): 165990921872916 (9) Diabetes Current Visit: Yes Status: Acute Code(s): E11.9 - TYPE 2 DIABETES MELLITUS WITHOUT COMPLICATIONS SNOMED Code(s): 92510805 Plan: 1. Continue symptomatic and supportive care 2. Continue ICU management 3. No further workup indicated at this time from gastroenterology 4. Hemodialysis per recommendations from nephrology 5. Patient with very poor prognosis, weight decision for possible comfort care from patient's family Thank you for this consultation, we will sign off at this time. Dr. Phillip Carmichael I agree with the dictator's note, documented as a scribe by Melissa Sinha.
[2023-07-17] MEDS: MORPHINE SULFATE 4 MG/ML SYRINGE IV PRN (12:06)
[2023-07-17] MEDS: LORazepam 2 MG/ML INJ IV PRN (12:07)
--- NOTE | 2023-07-17 14:11 | P.PN ---
Subjective Progress Note Date: 07/16/23 Principal diagnosis: Reason for follow-up is sepsis infected toe and aspiration pneumonitis Patient is a 57-year-old male past medical history difficult for diabetes mellitus hypertension atrial fibrillation current everyday smoker patient was brought into the hospital yesterday afternoon with the patient was complaining of some mental status changes, patient was complaining of feeling weak unable to get up patient initially admitted to the floor subsequently have worsening respiratory status and intubated and admitted to the ICU. On today's visit that is 07/16/2023, Patient is afebrile patient is intubated on the vent FiO2 of 90% no significant pleural laceration to the ED or any changes reported patient is on a pressor support. Patient white count is 28.7 BUN/creatinine elevated with a creatinine of 2.94 elevated liver enzymes cultures are currently pending Objective - Vital Signs Vital signs: Vital Signs Temp 98.5 F 07/16/23 12:15 Pulse 72 07/16/23 13:00 Resp 20 07/16/23 13:00 BP 89/77 07/16/23 12:15 Pulse Ox 95 07/16/23 00:00 FiO2 90 07/16/23 13:00 Intake & Output 07/15/23 07/16/23 07/16/23 18:59 06:59 18:59 Intake Total 4341.451 4284.923 2466.464 Output Total 15 510 20 Balance 4326.451 3774.923 2446.464 Weight 156.8 kg 156.8 kg Intake: IV 36 1927 1036 .9NS Pressure Bag 36 42 21 0.9 KVO 260 140 Dextrose 5% in Water 1, 1625 875 000 ml @ 125 mls/hr IV . Q9H12M [facility] with Sodium Bicarb (1 Meq/ml) 150 ml Rx#:[id number] Intake, IV Titration 4305.451 5332.276 8851.464 Amount Amiodarone 450 mg In 250 Dextrose 5% in Water 250 ml @ 0.5 MG/MIN 16.667 mls/hr IV .Q15H [facility] Rx#: [id number] Calcium Gluconate in NaCl 100 1 gm In Saline 1 100ml. bag @ 100 mls/hr IVPB ONCE ONE Rx#:[id number] Calcium Gluconate in NaCl 100 1 gm In Saline 1 100ml. bag @ 400 mls/hr IVPB ONCE ONE Rx#:[id number] Calcium Gluconate in NaCl 100 1 gm In Saline 1 100ml. bag @ 400 mls/hr IVPB ONCE ONE Rx#:[id number] Cisatracurium 200 mg In 46.853 Sodium Chloride 0.9% 180 ml @ 1 MCG/KG/MIN 8.442 mls/hr IV .[id number] [facility] Rx #:[id number] Dextrose 5% in Water 1, 1500 875 000 ml @ 125 mls/hr IV . Q9H12M [facility] with Sodium Bicarb (1 Meq/ml) 150 ml Rx#:[id number] Norepinephrine 32 mg In 164.694 289.950 131.959 Sodium Chloride 0.9% 218 ml @ 0.44 MCG/KG/MIN 29. 019 mls/hr IV .Q8H37M [facility] Rx#:[id number] Norepinephrine 4 mg In 508.000 Sodium Chloride 0.9% 250 ml @ 0.03 MCG/KG/MIN 14. 776 mls/hr IV .[id number] [facility] Rx#:[id number] Piperacillin-Tazobactam 3 75 .375 gm In Sodium Chloride 0.9% 100 ml @ 200 mls/hr IVPB ONCE STA Rx#:[id number] Sodium Chloride 0.9% 1, 1125 000 ml @ 999 mls/hr IV . Q1H1M ONE Rx#:[id number] Sodium Chloride 0.9% 1, 1000 000 ml @ 999 mls/hr IV . Q1H1M ONE Rx#:[id number] Sodium Chloride 0.9% 2, 50 000 ml @ 999 mls/hr IV . Q2H1M ONE Rx#:[id number] Vancomycin 2,000 mg In 601 Sodium Chloride 0.9% 500 ml 500 ml @ 167 mls/hr IVPB Q16H [facility] Rx#: [id number] Vasopressin 60 unit In 106.462 Sodium Chloride 0.9% 150 ml @ 0.03 UNITS/MIN 4.59 mls/hr IV .Q24H [facility] Rx#: [id number] propofoL 1,000 mg In 134.904 236.511 198.505 Empty Bag 1 bag @ 15 MCG/ KG/MIN 11.635 mls/hr IV . Q8H36M [facility] Rx#:[id number] Hemodialysis 500 Output: Urine 15 10 20 Hemodialysis 500 Other: Voiding Method Indwelling Catheter Indwelling Catheter Indwelling Catheter ABP, PAP, CO, CI - Last Documented Arterial Blood Pressure 75/53 - Exam GENERAL DESCRIPTION: Middle-age male intubated on the vent RESPIRATORY SYSTEM: Unlabored breathing , decreased breath sounds at bases HEART: S1 S2 regular rate and rhythm , ABDOMEN: Soft , no tenderness EXTREMITIES: Left second toe is currently dressed and did have some discoloration to the left foot which is cold to touch - Labs CBC & Chem 7: 07/17/23 04:00 07/17/23 04:00 Labs: Abnormal Lab Results - Last 24 Hours (Table) 07/15/23 07/15/23 07/15/23 Range/Units 13:55 13:55 15:20 WBC 28.0 H (3.8-10.6) k/uL Hct 54.0 H (39.0-53.0) % MCHC 28.0 L (31.0-37.0) g/dL RDW 18.7 H (11.5-15.5) % Neutrophils # (Manual) 26.00 H (1.3-7.7) k/uL Lymphocytes # (Manual) 0.84 L (1.0-4.8) k/uL Monocytes # (Manual) 1.40 H (0-1.0) k/uL Metamyelocytes # (Man) 0.28 H (0) k/uL Nucleated RBCs 1 H (0-0) /100 WBC ABG pH (7.35-7.45) ABG HCO3 (21-25) mmol/L ABG Total CO2 (19-24) mmol/L Sodium (137-145) mmol/L Potassium 6.3 H* (3.5-5.1) mmol/L Carbon Dioxide (22-30) mmol/L BUN (9-20) mg/dL Creatinine (0.66-1.25) mg/dL Glucose (74-99) mg/dL POC Glucose (mg/dL) 119 H (70-110) mg/dL Plasma Lactic Acid Shawn (0.7-2.0) mmol/L Calcium (8.4-10.2) mg/dL Total Bilirubin (0.2-1.3) mg/dL AST (17-59) U/L ALT (4-49) U/L Alkaline Phosphatase (38-126) U/L Troponin I (0.000-0.034) ng/mL C-Reactive Protein (<1.0) mg/dL Albumin (3.5-5.0) g/dL 07/15/23 07/15/23 07/15/23 Range/Units 15:40 16:52 20:09 WBC (3.8-10.6) k/uL Hct (39.0-53.0) % MCHC (31.0-37.0) g/dL RDW (11.5-15.5) % Neutrophils # (Manual) (1.3-7.7) k/uL Lymphocytes # (Manual) (1.0-4.8) k/uL Monocytes # (Manual) (0-1.0) k/uL Metamyelocytes # (Man) (0) k/uL Nucleated RBCs (0-0) /100 WBC ABG pH (7.35-7.45) ABG HCO3 (21-25) mmol/L ABG Total CO2 (19-24) mmol/L Sodium (137-145) mmol/L Potassium 5.9 H (3.5-5.1) mmol/L Carbon Dioxide (22-30) mmol/L BUN (9-20) mg/dL Creatinine (0.66-1.25) mg/dL Glucose (74-99) mg/dL POC Glucose (mg/dL) (70-110) mg/dL Plasma Lactic Acid Shawn 13.0 H* 12.7 H* (0.7-2.0) mmol/L Calcium (8.4-10.2) mg/dL Total Bilirubin (0.2-1.3) mg/dL AST (17-59) U/L ALT (4-49) U/L Alkaline Phosphatase (38-126) U/L Troponin I (0.000-0.034) ng/mL C-Reactive Protein (<1.0) mg/dL Albumin (3.5-5.0) g/dL 07/16/23 07/16/23 07/16/23 Range/Units 00:31 00:31 02:24 WBC (3.8-10.6) k/uL Hct (39.0-53.0) % MCHC (31.0-37.0) g/dL RDW (11.5-15.5) % Neutrophils # (Manual) (1.3-7.7) k/uL Lymphocytes # (Manual) (1.0-4.8) k/uL Monocytes # (Manual) (0-1.0) k/uL Metamyelocytes # (Man) (0) k/uL Nucleated RBCs (0-0) /100 WBC ABG pH 7.18 L* (7.35-7.45) ABG HCO3 15 L (21-25) mmol/L ABG Total CO2 16 L (19-24) mmol/L Sodium 136 L (137-145) mmol/L Potassium 6.0 H (3.5-5.1) mmol/L Carbon Dioxide 14 L (22-30) mmol/L BUN 38 H (9-20) mg/dL Creatinine 2.23 H (0.66-1.25) mg/dL Glucose 142 H (74-99) mg/dL POC Glucose (mg/dL) (70-110) mg/dL Plasma Lactic Acid Shawn 12.3 H* (0.7-2.0) mmol/L Calcium 7.4 L (8.4-10.2) mg/dL Total Bilirubin (0.2-1.3) mg/dL AST (17-59) U/L ALT (4-49) U/L Alkaline Phosphatase (38-126) U/L Troponin I (0.000-0.034) ng/mL C-Reactive Protein (<1.0) mg/dL Albumin (3.5-5.0) g/dL 07/16/23 07/16/23 07/16/23 Range/Units 03:58 05:01 05:31 WBC (3.8-10.6) k/uL Hct (39.0-53.0) % MCHC (31.0-37.0) g/dL RDW (11.5-15.5) % Neutrophils # (Manual) (1.3-7.7) k/uL Lymphocytes # (Manual) (1.0-4.8) k/uL Monocytes # (Manual) (0-1.0) k/uL Metamyelocytes # (Man) (0) k/uL Nucleated RBCs (0-0) /100 WBC ABG pH 7.18 L* (7.35-7.45) ABG HCO3 16 L (21-25) mmol/L ABG Total CO2 17 L (19-24) mmol/L Sodium (137-145) mmol/L Potassium (3.5-5.1) mmol/L Carbon Dioxide (22-30) mmol/L BUN (9-20) mg/dL Creatinine (0.66-1.25) mg/dL Glucose (74-99) mg/dL POC Glucose (mg/dL) 143 H (70-110) mg/dL Plasma Lactic Acid Shawn (0.7-2.0) mmol/L Calcium (8.4-10.2) mg/dL Total Bilirubin (0.2-1.3) mg/dL AST (17-59) U/L ALT (4-49) U/L Alkaline Phosphatase (38-126) U/L Troponin I 0.265 H* (0.000-0.034) ng/mL C-Reactive Protein (<1.0) mg/dL Albumin (3.5-5.0) g/dL 07/16/23 07/16/23 07/16/23 Range/Units 05:32 05:32 07:14 WBC 28.7 H (3.8-10.6) k/uL Hct (39.0-53.0) % MCHC 29.4 L (31.0-37.0) g/dL RDW 18.8 H (11.5-15.5) % Neutrophils # (Manual) 24.30 H (1.3-7.7) k/uL Lymphocytes # (Manual) (1.0-4.8) k/uL Monocytes # (Manual) 2.01 H (0-1.0) k/uL Metamyelocytes # (Man) (0) k/uL Nucleated RBCs (0-0) /100 WBC ABG pH (7.35-7.45) ABG HCO3 (21-25) mmol/L ABG Total CO2 (19-24) mmol/L Sodium (137-145) mmol/L Potassium 5.8 H (3.5-5.1) mmol/L Carbon Dioxide 11 L (22-30) mmol/L BUN 39 H (9-20) mg/dL Creatinine 2.58 H (0.66-1.25) mg/dL Glucose 155 H (74-99) mg/dL POC Glucose (mg/dL) (70-110) mg/dL Plasma Lactic Acid Shawn (0.7-2.0) mmol/L Calcium 7.4 L (8.4-10.2) mg/dL Total Bilirubin 5.0 H (0.2-1.3) mg/dL AST 99860 H (17-59) U/L ALT 4050 H (4-49) U/L Alkaline Phosphatase 282 H (38-126) U/L Troponin I 0.315 H* (0.000-0.034) ng/mL C-Reactive Protein 5.5 H (<1.0) mg/dL Albumin 2.8 L (3.5-5.0) g/dL 07/16/23 07/16/23 Range/Units 11:25 13:12 WBC (3.8-10.6) k/uL Hct (39.0-53.0) % MCHC (31.0-37.0) g/dL RDW (11.5-15.5) % Neutrophils # (Manual) (1.3-7.7) k/uL Lymphocytes # (Manual) (1.0-4.8) k/uL Monocytes # (Manual) (0-1.0) k/uL Metamyelocytes # (Man) (0) k/uL Nucleated RBCs (0-0) /100 WBC ABG pH (7.35-7.45) ABG HCO3 (21-25) mmol/L ABG Total CO2 (19-24) mmol/L Sodium (137-145) mmol/L Potassium (3.5-5.1) mmol/L Carbon Dioxide (22-30) mmol/L BUN (9-20) mg/dL Creatinine (0.66-1.25) mg/dL Glucose (74-99) mg/dL POC Glucose (mg/dL) 136 H 131 H (70-110) mg/dL Plasma Lactic Acid Shawn (0.7-2.0) mmol/L Calcium (8.4-10.2) mg/dL Total Bilirubin (0.2-1.3) mg/dL AST (17-59) U/L ALT (4-49) U/L Alkaline Phosphatase (38-126) U/L Troponin I (0.000-0.034) ng/mL C-Reactive Protein (<1.0) mg/dL Albumin (3.5-5.0) g/dL Microbiology - Last 24 Hours (Table) 07/14/23 17:00 Blood Culture - Preliminary Blood 07/14/23 17:20 Blood Culture - Preliminary Blood 07/14/23 16:15 Gram Stain - Preliminary Toe - Left Second Wound Culture - Preliminary Gram Neg Bacilli Presumptive Staph aureus 07/15/23 08:10 Gram Stain - Preliminary Sputum Assessment and Plan (1) Aspiration pneumonitis Current Visit: Yes Status: Acute Code(s): J69.0 - PNEUMONITIS DUE TO INHALATION OF FOOD AND VOMIT SNOMED Code(s): 806154895 (2) Diabetic toe ulcer Current Visit: Yes Status: Acute Code(s): E11.621 - TYPE 2 DIABETES MELLITUS WITH FOOT ULCER; L97.509 - NON-PRESSURE CHRONIC ULCER OTH PRT UNSP FOOT W UNSP SEVERITY SNOMED Code(s): 927145132 (3) Sepsis Current Visit: Yes Status: Acute Code(s): A41.9 - SEPSIS, UNSPECIFIED ORGANISM SNOMED Code(s): 01523385 (4) Transaminitis Current Visit: Yes Status: Acute Code(s): R74.01 - ELEVATION OF LEVELS OF LIVER TRANSAMINASE LEVELS SNOMED Code(s): 128722979 Plan: 1patient with sepsis/septic shock in this patient who did have a hypotension requiring pressor support tachycardia elevated white count source is multifactorial in this patient who did have injury to the left second toe with a wound and secondary cellulitis and concerning for possible aspiration pneumonia. 2patient to continue with Zosyn and daptomycin while waiting for the culture to finalize and monitor clinical course closely overall prognosis remains to be guarded Dictation was produced using [employer] software. please excuse any grammatical, word or spelling errors. Time with Patient: Less than 30
--- NOTE | 2023-07-17 16:06 | P.CONS ---
History of Present Illness - Reason for Consult Consult date: 07/17/23 Possible DIC Requesting physician: Karon Boone - Chief Complaint poor oral intake, wound to foot - History of Present Illness Mr. Rogel is a 57-year-old male we have been asked to see for concerns for DIC. He was admitted through the ER 07/14/2023 when he presented with complaints of falling down, poor oral intake and a wound on his foot. Since admission he has been evaluated by infectious disease, cardiology, nephrology, vascular, gastroenterology for severe transaminitis. He is currently intubated. His labs show an INR of 7.5 AP TT of 49.1, fibrinogen 121,000. His platelet count is still normal at 175,000, hemoglobin is 14.3. Bilirubin is 5.1 AST is greater than 150,000, ALT 4971. From chart review there is a reported history of EtOH abuse. Review of Systems ROS unobtainable: due to endotracheal tube Past Medical History Past Medical History: Atrial Fibrillation, Diabetes Mellitus, Hypertension Additional Past Medical History / Comment(s): [place] History of Any Multi-Drug Resistant Organisms: None Reported Past Surgical History: No Surgical Hx Reported Past Psychological History: No Psychological Hx Reported Smoking Status: Current every day smoker Past Alcohol Use History: Occasional Past Drug Use History: None Reported - Past Family History Father Family Medical History: Diabetes Mellitus, Hypertension Mother Additional Family Medical History / Comment(s): "heart disease" Medications and Allergies Home Medications Medication Instructions Recorded Confirmed Type Lisinopril-Hctz 20-25 mg 1 tab PO DAILY 10/21/22 07/14/23 History [Zestoretic 20-25] metFORMIN HCL [Glucophage] 1,000 mg PO BID 10/21/22 07/14/23 History Apixaban [Eliquis] 5 mg PO BID 01/23/23 07/14/23 History Insulin Glargine,Hum.rec.anlog 20 - 25 units SQ DAILY 01/23/23 07/14/23 History [Lantus Solostar Pen] Insulin Regular, Human [NovoLIN R 4 - 12 units SQ ACHS PRN 01/23/23 07/14/23 History Flexpen] Metoprolol Succinate (ER) [Toprol 50 mg PO HS #30 tab 01/29/23 07/14/23 Rx XL] Allergies Allergy/AdvReac Type Severity Reaction Status Date / Time No Known Allergies Allergy Verified 07/14/23 17:53 Physical Exam Vitals: Vital Signs Temp Pulse Pulse Resp BP BP Pulse Ox 07/17/23 11:00 72 20 74 L 07/17/23 10:55 07/17/23 10:45 72 20 07/17/23 10:30 72 20 07/17/23 10:15 72 21 07/17/23 10:00 72 20 73 L 07/17/23 09:45 72 20 07/17/23 09:30 72 20 07/17/23 09:15 72 20 71/44 07/17/23 09:00 85 20 07/17/23 08:45 85 20 07/17/23 08:30 85 20 07/17/23 08:15 85 20 07/17/23 08:00 98.8 F 85 20 07/17/23 07:51 71 07/17/23 07:45 71 20 07/17/23 07:40 71 07/17/23 07:36 07/17/23 07:30 71 20 71 L 07/17/23 07:15 71 19 07/17/23 07:00 71 21 83/59 07/17/23 06:45 71 19 83/59 07/17/23 06:30 85 20 83/59 07/17/23 06:15 83 20 83/59 07/17/23 06:00 84 20 71 L 07/17/23 05:45 83 20 72 L 07/17/23 05:30 86 20 66 L 07/17/23 05:15 71 19 84/49 07/17/23 05:00 71 20 07/17/23 04:45 71 20 07/17/23 04:30 71 28 H 07/17/23 04:15 71 19 07/17/23 04:00 98.8 F 83 17 74/22 70 L 07/17/23 03:46 86 07/17/23 03:45 85 19 69 L 07/17/23 03:35 71 07/17/23 03:34 07/17/23 03:30 71 20 74/22 07/17/23 03:15 71 20 07/17/23 03:00 71 20 07/17/23 02:45 70 20 07/17/23 02:30 71 20 07/17/23 02:15 71 20 07/17/23 02:00 85 0 L 63/37 07/17/23 01:45 85 20 07/17/23 01:30 85 21 07/17/23 01:15 85 20 07/17/23 01:00 87 35 H 07/17/23 00:45 71 20 45/22 56 L 07/17/23 00:30 71 19 07/17/23 00:15 71 58 H 07/17/23 00:02 81 07/17/23 00:00 98.7 F 71 20 07/16/23 23:49 84 07/16/23 23:45 84 20 84/41 07/16/23 23:30 85 20 07/16/23 23:28 85 20 07/16/23 23:15 85 20 07/16/23 23:00 71 20 96/38 07/16/23 22:45 84 20 07/16/23 22:30 84 21 07/16/23 22:15 84 20 07/16/23 22:00 85 20 55/37 07/16/23 21:45 85 20 07/16/23 21:30 85 20 07/16/23 21:15 85 20 07/16/23 21:00 86 20 91/73 07/16/23 20:45 86 20 07/16/23 20:30 71 20 07/16/23 20:15 71 20 07/16/23 20:13 70 07/16/23 20:02 71 07/16/23 20:00 98.7 F 70 20 95/69 07/16/23 19:59 07/16/23 19:58 07/16/23 19:49 98.4 F 85 18 86/53 07/16/23 19:45 70 20 07/16/23 19:30 86 20 07/16/23 19:00 68 20 07/16/23 18:45 73 20 07/16/23 18:30 85 20 73/56 07/16/23 18:15 85 20 73/56 07/16/23 18:00 73 21 07/16/23 17:45 73 20 07/16/23 17:30 73 20 07/16/23 17:15 73 19 97/67 07/16/23 17:00 73 20 07/16/23 16:45 72 20 07/16/23 16:30 71 20 68/30 07/16/23 16:15 71 20 68/30 07/16/23 16:00 98.4 F 70 20 07/16/23 15:45 70 20 FiO2 07/17/23 11:00 07/17/23 10:55 80 07/17/23 10:45 07/17/23 10:30 07/17/23 10:15 07/17/23 10:00 07/17/23 09:45 07/17/23 09:30 07/17/23 09:15 07/17/23 09:00 07/17/23 08:45 07/17/23 08:30 07/17/23 08:15 07/17/23 08:00 80 07/17/23 07:51 07/17/23 07:45 07/17/23 07:40 07/17/23 07:36 80 07/17/23 07:30 07/17/23 07:15 07/17/23 07:00 07/17/23 06:45 07/17/23 06:30 07/17/23 06:15 07/17/23 06:00 07/17/23 05:45 07/17/23 05:30 07/17/23 05:15 07/17/23 05:00 07/17/23 04:45 07/17/23 04:30 07/17/23 04:15 07/17/23 04:00 80 07/17/23 03:46 07/17/23 03:45 07/17/23 03:35 07/17/23 03:34 80 07/17/23 03:30 07/17/23 03:15 07/17/23 03:00 07/17/23 02:45 07/17/23 02:30 07/17/23 02:15 07/17/23 02:00 07/17/23 01:45 07/17/23 01:30 07/17/23 01:15 07/17/23 01:00 07/17/23 00:45 07/17/23 00:30 07/17/23 00:15 07/17/23 00:02 07/17/23 00:00 80 07/16/23 23:49 80 07/16/23 23:45 07/16/23 23:30 07/16/23 23:28 07/16/23 23:15 80 07/16/23 23:00 07/16/23 22:45 07/16/23 22:30 07/16/23 22:15 07/16/23 22:00 07/16/23 21:45 07/16/23 21:30 07/16/23 21:15 07/16/23 21:00 07/16/23 20:45 07/16/23 20:30 07/16/23 20:15 07/16/23 20:13 07/16/23 20:02 07/16/23 20:00 90 07/16/23 19:59 90 07/16/23 19:58 90 07/16/23 19:49 07/16/23 19:45 07/16/23 19:30 07/16/23 19:00 90 07/16/23 18:45 90 07/16/23 18:30 90 07/16/23 18:15 90 07/16/23 18:00 90 07/16/23 17:45 90 07/16/23 17:30 90 07/16/23 17:15 90 07/16/23 17:00 90 07/16/23 16:45 90 07/16/23 16:30 90 07/16/23 16:15 90 07/16/23 16:00 90 07/16/23 15:45 90 Intake and Output 07/17/23 07/17/23 07/17/23 06:59 14:59 22:59 Intake Total 2038.590 1460.651 Output Total 0 0 Balance 4223.486 4655.651 Intake: IV 1432 667 .9NS Pressure Bag 27 12 0.9 KVO 180 80 Dextrose 5% in Water 1, 1125 500 000 ml @ 125 mls/hr IV . Q9H12M [facility] with Sodium Bicarb (1 Meq/ml) 150 ml Rx#:[id number] Piperacillin-Tazobactam 3 100 75 .375 gm In Sodium Chloride 0.9% 100 ml @ 25 mls/hr IVPB Q8HR [facility] Rx# :[id number] Intake, IV Titration 396.884 491.651 Amount Cisatracurium 200 mg In 85.968 Sodium Chloride 0.9% 180 ml @ 1 MCG/KG/MIN 8.442 mls/hr IV .[id number] [facility] Rx #:[id number] Norepinephrine 32 mg In 212.636 231.631 Sodium Chloride 0.9% 218 ml @ 0.44 MCG/KG/MIN 29. 019 mls/hr IV .Q8H37M [facility] Rx#:[id number] Vasopressin 60 unit In 10.506 74.052 Sodium Chloride 0.9% 150 ml @ 0.03 UNITS/MIN 4.59 mls/hr IV .Q24H [facility] Rx#: [id number] propofoL 1,000 mg In 173.742 100 Empty Bag 1 bag @ 15 MCG/ KG/MIN 11.635 mls/hr IV . Q8H36M [facility] Rx#:[id number] Output: Urine 0 0 Other: Voiding Method Indwelling Catheter Indwelling Catheter Weight 156.8 kg ABP, PAP, CO, CI - Last 8 Hours Arterial Blood Pressure 77/53 Arterial Blood Pressure 77/53 Arterial Blood Pressure 78/53 Arterial Blood Pressure 78/53 Arterial Blood Pressure 77/53 Arterial Blood Pressure 78/53 Arterial Blood Pressure 80/54 Arterial Blood Pressure 80/54 Arterial Blood Pressure 78/56 Arterial Blood Pressure 77/55 Arterial Blood Pressure 77/55 Arterial Blood Pressure 78/56 Arterial Blood Pressure 77/55 Arterial Blood Pressure 77/53 Deferred as pt family is with him, considering terminal wean Results CBC & Chem 7: 07/17/23 04:00 07/17/23 04:00 Labs: Abnormal Lab Results - Last 24 Hours (Table) 07/16/23 07/16/23 07/16/23 Range/Units 05:32 19:46 22:48 WBC (3.8-10.6) k/uL MCHC (31.0-37.0) g/dL RDW (11.5-15.5) % Neutrophils # (1.3-7.7) k/uL Monocytes # (0-1.0) k/uL PT (10.0-12.5) sec INR (<1.2) APTT (22.0-30.0) sec Fibrinogen (200-500) mg/dL ABG pH 7.15 L* (7.35-7.45) ABG pO2 82 L (83-108) mmHg ABG HCO3 16 L (21-25) mmol/L ABG Total CO2 17 L (19-24) mmol/L ABG O2 Saturation 93.0 L (94-97) % Sodium 136 L (137-145) mmol/L Potassium 5.5 H (3.5-5.1) mmol/L Chloride 97 L (98-107) mmol/L Carbon Dioxide 8 L* (22-30) mmol/L BUN 32 H (9-20) mg/dL Creatinine 2.94 H (0.66-1.25) mg/dL Glucose 113 H (74-99) mg/dL POC Glucose (mg/dL) (70-110) mg/dL Calcium 6.5 L (8.4-10.2) mg/dL Total Bilirubin (0.2-1.3) mg/dL AST (17-59) U/L ALT (4-49) U/L Alkaline Phosphatase (38-126) U/L Total Protein (6.3-8.2) g/dL Albumin (3.5-5.0) g/dL Procalcitonin 1.48 H (0.02-0.09) ng/mL 07/17/23 07/17/23 07/17/23 Range/Units 04:00 04:00 04:00 WBC 23.7 H (3.8-10.6) k/uL MCHC 30.2 L (31.0-37.0) g/dL RDW 19.2 H (11.5-15.5) % Neutrophils # 19.9 H (1.3-7.7) k/uL Monocytes # 1.1 H (0-1.0) k/uL PT (10.0-12.5) sec INR (<1.2) APTT 49.1 H (22.0-30.0) sec Fibrinogen 121 L (200-500) mg/dL ABG pH (7.35-7.45) ABG pO2 (83-108) mmHg ABG HCO3 (21-25) mmol/L ABG Total CO2 (19-24) mmol/L ABG O2 Saturation (94-97) % Sodium (137-145) mmol/L Potassium 5.5 H (3.5-5.1) mmol/L Chloride 95 L (98-107) mmol/L Carbon Dioxide 7 L* (22-30) mmol/L BUN 33 H (9-20) mg/dL Creatinine 3.21 H (0.66-1.25) mg/dL Glucose 127 H (74-99) mg/dL POC Glucose (mg/dL) (70-110) mg/dL Calcium 6.5 L (8.4-10.2) mg/dL Total Bilirubin 5.1 H (0.2-1.3) mg/dL AST >61634 H (17-59) U/L ALT 4971 H (4-49) U/L Alkaline Phosphatase 324 H (38-126) U/L Total Protein 6.2 L (6.3-8.2) g/dL Albumin 2.5 L (3.5-5.0) g/dL Procalcitonin (0.02-0.09) ng/mL 07/17/23 07/17/23 07/17/23 Range/Units 04:00 05:49 05:54 WBC (3.8-10.6) k/uL MCHC (31.0-37.0) g/dL RDW (11.5-15.5) % Neutrophils # (1.3-7.7) k/uL Monocytes # (0-1.0) k/uL PT 74.3 H (10.0-12.5) sec INR 7.5 H* (<1.2) APTT (22.0-30.0) sec Fibrinogen (200-500) mg/dL ABG pH 7.10 L* (7.35-7.45) ABG pO2 82 L (83-108) mmHg ABG HCO3 13 L (21-25) mmol/L ABG Total CO2 15 L (19-24) mmol/L ABG O2 Saturation 92.0 L (94-97) % Sodium (137-145) mmol/L Potassium (3.5-5.1) mmol/L Chloride (98-107) mmol/L Carbon Dioxide (22-30) mmol/L BUN (9-20) mg/dL Creatinine (0.66-1.25) mg/dL Glucose (74-99) mg/dL POC Glucose (mg/dL) 26 L (70-110) mg/dL Calcium (8.4-10.2) mg/dL Total Bilirubin (0.2-1.3) mg/dL AST (17-59) U/L ALT (4-49) U/L Alkaline Phosphatase (38-126) U/L Total Protein (6.3-8.2) g/dL Albumin (3.5-5.0) g/dL Procalcitonin (0.02-0.09) ng/mL 07/17/23 07/17/23 Range/Units 06:07 06:09 WBC (3.8-10.6) k/uL MCHC (31.0-37.0) g/dL RDW (11.5-15.5) % Neutrophils # (1.3-7.7) k/uL Monocytes # (0-1.0) k/uL PT (10.0-12.5) sec INR (<1.2) APTT (22.0-30.0) sec Fibrinogen (200-500) mg/dL ABG pH (7.35-7.45) ABG pO2 (83-108) mmHg ABG HCO3 (21-25) mmol/L ABG Total CO2 (19-24) mmol/L ABG O2 Saturation (94-97) % Sodium (137-145) mmol/L Potassium (3.5-5.1) mmol/L Chloride (98-107) mmol/L Carbon Dioxide (22-30) mmol/L BUN (9-20) mg/dL Creatinine (0.66-1.25) mg/dL Glucose (74-99) mg/dL POC Glucose (mg/dL) 39 L 127 H (70-110) mg/dL Calcium (8.4-10.2) mg/dL Total Bilirubin (0.2-1.3) mg/dL AST (17-59) U/L ALT (4-49) U/L Alkaline Phosphatase (38-126) U/L Total Protein (6.3-8.2) g/dL Albumin (3.5-5.0) g/dL Procalcitonin (0.02-0.09) ng/mL Microbiology - Last 24 Hours (Table) 07/15/23 08:10 Gram Stain - Final Sputum Sputum Culture - Final 07/14/23 17:00 Blood Culture - Preliminary Blood 07/14/23 17:20 Blood Culture - Preliminary Blood 07/14/23 16:15 Gram Stain - Final Toe - Left Second Wound Culture - Final Escherichia coli Staphylococcus aureus CT scan - chest: report reviewed Assessment and Plan Plan: Auto anticoagulated -Coagulaopathy is 2/2 severe hepatic dysfunction and acute decompensation -INR supratherapeutic at 7.5, 2/2 liver dysfunction. Did discontinue Eliquis. No documentation of vitamin K administration. Would administer vit K if aggressive care is going to be pursued DIC -Do not suspect DIC based on current diagnostics and labs. CTA neg for PE. No evidence of thromboses at this time. Fibrinogen is low at 121 but stable over the last 2 blood draws. Plt still WNL, Hgb is 14.3. Possibly a subclinical DIC but, nothing overt. -FFP can be administered if aggressive care is going to be pursued If family decides to pursue more aggressive care, please do not hesitate to contact Hematology for additional support.
--- NOTE | 2023-07-18 21:27 | P.PN ---
Subjective Progress Note Date: 07/17/23 This is a 57 year old male with history of diabetes mellitus, pulmonary embolism anticoagulated with Eliquis, hypertension, Guillan Roebuck syndrome, daily smoker. Comes in to the hospital with complaints of frequent falls, inability to ambulate and worsening wound of the left foot. Patient had altered mental status on admission states that he has not been eating or drinking well. He does report some shortness of breath lately and also having decreased urine output. He was brought in by EMS. On admission EKG shows atrial fibrillation with a rapid ventricular rate of [address] is [address] specific [address] or T wave changes noted. Chest x-ray in the ER shows no acute cardiopulmonary process. Patient does have some remote appearing right-sided rib fractures. Initial blood work reveals a white count of 10.8, sodium level of 140, potassium of 5.5, BUN of 41, creatinine of 0.91, significantly elevated lactic acid level at 6.8, elevated AST at 1284, ALT 572, proBNP level of 3680. Serum alcohol level was less than 10. Viral panel was negative for influenza COVID RSV. Abdominal pelvis CT completed reveals no definitive acute abdominal process there is cardiomegaly with trace pleural effusions abdominal ascites and anasarca correlate for volume overload. A [place] catheter is in place with a high density material bladder lumen. Patient was hypotensive on admission did receive 3 L of fluid bolus and requiring vasopressor support was placed on levophed and vasopressin. ABGs completed revealing a pH level 7.22, pCO2 32, pO2 244, HCO [address] was completed revealing a normal head brain CT. Patient was a rapid response early this monring due to respiratory decline with periods of apnea as well as a wide-complex tachycardia; patient subsequently was intubated by the ENTERPRISE ENGINEER and is now placed on the mechanical ventilator and sedated. He is evaluated in the intensive care unit. Stared on amiodarone infusion for the atrial fibrillation. Placed on antibiotics in the form of vancomycin and zosyn for the left toe wound with suspected sepsis and septic shock. Multiple consultations in place including nephrology, cardiology, pulmonary internal grinder set up operator, Infectious disease. Patient has not had any urine output and is being considered for emergent hemodialysis. 07/16/2023 Patient is evaluated in follow-up today in the intensive care unit. He continues on the mechanical ventilator with a FiO2 of 90%. Patient received a temporary hemodialysis catheter yesterday evening and underwent emergency hemodialysis at 2200. Patient remains on IV amiodarone at 16.67 MLS per hour. His heart rate is now controlled in the 80s and normal sinus rhythm. He continues on Eliquis twice a day. Patient was seen in consultation by ID local wound care applied to the second digit on his left foot. Preliminary wound cultures are showing gram-negative bacilli and presumptive Staph aureus. He continues on IV daptomycin and IV Zosyn. Blood cultures are negative so far. Chest x-ray reveals no evidence of pleural effusion focal consolidation or pneumothorax. Patient is now maxed out on Levophed and vasopressin support. He received fluid bolus. He has had 25 mL of urine output in the last 24 hours. Pressure remains marginal in the 70s systolic. He continues on IV Solu-Cortef. He is considered unstable for additional sessions of hemodialysis. Troponin level has been trended and elevated at 0.265, and 0.315. White blood cell count is 28.7, hemoglobin 14.7, platelet count of 196, PT 67.5, INR 6.9, PTT 45.1, fibrinogen level of 121. His sodium 138, potassium 5.8, BUN of 49, creatinine of 2.58, calcium of 7.4, magnesium of 2.0, total bilirubin of 5.0, AST of 14,793, ALT of 4050, alkaline phosphatase of 182. There is concern for DIC and patient's overall clinical condition is critical and we are waiting a decision from family whether they would like to pursue comfort care measures at this time they do not seem to want any other aggressive measures. bay's Mary Jo has been contacted 2 separate occasions today. She does live down in [place] and will not be able to come to the bedside. Current prognosis was discussed as well as patient's critical condition. His mother is now at the bedside and additional family members are coming in to see the patient. His CODE STATUS has been changed to a DO NOT RESUSCITATE. 07/17/2023 Patient is evaluated today in the intensive care unit family is at the bedside. Patient clinically has not improved. His liver enzymes remain elevated consistent with a liver failure due to sepsis. He is not making any urine. He remains intubated and sedated on the mechanical ventilator. His INR is 7.1 today we are awaiting family's decision whether they would like to make this patient comfort care or not. In the meanwhile we will consult hematology for further evaluation recommendations of the coagulopathy. Patient remains on IV antibiotics in the form of daptomycin and Zosyn. His wound culture has finalized showing E. coli and Staph aureus. He is off amiodarone drip and currently maintaining sinus rhythm. He is maxed out on Levophed and vasopressin support and his blood pressure is maintained in the 70s systolic without imp rovement. He is being followed by multiple consultations. His prognosis is critical. Review of systems Unable to complete a review of systems patient is currently intubated and sedated PHYSICAL EXAMINATION: GENERAL: Patient is sedated on the mechanical ventilator, not in any acute distress. Well developed, well nourished. HEENT: Pupils are round and equally reacting to light. EOMI. No scleral icterus. No conjunctival pallor. Normocephalic, atraumatic. No pharyngeal erythema. No thyromegaly. CARDIOVASCULAR: S1 and S2 present. No murmurs, rubs, or gallops. Irregularly irregular PULMONARY: Chest is clear to auscultation, no wheezing or crackles. Diminished ABDOMEN: Soft, nontender, nondistended, normoactive bowel sounds. No palpable organomegaly. MUSCULOSKELETAL: No joint swelling or deformity. EXTREMITIES: No cyanosis, clubbing, or pedal edema. Bilateral feet are bluish in color the left foot is cold both feet have a +1 pedal pulse found by Doppler NEUROLOGICAL: Unable to complete patient is currently intubated and sedated SKIN: No rashes. His left toe wound between the 1 and 2 toe is necrotic with purulent and sanguinous drainage. Assessment Acute hypoxemic respiratory failure secondary to severe sepsis Acute kidney injury due to ATN from sepsis and hypotension; patient remains anuric Hypotensive shock requiring levophed and vasopressin support both of which are currently maxed out. BP remains in the 70s systolic Coagulopathy with elevated DDimer and decreased fibrinogen level with concern for acute DIC Atrial fibrillation with rapid ventricular rate; transitioned to normal sinus rhythm maintains on IV amiodarone Altered mental status secondary to acute toxic and metabolic encephalopathy from Sepsis Left toe wound with cellulitis and sepsis, POA; likely a component of peripheral vascular disease with poorly controlled diabetes cultures are showing gram negative bacilli and presumptive staph aureus. Metabolic acidosis and lactic acidosis currently on sodium bicarbonate gtt Elevated LFTs with imaging not revealing any acute process, levels are worsening consistent with shock liver Hyperkalemia due to the [place] Troponin elevation likely at type 2 DE from severe sepsis Elevated D Dimer without evidence of pulmonary embolism Diabetes Mellitus type 2; insulin dependent Hx of pulmonary embolism on eliquis outpatient Hx of hypertension Alcohol use disorder Chronic and ongoing nicotine use GI prophylaxis DVT prophylaxis: Resumed on eliquis Full Code Plan Patient remains in the intensive care unit he is currently on the mechanical ventilator managed by internal grinder set up operator Patient remains sedated with propofol and nimbex Continue with vasopressin and levophed support which are maxed out, IV fluids infusing. BP has not improved patient is maintaining in the 70s systolic. Concern for component of vascular congestion; status post IV lasix x1 Cardiomyopathy with EF 20-25% with severe tricuspid regurgitation Rule out DIC; patient is on eliquis BID. Patient has been made DNR and family is waiting for additional family members to come to the bedside to discuss comfort care measures. Hematology consulted. Status psot emergent hemodialysis; patient is considered too unstable to undergo additional dialysis sessions Continue on the sodium bicarb gtt Continue on IV daptomycin and IV zosyn; left foot culture showing e.coli and staph aureus. Blood cultures have been taken and pending ID on consultation for the foot wound and management of sepsis Patient remains on CIWA alcohol withdrawal protocol Monitor lactic acid levels Repeat CBC and CMP in the AM Patients code status has been changed to a do not resuscitate. Family considering comfort care. Greater than 30 minutes has been spent on this complex patient and care planning with family. The impression and plan of care has been dictated by Karon oBone, Nurse Practitioner as directed. Dr. Wil MD I have performed a history and physical examination and medical decision making of this patient, discussed the same with the dictator, and agree with the dictators assessment and plan as written, documented as a scribe. Based on total visit time, I have performed more than 50% of this visit. Objective - Vital Signs Vital signs: Vital Signs Temp 98.8 F 07/17/23 08:00 Pulse 72 07/17/23 11:00 Resp 20 07/17/23 11:00 BP 71/44 07/17/23 09:15 Pulse Ox 74 L 07/17/23 11:00 FiO2 80 07/17/23 10:55 Intake & Output 07/16/23 07/17/23 07/17/23 18:59 06:59 18:59 Intake Total 3203.489 2783.771 1158.651 Output Total 20 900 0 Balance 3183.489 5166.695 8835.651 Weight 156.8 kg 156.8 kg Intake: IV 1276 1649 667 .9NS Pressure Bag 36 39 12 0.9 KVO 240 260 80 Dextrose 5% in Water 1, 1000 1250 500 000 ml @ 125 mls/hr IV . Q9H12M WILI with Sodium Bicarb (1 Meq/ml) 150 ml Rx#:[id number] Piperacillin-Tazobactam 3 100 75 .375 gm In Sodium Chloride 0.9% 100 ml @ 25 mls/hr IVPB Q8HR [facility] Rx# :[id number] Intake, IV Titration 1927.489 734.771 491.651 Amount Calcium Gluconate in NaCl 100 1 gm In Saline 1 100ml. bag @ 400 mls/hr IVPB ONCE ONE Rx#:[id number] Cisatracurium 200 mg In 94.058 85.968 Sodium Chloride 0.9% 180 ml @ 1 MCG/KG/MIN 8.442 mls/hr IV .[id number] [facility] Rx #:[id number] Lidocaine-D5w Pmx 2G/ 77.125 250Ml 2,000 mg In Dextrose/Water 1 250ml. bag @ 1 MG/MIN 7.5 mls/hr IV .Q24H [facility] Rx#: [id number] Norepinephrine 32 mg In 366.276 309.448 231.631 Sodium Chloride 0.9% 218 ml @ 0.44 MCG/KG/MIN 29. 019 mls/hr IV .Q8H37M [facility] Rx#:[id number] Sodium Chloride 0.9% 1, 1000 000 ml @ 999 mls/hr IV . Q1H1M ONE Rx#:[id number] Vasopressin 60 unit In 127.092 74.052 Sodium Chloride 0.9% 150 ml @ 0.03 UNITS/MIN 4.59 mls/hr IV .Q24H [facility] Rx#: [id number] propofoL 1,000 mg In 290.030 298.231 100 Empty Bag 1 bag @ 15 MCG/ KG/MIN 11.635 mls/hr IV . Q8H36M [facility] Rx#:[id number] Hemodialysis 400 Output: Urine 20 0 0 Hemodialysis 900 Other: Voiding Method Indwelling Catheter Indwelling Catheter Indwelling Catheter ABP, PAP, CO, CI - Last Documented Arterial Blood Pressure 77/53 - Labs CBC & Chem 7: 07/17/23 04:00 07/17/23 04:00 Labs: Abnormal Lab Results - Last 24 Hours (Table) 07/16/23 07/16/23 07/16/23 Range/Units 05:32 13:12 13:16 WBC (3.8-10.6) k/uL MCHC (31.0-37.0) g/dL RDW (11.5-15.5) % Neutrophils # (1.3-7.7) k/uL Monocytes # (0-1.0) k/uL PT 67.5 H (10.0-12.5) sec INR 6.9 H* (<1.2) APTT 45.1 H (22.0-30.0) sec Fibrinogen 121 L (200-500) mg/dL ABG pH (7.35-7.45) ABG pO2 (83-108) mmHg ABG HCO3 (21-25) mmol/L ABG Total CO2 (19-24) mmol/L ABG O2 Saturation (94-97) % Sodium (137-145) mmol/L Potassium (3.5-5.1) mmol/L Chloride (98-107) mmol/L Carbon Dioxide (22-30) mmol/L BUN (9-20) mg/dL Creatinine (0.66-1.25) mg/dL Glucose (74-99) mg/dL POC Glucose (mg/dL) 131 H (70-110) mg/dL Calcium (8.4-10.2) mg/dL Total Bilirubin (0.2-1.3) mg/dL AST (17-59) U/L ALT (4-49) U/L Alkaline Phosphatase (38-126) U/L Total Protein (6.3-8.2) g/dL Albumin (3.5-5.0) g/dL Procalcitonin 1.48 H (0.02-0.09) ng/mL 07/16/23 07/16/23 07/16/23 Range/Units 14:11 19:46 22:48 WBC (3.8-10.6) k/uL MCHC (31.0-37.0) g/dL RDW (11.5-15.5) % Neutrophils # (1.3-7.7) k/uL Monocytes # (0-1.0) k/uL PT (10.0-12.5) sec INR (<1.2) APTT (22.0-30.0) sec Fibrinogen (200-500) mg/dL ABG pH 7.15 L* (7.35-7.45) ABG pO2 82 L (83-108) mmHg ABG HCO3 16 L (21-25) mmol/L ABG Total CO2 17 L (19-24) mmol/L ABG O2 Saturation 93.0 L (94-97) % Sodium 136 L (137-145) mmol/L Potassium 5.8 H 5.5 H (3.5-5.1) mmol/L Chloride 97 L (98-107) mmol/L Carbon Dioxide 8 L* (22-30) mmol/L BUN 32 H (9-20) mg/dL Creatinine 2.94 H (0.66-1.25) mg/dL Glucose 113 H (74-99) mg/dL POC Glucose (mg/dL) (70-110) mg/dL Calcium 6.5 L (8.4-10.2) mg/dL Total Bilirubin (0.2-1.3) mg/dL AST (17-59) U/L ALT (4-49) U/L Alkaline Phosphatase (38-126) U/L Total Protein (6.3-8.2) g/dL Albumin (3.5-5.0) g/dL Procalcitonin (0.02-0.09) ng/mL 07/17/23 07/17/23 07/17/23 Range/Units 04:00 04:00 04:00 WBC 23.7 H (3.8-10.6) k/uL MCHC 30.2 L (31.0-37.0) g/dL RDW 19.2 H (11.5-15.5) % Neutrophils # 19.9 H (1.3-7.7) k/uL Monocytes # 1.1 H (0-1.0) k/uL PT (10.0-12.5) sec INR (<1.2) APTT 49.1 H (22.0-30.0) sec Fibrinogen 121 L (200-500) mg/dL ABG pH (7.35-7.45) ABG pO2 (83-108) mmHg ABG HCO3 (21-25) mmol/L ABG Total CO2 (19-24) mmol/L ABG O2 Saturation (94-97) % Sodium (137-145) mmol/L Potassium 5.5 H (3.5-5.1) mmol/L Chloride 95 L (98-107) mmol/L Carbon Dioxide 7 L* (22-30) mmol/L BUN 33 H (9-20) mg/dL Creatinine 3.21 H (0.66-1.25) mg/dL Glucose 127 H (74-99) mg/dL POC Glucose (mg/dL) (70-110) mg/dL Calcium 6.5 L (8.4-10.2) mg/dL Total Bilirubin 5.1 H (0.2-1.3) mg/dL AST >72413 H (17-59) U/L ALT 4971 H (4-49) U/L Alkaline Phosphatase 324 H (38-126) U/L Total Protein 6.2 L (6.3-8.2) g/dL Albumin 2.5 L (3.5-5.0) g/dL Procalcitonin (0.02-0.09) ng/mL 07/17/23 07/17/23 07/17/23 Range/Units 04:00 05:49 05:54 WBC (3.8-10.6) k/uL MCHC (31.0-37.0) g/dL RDW (11.5-15.5) % Neutrophils # (1.3-7.7) k/uL Monocytes # (0-1.0) k/uL PT 74.3 H (10.0-12.5) sec INR 7.5 H* (<1.2) APTT (22.0-30.0) sec Fibrinogen (200-500) mg/dL ABG pH 7.10 L* (7.35-7.45) ABG pO2 82 L (83-108) mmHg ABG HCO3 13 L (21-25) mmol/L ABG Total CO2 15 L (19-24) mmol/L ABG O2 Saturation 92.0 L (94-97) % Sodium (137-145) mmol/L Potassium (3.5-5.1) mmol/L Chloride (98-107) mmol/L Carbon Dioxide (22-30) mmol/L BUN (9-20) mg/dL Creatinine (0.66-1.25) mg/dL Glucose (74-99) mg/dL POC Glucose (mg/dL) 26 L (70-110) mg/dL Calcium (8.4-10.2) mg/dL Total Bilirubin (0.2-1.3) mg/dL AST (17-59) U/L ALT (4-49) U/L Alkaline Phosphatase (38-126) U/L Total Protein (6.3-8.2) g/dL Albumin (3.5-5.0) g/dL Procalcitonin (0.02-0.09) ng/mL 07/17/23 07/17/23 Range/Units 06:07 06:09 WBC (3.8-10.6) k/uL MCHC (31.0-37.0) g/dL RDW (11.5-15.5) % Neutrophils # (1.3-7.7) k/uL Monocytes # (0-1.0) k/uL PT (10.0-12.5) sec INR (<1.2) APTT (22.0-30.0) sec Fibrinogen (200-500) mg/dL ABG pH (7.35-7.45) ABG pO2 (83-108) mmHg ABG HCO3 (21-25) mmol/L ABG Total CO2 (19-24) mmol/L ABG O2 Saturation (94-97) % Sodium (137-145) mmol/L Potassium (3.5-5.1) mmol/L Chloride (98-107) mmol/L Carbon Dioxide (22-30) mmol/L BUN (9-20) mg/dL Creatinine (0.66-1.25) mg/dL Glucose (74-99) mg/dL POC Glucose (mg/dL) 39 L 127 H (70-110) mg/dL Calcium (8.4-10.2) mg/dL Total Bilirubin (0.2-1.3) mg/dL AST (17-59) U/L ALT (4-49) U/L Alkaline Phosphatase (38-126) U/L Total Protein (6.3-8.2) g/dL Albumin (3.5-5.0) g/dL Procalcitonin (0.02-0.09) ng/mL Microbiology - Last 24 Hours (Table) 07/15/23 08:10 Gram Stain - Final Sputum Sputum Culture - Final 07/14/23 17:00 Blood Culture - Preliminary Blood 07/14/23 17:20 Blood Culture - Preliminary Blood 07/14/23 16:15 Gram Stain - Final Toe - Left Second Wound Culture - Final Escherichia coli Staphylococcus aureus Assessment and Plan Time with Patient: Greater than 30
--- NOTE | 2023-07-18 21:30 | P.DS ---
Providers Date of admission: 07/14/23 20:44 Attending physician: Priyank Ace Consults: 07/14/23 20:42 Consult Physician Urgent Consulting Provider: Garry Guerra Consult Reason/Comments: ulcerated left toe Do you want consulting provider notified?: Yes 07/15/23 01:15 Consult Physician Urgent Consulting Provider: Emily Jim Consult Reason/Comments: afib RVR Do you want consulting provider notified?: Yes, Notify in am 07/15/23 05:29 Consult Physician Urgent Consulting Provider: Benjie Salas Consult Reason/Comments: ICU management Do you want consulting provider notified?: Already Contacted 07/15/23 07:01 Consult Physician Routine Consulting Provider: Pamela Hernandez Consult Reason/Comments: Hyperkalemia Do you want consulting provider notified?: Yes, Notify in am 07/15/23 12:45 Consult Physician Routine Consulting Provider: Bhanu Orr Consult Reason/Comments: HD catheter Do you want consulting provider notified?: Yes 07/16/23 08:43 Consult Physician Routine Consulting Provider: Renée Carmichael Consult Reason/Comments: transaminitis, hyperbilirubinemia Do you want consulting provider notified?: Yes 07/17/23 07:34 Consult Physician Routine Consulting Provider: Mahin Billingsley Consult Reason/Comments: concern for DIC Do you want consulting provider notified?: Yes Primary care physician: [place] Hospital Course: Patient on 07/17/2023 at 12:22 preliminary cause of septic shock from diabetic foot ulcer This is a 57 year old male with history of diabetes mellitus, pulmonary embolism anticoagulated with Eliquis, hypertension, [place] syndrome, daily smoker. Comes in to the hospital with complaints of frequent falls, inability to ambulate and worsening wound of the left foot. Patient had altered mental status on admission states that he has not been eating or drinking well. He does report some shortness of breath lately and also having decreased urine output. He was brought in by EMS. On admission EKG shows atrial fibrillation with a rapid ventricular rate of [address] is [address] specific [address] or T wave changes noted. Chest x-ray in the ER shows no acute cardiopulmonary process. Patient does have some remote appearing right-sided rib fractures. Initial blood work reveals a white count of 10.8, sodium level of 140, potassium of 5.5, BUN of 41, creatinine of 0.91, significantly elevated lactic acid level at 6.8, elevated AST at 1284, ALT 572, proBNP level of 3680. Serum alcohol level was less than 10. Viral panel was negative for influenza COVID RSV. Abdominal pelvis CT completed reveals no definitive acute abdominal process there is cardiomegaly with trace pleural effusions abdominal ascites and anasarca correlate for volume overload. A [place] catheter is in place with a high density material bladder lumen. Patient was hypotensive on admission did receive 3 L of fluid bolus and requiring vasopressor support was placed on levophed and vasopressin. ABGs completed revealing a pH level 7.22, pCO2 32, pO2 244, HCO [address] was completed revealing a normal head brain CT. Patient was a rapid response early this monring due to respiratory decline with periods of apnea as well as a wide-complex tachycardia; patient subsequently was intubated by the [employer] and is now placed on the mechanical ventilator and sedated. He is evaluated in the intensive care unit. Stared on amiodarone infusion for the atrial fibrillation. Placed on antibiotics in the form of vancomycin and zosyn for the left toe wound with suspected sepsis and septic shock. Multiple consultations in place including nephrology, cardiology, pulmonary elementary supervisor, Infectious disease. Patient has not had any urine output and is being considered for emergent hemodialysis. 07/16/2023 Patient is evaluated in follow-up today in the intensive care unit. He continues on the mechanical ventilator with a FiO2 of 90%. Patient received a temporary hemodialysis catheter yesterday evening and underwent emergency hemodialysis at 2200. Patient remains on IV amiodarone at 16.67 MLS per hour. His heart rate is now controlled in the 80s and normal sinus rhythm. He continues on Eliquis twice a day. Patient was seen in consultation by ID local wound care applied to the second digit on his left foot. Preliminary wound cultures are showing gram-negative bacilli and presumptive Staph aureus. He continues on IV daptomycin and IV Zosyn. Blood cultures are negative so far. Chest x-ray reveals no evidence of pleural effusion focal consolidation or pneumothorax. Patient is now maxed out on Levophed and vasopressin support. He received fluid bolus. He has had 25 mL of urine output in the last 24 hours. Pressure remains marginal in the 70s systolic. He continues on IV Solu-Cortef. He is considered unstable for additional sessions of hemodialysis. Troponin level has been trended and elevated at 0.265, and 0.315. White blood cell count is 28.7, hemoglobin 14.7, platelet count of 196, PT 67.5, INR 6.9, PTT 45.1, fibrinogen level of 121. His sodium 138, potassium 5.8, BUN of 49, creatinine of 2.58, calcium of 7.4, magnesium of 2.0, total bilirubin of 5.0, AST of 14,793, ALT of 4050, alkaline phosphatase of 182. There is concern for DIC and patient's overall clinical condition is critical and we are waiting a decision from family whether they would like to pursue comfort care measures at this time they do not seem to want any other aggressive measures. bay's Mary Jo has been contacted 2 separate occasions today. She does live down in [place] and will not be able to come to the bedside. Current prognosis was discussed as well as patient's critical condition. His mother is now at the bedside and additional family members are coming in to see the patient. His CODE STATUS has been changed to a DO NOT RESUSCITATE. 07/17/2023 Patient is evaluated today in the intensive care unit family is at the bedside. Patient clinically has not improved. His liver enzymes remain elevated consistent with a liver failure due to sepsis. He is not making any urine. He remains intubated and sedated on the mechanical ventilator. His INR is 7.1 today we are awaiting family's decision whether they would like to make this patient comfort care or not. In the meanwhile we will consult hematology for further evaluation recommendations of the coagulopathy. Patient remains on IV antibiotics in the form of daptomycin and Zosyn. His wound culture has finalized showing E. coli and Staph aureus. He is off amiodarone drip and currently maintaining sinus rhythm. He is maxed out on Levophed and vasopressin support and his blood pressure is maintained in the 70s systolic without improvement. He is being followed by multiple consultations. His prognosis is critical. Review of systems Unable to complete a review of systems patient is currently intubated and sedated PHYSICAL EXAMINATION: GENERAL: Patient is sedated on the mechanical ventilator, not in any acute distress. Well developed, well nourished. HEENT: Pupils are round and equally reacting to light. EOMI. No scleral icterus. No conjunctival pallor. Normocephalic, atraumatic. No pharyngeal erythema. No thyromegaly. CARDIOVASCULAR: S1 and S2 present. No murmurs, rubs, or gallops. Irregularly irregular PULMONARY: Chest is clear to auscultation, no wheezing or crackles. Diminished ABDOMEN: Soft, nontender, nondistended, normoactive bowel sounds. No palpable organomegaly. MUSCULOSKELETAL: No joint swelling or deformity. EXTREMITIES: No cyanosis, clubbing, or pedal edema. Bilateral feet are bluish in color the left foot is cold both feet have a +1 pedal pulse found by Doppler NEUROLOGICAL: Unable to complete patient is currently intubated and sedated SKIN: No rashes. His left toe wound between the 1 and 2 toe is necrotic with purulent and sanguinous drainage. Assessment Acute hypoxemic respiratory failure secondary to severe sepsis Acute kidney injury due to ATN from sepsis and hypotension; patient remains anuric Hypotensive shock requiring levophed and vasopressin support both of which are currently maxed out. BP remains in the 70s systolic Coagulopathy with elevated DDimer and decreased fibrinogen level with concern for acute DIC Atrial fibrillation with rapid ventricular rate; transitioned to normal sinus rhythm maintains on IV amiodarone Altered mental status secondary to acute toxic and metabolic encephalopathy from Sepsis Left toe wound with cellulitis and sepsis, POA; likely a component of peripheral vascular disease with poorly controlled diabetes cultures are showing gram negative bacilli and presumptive staph aureus. Metabolic acidosis and lactic acidosis currently on sodium bicarbonate gtt Elevated LFTs with imaging not revealing any acute process, levels are worsening consistent with shock liver Hyperkalemia due to the [place] Troponin elevation likely at type 2 DE from severe sepsis Elevated D Dimer without evidence of pulmonary embolism Diabetes Mellitus type 2; insulin dependent Hx of pulmonary embolism on eliquis outpatient Hx of hypertension Alcohol use disorder Chronic and ongoing nicotine use GI prophylaxis DVT prophylaxis: Resumed on eliquis Full Code Plan Patient remains in the intensive care unit he is currently on the mechanical ventilator managed by elementary supervisor Patient remains sedated with propofol and nimbex Continue with vasopressin and levophed support which are maxed out, IV fluids infusing. BP has not improved patient is maintaining in the 70s systolic. Concern for component of vascular congestion; status post IV lasix x1 Cardiomyopathy with EF 20-25% with severe tricuspid regurgitation Rule out DIC; patient is on eliquis BID. Patient has been made DNR and family is waiting for additional family members to come to the bedside to discuss comfort care measures. Hematology consulted. Status psot emergent hemodialysis; patient is considered too unstable to undergo additional dialysis sessions Continue on the sodium bicarb gtt Continue on IV daptomycin and IV zosyn; left foot culture showing e.coli and staph aureus. Blood cultures have been taken and pending ID on consultation for the foot wound and management of sepsis Patient remains on [facility] alcohol withdrawal protocol Monitor lactic acid levels Repeat CBC and CMP in the AM Patients code status has been changed to a do not resuscitate. Family considering comfort care. Greater than 30 minutes has been spent on this complex patient and care planning with family. The impression and plan of care has been dictated by Karon Boone, Nurse Practitioner as directed. Dr. Wil MD I have performed a history and physical examination and medical decision making of this patient, discussed the same with the dictator, and agree with the dictators assessment and plan as written, documented as a scribe. Based on total visit time, I have performed more than 50% of this visit. Plan - Discharge Summary New Discharge Prescriptions: No Action metFORMIN HCL [Glucophage] 1,000 mg PO BID Lisinopril-Hctz 20-25 mg [Zestoretic 20-25] 1 tab PO DAILY Apixaban [Eliquis] 5 mg PO BID Insulin Glargine,Hum.rec.anlog [Lantus Solostar Pen] 20 - 25 units SQ DAILY Metoprolol Succinate (ER) [Toprol XL] 50 mg PO HS #30 tab Insulin Regular, Human [NovoLIN R Flexpen] 4 - 12 units SQ ACHS PRN PRN Reason: HIGH BLOOD SUGAR Discharge Medication List Lisinopril-Hctz 20-25 mg [Zestoretic 20-25] 1 tab PO DAILY 10/21/22 [History] metFORMIN HCL [Glucophage] 1,000 mg PO BID 10/21/22 [History] Apixaban [Eliquis] 5 mg PO BID 01/23/23 [History] Insulin Glargine,Hum.rec.anlog [Lantus Solostar Pen] 20 - 25 units SQ DAILY 01/23/23 [History] Insulin Regular, Human [NovoLIN R Flexpen] 4 - 12 units SQ ACHS PRN 01/23/23 [H istory] Metoprolol Succinate (ER) [Toprol XL] 50 mg PO HS #30 tab 01/29/23 [Rx] Follow up Appointment(s)/Referral(s): Tran Miller [Primary Care Provider] - 1-2 days Discharge Disposition: - Preliminary Cause of Preliminary Cause of : septic shock from diabetic foot ulcer
== END 2023-07-17 15:58 | disposition expired | DRG 720 ==
LOC: EC 15:13 → 3SCARD 20:44 → 2SICU 07-15 01:31
PROVIDERS: ADMIT Hospitalist; ATTEND Hospitalist
PROC: 0BH17EZ Insertion of Endotracheal Airway into Trachea, Via Natural or Artificial Opening (ICD-10-PCS; principal; 2023-07-15)
PROC: 5A1945Z Respiratory Ventilation, 24-96 Consecutive Hours (ICD-10-PCS; principal; 2023-07-15)
PROC: 03HY32Z Insertion of Monitoring Device into Upper Artery, Percutaneous Approach (ICD-10-PCS; 2023-07-15)
PROC: 4A133B1 Monitoring of Arterial Pressure, Peripheral, Percutaneous Approach (ICD-10-PCS; 2023-07-15)
PROC: 4A133J1 Monitoring of Arterial Pulse, Peripheral, Percutaneous Approach (ICD-10-PCS; 2023-07-15)
PROC: 02HV33Z Insertion of Infusion Device into Superior Vena Cava, Percutaneous Approach (ICD-10-PCS; 2023-07-15)
PROC: B5181ZA Fluoroscopy of Superior Vena Cava using Low Osmolar Contrast, Guidance (ICD-10-PCS; 2023-07-15)
PROC: B548ZZA Ultrasonography of Superior Vena Cava, Guidance (ICD-10-PCS; 2023-07-15)
PROC: 3E033XZ Introduction of Vasopressor into Peripheral Vein, Percutaneous Approach (ICD-10-PCS; 2023-07-15)
PROC: 06HM33Z Insertion of Infusion Device into Right Femoral Vein, Percutaneous Approach (ICD-10-PCS; 2023-07-15)
DX: A41.9 Sepsis, unspecified organism (principal); I48.91 Unspecified atrial fibrillation; F10.20 Alcohol dependence, uncomplicated; I42.9 Cardiomyopathy, unspecified; I48.0 Paroxysmal atrial fibrillation; J96.01 Acute respiratory failure with hypoxia; N17.0 Acute kidney failure with tubular necrosis; R65.20 Severe sepsis without septic shock; I21.A1 Myocardial infarction type 2; E11.621 Type 2 diabetes mellitus with foot ulcer; G92.8 Other toxic encephalopathy; G93.41 Metabolic encephalopathy; I10 Essential (primary) hypertension; Z51.5 Encounter for palliative care; E11.51 Type 2 diabetes mellitus with diabetic peripheral angiopathy without gangrene; L03.032 Cellulitis of left toe; E11.628 Type 2 diabetes mellitus with other skin complications; L03.116 Cellulitis of left lower limb; K72.00 Acute and subacute hepatic failure without coma; Z99.2 Dependence on renal dialysis; Z66 Do not resuscitate; D68.9 Coagulation defect, unspecified; E66.9 Obesity, unspecified; I08.1 Rheumatic disorders of both mitral and tricuspid valves; K70.40 Alcoholic hepatic failure without coma; Z68.37 Body mass index [BMI] 37.0-37.9, adult; D65 Disseminated intravascular coagulation [defibrination syndrome]; E87.20 Acidosis, unspecified; N17.9 Acute kidney failure, unspecified; J69.0 Pneumonitis due to inhalation of food and vomit; R65.21 Severe sepsis with septic shock; E87.5 Hyperkalemia; E86.0 Dehydration; G61.0 Guillain-Barre syndrome; Z79.01 Long term (current) use of anticoagulants; L97.509 Non-pressure chronic ulcer of other part of unspecified foot with unspecified severity; R29.6 Repeated falls; W19.XXXA Unspecified fall, initial encounter; Z79.4 Long term (current) use of insulin; Z79.84 Long term (current) use of oral hypoglycemic drugs; Z86.711 Personal history of pulmonary embolism; Z82.49 Family history of ischemic heart disease and other diseases of the circulatory system
CPT/HCPCS: 36415; 36600; 51798; 70450; 71045; 71046; 71275; 74177; 80048; 80053; 80074; 80320; 81001; 82140; 82805; 83605; 83735; 83880; 84132; 84145; 84484; 85025; 85027; 85379; 85384; 85610; 85730; 86140; 87040; 87070; 87075; 87077; 87186; 87205; 87636; 90935; 93005; 93306; 94002; 94003; 94640; 96361; 96365; 96366; 96367; 96368; 96375; 99291